=== PATIENT | female | born 1960 | race Caucasian/White ===

== ENCOUNTER 2019-03-24 10:29 | Outpatient (RCR) | payer OTHER, SELFPAY | END 2019-03-31 00:01 | LOC: SPT 10:29 | PROVIDERS: Family Provider Physician Assistant; Visit Provider Physician Assistant | DX: M54.5 Low back pain (principal); M25.562 Pain in left knee | CPT/HCPCS: 97161 ==

== ENCOUNTER 2019-07-31 10:48 | Outpatient (CLI) | payer OTHER, SELFPAY ==
--- NOTE | 2019-07-31 11:36 | MR_ITS ---
WS: [id number] MRI RIGHT KNEE NONCONTRAST TECHNIQUE: Axial PD, coronal PD fat sat, coronal PD, sagittal PD, and sagittal PD fat-sat images obta ined. CLINICAL INFORMATION: RT KNEE INTERNAL DERRANGEMENT COMPARISON: None. FINDINGS: Distal quadriceps and patella tendons are intact. Hypertrophic patella. Small suprapatellar effusion. Lobulated popliteal cyst measuring 2.0 x 1.2 x 4.5 cm. Diffuse laxity involving the ACL with edema i nvolving the proximal femoral origin suspicious for partial tear. Mild edema along the ACL tunnel. Po sterior cruciate ligament is intact. Normal lateral meniscus. Marked irregularity and blunting of the posterior horn medial meniscus with acute appearing tear extending to the articular surface. Suspicion for bucket-handle tear with menisc al fragment displaced into the intercondylar notch. Moderate to advanced chondromalacia patella. No significant subchondral edema. Normal medial and late ral patellar retinaculum. Medial and lateral collateral ligaments appear intact. Moderate chondromala johnnie involving the medial lateral joint compartments. Small osteochondral cystic change along the tibi al eminence and anterior medial femoral condyle. MR/MR knee RT wo con* [id number] IMPRESSION: 1. Diffuse laxity involving the ACL with partial tear involving the femoral AC L origin. Associated edema. 2. PCL appears intact. 3. Acute appearing suspected bucket-handle tear involving the posterior horn m edial meniscus extending to the articular surface. Suspected meniscal fragment extending into the intercondylar notch. 4. Small suprapatellar effusion. 5. Lobulated popliteal cyst as described above.
== END 2019-07-31 10:49 | disposition home or self-care (01) ==
PROVIDERS: Family Provider Physician Assistant; PCP Physician Assistant; Visit Provider Physician Assistant
DX: M23.8X1 Other internal derangements of right knee (principal); R60.9 Edema, unspecified; M25.461 Effusion, right knee; M71.21 Synovial cyst of popliteal space [Baker], right knee
CPT/HCPCS: 73721

== ENCOUNTER 2019-10-09 10:03 | Outpatient (CLI) | payer OTHER, SELFPAY ==
--- NOTE | 2019-10-09 10:09 | MM_ITS ---
WS: [id number] BILATERAL DIGITAL SCREENING MAMMOGRAPHY WITH CAD CLINICAL INFORMATION: SCREENING HISTORY: Screening mammogram. No current complaints. COMPARISON: TECHNIQUE: Bilateral CC and MLO views. FINDINGS: The breasts are composed of heterogeneous fibroglandular density tissue, which can limit the detectio n of small underlying mass lesions. No suspicious mass, asymmetry, calcifications, or architectural d istortion. No evidence of malignancy. Punctate calcification right breast. MM/[id number] IMPRESSION: BI-RADS: 2-Benign FOLLOW UP: 1 Year Follow-up Recommend return to annual screening mammography.
== END 2019-10-09 10:04 | disposition home or self-care (01) ==
LOC: RADSHAW 10:08
PROVIDERS: PCP Physician Assistant; Visit Provider Physician Assistant
DX: Z12.31 Encounter for screening mammogram for malignant neoplasm of breast (principal)
CPT/HCPCS: 77067

== ENCOUNTER → 2021-01-04 09:38 | Outpatient (BNVA) | payer OTHER, SELFPAY | PROVIDERS: PCP Physician Assistant; Visit Provider Specialist | DX: G40.309 Generalized idiopathic epilepsy and epileptic syndromes, not intractable, without status epilepticus (principal); G25.81 Restless legs syndrome; F17.200 Nicotine dependence, unspecified, uncomplicated | CPT/HCPCS: 99213; 99214 ==

== ENCOUNTER 2022-08-14 15:35 | Outpatient (CLI) | payer OTHER, SELFPAY ==
--- NOTE | 2022-08-14 15:45 | MM_ITS ---
WS: [id number] BILATERAL 3D TOMOSYNTHESIS DIGITAL SCREENING MAMMOGRAPHY WITH CAD CLINICAL INFORMATION: SCREENING HISTORY: Screening mammogram. No current complaints. COMPARISON: 2020 TECHNIQUE: Bilateral CC and MLO views. FINDINGS: The breasts are composed of heterogeneous fibroglandular density tissue, which can limit the detectio n of small underlying mass lesions. No suspicious mass, asymmetry, calcifications, or architectural d istortion. No evidence of malignancy. Incidental punctate and lucent centered calcifications. MM/[place] [id number] IMPRESSION: BI-RADS: 2-Benign FOLLOW UP: 1 Year Follow-up Recommend return to annual screening mammography.
== END 2022-08-14 15:36 | disposition home or self-care (01) ==
PROVIDERS: PCP Physician Assistant; Visit Provider Physician Assistant
DX: Z12.31 Encounter for screening mammogram for malignant neoplasm of breast (principal)
CPT/HCPCS: 77063; 77067

== ENCOUNTER → 2023-03-11 15:27 | Outpatient (BNVA) | payer OTHER, SELFPAY | PROVIDERS: PCP Physician Assistant; Visit Provider Specialist | DX: G40.309 Generalized idiopathic epilepsy and epileptic syndromes, not intractable, without status epilepticus (principal); R26.9 Unspecified abnormalities of gait and mobility | CPT/HCPCS: 36415; 80053; 80177; 84443; 85025 ==

== ENCOUNTER 2023-03-22 08:38 | Outpatient (CLI) | payer OTHER, SELFPAY ==
--- NOTE | 2023-03-22 08:45 | MR_ITS ---
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 COMPARISON: 06/02/2008 TECHNIQUE: Diffusion imaging, multiplanar T1, T2 and FLAIR imaging obtained. Diffusion imaging is normal. Bifrontal lobe atrophy and gliosis with hemosiderin is reidentified. Mil d increase in the amount of adjacent subdural fluid. These changes are stable since 2008 and may be r elated to prior trauma or surgery. Mild atrophy of the hippocampal formations. There is additional extensive, confluent increased T2 and FLAIR signal surrounding the ventricles and kirit. Linear tract through the RIGHT frontal lobe is probably from a CONTROL TECHNICIAN shunt that has been removed. Ventricles and extra-axial spaces are prominent on the basis of atrophy. Mild ventriculomegaly is sta ble. No inferior displacement of cerebellar tonsils. The sella turcica and pituitary gland are unremarkabl e. Dural venous sinuses and [place] of [place] demonstrate no abnormality on this unenhanced studies. Paranasal sinuses: Small air-fluid levels in the maxillary sinuses, LEFT greater than RIGHT. Mastoid air cells: Normal. Calvarium and scalp: Intact. IMPRESSION: 1. Normal diffusion imaging. No acute hemorrhage or infarct. 2. Stable bifrontal gliosis and encephalomalacia with hemosiderin. May be from prior trauma or surge ry. Similar to the study from 2008. 3. Ventriculomegaly is stable. 4. Advanced T2 and FLAIR signal hyperintensity surrounding the ventricles has progressed significant ly since 06/02/2008. Additional ischemic changes in the kirit. 5. Bilateral hippocampal lobe atrophy.
--- NOTE | 2023-03-22 09:30 | MR_ITS ---
WS: [id number] MRI CERVICAL SPINE NONCONTRAST HISTORY: R26.9 - Unspecified abnormalities of gait and mobility COMPARISON: None available. Technique: Multiplanar, multisequence noncontrast imaging of the cervical spine. Straightening and reversal of the normal cervical lordosis centered at C5-6. Disc spaces are all narr owed and desiccated. No fractures. Signal within the cervical cord is normal. Visualized posterior fossa is unremarkable. Craniocervical junction, C1 and C2 relationship, odontoid process and soft tissues are normal. C2-C3: Mild RIGHT foramen stenosis due to osteophyte. C3-C4: Mild annular disc bulging and RIGHT foraminal osteophyte. Very mild RIGHT foraminal stenosis. C4-C5: Mild annular disc bulging and osteophytic ridging. Mild facet arthritis. Mild bilateral forami nal stenosis. C5-C6: Diffuse annular disc bulging and osteophytic ridging. Disc osteophyte complexes in the foramin a. Mild central and moderate bilateral foraminal stenosis. There is a very small central disc protrus ion also. C6-C7: Diffuse annular disc bulging with osteophytic ridging and facet arthritis. Moderate central wi th moderate to severe bilateral foraminal stenosis due to disc osteophyte complexes. C7-T1: Normal. Air-fluid level LEFT maxillary sinus. IMPRESSION: 1. Advanced degenerative disc disease throughout the cervical spine. 2. C5-6: Mild central and moderate bilateral foraminal stenosis with a tiny central disc protrusion. Stenosis due to disc osteophyte disease. 3. C6-7: Moderate central with moderate to severe bilateral foraminal stenosis due to disc osteophyte disease. 4. C2-3 mild RIGHT foramen stenosis, C3-4 and C4-5 mild bilateral foraminal stenosis.
== END 2023-03-22 08:39 | disposition home or self-care (01) ==
LOC: RAD 08:38
PROVIDERS: PCP Physician Assistant; Visit Provider Specialist
DX: G40.309 Generalized idiopathic epilepsy and epileptic syndromes, not intractable, without status epilepticus (principal); R26.9 Unspecified abnormalities of gait and mobility; G31.89 Other specified degenerative diseases of nervous system; M25.78 Osteophyte, vertebrae; M48.02 Spinal stenosis, cervical region; M50.33 Other cervical disc degeneration, cervicothoracic region
CPT/HCPCS: 70551; 72141

== ENCOUNTER 2023-05-15 11:36 | Outpatient (CLI) | payer OTHER, SELFPAY ==
--- NOTE | 2023-05-15 11:41 | MR_ITS ---
WS: [id number] MRI LUMBAR SPINE NONCONTRAST TECHNIQUE: Sagittal T1, T2 and STIR imaging. Axial T1 and T2 imaging. CLINICAL INFORMATION: Hyperreflexia COMPARISON: None. FINDINGS: Mild lumbar curve. No acute compression. Multilevel degenerative disc disease throughout the lumbar s pine with disc space narrowing worse at L2-L5. Degenerative endplate type changes worse at L2-3. Dege nerative disc disease has progressed compared to 2016. L1-L2: Mild annular bulging. Moderate facet arthropathy. Narrowing of the LEFT subarticular recess. F oramen are patent. L2-L3: Mild disc bulge with osteophytic ridging. Impingement LEFT subarticular recess and traversing LEFT L3 nerve root. Moderate facet arthropathy. Mild to moderate LEFT and no significant RIGHT forami nal narrowing. L3-L4: Disc osteophyte complex with endplate ridging. Impingement RIGHT subarticular recess and trave rsing RIGHT L4 nerve root. Moderate facet arthropathy. Mild LEFT greater than RIGHT foraminal narrowi ng. L4-L5: Mild disc bulge with impingement RIGHT subarticular recess and traversing RIGHT L5 nerve root. Moderate facet arthropathy. Mild to moderate RIGHT and no significant LEFT foraminal narrowing. L5-S1: Mild annular bulging. Slight effacement of the ventral thecal sac. Slight contact of the trave rsing S1 nerve roots. Mild facet arthropathy. Moderate RIGHT foraminal narrowing. Visualized pelvic bony structures: Normal. Paravertebral soft tissues: Normal. Cholelithiasis. Partially visualized simple LEFT renal cyst. IMPRESSION: 1. Mild lumbar curve. No acute compression. Multilevel degenerative disc disease is progressed lubna red to 2016. 2. Cholelithiasis. This can be further evaluated with ultrasound gallbladder. 3. Disc bulging L3-4 slightly impinges the traversing L4 nerve roots bilaterally. 4. Disc bulging L4-5 impinges the traversing RIGHT L5 nerve root in the RIGHT subarticular recess wi th mild to moderate RIGHT L4-5 foraminal narrowing. 5. Moderate RIGHT L5-S1 bony foraminal narrowing. 6. Disc bulging L2-3 impinges the LEFT subarticular recess and traversing LEFT L3 nerve root. Mild t o moderate LEFT L2-3 foraminal narrowing. 7. Mild LEFT greater than RIGHT L3-4 foraminal narrowing. 8. Moderate facet arthropathy L3-L4 and L4-L5.
== END 2023-05-15 11:37 | disposition home or self-care (01) ==
LOC: RAD 11:36
PROVIDERS: PCP Physician Assistant; Visit Provider Physician Assistant
DX: R29.2 Abnormal reflex (principal); M51.36 Other intervertebral disc degeneration, lumbar region; M48.07 Spinal stenosis, lumbosacral region; M47.816 Spondylosis without myelopathy or radiculopathy, lumbar region; K80.20 Calculus of gallbladder without cholecystitis without obstruction
CPT/HCPCS: 72148

== ENCOUNTER 2023-07-15 17:56 | Emergency (ER) | payer SELFPAY ==
--- NOTE | 2023-07-15 17:58 | ECG_ITS ---
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 Measurements Intervals [place] Rate: 71 P: 83 [place]: 157 QRS: 19 QRSD: 80 T: 66 QT: 399 QTc: 434 Interpretive Statements SINUS RHYTHM WITH OCCASIONAL VENTRICULAR PREMATURE COMPLEXES POSSIBLE INFERIOR MYOCARDIAL INFARCTION , OF INDETERMINATE AGE [30 ms Q WAVE IN II/aVF] No previous ECG available for comparison Electronically Signed On 07-15-2023 19:50:27 CDT by Konstantin Moulton M.D. [id number]
--- NOTE | 2023-07-15 17:58 | XRR_ITS ---
PROCEDURE INFORMATION: Exam: XR Chest Exam date and time: 07/15/2023 6:02 PM Age: 62 years old Clinical indication: Other: Weakness TECHNIQUE: Imaging protocol: Radiologic exam of the chest. Views: 1 view. COMPARISON: MR cervical spin wo con* [id number] 03/22/2023 9:32 AM FINDINGS: Lungs: No focal consolidation. Pleural spaces: No evidence of pneumothorax. No evidence of pleural effusion. Heart/Mediastinum: Cardiomediastinal silhouette is within normal limits. Bones/joints: No evidence of acute osseous abnormality. XR/XR chest 1V portable [id number] IMPRESSION: 1. No acute cardiopulmonary abnormality.
[2023-07-15 18:07] VITALS: BP 144/78; PULSE 78; RESP 16; TEMP 36.6; O2SAT 94
[2023-07-15 20:46] LABS: Basophils # 0.1 10^3/uL (0.0-0.1); Basophils % 0.7 %; Eosinophils # 0.2 10^3/uL (0.0-0.8); Eosinophils % 1.6 %; Hematocrit 47.8 % (36-47); Lymphocytes # 3.5 10^3/uL (0.8-4.8); Lymphocytes % 33.8 %; Mean Corpuscular HGB Conc 34.7 g/dL (30-55); Mean Corpuscular Hemoglobin 33.7 pg (27-33); Mean Corpuscular Volume 97.2 fl (85-98); Mean Platelet Volume 10.2 fL (7.4-10.4); Neutrophils # 5.54 10^3/uL (1.8-7.7); Neutrophils % 53.6 %; Nucleated Red Blood Cells % 0 %; Platelet Count 218 10^3/cmm (157-399); Red Blood Count 4.92 10^6/uL (3.85-5.65); Red Cell Distribution Width 13.6 % (12.1-15.1); White Blood Count 10.32 10^3/uL (3.29-11.43)
[2023-07-15 20:59] LABS: INR 0.93 (0.8-1.2)
[2023-07-15] MEDS: dexamethasone 10 mg/mL INJ 8 MG IM (21:03)
[2023-07-15] MEDS: orphenadrine 30 mg/mL Inj 2 mL 60 MG IM (21:03)
[2023-07-15] MEDS: HYDROcodone-acetaminophen 7.5-325 mg Tablet 1 TAB PO (21:03)
[2023-07-15 21:08] LABS: Alanine Aminotransferase 11 U/L (0-33); Albumin Level 4.5 g/dL (3.5-5.2); Alkaline Phosphatase 70 U/L (35-105); Anion Gap 12.5 (5-19); Aspartate Amino Transferase 22 U/L (0-32); Blood Urea Nitrogen 17 mg/dL (8-23); Calcium 10.4 mg/dL (8.5-10.5); Carbon Dioxide 32 mmol/L (22-29); Chloride 97 mmol/L (98-107); Creatinine Clr Calc Pharmacy 65.2418; Globulin 3.3 g/dL (1.3-4.6); Glomerular Filtration Rate 100.6 mL/min (90-130); Glucose 88 mg/dL (65-115); Osmolality Calculated 287 mOsm/kg (285-295); Potassium 3.5 mmol/L (3.5-5.1); Sodium 138 mmol/L (136-145); Total Bilirubin 0.2 mg/dL (0.15-1.2); Total Protein 7.8 g/dL (6.6-8.7)
[2023-07-15 21:11] VITALS: BP 173/98; PULSE 61; RESP 16; O2SAT 95
--- NOTE | 2023-07-15 21:55 | W.ED.BACK ---
Documented by User: AMY Moore 07/16/23 00:19 HPI - Back Pain/Injury General: Chief Complaint: Back Pain/Injury Stated Complaint: weakness Time Seen by Provider: 07/15/23 20:32 Source: patient Mode of arrival: ambulatory Limitations: no limitations History of Present Illness: Patient is a 62-year-old female with history of multiple bulging disks in the lumbar back who presents to the emergency department complaining of worsening back pain. She notes that she is followed by pain clinic, however she is unable to wait to her next appointment due to the pain. She states that she was denied pain medication last time. Her last imaging of her back came in May where she had an MRI showing progressive worsening of bulging disks. She notes she has not had an appointment with spine surgeon recently, however. She denies any bowel or bladder incontinence, saddle anesthesia, or any other concerning symptoms. However she does note some radiation of the pain down the right leg. She does note that it is much harder to do her activities of daily living, as her son has been bathing her. She notes that all of this is due to the pain, and she denies any other symptoms. MD elicited complaint: back pain Pertinent past history: prior back pain Timing: constant Similar Symptoms Previously: Yes Location: lumbar spine Radiation: right upper leg Exacerbating factors: movement Associated symptoms: Deny abdominal pain, chills, dysuria, fatigue, fever(s), nausea or vomiting Review of Systems General: Reports: 10 or more systems reviewed and unremarkable except in HPI and below Const: Denies: fever(s), chills or fatigue Eyes: Denies: change in vision ENMT: Denies: throat pain, ear or mastoid pain or nasal discharge Card: Denies: chest pain, palpitations, swelling of feet/ankles or lightheadedness Resp: Denies: dyspnea, productive cough or wheezing GI: Denies: abdominal pain, nausea, vomiting, diarrhea or constipation : Denies: flank pain, difficulty voiding, dysuria or urinary frequency Musc: Reports: back pain; Denies: neck pain or joint pain Skin/Breast: Denies: rash Neuro: Denies: headache(s), numbness in extremities or weakness in extremities PFS ED PFSH: Medical History Dystonia Depression Arthritis Surgical History History of knee surgery Family History Other Arthritis Social History Smoking and tobacco/nicotine status: former use of tobacco/nicotine Physical Exam Const: COMMON NORMALS: no acute distress, patient oriented x3 and no limitations GENERAL APPEARANCE: cooperative, comfortable and well developed ORIENTATION/CONSCIOUSNESS: Yes awake, Yes oriented to person, Yes oriented to place and Yes oriented to time HENMT: COMMON NORMALS: normocephalic, atraumatic and hearing grossly normal bilaterally HEAD & SCALP: normocephalic and atraumatic Eye: COMMON NORMALS: Equal, round and reactive pupils present, EOMs intact bilaterally and conjunctivae normal CONJUNCTIVA: Yes conjunctivae normal PUPIL: Yes Equal, round and reactive pupils present Neck/C-Spine: COMMON NORMALS: full ROM, supple and no JVD Resp: COMMON NORMALS: normal respiratory effort, No retractions, No use of accessory muscles and clear to auscultation bilaterally AUSCULTATION: clear to auscultation bilaterally Cardio: COMMON NORMALS: no JVD, regular rate, regular rhythm, No clicks present (Cardio), No murmurs present (Cardio) and No rub (Cardio) RATE: regular rate RHYTHM: regular rhythm Back/Pelvis: THORACIC SPINE/UPPER BACK: Yes normal to inspection LUMBAR SPINE/LOWER BACK: Yes normal to inspection, Yes ROM limited, Yes pain with ROM, Yes lumbar spinal tenderness and Yes straight leg raise positive right Straight leg raise positive details right: at 30 degrees Extremity: COMMON NORMALS: normal to inspection, full ROM and capillary refill normal Neuro: COMMON NORMALS: patient oriented x3, moves all extremities, no focal motor deficits, no sensory deficits noted and deep tendon reflexes 2+ bilaterally SENSORIUM/ORIENTATION: Yes oriented to person, Yes oriented to place and Yes oriented to time Psych: COMMON NORMALS: mental status grossly normal and Normal thought process present THOUGHT PROCESS: Normal thought process present Skin: COMMON NORMALS: no rashes or lesions noted GENERAL SKIN EXAM: no rashes or lesions noted Course Vital Signs: Vital signs: Vital Signs Temperature 97.8 F 07/15/23 18:07 Pulse Rate 63 04/15/24 23:30 Respiratory Rate 16 07/15/23 23:30 Blood Pressure 181/101 07/15/23 23:30 Pulse Oximetry 95 07/15/23 23:30 MDM - Back Pain/Injury Medical Decision Making This patient was seen and evaluated due to acute on chronic low back pain. She has noted that her activities of daily living have been severely decreased due to her worsening back pain. She last had an MRI in May that showed multi lumbar disc degeneration with severe impingement. She follows up with Dr. Lai for pain management, and is due to see him next week. She has not seen a Ortho spine physician recently, stating that the last one she saw was in [place]. She did denied to me all red flag back symptoms such as bowel or bladder incontinence or saddle anesthesia. However, I did do a lumbar CT to assess the integrity of her low back in the emergency department setting. It still showed consistent findings of severe multilevel degeneration of the disc space in the lumbar region. I informed her that she needs to follow-up with Ortho, in which I made a referral. She did report improvement of her symptoms after I gave her a shot of Norflex, Decadron, and pain medication. Return precautions were given such as the red flag back symptoms, and patient agrees with discharge home. Labs 07/15/23 20:37 07/15/23 20:37 Radiology Impressions Chest X-Ray 07/15/23 17:58 IMPRESSION: 1. No acute cardiopulmonary abnormality. Lumbar Spine CT 07/15/23 21:56 IMPRESSION: 1. Severe multilevel spondylosis without evidence of acute fracture or subluxation of the lumbar spine. 2. Contacting/impingement of the exiting right L4 and L5 nerve roots. Laboratory Results WBC 10.32 10^3/uL (3.29-11.43) 07/15/23 20:37 RBC 4.92 10^6/uL (3.85-5.65) 07/15/23 20:37 Hgb 16.60 g/dL (11.27-16.99) 07/15/23 20:37 Hct 47.8 % (36-47) H 07/15/23 20:37 MCV 97.2 fl (85-98) 07/15/23 20:37 MCH 33.7 pg (27-33) H 07/15/23 20:37 MCHC 34.7 g/dL (30-55) 07/15/23 20:37 RDW 13.6 % (12.1-15.1) 07/15/23 20:37 Plt Count 218 10^3/cmm (157-399) 07/15/23 20:37 MPV 10.2 fL (7.4-10.4) 07/15/23 20:37 Neut % (Auto) 53.6 % 07/15/23 20:37 Lymph % (Auto) 33.8 % 07/15/23 20:37 Johnston % (Auto) 10.0 % 07/15/23 20:37 Eos % (Auto) 1.6 % 07/15/23 20:37 Baso % (Auto) 0.7 % 07/15/23 20:37 Neut # (Auto) 5.54 10^3/uL (1.8-7.7) 07/15/23 20:37 Lymph # (Auto) 3.5 10^3/uL (0.8-4.8) 07/15/23 20:37 Johnston # (Auto) 1.0 10^3/uL (0.2-0.9) H 07/15/23 20:37 Eos # (Auto) 0.2 10^3/uL (0.0-0.8) 07/15/23 20:37 Baso # (Auto) 0.1 10^3/uL (0.0-0.1) 07/15/23 20:37 Nucleated RBC % (auto) 0 % 07/15/23 20: Nucleated RBCs # 0.0 /100WBC 07/15/23 20:37 PT 12.80 SECONDS (12.1-14.9) 07/15/23 20:37 INR 0.93 (0.8-1.2) 07/15/23 20:37 Sodium 138 mmol/L (136-145) 07/15/23 20:37 Potassium 3.5 mmol/L (3.5-5.1) 07/15/23 20:37 Chloride 97 mmol/L (98-107) L 07/15/23 20:37 Carbon Dioxide 32 mmol/L (22-29) H 07/15/23 20:37 Anion Gap 12.5 (5-19) 07/15/23 20:37 BUN 17 mg/dL (8-23) 07/15/23 20:37 Creatinine 0.6 mg/dL (0.5-0.9) 07/15/23 20: GFR Calculation 100.6 mL/min (90-130) 07/15/23 20: Glucose 88 mg/dL (65-115) 07/15/23 20:37 Calculated Osmolality 287 mOsm/kg (285-295) 07/15/23 20: Calcium 10.4 mg/dL (8.5-10.5) 07/15/23 20: Total Bilirubin 0.2 mg/dL (0.15-1.2) 07/15/23 20: AST 22 U/L (0-32) 07/15/23: ALT 11 U/L (0-33) 07/15/23 20: Alkaline Phosphatase 70 U/L (35-105) 07/15/23 20: Total Protein 7.8 g/dL (6.6-8.7) 07/15/23 20: Albumin 4.5 g/dL (3.5-5.2) 07/15/23 20: Globulin 3.3 g/dL (1.3-4.6) 07/15/23 20:37 Urine Color Yellow (Yellow) 07/15/23 22:00 Urine Appearance Sl hazy (CLEAR) A 07/15/23 22:00 Urine pH 6 (5-7) 07/15/23 22:00 Ur Specific [place] 1.015 (1.005-1.030) 07/15/23 22:00 Urine Protein Neg (Negative) 07/15/23 22:00 Urine Glucose (UA) Norm (Normal) 07/15/23 22:00 Urine Ketones Negative (Negative) 07/15/23 22:00 Urine Blood Neg (Negative) 07/15/23 22:00 Urine Nitrate Negative (Negative) 07/15/23 22:00 Urine Bilirubin Neg (Negative) 07/15/23 22:00 Urine Urobilinogen Neg mg/dL (Negative) 07/15/23 22:00 Ur Leukocyte Esterase 2+ (Negative) H 07/15/23 22:00 Urine RBC 0-4 /hpf (0-2) H 07/15/23 22:00 Urine WBC 5-10 /hpf (0-5) H 07/15/23 22:00 Ur Squamous Epith Cells 10-15 /hpf (0-5) H 07/15/23 22:00 Amorphous Sediment Not Reportable 07/15/23 22:00 Urine Bacteria Trace /hpf (NONE) 07/15/23 22:00 Urine Mucus 3+ /hpf 07/15/23 22:00 All radiology interpretation(s) finalized by discharge Discharge Plan Discharge Patient Disposition: Home Clinical Impression: Degenerative lumbar spinal stenosis Condition: Stable Prescriptions: No Action ketoconazole 2 % cream 1 applic topical BID Qty: 60 1RF Rx Instructions: To feet x 4 weeks then prn [id number] 333-133-8.3 mg tablet PO celecoxib [Celebrex] 200 mg capsule 200 mg PO BID acyclovir 400 mg tablet 400 mg PO BID PRN penicillin V potassium 250 mg tablet 250 mg PO QID 10 Days Qty: 40 0RF levetiracetam 500 mg tablet extended release 24 hr 1,000 mg .ROUTE .COMPLEX Qty: 180 3RF Rx Instructions: take 2 tabs daily citalopram 40 mg tablet 40 mg PO DAILY Qty: 90 3RF pregabalin [Lyrica] 100 mg capsule 100 mg PO TID Qty: 300 3RF Discharge Orders: Discharge ED (Routine); Ordered 07/15/23 Ordered By: Jay Toussaint Referrals: Rosy Javier PA [Primary Care Provider] - Discharge Diet: Usual diet Discharge Activity: Increase activity as tolerated Patient Instructions: Lumbar Spinal Stenosis (ED) Activity Restrictions/Additional Instructions: Follow-up with orthopedic/spine surgery as discussed. Continue follow-up with pain management. Return with any new or concerning symptoms you may have. Coding Level of Care Code ED [employer] for [employer] Documented by User: Gautam Marie DO 07/17/23 05:56 HPI - Back Pain/Injury General: Chief Complaint: Back Pain/Injury Stated Complaint: weakness Time Seen by Provider: 07/15/23 20:32 [facility] ED PFS: Medical History Dystonia Depression Arthritis Surgical History History of knee surgery Family History Other Arthritis Social History Smoking and tobacco/nicotine status: former use of tobacco/nicotine Course Vital Signs: Vital signs: Vital Signs Temperature 97.8 F 07/15/23 18:07 Pulse Rate 63 07/15/23 23:30 Respiratory Rate 16 07/15/23 23:30 Blood Pressure 181/101 07/15/23 23:30 Pulse Oximetry 95 07/15/23 23:30 MDM - Back Pain/Injury Medical Decision Making This patient was seen and evaluated due to acute on chronic low back pain. She has noted that her activities of daily living have been severely decreased due to her worsening back pain. She last had an MRI in May that showed multi lumbar disc degeneration with severe impingement. She follows up with Dr. Lai for pain management, and is due to see him next week. She has not seen a Ortho spine physician recently, stating that the last one she saw was in [place]. She did denied to me all red flag back symptoms such as bowel or bladder incontinence or saddle anesthesia. However, I did do a lumbar CT to assess the integrity of her low back in the emergency department setting. It still showed consistent findings of severe multilevel degeneration of the disc space in the lumbar region. I informed her that she needs to follow-up with Ortho, in which I made a referral. She did report improvement of her symptoms after I gave her a shot of Norflex, Decadron, and pain medication. Return precautions were given such as the red flag back symptoms, and patient agrees with discharge home. Chart reviewed Labs 07/15/23 20:37 07/15/23 20:37 Radiology Impressions Chest X-Ray 07/15/23 17:58 IMPRESSION: 1. No acute cardiopulmonary abnormality. Lumbar Spine CT 07/15/23 21:56 IMPRESSION: 1. Severe multilevel spondylosis without evidence of acute fracture or subluxation of the lumbar spine. 2. Contacting/impingement of the exiting right L4 and L5 nerve roots. Laboratory Results WBC 10.32 10^3/uL (3.29-11.43) 07/15/23 20: RBC 4.92 10^6/uL (3.85-5.65) 07/15/23 20:37 Hgb 16.60 g/dL (11.27-16.99) 07/15/23 20: Hct 47.8 % (36-47) H 07/15/23 20:37 MCV 97.2 fl (85-98) 07/15/23 20:37 MCH 33.7 pg (27-33) H 07/15/23 20: MCHC 34.7 g/dL (30-55) 07/15/23 20: RDW 13.6 % (12.1-15.1) 07/15/23 20: Plt Count 218 10^3/cmm (157-399) 07/15/23 20: MPV 10.2 fL (7.4-10.4) 07/15/23 20:37 Neut % (Auto) 53.6 % 07/15/23 20:37 Lymph % (Auto) 33.8 % 07/15/23 20:37 Johnston % (Auto) 10.0 % 07/15/23 20: Eos % (Auto) 1.6 % 07/15/23 20: Baso % (Auto) 0.7 % 07/15/23: Neut # (Auto) 5.54 10^3/uL (1.8-7.7) 07/15/23: Lymph # (Auto) 3.5 10^3/uL (0.8-4.8) 07/15/23 20:37 Johnston # (Auto) 1.0 10^3/uL (0.2-0.9) H 07/15/23 20:37 Eos # (Auto) 0.2 10^3/uL (0.0-0.8) 07/15/23 20: Baso # (Auto) 0.1 10^3/uL (0.0-0.1) 07/15/23 20: Nucleated RBC % (auto) 0 % 04/15/24 20:37 Nucleated RBCs # 0.0 /100WBC 07/15/23 20:37 PT 12.80 SECONDS (12.1-14.9) 07/15/23 20:37 INR 0.93 (0.8-1.2) 07/15/23 20:37 Sodium 138 mmol/L (136-145) 07/15/23 20:37 Potassium 3.5 mmol/L (3.5-5.1) 07/15/23 20:37 Chloride 97 mmol/L (98-107) L 07/15/23 20:37 Carbon Dioxide 32 mmol/L (22-29) H 07/15/23 20:37 Anion Gap 12.5 (5-19) 07/15/23 20:37 BUN 17 mg/dL (8-23) 07/15/23 20:37 Creatinine 0.6 mg/dL (0.5-0.9) 07/15/23 20:37 GFR Calculation 100.6 mL/min (90-130) 07/15/23 20:37 Glucose 88 mg/dL (65-115) 07/15/23 20:37 Calculated Osmolality 287 mOsm/kg (285-295) 07/15/23 20:37 Calcium 10.4 mg/dL (8.5-10.5) 07/15/23 20:37 Total Bilirubin 0.2 mg/dL (0.15-1.2) 07/15/23 20:37 AST 22 U/L (0-32) 07/15/23 20:37 ALT 11 U/L (0-33) 07/15/23 20:37 Alkaline Phosphatase 70 U/L (35-105) 07/15/23 20:37 Total Protein 7.8 g/dL (6.6-8.7) 07/15/23 20:37 Albumin 4.5 g/dL (3.5-5.2) 07/15/23 20:37 Globulin 3.3 g/dL (1.3-4.6) 07/15/23 20:37 Urine Color Yellow (Yellow) 07/15/23 22:00 Urine Appearance Sl hazy (CLEAR) A 07/15/23 22:00 Urine pH 6 (5-7) 07/15/23 22:00 Ur Specific [place] 1.015 (1.005-1.030) 07/15/23 22:00 Urine Protein Neg (Negative) 07/15/23 22:00 Urine Glucose (UA) Norm (Normal) 07/15/23 22:00 Urine Ketones Negative (Negative) 07/15/23 22:00 Urine Blood Neg (Negative) 07/15/23 22:00 Urine Nitrate Negative (Negative) 07/15/23 22:00 Urine Bilirubin Neg (Negative) 07/15/23 22:00 Urine Urobilinogen Neg mg/dL (Negative) 07/15/23 22:00 Ur Leukocyte Esterase 2+ (Negative) H 07/15/23 22:00 Urine RBC 0-4 /hpf (0-2) H 07/15/23 22:00 Urine WBC 5-10 /hpf (0-5) H 07/15/23 22:00 Ur Squamous Epith Cells 10-15 /hpf (0-5) H 07/15/23 22:00 Amorphous Sediment Not Reportable 07/15/23 22:00 Urine Bacteria Trace /hpf (NONE) 07/15/23 22:00 Urine Mucus 3+ /hpf 07/15/23 22:00 Discharge Plan Discharge Patient Disposition: Home Clinical Impression: Degenerative lumbar spinal stenosis Condition: Stable Prescriptions: No Action ketoconazole 2 % cream 1 applic topical BID Qty: 60 1RF Rx Instructions: To feet x 4 weeks then prn [id number]-[id number] 333-133-8.3 mg tablet PO celecoxib [Celebrex] 200 mg capsule 200 mg PO BID acyclovir 400 mg tablet 400 mg PO BID PRN penicillin V potassium 250 mg tablet 250 mg PO QID 10 Days Qty: 40 0RF levetiracetam 500 mg tablet extended release 24 hr 1,000 mg .ROUTE .COMPLEX Qty: 180 3RF Rx Instructions: take 2 tabs daily citalopram 40 mg tablet 40 mg PO DAILY Qty: 90 3RF pregabalin [Lyrica] 100 mg capsule 100 mg PO TID Qty: 300 3RF Discharge Orders: Discharge ED (Routine); Ordered 07/15/23 Ordered By: Jay Toussaint Referrals: Rosy Javier PA [Primary Care Provider] - Discharge Diet: Usual diet Discharge Activity: Increase activity as tolerated Patient Instructions: Lumbar Spinal Stenosis (ED) Activity Restrictions/Additional Instructions: Follow-up with orthopedic/spine surgery as discussed. Continue follow-up with pain management. Return with any new or concerning symptoms you may have. Coding Level of Care Code ED [employer] for Юлия Staley
--- NOTE | 2023-07-15 21:56 | CTR_ITS ---
PROCEDURE INFORMATION: Exam: CT Lumbar Spine Without Contrast Exam date and time: 07/15/2023 10:06 PM Age: 62 years old Clinical indication: Low back pain; Additional info: Low back pain worsening TECHNIQUE: Imaging protocol: Computed tomography of the lumbar spine without contrast. Radiation optimization: All CT scans at this facility use at least one of these dose optimization techniques: automated exposure control; mA and/or kV adjustment per patient size (includes targeted exams where dose is matched to clinical indication); or iterative reconstruction. COMPARISON: MR lumbar spine wo con* [id number] 05/15/2023 12:08 PM RADIATION DOSE METRICS: Total DLP (mGy-cm): 261.8 FINDINGS: Bones/joints: No evidence of acute fracture or subluxation. Severe multilevel spondylosis of the lumbar spine with facet arthrosis, osteophytosis and endplate degeneration. There is 7 mm lateral translation of L3 on L4 and 3 mm lateral translation of L4 on L5. L1-L2: No central or foraminal stenosis. L2-L3: Circumferential disc bulge with severe disc height loss and severe endplate degeneration along with moderate facet arthrosis resulting in moderate left-sided foraminal stenosis. Borderline narrowing of the thecal sac to 9 mm in AP diameter. L3-L4: Circumferential disc osteophyte complex with severe disc height loss and severe endplate degeneration along with moderate facet arthrosis resulting in moderate left-sided foraminal stenosis with contacting of the exiting left L3 nerve root.rrrrr Borderline narrowing of the thecal sac to 9 mm in AP diameter. L4-L5: Circumferential disc osteophyte complex with severe disc height loss and severe endplate degeneration along with moderate-severe facet arthrosis resulting in moderate-severe right-sided foraminal stenosis with contacting/impingement of the exiting right L4 nerve root. Mild-moderate left-sided foraminal stenosis with contacting of the undersurface of the exiting left L4 nerve root. No central stenosis. L5-S1: Circumferential disc osteophyte complex with severe disc height loss and severe endplate degeneration along with severe facet arthrosis. There is severe right-sided foraminal stenosis with contacting/impingement of the exiting right L5 nerve root. Moderate-severe left-sided foraminal stenosis with contacting of the exiting left L5 nerve root. No central stenosis. Soft tissues: The paraspinal soft tissues are grossly unremarkable. No evidence of acute abnormality in the visualized retroperitoneal soft tissues. No evidence of fluid collection hematoma. CT/CT lumbar spine wo con* [id number] IMPRESSION: 1. Severe multilevel spondylosis without evidence of acute fracture or subluxation of the lumbar spine. 2. Contacting/impingement of the exiting right L4 and L5 nerve roots.
[2023-07-15 22:00] VITALS: BP 173/93; PULSE 65; RESP 18; O2SAT 91
[2023-07-15 22:24] LABS: Add Urine Culture? No; Add Urine Microscopic? YES; Bacteria Urine TRACE /hpf; Bilirubin Urine Neg (Negative); Blood Urine Neg (Negative); Glucose Urine UA Norm (Normal); Ketones Urine Negative (Negative); Leukocyte Esterase Urine 2+ (Negative); Mucus Urine 3+ /hpf; Nitrate Urine Negative (Negative); Protein Urine Neg (Negative); RBC Urine 0-4 /hpf (0-2); Specific Gravity, Urine 1.015 (1.005-1.030); Urine Appearance SL Hazy (CLEAR); Urine Color Yellow (Yellow); Urobilinogen Urine Neg (Negative); pH Urine 6 (5-7)
[2023-07-15 22:30] VITALS: BP 159/92; PULSE 61; RESP 16; O2SAT 92
[2023-07-15 23:30] VITALS: BP 181/101; PULSE 63; RESP 16; O2SAT 95
--- NOTE | 2023-07-16 07:56 | DCPLANNER ---
Message sent to Ortho for follow up
== END 2023-07-15 23:31 | disposition home or self-care (01) ==
PROVIDERS: Emergency Medicine; Emergency Provider Physician Assistant; PCP Physician Assistant
DX: M48.061 Spinal stenosis, lumbar region without neurogenic claudication (principal); Z87.891 Personal history of nicotine dependence
CPT/HCPCS: 36415; 71045; 72131; 80053; 81001; 85025; 85610; 93005; 96372; 99285; J1100; J2360

== ENCOUNTER → 2023-08-01 14:48 | Outpatient (BNVA) | payer OTHER, SELFPAY | PROVIDERS: PCP Physician Assistant; Visit Provider Orthopaedic Surgery | DX: M51.16 Intervertebral disc disorders with radiculopathy, lumbar region (principal) | CPT/HCPCS: 36415; 72110; 80053; 81001; 85025 ==

== ENCOUNTER → 2023-08-06 10:00 | Outpatient (BNVA) | payer OTHER, SELFPAY | PROVIDERS: PCP Physician Assistant; Visit Provider Family Medicine | DX: Z01.818 Encounter for other preprocedural examination (principal) | CPT/HCPCS: 80048 ==

== ENCOUNTER → 2023-08-07 14:29 | Outpatient (BNVA) | payer OTHER, SELFPAY | PROVIDERS: PCP Physician Assistant; Visit Provider Family Medicine | DX: Z01.818 Encounter for other preprocedural examination (principal) | CPT/HCPCS: 81003 ==

== ENCOUNTER 2023-08-09 09:25 | Day surgery (SDC) | payer OTHER, SELFPAY ==
[2023-08-09] VITALS (11 sets, daily range): BP systolic 112–175; BP diastolic 59–100; PULSE 71–95; RESP 14–18; TEMP 36.2–36.6; O2SAT 90–100; BMI 17.7
[2023-08-09] MEDS: sodium chloride 0.9% 1,000 ML 30 ML IV (09:56)
--- NOTE | 2023-08-09 10:38 | P.ANESASSM_ITS ---
Pre-Anesthetic Assessment Height/Weight: Height 1.52 m Weight 41.277 kg Temp Pulse Resp BP Pulse Ox O2 Del Method 97.1 F L 71 18 175/100 92 Room Air 08/09/23 09:49 08/09/23 09:49 08/09/23 09:49 08/09/23 09:49 08/09/23 09:49 08/09/23 09:49 Preop Diagnosis: Lumbar stenosis with neurogenic claudication Operation Date: 08/09/23 11:05 Proposed Procedures p Lumbar Spine Decompression Lumbar Decompression(Not Applicable) - Brooks Grant, DO Familial anesthetic complications: None Was Beta Angy taken within 24 hours: N/A Was Clonidine taken within 24 hours: N/A Last intake: Intake Last Liquid Date 08/08/23 Last Liquid Time 11:45 Last Solid Date 08/08/23 Last Solid Time 22:30 Social Tobacco and No alcohol Exam alert, oriented x 3, clear to auscultation bilaterally and regular rate & rhythm 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, 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 Anesthetic Plan ASA status: 3 Anesthesia: General Risk of > 500 ml blood loss (7ml/kg in children): No Medications/Allergies Home Medications Medication Instructions Recorded Confirmed Last Taken Type celecoxib 200 mg capsule (Celebrex) 200 mg PO BID 05/28/19 08/09/23 08/05/23 History acyclovir 400 mg tablet 400 mg PO BID PRN Outbreak 12/26/21 08/09/23 Unknown History citalopram 40 mg tablet 40 mg PO DAILY #90 tabs 01/08/23 08/09/23 08/08/23 Rx levetiracetam 500 mg 1,000 mg (2 x 500 mg) .Route 01/08/23 08/09/23 08/08/23 Rx tablet,extended release 24 hr .COMPLEX #180 tabs pregabalin 100 mg capsule (Lyrica) 100 mg PO TID #300 caps 04/23/23 08/09/23 08/09/23 Rx Allergies Allergy/AdvReac Type Severity Reaction Status Date / Time amoxicillin [From Augmentin] Allergy ADR-Nausea Verified 08/09/23 10:33 clavulanic acid Allergy ADR-Nausea Verified 08/09/23 10:33 [From Augmentin] Current Medications Generic Name Dose Route Start Last Admin Trade Name Freq PRN Reason Stop Dose Admin Sodium Chloride 1,000 mls @ 30 mls/hr 08/09/23 09:30 08/09/23 09:56 Sodium Chloride 0.9% IV 08/10/23 09:29 30 mls/hr .Q24H KILO Administration PFSH Anesthesia Medical History Dystonia Depression Arthritis Surgical History History of knee surgery Family History Other Arthritis Social History Smoking and tobacco/nicotine status: former use of tobacco/nicotine Data Anesthesia Cardiac Studies: No Data to Display
--- NOTE | 2023-08-09 11:45 | W.PM.OPSUD ---
Surgery/Procedure H&P Update DATE OF PROCEDURE: August 09, 2023 DATE H&P PERFORMED: 08/06/23 H&P UPDATE INFORMATION: I have reviewed H&P completed within last 30 days, I have examined patient prior to procedure and No changes to prior documentation PREOP DIAGNOSIS: Lumbar stenosis with neurogenic claudication PLANNED PROCEDURE: Operation Date: 08/09/23 11:05 Proposed Procedures p Lumbar Spine Decompression Lumbar Decompression(Not Applicable) - Brooks Grant DO
[2023-08-09] MEDS: ceFAZolin 2,000 MG in sodium chloride 0.9% (plus) 50 ML 100 MG IV (11:52)
[2023-08-09] MEDS: lidocaine-epi 1% 20 mL INJ INJECTION (12:29)
--- NOTE | 2023-08-09 13:37 | PM.OP ---
Operative Report Date of procedure: August 09, 2023 Pre-op diagnosis: Lumbar stenosis neurogenic claudication Post-op diagnosis: same Procedure done: 1. L4-5 laminectomy with partial facetectomy 2. L5-S1 laminectomy with partial facetectomy Surgeon: Brooks Grant DO Estimated blood loss (mL): 10 Procedure: 1. L4-5 laminectomy with partial facetectomy 2. L5-S1 laminectomy with partial facetectomy Patient is brought to the operative suite. After undergoing anesthesia they are placed in the prone position. All areas of impingement are well padded. Patient is then prepped and draped in the normal sterile fashion. A skin incision is made over the L4-5 level. This is confirmed under c-arm guidance. A series of dilators are passed and the tubular retractor is docked on the L4 lamina. A bovie is used to clear the soft tissue off the lamina and the L 4/5 facet joint. A high speed osiel is then used to perform the laminectomy and take down the medial aspect of the L 4/5 facet joint. A kerrison rongeure was then used to take down the remaining lamina and smooth the edged of the laminectomy up to the point where the ligamentum flavum attaches. Attention was then brought to the medial aspect of the facet joint. The remaining medial aspect of the superior and inferior aspect of the facet joint were taken down with the kerrison from the pedicle of L4 to L 5. The facet joint had significant hypertrophy. Attention was then brought to the Ligamentum Flavum. The ligament was taken down from the lamina of L4 to L5 and out medially to the remaining facet joint. The ligament was thick. The dura was then exposed. The dura was in good repair. The L4 nerve was then traced with a curette out the L4 6/5 foramen and found to be adequately decompressed. The L5 nerve was traced with a curette around the L5 pedicle. The lateral recess was opened with a kerrison helping to further decompress the L5 nerve. The tubular retractor was then tilted to the contralateral side. The bovie was used to take down the soft tissue on the spinous process. The high speed osiel was used to take down the spinous process and then the contralateral lamina of L4. The kerrison rongeur was used to take down the remaining lamina to the point where the ligamentum flavum attached and the ligamentum flavum was taken down from L4 to L5. The kerrison rongeur was then used to reach across and take down the medial aspect of the contralateral L4/5 facet joint.The currete was used to trace the contralateral L4 nerve out the L4/5 foramen to make sure it was decompressed adequatesly and the L5 was traced around the L5 pedicle. The lateral recess was opened further with the kerrison to ensure the L5 is adequately decompressed. Wound is then irrigated copiously with saline and surgiflo is used to stop any bleeding. The tubular retractor is removed and the A skin incision is made over the L5-S1 level. This is confirmed under c-arm guidance. A series of dilators are passed and the tubular retractor is docked on the L5 lamina. A bovie is used to clear the soft tissue off the lamina and the L 5/S1 facet joint. A high speed osiel is then used to perform the laminectomy and take down the medial aspect of the L 5/S1 facet joint. A kerrison rongeure was then used to take down the remaining lamina and smooth the edged of the laminectomy up to the point where the ligamentum flavum attaches. Attention was then brought to the medial aspect of the facet joint. The remaining medial aspect of the superior and inferior aspect of the facet joint were taken down with the kerrison from the pedicle of L5 to S1. The facet joint had significant hypertrophy. Attention was then brought to the Ligamentum Flavum. The ligament was taken down from the lamina of L5 to S1 and out medially to the remaining facet joint. The ligament was thick. The dura was then exposed. The dura was in good repair. The L5 nerve was then traced with a curette out the L5/S1 foramen and found to be adequately decompressed. The S1 nerve was traced with a curette around the S1 pedicle. The lateral recess was opened with a kerrison helping to further decompress the S1 nerve. The tubular retractor was then tilted to the contralateral side. The bovie was used to take down the soft tissue on the spinous process. The high speed osiel was used to take down the spinous process and then the contralateral lamina of L5. The kerrison rongeur was used to take down the remaining lamina to the point where the ligamentum flavum attached and the ligamentum flavum was taken down from L5 to S1. The kerrison rongeur was then used to reach across and take down the medial aspect of the contralateral L5/S1 facet joint.The currete was used to trace the contralateral L5 nerve out the L5/S1 foramen to make sure it was decompressed adequatesly and the S1 was traced around the S1 pedicle. The lateral recess was opened further with the kerrison to ensure the S1 is adequately decompressed. Wound is then irrigated copiously with saline and surgiflo is used to stop any bleeding. The tubular retractor is removed and the wound is closed with vicryl and monocryl suture. Glue is then used to protect the wound. A sterile dressing is then placed. Patient was then placed in the supine position and transferred to the PACU in stable condition.
--- NOTE | 2023-08-09 13:52 | XR_ITS ---
WS: [id number] Lumbar spine, C-arm fluoroscopy, 08/09/2023 Clinical Data: or pic, decompression Comparison: Lumbar spine, 08/01/2023 Findings: Dr. Grant performed a lumbar decompression. XR/XR lumbar spine 1V 27220 Impression: Lumbar decompression.
--- NOTE | 2023-08-09 15:35 | ANE.PACU2 ---
Inpatient post-anesthesia follow up: Airway intact: Yes Vital signs: Temperature 97.9 F Pulse Rate 94 Respiratory Rate 17 Blood Pressure 112/69 Pulse Oximetry 94 Oxygen Delivery Me thod Room Air Oxygen Flow Rate 1 Fraction of Inspir ed Oxygen Hydration adequate: Yes Nausea and vomiting: No Pain level: 1 Mental status: Baseline
== END 2023-08-09 15:35 | disposition home or self-care (01) ==
PROVIDERS: PCP Physician Assistant; Visit Provider Orthopaedic Surgery
PROC: (CPT 63005; principal; 2023-08-09 10:55)
DX: M48.062 Spinal stenosis, lumbar region with neurogenic claudication (principal)
CPT/HCPCS: 63047; 63048; 72020; 76000; J0330; J0690; J1100; J2250; J2310; J2405; J2704; J2710; J3010; J3490; J7030

== ENCOUNTER 2023-08-17 10:24 | Inpatient (IN) | payer OTHER, SELFPAY ==
[2023-08-17] VITALS (9 sets, daily range): BP systolic 123–173; BP diastolic 64–109; PULSE 89–102; RESP 15–18; TEMP 36.4–36.8; O2SAT 92–99; BMI 17.6
--- NOTE | 2023-08-17 10:32 | XRR_ITS ---
PROCEDURE INFORMATION: Exam: XR Chest Exam date and time: 08/17/2023 11:03 AM Age: 62 years old Clinical indication: Shortness of breath TECHNIQUE: Imaging protocol: Radiologic exam of the chest. Views: 1 view. COMPARISON: CR (CHEST, ) 07/15/2023 6:02 PM FINDINGS: Lungs: There is no consolidation. Pleural spaces: There is no pleural effusion or pneumothorax. Heart/Mediastinum: Cardiomediastinal contours are unremarkable. Bones/joints: Bones are unremarkable. XR/XR chest 1V portable [id number] IMPRESSION: No acute findings.
[2023-08-17 10:48] LABS: ABG PCO2 50.4 mmHg (35-45); ABG PH Result 7.46 (7.35-7.45); Arterial Blood Gas Hematocrit 46.7 % (37-47); Base Excess ABG 10.3 mmol/L (-2.0-2.0); Blood Gas Allen Test Pos; Blood Gas Sample Type Arterial; Carboxyhemoglobin 8.4 %THgb (0.4-20.1); HCO3 ABG 36.1 mmol/L (22-26); HGB O2 Sat 87.8 % (95-100); Ionized Calcium Level - ABG 1.2 mmol/L (1.1-1.4); Methemoglobin 0.1 % (0.4-1.5); PO2 ABG 89.2 mmHg (80.0-100.0); Potassium Level - ABG 3.1 mmol/L (3.5-5.0); Total Hemoglobin 15.2 g/dL (12-16)
--- NOTE | 2023-08-17 10:48 | W.ED.SOB ---
HPI - SOB/Dyspnea General: Chief Complaint: Shortness of Breath/Dyspnea Stated Complaint: SOB Time Seen by Provider: 08/17/23 10:28 History of Present Illness: HPI Narrative: 62-year-old female with a history of tobacco dependence and chronic back issues who had what sounds like aryotto me on her back a few days ago who presents to the emergency room with shortness of breath and weakness. She says her friends called because she cannot take care of herself. She has not had a bath since she got home. She is having trouble getting around. She says family is supposed to come down and take her to [place] for rehab in the next couple of days. She has no focal motor deficits. She says she feels short of breath. No chest pain. No abdominal pain. No nausea or vomiting. Pain in her back appears to be well-controlled. EMS reports her O2 sats were around 90 when they got there so they put her on oxygen. They say 4 L got her up to 96%. She has no known history of COPD or asthma. Review of Systems Narrative: Constitutional symptoms: Negative except as documented in HPI. Skin symptoms: Negative except as documented in HPI. Eye symptoms: Negative except as documented in HPI. ENMT symptoms: Negative except as documented in HPI. Respiratory symptoms: Negative except as documented in HPI. Cardiovascular symptoms: Negative except as documented in HPI. Gastrointestinal symptoms: Negative except as documented in HPI. Genitourinary symptoms: Negative except as documented in HPI. Musculoskeletal symptoms: Negative except as documented in HPI. Neurologic symptoms: Negative except as documented in HPI. Psychiatric symptoms: Negative except as documented in HPI. Endocrine symptoms: Negative except as documented in HPI. [facility] ED PFSH: Medical History Dystonia Depression Arthritis Surgical History History of knee surgery Family History Other Arthritis Social History Smoking and tobacco/nicotine status: former use of tobacco/nicotine Physical Exam Narrative: EXAM NARRATIVE: General: Alert, no acute distress. Skin: Warm, dry. Head: Normocephalic, atraumatic. Neck: Supple, trachea midline. Eye: Extraocular movements are intact. Ears, nose, mouth and throat: mucosa moist. Cardiovascular: Regular, Normal peripheral perfusion. Respiratory: Lungs are clear to auscultation, respirations are non-labored, breath sounds are equal, Symmetrical chest wall expansion. Gastrointestinal: Soft, Nontender, Non distended, Normal bowel sounds. Musculoskeletal: Normal ROM, no deformity. Neurological: Alert and oriented, No focal neurological deficit observed. Psychiatric: Cooperative, appropriate mood & affect. Course Vital Signs: Vital signs: Vital Signs Temperature 98.0 F 08/17/23 10:28 Pulse Rate 89 08/17/23 10:55 Respiratory Rate 18 08/17/23 10:55 Blood Pressure 155/64 08/17/23 10:28 Pulse Oximetry 93 08/17/23 10:55 Oxygen Delivery Me thod Room Air 08/17/23 10:55 Oxygen Flow Rate 2 08/17/23 10:28 MDM - SOB/Dyspnea Medical Decision Making Medical decision making: Differential diagnosis for patient presenting with generalized weakness including but not limited to and based on the above HPI, review of systems and physical exam: Sepsis. Dehydration. Renal failure. Electrolyte abnormalities. Anemia. Congestive heart failure. Hypotension. Coronary syndrome. Hepatitis. Cirrhosis. Infections such as pneumonia, urinary tract infection, [place]ne illness, Cellulitis, Viral infections including influenza and Covid-19. Workup: labwork and lab/exam driven imaging ordered to evaluate, rule in and rule out above pathologies. AB.4 6/50/90. O2 sat is 96% on 4 L. Chest x-ray: Emphysematous changes, hyperexpansion. No acute process. No infiltrate. No pneumothorax. No cardiomegaly. This was reviewed and interpreted by myself the ER physician. EKG: Time 1104 rate 93. Normal sinus rhythm, diffuse Q waves, no ST elevation or depression, no ectopy, normal DE & QRS intervals, This was reviewed and interpreted by myself the ER physician at 1107 CT of the lumbar spine: Radiology report listed below. 1. New laminotomies at L4 and L5 with small paraspinous fluid collections adjacent to laminotomy sites, likely seromas. There is no definitive evidence of infection although evaluation is limited without IV contrast. There is no hematoma or fracture. 2. Partially imaged gallbladder is distended and contains stones. Consider ultrasound evaluation of the gallbladder Lab Review: Laboratory results were reviewed and interpreted by myself the emergency room physician. Patient has mild leukocytosis with a white count of 13,000. Hemoglobin is 16. Her bicarb is elevated which is likely compensation from her COPD at 32. Her BUN and creatinine are 10 and 0.4. Urinalysis is clear. I reviewed the patient's medical record. Reexamination: Patient still has some mild scattered wheeze. She is still having oxygen requirements. On 2 L she is satting in the low 90s. She seems somewhat somnolent and listless. No focal motor deficits. Mild tachypnea. I discussed the patient with the neighbor who works at the store down the road. She discovered that the patient was not doing well when she had not come to get groceries. She went to her house and she had no food. She cannot get up. She not had a bath yet. Family is planning to come next week for getting her into rehab. Consultation: I spoke with Dr. Robertson about the patient and he agrees with admission. Assessment and plan: Tobacco dependence COPD with acute exacerbation Hypoxemia Debility/weakness -Normal saline bolus in the emergency room -IV Solu-Medrol, multiple updrafts. -Patient is requiring 2 L nasal cannula -I discussed the patient with the hospitalist on-call who is admitting the patient. - Discussed findings and plan with patient. Answered any questions. - All laboratory values were reviewed and interpreted personally by myself, the ER physician - All imaging was reviewed and interpreted personally by myself, the ER physician. - Evaluation and treatment of this problem were appropriate in the emergency setting -I spent a total of >35 minutes of critical care time managing the patient, independent of any other practitioner. -The time involved in the performance of separately reportable procedures was not counted towards critical care time. Lab Data 08/17/23 10:54 08/17/23 10:54 Labs/Radiology: Radiology Impressions Chest X-Ray 08/17/23 10:32 IMPRESSION: No acute findings. Lumbar Spine CT 08/17/23 12:09 IMPRESSION: 1. New laminotomies at L4 and L5 with small paraspinous fluid collections adjacent to laminotomy sites, likely seromas. There is no definitive evidence of infection although evaluation is limited without IV contrast. There is no hematoma or fracture. 2. Partially imaged gallbladder is distended and contains stones. Consider ultrasound evaluation of the gallbladder. Laboratory Results WBC 13.24 10^3/uL (3.29-11.43) H 08/17/23 10:54 RBC 4.75 10^6/uL (3.85-5.65) 08/17/23 10:54 Hgb 16.10 g/dL (11.27-16.99) 08/17/23 10:54 Hct 46.1 % (36-47) 08/17/23 10:54 MCV 97.1 fl (85-98) 08/17/23 10:54 MCH 33.9 pg (27-33) H 08/17/23 10:54 MCHC 34.9 g/dL (30-55) 08/17/23 10:54 RDW 13.2 % (12.1-15.1) 08/17/23 10:54 Plt Count 307 10^3/cmm (157-399) 08/17/23 10:54 MPV 10.8 fL (7.4-10.4) H 08/17/23 10:54 Neut % (Auto) 79.3 % 08/17/23 10:54 Lymph % (Auto) 10.4 % 08/17/23 10:54 [place] % (Auto) 8.9 % 08/17/23 10:54 Eos % (Auto) 0.2 % 08/17/23 10:54 Baso % (Auto) 0.5 % 08/17/23 10:54 Neut # (Auto) 10.51 10^3/uL (1.8-7.7) H 08/17/23 10:54 Lymph # (Auto) 1.4 10^3/uL (0.8-4.8) 08/17/23 10:54 [place] # (Auto) 1.2 10^3/uL (0.2-0.9) H 08/17/23 10:54 Eos # (Auto) 0.0 10^3/uL (0.0-0.8) 08/17/23 10:54 Baso # (Auto) 0.1 10^3/uL (0.0-0.1) 08/17/23 10:54 Nucleated RBC % (auto) 0 % 08/17/23 10:54 Nucleated RBCs # 0.0 /100WBC 08/17/23 10:54 Specimen Type Arterial 08/17/23 10:36 Sample Site Radial, right 08/17/23 10:36 ABG pH 7.46 (7.35-7.45) H 08/17/23 10:36 ABG pCO2 50.4 mmHg (35-45) H 08/17/23 10:36 ABG pO2 89.2 mmHg (80.0-100.0) 08/17/23 10:36 ABG PO2/FiO2 Ratio 0 08/17/23 10:36 ABG HCO3 36.1 mmol/L (22-26) H 08/17/23 10:36 ABG O2 Saturation 96.0 08/17/23 10:36 ABG Base Excess 10.3 mmol/L (-2.0-2.0) H 08/17/23 10:36 Zack Test Pos 08/17/23 10:36 A-a O2 Gradient 6.2 mmHg (5-10) 08/17/23 10:36 Hematocrit 46.7 % (37-47) 08/17/23 10:36 Hgb O2 Saturation 87.8 % (95-100) L 08/17/23 10:36 Carboxyhemoglobin 8.4 %THgb (0.4-20.1) 08/17/23 10:36 Methemoglobin 0.1 % (0.4-1.5) L 08/17/23 10:36 Total Hemoglobin 15.2 g/dL (12-16) 08/17/23 10:36 Sodium 137.0 mmol/L (131-143) 08/17/23 10:36 Potassium 3.1 mmol/L (3.5-5.0) L 08/17/23 10:36 Glucose 102.0 mg/dL (70-115) 08/17/23 10:36 Ionized Calcium 1.2 mmol/L (1.1-1.4) 08/17/23 10:36 O2 Delivery Device Nc 08/17/23 10:36 O2 Liters/Min 2.0 % 08/17/23 10:36 FiO2 28.0 % 08/17/23 10:36 Salon Leader ID [place] 08/17/23 10:36 Sodium 134 mmol/L (136-145) L 08/17/23 10:54 Potassium 4.1 mmol/L (3.5-5.1) 08/17/23 10:54 Chloride 89 mmol/L (98-107) L 08/17/23 10:54 Carbon Dioxide 32 mmol/L (22-29) H 08/17/23 10:54 Anion Gap 17.1 (5-19) 08/17/23 10:54 BUN 10 mg/dL (8-23) 08/17/23 10:54 Creatinine 0.4 mg/dL (0.5-0.9) L 08/17/23 10:54 GFR Calculation 160.7 mL/min (90-130) H 08/17/23 10:54 Glucose 101 mg/dL (65-115) 08/17/23 10:54 Calculated Osmolality 277 mOsm/kg (285-295) L 08/17/23 10:54 Lactic Acid 1.2 mmol/L (0.5-2.2) 08/17/23 10:54 Calcium 9.5 mg/dL (8.5-10.5) 08/17/23 10:54 Total Bilirubin 0.6 mg/dL (0.15-1.2) 08/17/23 10:54 AST 22 U/L (0-32) 08/17/23 10:54 ALT 10 U/L (0-33) 08/17/23 10:54 Alkaline Phosphatase 80 U/L (35-105) 08/17/23 10:54 Troponin T Baseline 29 ng/L (0-10) H 08/17/23 10:54 C-Reactive Protein 195.8 mg/L (0.0-4.9) H 08/17/23 10:54 NT-Pro-B Natriuret Pep 993 pg/mL (0-125) H 08/17/23 10:54 Total Protein 6.9 g/dL (6.6-8.7) 08/17/23 10:54 Albumin 3.8 g/dL (3.5-5.2) 08/17/23 10:54 Globulin 3.1 g/dL (1.3-4.6) 08/17/23 10:54 Urine Color Yellow (Yellow) 08/17/23 12:35 Urine Appearance Clear (CLEAR) 08/17/23 12:35 Urine pH 7 (5-7) 08/17/23 12:35 Ur Specific [place] 1.010 (1.005-1.030) 08/17/23 12:35 Urine Protein Neg (Negative) 08/17/23 12:35 Urine Glucose (UA) Norm (Normal) 08/17/23 12:35 Urine Ketones 1+ (Negative) H 08/17/23 12:35 Urine Blood Neg (Negative) 08/17/23 12:35 Urine Nitrate Negative (Negative) 08/17/23 12:35 Urine Bilirubin Neg (Negative) 08/17/23 12:35 Urine Urobilinogen Norm mg/dL (Negative) 08/17/23 12:35 Ur Leukocyte Esterase Negative (Negative) 08/17/23 12:35 Urine RBC None /hpf (0-2) 08/17/23 12:35 Urine WBC 0-4 /hpf (0-5) H 08/17/23 12:35 Ur Squamous Epith Cells Rare /hpf (0-5) 08/17/23 12:35 Amorphous Sediment Not Reportable 08/17/23 12:35 Urine Bacteria Trace /hpf (NONE) 08/17/23 12:35 All radiology interpretation(s) finalized by discharge Discharge Plan Discharge Patient Disposition: Admitted As Inpatient Clinical Impression: COPD with acute exacerbation, Hypoxemia, Hypercapnia, Tobacco dependence, Dehydration, Weakness Condition: Stable Coding Level of Care Code ED Construction Secretary for Юлия Staley
[2023-08-17 10:49] LABS: Alveolar-Arterial Oxygen Gradi 6.2 mmHg (5-10); Blood Gas Operator Identificat MONRO; Blood Gas Sample Site Radial, right; Oxygen Device NC; PO2 FiO2 Ratio Arterial Blood 0
[2023-08-17] MEDS: methylPREDNISolone sod succ 125 mg/2 mL INJ IVP (10:52)
[2023-08-17] MEDS: albuterol 2.5 mg/3 mL Neb INHALATION (10:52)
[2023-08-17] MEDS: ipratropium-albuterol 3 mL Neb INHALATION ×2 (10:52→20:50)
--- NOTE | 2023-08-17 11:04 | ECG_ITS ---
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 Measurements Intervals [place] Rate: 93 P: 91 MI: 147 QRS: 28 QRSD: 89 T: 69 QT: 362 QTc: 452 Interpretive Statements SINUS RHYTHM PROBABLE INFERIOR MYOCARDIAL INFARCTION , OF INDETERMINATE AGE [35 ms Q WAVE IN II/aVF] Compared to ECG 07/15/2023 19:42:21 Ventricular premature complex(es) no longer present Myocardial infarct finding still present Electronically Signed On 08-17-2023 12:03:58 CDT by Koko Chiu M.D. [id number]
[2023-08-17 11:31] LABS: Basophils # 0.1 10^3/uL (0.0-0.1); Basophils % 0.5 %; Eosinophils % 0.2 %; Hematocrit 46.1 % (36-47); Lymphocytes # 1.4 10^3/uL (0.8-4.8); Lymphocytes % 10.4 %; Mean Corpuscular HGB Conc 34.9 g/dL (30-55); Mean Corpuscular Hemoglobin 33.9 pg (27-33); Mean Corpuscular Volume 97.1 fl (85-98); Mean Platelet Volume 10.8 fL (7.4-10.4); Monocytes # 1.2 10^3/uL (0.2-0.9); Monocytes % 8.9 %; Neutrophils # 10.51 10^3/uL (1.8-7.7); Neutrophils % 79.3 %; Nucleated Red Blood Cells % 0 %; Platelet Count 307 10^3/cmm (157-399); Red Blood Count 4.75 10^6/uL (3.85-5.65); Red Cell Distribution Width 13.2 % (12.1-15.1); White Blood Count 13.24 10^3/uL (3.29-11.43)
[2023-08-17 11:46] LABS: Lactic Sepsis W/Reflex 1.2 mmol/L (0.5-2.2)
[2023-08-17 11:47] LABS: Troponin(5th) Baseline 29 ng/L (0-10)
[2023-08-17 11:58] LABS: Alanine Aminotransferase 10 U/L (0-33); Albumin Level 3.8 g/dL (3.5-5.2); Alkaline Phosphatase 80 U/L (35-105); Blood Urea Nitrogen 10 mg/dL (8-23); C Reactive Protein 195.8 mg/L (0.0-4.9); Calcium 9.5 mg/dL (8.5-10.5); Carbon Dioxide 32 mmol/L (22-29); Chloride 89 mmol/L (98-107); Globulin 3.1 g/dL (1.3-4.6); Glomerular Filtration Rate 160.7 mL/min (90-130); Glucose 101 mg/dL (65-115); NT Pro B Type Natriuretic Pept 993 pg/mL (0-125); Osmolality Calculated 277 mOsm/kg (285-295); Sodium 134 mmol/L (136-145); Total Bilirubin 0.6 mg/dL (0.15-1.2); Total Protein 6.9 g/dL (6.6-8.7)
[2023-08-17 12:01] LABS: Anion Gap 17.1 (5-19); Aspartate Amino Transferase 22 U/L (0-32); Creatinine Clr Calc Pharmacy 97.8627; Potassium 4.1 mmol/L (3.5-5.1)
--- NOTE | 2023-08-17 12:09 | CTR_ITS ---
PROCEDURE INFORMATION: Exam: CT Lumbar Spine Without Contrast Exam date and time: 08/17/2023 12:45 PM Age: 62 years old Clinical indication: Low back pain; Prior surgery; Surgery date: <1 month; Surgery type: Lumbar; Additional info: Post surgical back pain TECHNIQUE: Imaging protocol: Computed tomography of the lumbar spine without contrast. Radiation optimization: All CT scans at this facility use at least one of these dose optimization techniques: automated exposure control; mA and/or kV adjustment per patient size (includes targeted exams where dose is matched to clinical indication); or iterative reconstruction. COMPARISON: CT lumbar spine wo con* [id number] 07/15/2023 10:06 PM RADIATION DOSE METRICS: Total DLP (mGy-cm): 296.28 FINDINGS: Bones/joints: There is a new left laminotomy at L4. There is new bilateral laminotomy L5. No acute fracture. Mild convex right lumbar scoliosis centered at L2-L3 and mild right lateral listhesis of L3 on L4. Alignment is normal in the sagittal plane. Vertebral body height is maintained. No acute fracture. There is severe multilevel lumbar disc degeneration. There is mild multilevel facet spondylosis. The visible portion of the pelvis and sacrum is intact. There is mild multilevel spinal stenosis, greatest at L3-L4, similar to findings on 07/15/2023. Gallbladder and bile ducts: The partially imaged gallbladder is distended and contains stones. Kidneys and ureters: No hydronephrosis or visible stones. Vasculature: There is moderate aortic atherosclerotic disease. Soft tissues: There is a small volume of unencapsulated intermediate to low density fluid in the paraspinous musculature at the laminotomy sites. No definitive sign of infection. Musculature is unremarkable. There is mild subcutaneous edema overlying the lower lumbar spine. CT/CT lumbar spine wo con* [id number] IMPRESSION: 1. New laminotomies at L4 and L5 with small paraspinous fluid collections adjacent to laminotomy sites, likely seromas. There is no definitive evidence of infection although evaluation is limited without IV contrast. There is no hematoma or fracture. 2. Partially imaged gallbladder is distended and contains stones. Consider ultrasound evaluation of the gallbladder.
--- NOTE | 2023-08-17 12:30 | ECG_ITS ---
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 Measurements Intervals [place] Rate: 100 P: 73 [place]: 147 QRS: 49 QRSD: 90 T: 74 QT: 361 QTc: 466 Interpretive Statements SINUS TACHYCARDIA POSSIBLE INFERIOR MYOCARDIAL INFARCTION , OF INDETERMINATE AGE [30 ms Q WAVE IN II/aVF] Compared to ECG 08/17/2023 11:04:09 No significant change Electronically Signed On 08-17-2023 12:43:12 CDT by Koko Chiu M.D. [id number]
[2023-08-17 13:05] LABS: Glucose Urine UA Norm (Normal); Protein Urine Neg (Negative); Urine Appearance Clear (CLEAR); Urine Color Yellow (Yellow); pH Urine 7 (5-7)
[2023-08-17 13:06] LABS: Add Urine Culture? No; Bacteria Urine TRACE /hpf; Bilirubin Urine Neg (Negative); Blood Urine Neg (Negative); Ketones Urine 1+ (Negative); Leukocyte Esterase Urine Negative (Negative); Nitrate Urine Negative (Negative); Squamous Epithelial Cell Urine RARE /hpf (0-5); Urobilinogen Urine Norm (Negative); WBC Urine 0-4 /hpf (0-5)
--- NOTE | 2023-08-17 13:26 | CTR_ITS ---
PROCEDURE INFORMATION: Exam: CTA Chest With Contrast Exam date and time: 08/17/2023 1:52 PM Age: 62 years old Clinical indication: Hyperventilation; Additional info: Hypoxemia, tachycardia TECHNIQUE: Imaging protocol: Computed tomographic angiography of the chest with contrast. Exam focused on the arteries. 3D rendering (Not supervised by radiologist): MIP and/or 3D reconstructed images were created by the technologist. Radiation optimization: All CT scans at this facility use at least one of these dose optimization techniques: automated exposure control; mA and/or kV adjustment per patient size (includes targeted exams where dose is matched to clinical indication); or iterative reconstruction. Contrast material: OMNI 350; Contrast volume: 54 ml; Contrast route: INTRAVENOUS (IV); COMPARISON: CR (CHEST, ) 08/17/2023 11:03 AM RADIATION DOSE METRICS: Total DLP (mGy-cm): 150.21 FINDINGS: Pulmonary arteries: The pulmonary arteries are adequately opacified for evaluation to the subsegmental level. There is no filling defect to suggest embolism. Aorta: There is moderate aortic atherosclerotic disease. Lungs: There is no consolidation. There is subsegmental atelectasis in the lung bases. There is a benign calcified granuloma in the left lower lobe. There is a 10 mm solid nodule in the right upper lobe on axial series 6, image 166 which is confluent with soft tissue density in the upper mediastinum. Pleural spaces: There is no pleural effusion or pneumothorax. Heart: Heart size is normal. There is no pericardial effusion. Coronary arteries: There is moderate coronary artery calcification. Lymph nodes: There is a 29 x 19 mm right hilar lymph node containing few peripheral calcifications. There is a noncalcified 3.0 x 1.5 cm precarinal lymph node. There is asymmetric soft tissue density in the right upper paratracheal region consistent with confluent lymph node enlargement. There is an intrapulmonary lymph node measuring 5 mm in the posterior costal pleura on axial series 4, image 13. Gallbladder and bile ducts: There is sludge in the distended gallbladder lumen. The gallbladder is incompletely visualized. No visible wall thickening or pericholecystic edema. Bones/joints: Bones are unremarkable. Soft tissues: The extrathoracic soft tissues are unremarkable. CT/CT angio chest PE protcl [id number] IMPRESSION: 1. Right hilar and right upper mediastinal lymph node enlargement with adjacent 10 mm suprahilar right lung nodule. Findings are suspicious for malignancy. Consider non-emergent PET/CT or tissue sampling.(Reference: Michael) 2. No pulmonary embolism. 3. Distended gallbladder containing sludge is partially imaged. No definitive sign of cholecystitis. If there is clinical evidence of gallbladder disease, consider follow-up ultrasound. 4. Incidental findings above. REFERENCES: Michael Drake, et al. Guidelines for Management of Incidental Pulmonary Nodules Detected on CT Images: From the Fleischner Society 2017. Radiology. 2017;284(1):228-243.
[2023-08-17] MEDS: sodium chloride 0.9% 1,000 ML 999 ML IV (13:44)
[2023-08-17] MEDS: iohexol 350 mg/mL 500 mL Btl (per mL) IV (13:53)
[2023-08-17 14:17] LABS: Troponin 5 2HR 25.93 ng/L (0-10)
[2023-08-17 14:18] LABS: Troponin 5 2HR Delta -3.07 ABS# (0-10)
--- NOTE | 2023-08-17 14:47 | P.HP_ITS ---
Providers/Chief Complaint 2 Primary Care Provider: Rosy Javier Chief Complaint: SOB History of Present Illness Very pleasant 62-year-old lady with history of progressive difficulty walking, spinal stenosis, underwent laminectomy, facetectomy L4-5, L5-S1 on 08/08, she lives by herself, but her neighbors/friends check up on her, and she was noted not to be going to get her usual groceries, when they checked on her she was on the couch, unable to get up, has not eaten since the day before yesterday. She has been having some dyspnea, keeps trying to have some cough but cannot really bring bring up the phlegm. 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 He is not aware of history of thyroid disease. In ER she is afebrile, although with some leukocytosis 13.2. She denies any urinary symptoms. Has not had any nausea vomiting, does have history of microscopic colitis, and has had long history of diarrhea, although recently it has been getting better with budesonide. Denies any melena or hematochezia. Denies any rash. Has not had any back pain. She states she pretty much has not been able to get up from the couch since surgery. She and her neighbor/friends have tried to arrange for rehabilitation for her with primary care provider, and have called and left a message but have not yet heard back. 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 She does report having urinary incontinence, has had difficulties with ambulation. Family accompanying her confirms that she may have had some memory difficulties. Review of Systems 2 Const: Reports: fatigue (Gen weak); Denies: fever(s), chills, body aches or malaise Eyes: Denies: change in vision, eye discomfort or eye redness Card: Denies: chest pain, edema, pre-syncope or dyspnea on exertion Resp: Denies: dyspnea, productive cough, change in phlegm color or hemoptysis GI: Denies: abdominal pain, nausea, vomiting, diarrhea, constipation, hematochezia or melena : Denies: flank pain, urinary frequency or hematuria Musc: Denies: back pain, joint swelling or joint redness Skin/Breast: Denies: rash Neuro: Denies: headache(s), confusion or seizure-like activity Medications/Allergies Home Medications Medication Instructions Recorded Confirmed Last Taken Type celecoxib 200 mg capsule (Celebrex) 200 mg PO BID 05/28/19 08/17/23 08/17/23 History acyclovir 400 mg tablet 400 mg PO BID PRN Outbreak 12/26/21 08/17/23 Unknown History citalopram 40 mg tablet 40 mg PO DAILY #90 tabs 01/08/23 08/17/23 08/17/23 Rx pregabalin 100 mg capsule (Lyrica) 100 mg PO TID #300 caps 04/23/23 08/17/23 08/17/23 Rx hydrocodone 5 mg-acetaminophen 325 1 - 2 tab PO .Q4-6H #40 tabs 08/09/23 08/17/23 08/17/23 Rx mg tablet allopurinol 100 mg tablet 100 mg PO DAILY 08/17/23 08/17/23 08/17/23 History budesonide 9 mg tablet,delayed and 9 mg PO DAILY 08/17/23 08/17/23 08/17/23 History extended release levetiracetam 500 mg 1,000 mg PO DAILY 08/17/23 08/17/23 08/17/23 History tablet,extended release 24 hr Allergies Allergy/AdvReac Type Severity Reaction Status Date / Time amoxicillin [From Augmentin] Allergy ADR-Nausea Verified 08/17/23 10:39 clavulanic acid Allergy ADR-Nausea Verified 08/17/23 10:39 [From Augmentin] PFSH Acute 2 PFSH: Medical History (Updated 08/17/23 @ 14:55 by Cory Robertson MD) Normal pressure hydrocephalus Tobacco dependence Lumbar disc disease with radiculopathy Dystonia Depression Arthritis Surgical History History of knee surgery Family History Other Arthritis Social History (Updated 08/17/23 @ 14:51 by Cory Robertson MD) Smoking and tobacco/nicotine status: current some day tobacco/nicotine user Alcohol intake: former Year of sobriety/quit date alcohol: 2002 Vitals/I&O/Wt Last Vital Signs Temp 98.0 F 08/17/23 10:28 Pulse 89 08/17/23 10:55 Resp 18 08/17/23 10:55 BP 155/64 08/17/23 10:28 Pulse Ox 93 08/17/23 10:55 O2 Del Method Room Air 08/17/23 10:55 O2 Flow Rate 2 08/17/23 10:28 Weight last 48 hrs Weight 40.823 kg Physical Exam 2 Narrative: Accompanied by family Const: COMMON NORMALS: patient oriented x3 and alert GENERAL APPEARANCE: c ooperative NUTRITIONAL APPEARANCE: thin ORIENTATION/CONSCIOUSNESS: Yes awake OTHER: Generally weak, slowed movements and speech. HENMT: OTHER: Dry mouth Neck/C-Spine: COMMON NORMALS: no JVD Resp: COMMON NORMALS: normal respiratory effort and clear to auscultation bilaterally AUSCULTATION: clear to auscultation bilaterally Cardio: COMMON NORMALS: no JVD, regular rhythm, S1 normal heart sound present, S2 normal heart sound present and No murmurs present (Cardio) RHYTHM: regular rhythm HEART SOUNDS: S1 normal heart sound present and S2 normal heart sound present GI: COMMON NORMALS: Normal to inspection, nondistended, normoactive bowel sounds present, Soft to palpation and non-tender PALPATION: Yes Soft to palpation Extremity: COMMON NORMALS: no joint enlargement and no pedal edema Neuro: COMMON NORMALS: patient oriented x3 and moves all extremities S ENSORIUM/ORIENTATION: Yes alert Skin: COMMON NORMALS: no rashes or lesions noted GENERAL SKIN EXAM: no rashes or lesions noted OTHER: Steri-Strips and dressing over the wound, some dry crusted blood under Steri- Strips, no surrounding erythema or swelling under the dressing. No fresh blood or drainage. Data 08/17/23 10:54 08/17/23 10:54 A&P Assessment and plan (1) Failure to thrive: Starvation, has not eaten since day before yesterday, unable to get up from the couch, with generalized weakness. Dehydration. At risk of refeeding syndrome. Monitor electrolytes, magnesium, phosphorus. Generally weak. She is not certain about history of dystonia, but states that has had difficulties with ambulation for a while. With spinal stenosis, for which he underwent laminectomy, facetectomy, also has history of NPH in the past, previously had [employer]IVERSITY ADMINISTRATOR shunt which got infected after exchange of the valve and had to be explanted due to infection and peritonitis back in 2018. She has been having some urinary incontinence, some memory difficulties verbalized by the family. Will additionally assess with CT head. She also has been feeling cold frequently, with generalized slowed movements, responses, will check TSH for possible hypothyroidism. Reviewed vitals, CBC, ABG, CMP, UA. Reviewed ER note, discussed with ER provider. Respiratory viral panel is pending. Additionally has been having some respiratory complaints, some cough, some dyspnea, newly requiring 2 L of oxygen in ER. CT angiogram chest has been obtained and pending result due to risk of PE. She did have wheezing earlier. He is a current smoker, may have undiagnosed COPD appears to have moderate exacerbation. Starting treatment with breathing treatments, inhaled budesonide. Avoid systemic steroid for now if possible due to recent surgery. Had a recent laminectomy/facetectomy on 08/08. Wound with some dry crusted blood under Steri-Strips, dressing is not come off, although was instructed to take it off 2 days after surgery, but has been too weak. Requesting to remove dressing. Monitor wound. Currently no erythema or swelling around the wound. No drainage. CT of lumbar spine has been obtained in ER, some collections noted considered likely due to postsurgical changes/seroma. Discussed with them CT is noncontrast, does not provide same level of detail as a contra study. With leukocytosis, CRP elevation, monitor for any fever spikes, hypothermia, reassess leukocytosis, consider reassessment with a contrast-enhanced study. She is generally very weak, maintain aspiration precautions. Will start dysphagia diet pur?ed, mildly thick liquids, will request ST evaluation. PT, OT evaluation. Consultation requested with case management for arrangements for rehabilitation. Acetaminophen. Hydrocodone as needed for moderate pain, IV morphine as needed for breakthrough. (2) Dehydration: Continue gentle hydration with low rate D5 LR. Monitor for risk of fluid overload. Reassess volume status. Low threshold to discontinue if tolerating oral intake. (3) COPD exacerbation: Moderate COPD exacerbation with dyspnea, cough productive sputum, has difficulty expectorating. Breathing treatments with scheduled and as needed DuoNebs, inhaled budesonide, avoid systemic steroid for now with recent spine surgery, and guaifenesin, flutter valve, assist in expectoration. Maintain aspiration precautions. ST evaluation as above. Dysphagia diet for now. Check respiratory viral panel. (4) Smoking addiction: Discussed mocha cessation for 4 minutes, she states that she understands she needs to quit, she is agreeable to nicotine replacement, can patches, lozenges discussed and added. (5) Leukocytosis: Does have leukocytosis 13.2, possibly related to COPD exacerbation, with generalized weakness, failure to thrive, check respiratory viral panel. However, recently also after spine laminectomy, facetectomy, wound appears okay without any signs of infection. Does have some collections on noncontrast and CT lumbar spine. Does have CRP elevation. Monitor vitals for any fever, reassess leukocytosis, in case of any worsening or lack of improvement, consider reimaging with contrast-enhanced CT. Holding off for now given lack of back symptoms, wound appears good, and he is just having a contrast load with CT angiogram chest. Reassess kidney function with risk of contrast nephropathy. Plan Cholelithiasis: Incidentally noted on CT lumbar spine, she has no abdominal pain or tenderness, no right quadrant pain. Liver parameters are unremarkable. Will need follow-up. Should maintain low fat/cholesterol diet at discharge. Status post laminectomy/facetectomy lumbosacral spine on 08/08: Wound appears to be healing okay. Noted fluid collections suspected seroma seen on CT. Does have leukocytosis and has had failure to thrive, unable to get up since surgery. CRP is quite elevated. Monitor vitals for any fever, reassess leukocytosis, currently holding off on contrast-enhanced CT as she has also just received contrast load with CT angiogram to assess for any PE. Dr. Grant is not currently on-call, consider updating him on Saturday unless more acute issues end up requiring transfer. Continue hydrocodone as needed for moderate pain, IV morphine as needed for breakthrough pain. Goals of care discussion: She has not considered CODE STATUS previously, however, states that in case of cardiopulmonary arrest decides on discussion that she would not want cardiopulmonary resuscitation, would want to be rather Comfortable, without pain or discomfort. She is okay with medical treatment up until that point. Microscopic colitis, chronically on oral budesonide, she states it has been helping her diarrhea. Continue. Epilepsy: Continue antiepileptics. History of NPH: Reassess CT head with recent difficulties with ambulation, urinary continence, family reports some memory difficulties. Attestations 2 Medical Necessity Statement*: Admission of over 2 midnights anticipated for assessment of management of failure to thrive with generalized weakness, unable to get up from the couch, unable to feed herself, with starvation, last oral intake day before yesterday, dehydration, with COPD exacerbation, leukocytosis, after recent laminectomy, facetectomy. Diagnoses Failure to thrive Dehydration E86.0 COPD exacerbation J44.1 Smoking addiction F17.200 Leukocytosis D72.829
--- NOTE | 2023-08-17 16:30 | ECG_ITS ---
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 Measurements Intervals Luna Rate: 91 P: 81 NM: 138 QRS: 14 QRSD: 90 T: 63 QT: 372 QTc: 458 Interpretive Statements SINUS RHYTHM INFERIOR MYOCARDIAL INFARCTION , OF INDETERMINATE AGE [40+ ms Q WAVE AND/OR ST/T ABNORMALITY IN II/aVF] Compared to ECG 08/17/2023 12:16:33 Sinus tachycardia no longer present Myocardial infarct finding still present Electronically Signed On 08-18-2023 13:49:10 CDT by Koko Chiu M.D. [id number]
--- NOTE | 2023-08-17 16:55 | CTR_ITS ---
PROCEDURE INFORMATION: Exam: CT Head Without Contrast Exam date and time: 08/17/2023 7:41 PM Age: 62 years old Clinical indication: Walking, difficulty and other: Urinary incontinence. Prior surgery; Surgery date: 6+ months; Surgery type: Craniotomy; Patient HX: Urinary incontinence with walking difficulty. History of hydrocephalus. ; Additional info: HX nph, difficulty walking, urine incontinence, assess for recurrence TECHNIQUE: Imaging protocol: Computed tomography of the head without contrast. Radiation optimization: All CT scans at this facility use at least one of these dose optimization techniques: automated exposure control; mA and/or kV adjustment per patient size (includes targeted exams where dose is matched to clinical indication); or iterative reconstruction. COMPARISON: MR head wo con* [id number] 03/22/2023 9:01 AM RADIATION DOSE METRICS: Total DLP (mGy-cm): 1022.14 FINDINGS: Brain: There is diffuse cerebral atrophy and chronic microvascular white matter disease. There is bilateral frontal lobe encephalomalacia. There is no significant mass effect or midline shift. There is no acute intracranial hemorrhage. Cerebral ventricles: There is moderate symmetric dilation of the lateral ventricles. There is an abnormal acute angle between the superior margins of the lateral ventricles on coronal images. Basal cisterns are patent. Pituitary gland and sella: Empty sella. Paranasal sinuses: The paranasal sinuses are clear. Mastoid air cells: The mastoid air cells are clear. Bones: Right frontal calvarial osiel hole. Soft tissues: The visible extracranial soft tissues are unremarkable. CT/CT head wo con* [id number] IMPRESSION: 1. No acute intracranial hemorrhage or mass effect. 2. Moderate dilation of the lateral ventricles bilaterally, not significantly changed since 03/22/2023. Possible normal pressure hydrocephalus. 3. Stable bilateral frontal lobe encephalomalacia.
[2023-08-17 17:50] LABS: Troponin 5 6HR 21.62 ng/L (0-10); Troponin 5 6HR Delta -7.38 ng/L (0-12)
[2023-08-17 18:03] LABS: Thyroid Stimulating Hormone 0.33 uIU/mL (0.27-4.20)
[2023-08-17 18:13] LABS: Adenovirus Not Detected (NOT DETECT); Chlamydia Pneumoniae Not Detected (NOT DETECT); Coronavirus 229E,HKU1,NL63,OC4 Not Detected (NOT DETECT); Human Metapneumovirus Not Detected (NOT DETECT); Human Rhinovirus/Enterovirus Not Detected (NOT DETECT); Influenza A Not Detected (NOT DETECT); Influenza A H1 Not Detected (NOT DETECT); Influenza A H1-2009 Not Detected (NOT DETECT); Influenza A H3 Not Detected (NOT DETECT); Influenza B Not Detected (NOT DETECT); Mycoplasma Pneumoniae Not Detected (NOT DETECT); Parainfluenza Virus Type 1 Not Detected (NOT DETECT); Parainfluenza Virus Type 2 Not Detected (NOT DETECT); Parainfluenza Virus Type 3 Not Detected (NOT DETECT); Parainfluenza Virus Type 4 Not Detected (NOT DETECT); Respiratory Syncytial Virus A Not Detected (NOT DETECT); Respiratory Syncytial Virus B Not Detected (NOT DETECT); SARS-COV-2 Not Detected (NOT DETECT)
[2023-08-17] MEDS: enoxaparin 30 mg/0.3 mL Syringe SUBCUT (18:25)
[2023-08-17] MEDS: pregabalin 100 mg Capsule PO ×2 (18:25→21:52)
[2023-08-17] MEDS: guaiFENesin 600 mg Tablet PO (18:25)
[2023-08-17] MEDS: lactated ringers 1,000 ML 30 ML IV (18:26)
[2023-08-17] MEDS: nicotine 14 mg Patch 1 PATCH TRANSDERMA (18:26)
[2023-08-17] MEDS: budesonide 0.5 mg/2 mL Neb INHALATION (20:50)
[2023-08-17] MEDS: LEVETIRACETAM 500 MG 1000 EACH PO (21:50)
[2023-08-17] MEDS: HYDROcodone-acetaminophen 5-325 mg Tablet 1 TAB PO (21:53)
--- NOTE | 2023-08-17 23:37 | PC.NURSE ---
pt takes Levetriacetam ER 1000mg In the evenings at home for a history of seizures. The hospital pharmacy does not carry the ER form of this medication, so the medication was marked as non formulary. The patient brought the medication from home, but the pharmacy was already closed for the evening, therefor the home medications could not be sent and processed to be scannable on the floor. this nurse called the telecommunications engineer hospitalist, , and got approval to give the patients Levetriacetam ER 1000mg night time dose. the patient took the above stated dose at 2153 along with her other nighttime medications. Pts medications will be sent to pharmacy at 0600 for processing.
[2023-08-18] VITALS (11 sets, daily range): BP systolic 115–122; BP diastolic 61–76; PULSE 86–104; RESP 16–18; TEMP 36.4–36.8; O2SAT 91–98
[2023-08-18] MEDS: ipratropium-albuterol 3 mL Neb INHALATION ×4 (02:10→20:09)
[2023-08-18 06:16] LABS: Basophils % 0.2 %; Hematocrit 36.2 % (36-47); Lymphocytes # 1.3 10^3/uL (0.8-4.8); Lymphocytes % 9.9 %; Mean Corpuscular HGB Conc 34.5 g/dL (30-55); Mean Corpuscular Hemoglobin 33.4 pg (27-33); Mean Corpuscular Volume 96.8 fl (85-98); Mean Platelet Volume 10.3 fL (7.4-10.4); Monocytes % 7.9 %; Neutrophils # 10.44 10^3/uL (1.8-7.7); Neutrophils % 81.1 %; Nucleated Red Blood Cells % 0 %; Platelet Count 290 10^3/cmm (157-399); Red Blood Count 3.74 10^6/uL (3.85-5.65); Red Cell Distribution Width 13.5 % (12.1-15.1); White Blood Count 12.88 10^3/uL (3.29-11.43)
[2023-08-18 06:35] LABS: Alanine Aminotransferase < 5 U/L (0-33); Alkaline Phosphatase 81 U/L (35-105); Anion Gap 12.2 (5-19); Aspartate Amino Transferase 12 U/L (0-32); Blood Urea Nitrogen 11 mg/dL (8-23); Calcium 8.6 mg/dL (8.5-10.5); Carbon Dioxide 32 mmol/L (22-29); Chloride 98 mmol/L (98-107); Creatinine Clr Calc Pharmacy 134.6085; Glucose 120 mg/dL (65-115); Magnesium 1.9 mg/dL (1.7-2.3); Osmolality Calculated 289 mOsm/kg (285-295); Phosphorus 3.2 mg/dL (2.5-4.5); Potassium 3.2 mmol/L (3.5-5.1); Sodium 139 mmol/L (136-145); Total Bilirubin 0.3 mg/dL (0.15-1.2)
[2023-08-18] MEDS: budesonide 0.5 mg/2 mL Neb INHALATION ×2 (07:55→20:09)
[2023-08-18] MEDS: pregabalin 100 mg Capsule PO ×3 (08:48→20:30)
[2023-08-18] MEDS: guaiFENesin 600 mg Tablet PO ×2 (08:48→17:24)
[2023-08-18] MEDS: allopurinol 100 mg Tablet PO (08:48)
[2023-08-18] MEDS: citalopram 20 mg Tablet 40 MG PO (08:48)
[2023-08-18] MEDS: nicotine 14 mg Patch 1 PATCH TRANSDERMA (15:51)
[2023-08-18] MEDS: enoxaparin 30 mg/0.3 mL Syringe SUBCUT (15:52)
--- NOTE | 2023-08-18 16:00 | PM.PN ---
Subjective Subjective: Reports feeling okay Vitals/I&O/Wt Last Vital Signs Temp 98.3 F 08/18/23 15:43 Pulse 99 08/18/23 15:43 Resp 16 08/18/23 15:43 BP 115/66 08/18/23 15:43 Pulse Ox 91 08/18/23 15:43 O2 Del Method Nasal Cannula 08/18/23 15:43 O2 Flow Rate 2 08/18/23 02:00 08/18/23 08/18/23 08/18/23 06:59 14:59 22:59 Intake Total 240 / 1240 240 / 240 Balance 240 / 1240 240 / 240 Weight last 48 hrs Weight 97 lb 9.6 oz Weight 90 lb Physical Exam Narrative: Accompanied by family Const: COMMON NORMALS: patient oriented x3 and alert GENERAL APPEARANCE: cooperative NUTRITIONAL APPEARANCE: thin ORIENTATION/CONSCIOUSNESS: Yes awake OTHER: Generally weak, slowed movements and speech. HENMT: OTHER: Dry mouth Neck/C-Spine: COMMON NORMALS: no JVD Resp: COMMON NORMALS: normal respiratory effort and clear to auscultation bilaterally AUSCULTATION: clear to auscultation bilaterally Cardio: COMMON NORMALS: no JVD, regular rhythm, S1 normal heart sound present, S2 normal heart sound present and No murmurs present (Cardio) RHYTHM: regular rhythm HEART SOUNDS: S1 normal heart sound present and S2 normal heart sound present GI: COMMON NORMALS: Normal to inspection, nondistended, normoactive bowel sounds present, Soft to palpation and non-tender PALPATION: Yes Soft to palpation Extremity: COMMON NORMALS: no joint enlargement and no pedal edema Neuro: COMMON NORMALS: patient oriented x3 and moves all extremities SENSORIUM/ORIENTATION: Yes alert Skin: COMMON NORMALS: no rashes or lesions noted GENERAL SKIN EXAM: no rashes or lesions noted OTHER: Steri-Strips and dressing over the wound, some dry crusted blood under Steri-Strips, no surrounding erythema or swelling under the dressing. No fresh blood or drainage. Data 08/18/23 05:54 08/18/23 05:54 A&P Assessment and plan (1) Failure to thrive: Starvation, has not eaten since day before yesterday, unable to get up from the couch, with generalized weakness. Dehydration. At risk of refeeding syndrome. Monitor electrolytes, magnesium, phosphorus. Generally weak. She is not certain about history of dystonia, but states that has had difficulties with ambulation for a while. 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 She has been having some urinary incontinence, some memory difficulties verbalized by the family. Will additionally assess with CT head. She also has been feeling cold frequently, with generalized slowed movements, responses, will check TSH for possible hypothyroidism. Reviewed vitals, CBC, ABG, CMP, UA. Reviewed ER note, discussed with ER provider. Respiratory viral panel is pending. Additionally has been having some respiratory complaints, some cough, some dyspnea, newly requiring 2 L of oxygen in ER. CT angiogram chest has been obtained and pending result due to risk of PE. She did have wheezing earlier. He is a current smoker, may have undiagnosed COPD appears to have moderate exacerbation. Starting treatment with breathing treatments, inhaled budesonide. Avoid systemic steroid for now if possible due to recent surgery. Had a recent laminectomy/facetectomy on 08/08. Wound with some dry crusted blood under Steri-Strips, dressing is not come off, although was instructed to take it off 2 days after surgery, but has been too weak. Requesting to remove dressing. Monitor wound. Currently no erythema or swelling around the wound. No drainage. CT of lumbar spine has been obtained in ER, some collections noted considered likely due to postsurgical changes/seroma. Discussed with them CT is noncontrast, does not provide same level of detail as a contra study. With leukocytosis, CRP elevation, monitor for any fever spikes, hypothermia, reassess leukocytosis, consider reassessment with a contrast-enhanced study. PT, OT evaluation. Consultation requested with case management for arrangements for rehabilitation. Acetaminophen. Hydrocodone as needed for moderate pain, IV morphine as needed for breakthrough. Anticipate nutrition consult on Saturday Mild leukocytosis. UA trace bacteria. Chest imaging suspicious for lesion will need reimaging. At this time not on antibiotics Will replace potassium (2) Dehydration: Continue gentle hydration with low rate D5 LR. Monitor for risk of fluid overload. Reassess volume status. Low threshold to discontinue if tolerating oral intake. (3) COPD exacerbation: Moderate COPD exacerbation with dyspnea, cough productive sputum, has difficulty expectorating. Breathing treatments with scheduled and as needed DuoNebs, inhaled budesonide, avoid systemic steroid for now with recent spine surgery, and guaifenesin, flutter valve, assist in expectoration. Maintain aspiration precautions. ST evaluation as above. Dysphagia diet for now. Check respiratory viral panel and was negative (4) Leukocytosis: Does have leukocytosis 13.2, possibly related to COPD exacerbation, with generalized weakness, failure to thrive, check respiratory viral panel. However, recently also after spine laminectomy, facetectomy, wound appears okay without any signs of infection. Does have some collections on noncontrast and CT lumbar spine. Does have CRP elevation. Monitor vitals for any fever, reassess leukocytosis, in case of any worsening or lack of improvement, consider reimaging with contrast-enhanced CT. Holding off for now given lack of back symptoms, wound appears good, and he is just having a contrast load with CT angiogram chest. Reassess kidney function with risk of contrast nephropathy. Plan Cholelithiasis: Incidentally noted on CT lumbar spine, she has no abdominal pain or tenderness, no right quadrant pain. Liver parameters are unremarkable. Will need follow-up. Should maintain low fat/cholesterol diet at discharge. Status post laminectomy/facetectomy lumbosacral spine on 08/08: Wound appears to be healing okay. Noted fluid collections suspected seroma seen on CT. Does have leukocytosis and has had failure to thrive, unable to get up since surgery. CRP is quite elevated. Monitor vitals for any fever, reassess leukocytosis, currently holding off on contrast-enhanced CT as she has also just received contrast load with CT angiogram to assess for any PE. Dr. Grant is not currently on-call, consider updating him on Saturday unless more acute issues end up requiring transfer. Continue hydrocodone as needed for moderate pain, IV morphine as needed for breakthrough pain. Goals of care discussion: She has not considered CODE STATUS previously, however, states that in case of cardiopulmonary arrest decides on discussion that she would not want cardiopulmonary resuscitation, would want to be rather Comfortable, without pain or discomfort. She is okay with medical treatment up until that point. Microscopic colitis, chronically on oral budesonide, she states it has been helping her diarrhea. Continue. Epilepsy: Continue antiepileptics. History of NPH: Reassess CT head with recent difficulties with ambulation, urinary continence, family reports some memory difficulties. Attestations Medical Necessity Statement*: Nicolasa Courtney Kothari requires ongoing inpatient care for nutrition support Coding Level of Care Code Acute Code for Chg Fwd Diagnoses Failure to thrive Dehydration E86.0 COPD exacerbation J44.1 Leukocytosis D72.829
[2023-08-18] MEDS: potassium chloride ER 20 mEq Tablet 40 MEQ PO (17:24)
[2023-08-18] MEDS: lactated ringers 1,000 ML 75 ML IV (17:26)
[2023-08-18] MEDS: cefTRIAXone 1,000 MG in sodium chloride 0.9% (plus) 50 ML 100 MG IV (17:27)
[2023-08-18] MEDS: LEVETIRACETAM 500 MG 1000 EACH PO (20:30)
[2023-08-18] MEDS: HYDROcodone-acetaminophen 5-325 mg Tablet 1 TAB PO (20:56)
[2023-08-19] VITALS (13 sets, daily range): BP systolic 127–154; BP diastolic 61–89; PULSE 74–91; RESP 16–18; TEMP 36.6–37.1; O2SAT 91–96
[2023-08-19] MEDS: ipratropium-albuterol 3 mL Neb INHALATION ×4 (02:56→20:32)
[2023-08-19 06:08] LABS: Basophils % 0.3 %; Eosinophils # 0.1 10^3/uL (0.0-0.8); Eosinophils % 0.7 %; Hematocrit 36.7 % (36-47); Lymphocytes # 2.9 10^3/uL (0.8-4.8); Lymphocytes % 26.3 %; Mean Corpuscular HGB Conc 33.2 g/dL (30-55); Mean Corpuscular Hemoglobin 33.2 pg (27-33); Mean Platelet Volume 10.4 fL (7.4-10.4); Monocytes # 0.8 10^3/uL (0.2-0.9); Monocytes % 7.5 %; Neutrophils # 7.14 10^3/uL (1.8-7.7); Neutrophils % 64.7 %; Nucleated Red Blood Cells % 0 %; Platelet Count 323 10^3/cmm (157-399); Red Blood Count 3.67 10^6/uL (3.85-5.65); Red Cell Distribution Width 13.9 % (12.1-15.1); White Blood Count 11.04 10^3/uL (3.29-11.43)
[2023-08-19 06:40] LABS: Alanine Aminotransferase 12 U/L (0-33); Alkaline Phosphatase 70 U/L (35-105); Anion Gap 9.5 (5-19); Aspartate Amino Transferase 17 U/L (0-32); Blood Urea Nitrogen 15 mg/dL (8-23); Calcium 8.4 mg/dL (8.5-10.5); Carbon Dioxide 34 mmol/L (22-29); Chloride 100 mmol/L (98-107); Creatinine Clr Calc Pharmacy 67.9724; Globulin 2.8 g/dL (1.3-4.6); Glomerular Filtration Rate 100.6 mL/min (90-130); Glucose 105 mg/dL (65-115); Magnesium 1.9 mg/dL (1.7-2.3); Osmolality Calculated 291 mOsm/kg (285-295); Phosphorus 2.5 mg/dL (2.5-4.5); Potassium 3.5 mmol/L (3.5-5.1); Sodium 140 mmol/L (136-145); Total Bilirubin 0.2 mg/dL (0.15-1.2); Total Protein 5.8 g/dL (6.6-8.7)
[2023-08-19] MEDS: budesonide 0.5 mg/2 mL Neb INHALATION ×2 (07:39→20:32)
[2023-08-19] MEDS: lactated ringers 1,000 ML 75 ML IV ×2 (08:04→21:30)
[2023-08-19] MEDS: citalopram 20 mg Tablet 40 MG PO (08:06)
[2023-08-19] MEDS: potassium chloride ER 20 mEq Tablet 40 MEQ PO (08:06)
[2023-08-19] MEDS: allopurinol 100 mg Tablet PO (08:06)
[2023-08-19] MEDS: guaiFENesin 600 mg Tablet PO ×2 (08:06→17:04)
[2023-08-19] MEDS: pregabalin 100 mg Capsule PO ×3 (08:06→21:30)
[2023-08-19] MEDS: HYDROcodone-acetaminophen 5-325 mg Tablet 1 TAB PO ×3 (09:54→22:11)
--- NOTE | 2023-08-19 09:55 | PC.CHAP ---
Pastoral Care Encounter/Spiritual Assessment Type of Contact [] Declined rolling machine operator visit [] Patient/Family/Request visit [] Outpatient visit [] Follow-up visit [] Physician referral [] Code/Alert [] Routine visit [] Staff referral [] Actively dying [] Patient sleeping [] Family support [] [] Out of room [] Palliative care [] [] Receiving care in room [] Pre-surgical visit [] Trauma [] Long length of stay [] ICU visit [] Other: Relational/Emotional Strength [] Patient feels connected with others/family/visitors/staff [] Distress [] Loneliness/isolation [] Abandonment Spirituality of Patient [] Person of Osiris [] Attends Roman Catholic of their Osiris [] Believes in Prayer [] Reads Bible or Church materials [] There are Spiritual issues to be addressed Framing Carpenter Interventions [] Prayer [] Active listening [] Non-anxious presence [] Spiritual/emotional support [] Crisis/trauma care [] Spiritual counseling [] Bereavement support [] Provided bereavement packet [] Provided Bible/devotional materials [] Provided toy/stuffed animal, coloring book to patient or family member [] Provided Communion [] Anointing/[place] [] Salvation [] Completed spiritual assessment [] Other: Impact on Illness or Injury [] Angry [] Fearful [] Anxious [] Often cries [] Exhaustion [] Unable to work [] Unable to attend congregational [] Unable to walk/stand [] Unable to read [] Unable to drive [] Unable to eat/drink [] Unable to sleep [] Unable to be with family [] Patient intubated [] Other: Summary no visitors / uncovered? Time spent with patient
--- NOTE | 2023-08-19 13:57 | PM.PN ---
Subjective Subjective: Feels better family at bedside Vitals/I&O/Wt Last Vital Signs Temp 98.2 F 08/19/23 11:46 Pulse 91 08/19/23 11:46 Resp 16 08/19/23 11:46 BP 137/61 08/19/23 11:46 Pulse Ox 92 08/19/23 11:46 O2 Del Method Room Air 08/19/23 11:46 O2 Flow Rate 2 08/18/23 20:10 08/18/23 08/19/23 08/19/23 22:59 06:59 14:59 Intake Total 50 / 290 1000 / 1290 1480 / 1480 Balance 50 / 290 1000 / 1290 1480 / 1480 Weight last 48 hrs Weight 100 lb 1 oz Weight 97 lb 9.6 oz Physical Exam Narrative: Accompanied by family Const: COMMON NORMALS: patient oriented x3 and alert GENERAL APPEARANCE: cooperative NUTRITIONAL APPEARANCE: thin ORIENTATION/CONSCIOUSNESS: Yes awake OTHER: Generally weak, slowed movements and speech. HENMT: OTHER: Dry mouth Neck/C-Spine: COMMON NORMALS: no JVD Resp: COMMON NORMALS: normal respiratory effort and clear to auscultation bilaterally AUSCULTATION: clear to auscultation bilaterally Cardio: COMMON NORMALS: no JVD, regular rhythm, S1 normal heart sound present, S2 normal heart sound present and No murmurs present (Cardio) RHYTHM: regular rhythm HEART SOUNDS: S1 normal heart sound present and S2 normal heart sound present GI: COMMON NORMALS: Normal to inspection, nondistended, normoactive bowel sounds present, Soft to palpation and non-tender PALPATION: Yes Soft to palpation Extremity: COMMON NORMALS: no joint enlargement and no pedal edema Neuro: COMMON NORMALS: patient oriented x3 and moves all extremities SENSORIUM/ORIENTATION: Yes alert Skin: COMMON NORMALS: no rashes or lesions noted GENERAL SKIN EXAM: no rashes or lesions noted Data 08/19/23 05:34 08/19/23 05:34 A&P Assessment and plan (1) Failure to thrive: Poor PO intake Dehydration. At risk of refeeding syndrome. Monitor electrolytes, magnesium, phosphorus. Generally weak. She is not certain about history of dystonia, but states that has had difficulties with ambulation for a while. 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 She has been having some urinary incontinence, some memory difficulties verbalized by the family. Will additionally assess with CT head. She also has been feeling cold frequently, with generalized slowed movements, responses, will check TSH for possible hypothyroidism. Reviewed vitals, CBC, ABG, CMP, UA. Reviewed ER note, discussed with ER provider. Respiratory viral panel is pending. Additionally has been having some respiratory complaints, some cough, some dyspnea, newly requiring 2 L of oxygen in ER. CT angiogram chest has been obtained and pending result due to risk of PE. She did have wheezing earlier. He is a current smoker, may have undiagnosed COPD appears to have moderate exacerbation. Starting treatment with breathing treatments, inhaled budesonide. Avoid systemic steroid for now if possible due to recent surgery. Had a recent laminectomy/facetectomy on 08/08. Wound with some dry crusted blood under Steri-Strips, dressing is not come off, although was instructed to take it off 2 days after surgery, but has been too weak. Requesting to remove dressing. Monitor wound. Currently no erythema or swelling around the wound. No drainage. CT of lumbar spine has been obtained in ER, some collections noted considered likely due to postsurgical changes/seroma. Discussed with them CT is noncontrast, does not provide same level of detail as a contra study. With leukocytosis, CRP elevation, monitor for any fever spikes, hypothermia, reassess leukocytosis, consider reassessment with a contrast-enhanced study. PT, OT evaluation. Consultation requested with case management for arrangements for rehabilitation. Acetaminophen. Hydrocodone as needed for moderate pain, IV morphine as needed for breakthrough. Anticipate nutrition consult on Saturday Mild leukocytosis. UA trace bacteria. Chest imaging suspicious for lesion will need reimaging. At this time not on antibiotics (2) Dehydration: Continue gentle hydration stop IVF (3) COPD exacerbation: Moderate COPD exacerbation with dyspnea, cough productive sputum, has difficulty expectorating. Breathing treatments with scheduled and as needed DuoNebs, inhaled budesonide, avoid systemic steroid for now with recent spine surgery, and guaifenesin, flutter valve, assist in expectoration. Maintain aspiration precautions. ST evaluation as above. Dysphagia diet for now. Check respiratory viral panel and was negative (4) Leukocytosis: Does have leukocytosis 13.2, possibly related to COPD exacerbation, with generalized weakness, failure to thrive, check respiratory viral panel. However, recently also after spine laminectomy, facetectomy, wound appears okay without any signs of infection. Does have some collections on noncontrast and CT lumbar spine. Does have CRP elevation. Monitor vitals for any fever, reassess leukocytosis, in case of any worsening or lack of improvement, consider reimaging with contrast-enhanced CT. Holding off for now given lack of back symptoms, wound appears good, and he is just having a contrast load with CT angiogram chest. Reassess kidney function with risk of contrast nephropathy. Plan Cholelithiasis: Incidentally noted on CT lumbar spine, she has no abdominal pain or tenderness, no right quadrant pain. Liver parameters are unremarkable. Will need follow-up. Should maintain low fat/cholesterol diet at discharge. Status post laminectomy/facetectomy lumbosacral spine on 08/08: Wound appears to be healing okay. Noted fluid collections suspected seroma seen on CT. Does have leukocytosis and has had failure to thrive, unable to get up since surgery. CRP is quite elevated. Monitor vitals for any fever, reassess leukocytosis, currently holding off on contrast-enhanced CT as she has also just received contrast load with CT angiogram to assess for any PE. Dr. Grant is not currently on-call, consider updating him on Saturday unless more acute issues end up requiring transfer. Continue hydrocodone as needed for moderate pain, IV morphine as needed for breakthrough pain. Goals of care discussion: She has not considered CODE STATUS previously, however, states that in case of cardiopulmonary arrest decides on discussion that she would not want cardiopulmonary resuscitation, would want to be rather Comfortable, without pain or discomfort. She is okay with medical treatment up until that point. Microscopic colitis, chronically on oral budesonide, she states it has been helping her diarrhea. Continue. Epilepsy: Continue antiepileptics. History of NPH: Reassess CT head with recent difficulties with ambulation, urinary continence, family reports some memory difficulties. Attestations Medical Necessity Statement*: Nicolasa Valdez Alvarosusanna requires ongoing inpatient care for antibiotics Coding Level of Care Code Acute Code for Chg Fwd Diagnoses Failure to thrive Dehydration E86.0 COPD exacerbation J44.1 Leukocytosis D72.829
[2023-08-19] MEDS: cefTRIAXone 1,000 MG in sodium chloride 0.9% (plus) 50 ML 100 MG IV (15:54)
[2023-08-19] MEDS: nicotine 14 mg Patch 1 PATCH TRANSDERMA (15:55)
[2023-08-19] MEDS: enoxaparin 30 mg/0.3 mL Syringe SUBCUT (15:56)
[2023-08-19] MEDS: LEVETIRACETAM 500 MG 1000 EACH PO (21:30)
[2023-08-20] VITALS (11 sets, daily range): BP systolic 97–182; BP diastolic 73–92; PULSE 76–88; RESP 16–20; TEMP 36.4–36.8; O2SAT 91–94
[2023-08-20] MEDS: ipratropium-albuterol 3 mL Neb INHALATION ×2 (02:25→20:37)
[2023-08-20 06:10] LABS: Basophils # 0.1 10^3/uL (0.0-0.1); Basophils % 0.5 %; Eosinophils # 0.1 10^3/uL (0.0-0.8); Eosinophils % 1.3 %; Hematocrit 36.2 % (36-47); Lymphocytes # 2.8 10^3/uL (0.8-4.8); Lymphocytes % 26.7 %; Mean Corpuscular HGB Conc 32.9 g/dL (30-55); Mean Corpuscular Hemoglobin 33.8 pg (27-33); Mean Corpuscular Volume 102.8 fl (85-98); Mean Platelet Volume 9.8 fL (7.4-10.4); Monocytes # 0.9 10^3/uL (0.2-0.9); Monocytes % 8.2 %; Neutrophils % 62.8 %; Nucleated Red Blood Cells % 0 %; Platelet Count 309 10^3/cmm (157-399); Red Blood Count 3.52 10^6/uL (3.85-5.65); White Blood Count 10.65 10^3/uL (3.29-11.43)
[2023-08-20 06:28] LABS: Alanine Aminotransferase 15 U/L (0-33); Albumin Level 2.7 g/dL (3.5-5.2); Alkaline Phosphatase 58 U/L (35-105); Anion Gap 11.3 (5-19); Aspartate Amino Transferase 20 U/L (0-32); Blood Urea Nitrogen 11 mg/dL (8-23); Calcium 8.7 mg/dL (8.5-10.5); Carbon Dioxide 32 mmol/L (22-29); Chloride 99 mmol/L (98-107); Globulin 2.7 g/dL (1.3-4.6); Glomerular Filtration Rate 124.2 mL/min (90-130); Glucose 89 mg/dL (65-115); Magnesium 1.8 mg/dL (1.7-2.3); Osmolality Calculated 285 mOsm/kg (285-295); Phosphorus 2.8 mg/dL (2.5-4.5); Potassium 4.3 mmol/L (3.5-5.1); Sodium 138 mmol/L (136-145); Total Bilirubin 0.2 mg/dL (0.15-1.2); Total Protein 5.4 g/dL (6.6-8.7)
[2023-08-20] MEDS: citalopram 20 mg Tablet 40 MG PO (08:55)
[2023-08-20] MEDS: guaiFENesin 600 mg Tablet PO ×2 (08:55→18:03)
[2023-08-20] MEDS: BUDESONIDE 9 MG 9 EACH PO (08:56)
[2023-08-20] MEDS: allopurinol 100 mg Tablet PO (08:57)
[2023-08-20] MEDS: potassium chloride ER 20 mEq Tablet 40 MEQ PO (08:58)
[2023-08-20] MEDS: pregabalin 100 mg Capsule PO ×3 (09:02→21:00)
--- NOTE | 2023-08-20 09:28 | PC.CHAP ---
Pastoral Care Encounter/Spiritual Assessment Type of Contact [] Declined mill representative visit [] Patient/Family/Request visit [] Outpatient visit [] Follow-up visit [] Physician referral [] Code/Alert [x] Routine visit [] Staff referral [] Actively dying [] Patient sleeping [] Family support [] [] Out of room [] Palliative care [] [] Receiving care in room [] Pre-surgical visit [] Trauma [] Long length of stay [] ICU visit [] Other: Relational/Emotional Strength [x] Patient feels connected with others/family/visitors/staff [] Distress [] Loneliness/isolation [] Abandonment Spirituality of Patient [x] Person of Osiris [x] Attends Alevism of their Osiris [x] Believes in Prayer [x] Reads Bible or Yarsani materials [] There are Spiritual issues to be addressed Supervisor Wool Shearing Interventions [x] Prayer [x] Active listening [x] Non-anxious presence [x] Spiritual/emotional support [] Crisis/trauma care [] Spiritual counseling [] Bereavement support [] Provided bereavement packet [] Provided Bible/devotional materials [] Provided toy/stuffed animal, coloring book to patient or family member [] Provided Communion [] Anointing/[place] [] Salvation [x] Completed spiritual assessment [] Other: Impact on Illness or Injury [] Angry [] Fearful [] Anxious [] Often cries [] Exhaustion [] Unable to work [] Unable to attend taoist [] Unable to walk/stand [] Unable to read [] Unable to drive [] Unable to eat/drink [] Unable to sleep [] Unable to be with family [] Patient intubated [] Other: Summary Time spent with patient 10 min
[2023-08-20] MEDS: acetaminophen 325 mg Tablet 650 MG PO ×2 (12:27→21:04)
--- NOTE | 2023-08-20 15:11 | P.PN_ITS ---
Subjective 2 Subjective: Feels better, diet better appetite better Vitals/I&O/Wt Last Vital Signs Temp 97.5 F L 08/20/23 12:00 Pulse 86 08/20/23 12:00 Resp 16 08/20/23 12:00 BP 175/73 08/20/23 12:00 Pulse Ox 93 08/20/23 12:00 O2 Del Method Room Air 08/20/23 10:19 O2 Flow Rate 2 08/18/23 20:10 08/20/23 08/20/23 08/20/23 06:59 14:59 22:59 Intake Total 240 / 240 Balance 240 / 240 Weight last 48 hrs Weight 100 lb Weight 100 lb 1 oz Physical Exam 2 Narrative: Accompanied by family Const: COMMON NORMALS: patient oriented x3 and alert GENERAL APPEARANCE: c ooperative NUTRITIONAL APPEARANCE: thin ORIENTATION/CONSCIOUSNESS: Yes awake OTHER: Generally weak, slowed movements and speech. HENMT: OTHER: Dry mouth Neck/C-Spine: COMMON NORMALS: no JVD Resp: COMMON NORMALS: normal respiratory effort and clear to auscultation bilaterally AUSCULTATION: clear to auscultation bilaterally Cardio: COMMON NORMALS: no JVD, regular rhythm, S1 normal heart sound present, S2 normal heart sound present and No murmurs present (Cardio) RHYTHM: regular rhythm HEART SOUNDS: S1 normal heart sound present and S2 normal heart sound present GI: COMMON NORMALS: Normal to inspection, nondistended, normoactive bowel sounds present, Soft to palpation and non-tender PALPATION: Yes Soft to palpation Extremity: COMMON NORMALS: no joint enlargement and no pedal edema Neuro: COMMON NORMALS: patient oriented x3 and moves all extremities S ENSORIUM/ORIENTATION: Yes alert Skin: COMMON NORMALS: no rashes or lesions noted GENERAL SKIN EXAM: no rashes or lesions noted Data 08/20/23 06:00 08/20/23 06:00 A&P Assessment and plan (1) Failure to thrive: Poor PO intake Dehydration. At risk of refeeding syndrome. Monitor electrolytes, magnesium, phosphorus. Generally weak. She is not certain about history of dystonia, but states that has had difficulties with ambulation for a while. 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 She has been having some urinary incontinence, some memory difficulties verbalized by the family. Will additionally assess with CT head. She also has been feeling cold frequently, with generalized slowed movements, responses, will check TSH for possible hypothyroidism. Reviewed vitals, CBC, ABG, CMP, UA. Reviewed ER note, discussed with ER provider. Respiratory viral panel is pending. Additionally has been having some respiratory complaints, some cough, some dyspnea, newly requiring 2 L of oxygen in ER. CT angiogram chest has been obtained and pending result due to risk of PE. She did have wheezing earlier. He is a current smoker, may have undiagnosed COPD appears to have moderate exacerbation. Starting treatment with breathing treatments, inhaled budesonide. Avoid systemic steroid for now if possible due to recent surgery. Had a recent laminectomy/facetectomy on 08/08. Wound with some dry crusted blood under Steri-Strips, dressing is not come off, although was instructed to take it off 2 days after surgery, but has been too weak. Requesting to remove dressing. Monitor wound. Currently no erythema or swelling around the wound. No drainage. CT of lumbar spine has been obtained in ER, some collections noted considered likely due to postsurgical changes/seroma. Discussed with them CT is noncontrast, does not provide same level of detail as a contra study. With leukocytosis, CRP elevation, monitor for any fever spikes, hypothermia, reassess leukocytosis, consider reassessment with a contrast-enhanced study. PT, OT evaluation. Consultation requested with case management for arrangements for rehabilitation. Acetaminophen. Hydrocodone as needed for moderate pain, Anticipate nutrition consult on Saturday Mild leukocytosis. UA trace bacteria. Chest imaging suspicious for lesion will need reimaging. At this time not on antibiotics abnormal chest CT -discussed differential including malignancy and need for reimaging Dispo:DC soon (2) Dehydration: Continue gentle hydration stop IVF (3) COPD exacerbation: Moderate COPD exacerbation with dyspnea, cough productive sputum, has difficulty expectorating. Breathing treatments with scheduled and as needed DuoNebs, inhaled budesonide, avoid systemic steroid for now with recent spine surgery, and guaifenesin, flutter valve, assist in expectoration. Maintain aspiration precautions. ST evaluation as above. Dysphagia diet for now. Check respiratory viral panel and was negative (4) Leukocytosis: Does have leukocytosis 13.2, possibly related to COPD exacerbation, with generalized weakness, failure to thrive, check respiratory viral panel. However, recently also after spine laminectomy, facetectomy, wound appears okay without any signs of infection. Does have some collections on noncontrast and CT lumbar spine. Does have CRP elevation. Monitor vitals for any fever, reassess leukocytosis, in case of any worsening or lack of improvement, consider reimaging with contrast-enhanced CT. Holding off for now given lack of back symptoms, wound appears good, and he is just having a contrast load with CT angiogram chest. Reassess kidney function with risk of contrast nephropathy. Plan Cholelithiasis: Incidentally noted on CT lumbar spine, she has no abdominal pain or tenderness, no right quadrant pain. Liver parameters are unremarkable. Will need follow-up. Should maintain low fat/cholesterol diet at discharge. Status post laminectomy/facetectomy lumbosacral spine on 08/08: Wound appears to be healing okay. Noted fluid collections suspected seroma seen on CT. Does have leukocytosis and has had failure to thrive, unable to get up since surgery. CRP is quite elevated. Monitor vitals for any fever, reassess leukocytosis, currently holding off on contrast-enhanced CT as she has also just received contrast load with CT angiogram to assess for any PE. Dr. Grant is not currently on-call, consider updating him on Saturday unless more acute issues end up requiring transfer. Continue hydrocodone as needed for moderate pain, IV morphine as needed for breakthrough pain. Goals of care discussion: She has not considered CODE STATUS previously, however, states that in case of cardiopulmonary arrest decides on discussion that she would not want cardiopulmonary resuscitation, would want to be rather Comfortable, without pain or discomfort. She is okay with medical treatment up until that point. Microscopic colitis, chronically on oral budesonide, she states it has been helping her diarrhea. Continue. Epilepsy: Continue antiepileptics. History of NPH: Reassess CT head with recent difficulties with ambulation, urinary continence, family reports some memory difficulties. Attestations 2 Medical Necessity Statement*: Nicolasa Kothari requires ongoing inpatient care for abx, therapy Coding Level of Care Code 69867 Diagnoses Failure to thrive Dehydration E86.0 COPD exacerbation J44.1 Leukocytosis D72.829
[2023-08-20] MEDS: enoxaparin 30 mg/0.3 mL Syringe SUBCUT (16:46)
[2023-08-20] MEDS: nicotine 14 mg Patch 1 PATCH TRANSDERMA (16:47)
[2023-08-20] MEDS: cefTRIAXone 1,000 MG in sodium chloride 0.9% (plus) 50 ML 100 MG IV (16:47)
[2023-08-20] MEDS: HYDROcodone-acetaminophen 5-325 mg Tablet 1 TAB PO (16:47)
[2023-08-20] MEDS: budesonide 0.5 mg/2 mL Neb INHALATION (20:37)
[2023-08-20] MEDS: LEVETIRACETAM 500 MG 1000 EACH PO (21:00)
[2023-08-21] VITALS (8 sets, daily range): BP systolic 131–173; BP diastolic 68–96; PULSE 73–92; RESP 16–18; TEMP 36.2–36.8; O2SAT 90–94; BMI 14.5
[2023-08-21] MEDS: HYDROcodone-acetaminophen 5-325 mg Tablet 1 TAB PO ×2 (09:00→14:51)
[2023-08-21] MEDS: allopurinol 100 mg Tablet PO (09:00)
[2023-08-21] MEDS: guaiFENesin 600 mg Tablet PO (09:00)
[2023-08-21] MEDS: citalopram 20 mg Tablet 40 MG PO (09:00)
[2023-08-21] MEDS: pregabalin 100 mg Capsule PO (09:00)
[2023-08-21] MEDS: potassium chloride ER 20 mEq Tablet 40 MEQ PO (09:00)
[2023-08-21] MEDS: ipratropium-albuterol 3 mL Neb INHALATION ×2 (09:12→13:13)
[2023-08-21] MEDS: budesonide 0.5 mg/2 mL Neb INHALATION (09:12)
[2023-08-21] MEDS: multivitamin therapeutic Tablet 1 TAB PO (10:35)
--- NOTE | 2023-08-21 12:30 | PM.DCS ---
Discharge Providers Date of Admission: 08/17/23 16:25 Date of Discharge: August 21, 2023 Attending Provider at Admission: Cory Robertson Attending Provider at Discharge: Lavelle Street MD Primary Care Provider: Rosy Javier Diagnoses at Discharge Discharge Diagnosis (1) Failure to thrive: Status: Acute (2) Dehydration: Status: Acute (3) COPD exacerbation: Status: Acute (4) Leukocytosis: Status: Acute Reason for Visit Reason for Visit: SOB Hospital Course Hospital Course 62-year-old female with history of spinal stenosis underwent laminectomy fasciotomy on August 08 presents with complaints of shortness of breath and weakness. She was admitted with concern for dehydration, failure to thrive, COPD exacerbation. Patient also had abnormal CT chest. Concern for infection versus mass. This was discussed in detail. Patient received gentle hydration. Was evaluated by physical therapy as well as nutrition. Her symptoms had improved during hospitalization her labs are improved. She was discharged for placement. Recommend outpatient follow-up with CT. As well as her primary care. Chronic conditions including microscopic colitis epilepsy also addressed as well as tobacco use Physical Exam Narrative: No acute distress Const: COMMON NORMALS: patient oriented x3 and alert GENERAL APPEARANCE: cooperative NUTRITIONAL APPEARANCE: thin ORIENTATION/CONSCIOUSNESS: Yes awake HENMT: OTHER: Dry mouth Neck/C-Spine: COMMON NORMALS: no JVD Resp: COMMON NORMALS: normal respiratory effort and clear to auscultation bilaterally AUSCULTATION: clear to auscultation bilaterally Cardio: COMMON NORMALS: no JVD, regular rhythm, S1 normal heart sound present, S2 normal heart sound present and No murmurs present (Cardio) RHYTHM: regular rhythm HEART SOUNDS: S1 normal heart sound present and S2 normal heart sound present GI: COMMON NORMALS: Normal to inspection, nondistended, normoactive bowel sounds present, Soft to palpation and non-tender PALPATION: Yes Soft to palpation Extremity: COMMON NORMALS: no joint enlargement and no pedal edema Neuro: COMMON NORMALS: patient oriented x3 and moves all extremities SENSORIUM/ORIENTATION: Yes alert Skin: COMMON NORMALS: no rashes or lesions noted GENERAL SKIN EXAM: no rashes or lesions noted Discharge Data Studies Completed and Pending Completed Studies During Hospitalization Category Date Time Status CT angio chest PE protcl [id number] Stat Cat Scan 08/17/23 13:[address] head wo con* [id number] Routine Cat Scan 08/17/23 16:[address] lumbar spine wo con* [id number] Stat Cat Scan 08/17/23 12:09 Completed XR chest 1V portable [id number] Stat Exams 08/17/23 10:32 Completed Radiology Impressions Chest X-Ray 08/17/23 10:32 IMPRESSION: No acute findings. Lumbar Spine CT 08/17/23 12:09 IMPRESSION: 1. New laminotomies at L4 and L5 with small paraspinous fluid collections adjacent to laminotomy sites, likely seromas. There is no definitive evidence of infection although evaluation is limited without IV contrast. There is no hematoma or fracture. 2. Partially imaged gallbladder is distended and contains stones. Consider ultrasound evaluation of the gallbladder. Chest CTA 08/17/23 13:26 IMPRESSION: 1. Right hilar and right upper mediastinal lymph node enlargement with adjacent 10 mm suprahilar right lung nodule. Findings are suspicious for malignancy. Consider non-emergent PET/CT or tissue sampling.(Reference: Michael) 2. No pulmonary embolism. 3. Distended gallbladder containing sludge is partially imaged. No definitive sign of cholecystitis. If there is clinical evidence of gallbladder disease, consider follow-up ultrasound. 4. Incidental findings above. REFERENCES: Michael H, et al. Guidelines for Management of Incidental Pulmonary Nodules Detected on CT Images: From the Fleischner Society 2017. Radiology. 2017;284(1):228-243. Head CT 08/17/23 16:55 IMPRESSION: 1. No acute intracranial hemorrhage or mass effect. 2. Moderate dilation of the lateral ventricles bilaterally, not significantly changed since 03/22/2023. Possible normal pressure hydrocephalus. 3. Stable bilateral frontal lobe encephalomalacia. Laboratory Results WBC 10.65 10^3/uL (3.29-11.43) 08/20/23 06:00 RBC 3.52 10^6/uL (3.85-5.65) L 08/20/23 06:00 Hgb 11.90 g/dL (11.27-16.99) 08/20/23 06:00 Hct 36.2 % (36-47) 08/20/23 06:00 MCV 102.8 fl (85-98) H 08/20/23 06:00 MCH 33.8 pg (27-33) H 08/20/23 06:00 MCHC 32.9 g/dL (30-55) 08/20/23 06:00 RDW 14.0 % (12.1-15.1) 08/20/23 06:00 Plt Count 309 10^3/cmm (157-399) 08/20/23 06:00 MPV 9.8 fL (7.4-10.4) 08/20/23 06:00 Neut % (Auto) 62.8 % 08/20/23 06:00 Lymph % (Auto) 26.7 % 08/20/23 06:00 [place] % (Auto) 8.2 % 08/20/23 06:00 Eos % (Auto) 1.3 % 08/20/23 06:00 Baso % (Auto) 0.5 % 08/20/23 06:00 Neut # (Auto) 6.70 10^3/uL (1.8-7.7) 08/20/23 06:00 Lymph # (Auto) 2.8 10^3/uL (0.8-4.8) 08/20/23 06:00 [place] # (Auto) 0.9 10^3/uL (0.2-0.9) 08/20/23 06:00 Eos # (Auto) 0.1 10^3/uL (0.0-0.8) 08/20/23 06:00 Baso # (Auto) 0.1 10^3/uL (0.0-0.1) 08/20/23 06:00 Nucleated RBC % (auto) 0 % 08/20/23 06:00 Nucleated RBCs # 0.0 /100WBC 08/20/23 06:00 Specimen Type Arterial 08/17/23 10:36 Sample Site Radial, right 08/17/23 10:36 ABG pH 7.46 (7.35-7.45) H 08/17/23 10:36 ABG pCO2 50.4 mmHg (35-45) H 08/17/23 10:36 ABG pO2 89.2 mmHg (80.0-100.0) 08/17/23 10:36 ABG PO2/FiO2 Ratio 0 08/17/23 10:36 ABG HCO3 36.1 mmol/L (22-26) H 08/17/23 10:36 ABG O2 Saturation 96.0 08/17/23 10:36 ABG Base Excess 10.3 mmol/L (-2.0-2.0) H 08/17/23 10:36 Zack Test Pos 08/17/23 10:36 A-a O2 Gradient 6.2 mmHg (5-10) 08/17/23 10:36 Hematocrit 46.7 % (37-47) 08/17/23 10:36 Hgb O2 Saturation 87.8 % (95-100) L 08/17/23 10:36 Carboxyhemoglobin 8.4 %THgb (0.4-20.1) 08/17/23 10:36 Methemoglobin 0.1 % (0.4-1.5) L 08/17/23 10:36 Total Hemoglobin 15.2 g/dL (12-16) 08/17/23 10:36 Sodium 137.0 mmol/L (131-143) 08/17/23 10:36 Potassium 3.1 mmol/L (3.5-5.0) L 08/17/23 10:36 Glucose 102.0 mg/dL (70-115) 08/17/23 10:36 Ionized Calcium 1.2 mmol/L (1.1-1.4) 08/17/23 10:36 O2 Delivery Device Nc 08/17/23 10:36 O2 Liters/Min 2.0 % 08/17/23 10:36 FiO2 28.0 % 08/17/23 10:36 Licensed Loan Officer ID [place] 08/17/23 10:36 Sodium 138 mmol/L (136-145) 08/20/23 06:00 Potassium 4.3 mmol/L (3.5-5.1) 08/20/23 06:00 Chloride 99 mmol/L (98-107) 08/20/23 06:00 Carbon Dioxide 32 mmol/L (22-29) H 08/20/23 06:00 Anion Gap 11.3 (5-19) 08/20/23 06:00 BUN 11 mg/dL (8-23) 08/20/23 06:00 Creatinine 0.5 mg/dL (0.5-0.9) 08/20/23 06:00 GFR Calculation 124.2 mL/min (90-130) 08/20/23 06:00 Glucose 89 mg/dL (65-115) 08/20/23 06:00 Calculated Osmolality 285 mOsm/kg (285-295) 08/20/23 06:00 Lactic Acid 1.2 mmol/L (0.5-2.2) 08/17/23 10:54 Calcium 8.7 mg/dL (8.5-10.5) 08/20/23 06:00 Phosphorus 2.8 mg/dL (2.5-4.5) 08/20/23 06:00 Magnesium 1.8 mg/dL (1.7-2.3) 08/20/23 06:00 Total Bilirubin 0.2 mg/dL (0.15-1.2) 08/20/23 06:00 AST 20 U/L (0-32) 08/20/23 06:00 ALT 15 U/L (0-33) 08/20/23 06:00 Alkaline Phosphatase 58 U/L (35-105) 08/20/23 06:00 Troponin T Baseline 29 ng/L (0-10) H 08/17/23 10:54 Troponin T 120 Minute 25.93 ng/L (0-10) H 08/17/23 13:38 Delta Troponin T -3.07 ABS# (0-10) L 08/17/23 13:38 Troponin T Hi Sens 6Hr 21.62 ng/L (0-10) H 08/17/23 17:20 Troponin T Hi Sens 6Hr Delta -7.38 ng/L (0-12) L 08/17/23 17:20 C-Reactive Protein 195.8 mg/L (0.0-4.9) H 08/17/23 10:54 NT-Pro-B Natriuret Pep 993 pg/mL (0-125) H 08/17/23 10:54 Total Protein 5.4 g/dL (6.6-8.7) L 08/20/23 06:00 Albumin 2.7 g/dL (3.5-5.2) L 08/20/23 06:00 Globulin 2.7 g/dL (1.3-4.6) 08/20/23 06:00 TSH 0.33 uIU/mL (0.27-4.20) 08/17/23 17:20 Urine Color Yellow (Yellow) 08/17/23 12:35 Urine Appearance Clear (CLEAR) 08/17/23 12:35 Urine pH 7 (5-7) 08/17/23 12:35 Ur Specific [place] 1.010 (1.005-1.030) 08/17/23 12:35 Urine Protein Neg (Negative) 08/17/23 12:35 Urine Glucose (UA) Norm (Normal) 08/17/23 12:35 Urine Ketones 1+ (Negative) H 08/17/23 12:35 Urine Blood Neg (Negative) 08/17/23 12:35 Urine Nitrate Negative (Negative) 08/17/23 12:35 Urine Bilirubin Neg (Negative) 08/17/23 12:35 Urine Urobilinogen Norm mg/dL (Negative) 08/17/23 12:35 Ur Leukocyte Esterase Negative (Negative) 08/17/23 12:35 Urine RBC None /hpf (0-2) 08/17/23 12:35 Urine WBC 0-4 /hpf (0-5) H 08/17/23 12:35 Ur Squamous Epith Cells Rare /hpf (0-5) 08/17/23 12:35 Amorphous Sediment Not Reportable 08/17/23 12:35 Urine Bacteria Trace /hpf (NONE) 08/17/23 12:35 Adenovirus (PCR) Not detected (NOT DETECT) 08/17/23 14:34 C. pneumoniae DNA (PCR) Not detected (NOT DETECT) 08/17/23 14:34 Coronavirus 229E (PCR) Not detected (NOT DETECT) 08/17/23 14:34 Human Metapneumovir PCR Not detected (NOT DETECT) 08/17/23 14:34 Influenza A (H1) PCR Not detected (NOT DETECT) 08/17/23 14:34 Influ A (H1/09) PCR Not detected (NOT DETECT) 08/17/23 14:34 Influenza A (H3) PCR Not detected (NOT DETECT) 08/17/23 14:34 Influenza Type A (PCR) Not detected (NOT DETECT) 08/17/23 14:34 Influenza Type B (PCR) Not detected (NOT DETECT) 08/17/23 14:34 M. pneumoniae (PCR) Not detected (NOT DETECT) 08/17/23 14:34 Parainfluenza 1 (PCR) Not detected (NOT DETECT) 08/17/23 14:34 Parainfluenza 2 (PCR) Not detected (NOT DETECT) 08/17/23 14:34 Parainfluenza 3 (PCR) Not detected (NOT DETECT) 08/17/23 14:34 Parainfluenza 4 (PCR) Not detected (NOT DETECT) 08/17/23 14:34 RSV Type A (PCR) Not detected (NOT DETECT) 08/17/23 14:34 RSV Type B (PCR) Not detected (NOT DETECT) 08/17/23 14:34 Entero/Rhino (PCR) Not detected (NOT DETECT) 08/17/23 14:34 SARS-CoV-2 (PCR) Not detected (NOT DETECT) 08/17/23 14:34 Vitals Last Vital Signs Temp 98.0 F 08/21/23 12:00 Pulse 81 08/21/23 12:00 Resp 16 08/21/23 12:00 BP 142/68 08/21/23 12:00 Pulse Ox 94 08/21/23 12:00 O2 Del Method Room Air 08/21/23 12:00 O2 Flow Rate 2 08/18/23 20:10 Discharge Plan Discharge Patient Disposition: Home Condition: Stable Prescriptions: New celecoxib 100 mg Capsule 100 mg PO BID Qty: 60 0RF cefdinir 300 mg capsule 300 mg PO BID 5 Days Qty: 10 0RF multivitamin with folic acid [Thera] 400 mcg Tablet 1 tab PO DAILY Qty: 30 0RF Continued acyclovir 400 mg tablet 400 mg PO BID PRN (Reason: Outbreak) citalopram 40 mg tablet 40 mg PO DAILY Qty: 90 3RF pregabalin [Lyrica] 100 mg capsule 100 mg PO TID Qty: 300 3RF hydrocodone-acetaminophen 5-325 mg tablet 1 - 2 tab PO .Q4-6H Qty: 40 0RF levetiracetam 500 mg tablet extended release 24 hr 1,000 mg PO DAILY allopurinol 100 mg tablet 100 mg PO DAILY budesonide 9 mg tablet,delayed and ext.release 9 mg PO DAILY Discontinued celecoxib [Celebrex] 200 mg capsule 200 mg PO BID Discharge Orders: Discharge Order (Routine); Ordered 08/21/23 Ordered By: Lavelle Street Referrals: Rosy Javier PA [Primary Care Provider] - Discharge Diet: Usual diet Discharge Activity: Resume usual activity Patient Instructions: Opioid Safety Discharge Attestations Time Spent in Discharge Care*: less than 30 min Quality Metrics Clinical Quality Measures [ No reported AMI, CVA or VTE this stay] Coding Level of Care Code 06543 Diagnoses Failure to thrive Dehydration E86.0 COPD exacerbation J44.1 Leukocytosis D72.829
--- NOTE | 2023-08-21 13:11 | PC.NURSE ---
Report called to Radha hoffman [facility]. Daughters to transport.
--- NOTE | 2023-08-21 13:15 | PC.NURSE ---
Amador Garcia at [facility], leave IV in for them.
--- NOTE | 2023-08-21 14:41 | PC.NURSE ---
Daughters here to transport pt to [facility]. Packet sent with daughters. Leaving IV in per [facility] request. To private vehicle via wheelchair with all belongings.
--- NOTE | 2023-08-21 14:57 | PC.NURSE ---
Home meds sent home with pt.
== END 2023-08-21 14:58 | DRG 191 ==
LOC: ER 13:30 → MEDSURG 08-18 06:49
PROVIDERS: Admitting Provider Internal Medicine; Emergency Provider Emergency Medicine; PCP Physician Assistant; Visit Provider Internal Medicine
DX: J44.1 Chronic obstructive pulmonary disease with (acute) exacerbation (principal); G91.2 (Idiopathic) normal pressure hydrocephalus; Z68.1 Body mass index [BMI] 19.9 or less, adult; F17.200 Nicotine dependence, unspecified, uncomplicated; F32.A Depression, unspecified; R62.7 Adult failure to thrive; E86.0 Dehydration; K80.20 Calculus of gallbladder without cholecystitis without obstruction; Z11.52 Encounter for screening for COVID-19; Z98.1 Arthrodesis status
CPT/HCPCS: 36415; 36600; 70450; 71045; 71275; 72131; 80051; 80053; 81001; 82330; 82805; 83605; 83735; 83880; 84100; 84443; 84484; 85025; 86140; 87486; 87581; 87633; 92610; 93005; 94640; 96372; 96374; 97116; 97161; 97166; 97530; 97535; 99285; J0696; J1650; J2919; J7030; J7120; J7613; J7626; Q9967

== ENCOUNTER 2023-09-01 22:01 | Observation (INO) | payer OTHER, SELFPAY ==
[2023-09-01 22:02] VITALS: BP 221/97; PULSE 86; RESP 18; TEMP 36.7; O2SAT 93; BMI 12.9
--- NOTE | 2023-09-01 22:58 | XRR_ITS ---
PROCEDURE INFORMATION: Exam: XR Chest Exam date and time: 09/01/2023 11:03 PM Age: 62 years old Clinical indication: Patient HX: Weakness; Recent back surg TECHNIQUE: Imaging protocol: Radiologic exam of the chest. Views: 1 view. COMPARISON: CT angio chest PE protcl [id number] 08/17/2023 1:52 PM FINDINGS: Lungs: Emphysematous changes. Pleural spaces: Unremarkable. No pleural effusion. No pneumothorax. Heart/Mediastinum: Unremarkable. No cardiomegaly. Bones/joints: Unremarkable. XR/XR chest 1V portable [id number] IMPRESSION: 1. Negative for infiltrate 2. Emphysematous changes.
[2023-09-01 23:31] LABS: Add Urine Culture? Yes; Add Urine Microscopic? YES; Bacteria Urine 3+ /hpf; Bilirubin Urine Neg (Negative); Blood Urine Trace (Negative); Glucose Urine UA Norm (Normal); Ketones Urine Negative (Negative); Leukocyte Esterase Urine Trace (Negative); Mucus Urine TRACE /hpf; Nitrate Urine Negative (Negative); Protein Urine Neg (Negative); Squamous Epithelial Cell Urine 0-4 /hpf (0-5); Urine Appearance Clear (CLEAR); Urine Color Yellow (Yellow); Urobilinogen Urine Neg (Negative); pH Urine 7 (5-7)
[2023-09-01 23:43] LABS: Basophils # 0.1 10^3/uL (0.0-0.1); Basophils % 0.2 %; Hematocrit 42.5 % (36-47); Lymphocytes # 0.7 10^3/uL (0.8-4.8); Lymphocytes % 2.9 %; Mean Corpuscular HGB Conc 34.4 g/dL (30-55); Mean Corpuscular Hemoglobin 33.9 pg (27-33); Mean Corpuscular Volume 98.6 fl (85-98); Monocytes # 1.6 10^3/uL (0.2-0.9); Monocytes % 6.7 %; Neutrophils # 21.56 10^3/uL (1.8-7.7); Neutrophils % 89.6 %; Nucleated Red Blood Cells % 0 %; Platelet Count 435 10^3/cmm (157-399); Red Blood Count 4.31 10^6/uL (3.85-5.65); Red Cell Distribution Width 13.8 % (12.1-15.1); White Blood Count 24.09 10^3/uL (3.29-11.43)
[2023-09-01 23:57] LABS: Troponin(5th) Baseline 19 ng/L (0-10)
[2023-09-01 23:58] LABS: Lactic Sepsis W/Reflex 1.7 mmol/L (0.5-2.2)
[2023-09-02] VITALS (8 sets, daily range): BP systolic 100–183; BP diastolic 62–84; PULSE 78–98; RESP 16–17; TEMP 36.6–37.1; O2SAT 91–95
[2023-09-02 00:09] LABS: Alanine Aminotransferase 16 U/L (0-33); Alkaline Phosphatase 99 U/L (35-105); Anion Gap 22.1 (5-19); Aspartate Amino Transferase 22 U/L (0-32); Blood Urea Nitrogen 9 mg/dL (8-23); C Reactive Protein 17.9 mg/L (0.0-4.9); Calcium 10.2 mg/dL (8.5-10.5); Carbon Dioxide 22 mmol/L (22-29); Chloride 96 mmol/L (98-107); Creatinine Clr Calc Pharmacy 61.0455; Globulin 3.3 g/dL (1.3-4.6); Glomerular Filtration Rate 100.6 mL/min (90-130); Glucose 115 mg/dL (65-115); Osmolality Calculated 282 mOsm/kg (285-295); Potassium 4.1 mmol/L (3.5-5.1); Sodium 136 mmol/L (136-145); Total Bilirubin 0.4 mg/dL (0.15-1.2); Total Protein 7.3 g/dL (6.6-8.7)
--- NOTE | 2023-09-02 00:54 | CTR_ITS ---
PROCEDURE INFORMATION: Exam: CT Abdomen And Pelvis With Contrast Exam date and time: 09/02/2023 1:08 AM Age: 62 years old Clinical indication: Abnormal findings; Abnormal lab test; Elevated wbc; Prior surgery; Surgery date: <1 month; Patient HX: Diarrhea and general weakness with wbc of 24k. Lumbar laminectomy three weeks ago. ; Additional info: Diarrhea, leukocytosis, weakness, recent lumbar SX TECHNIQUE: Imaging protocol: Computed tomography of the abdomen and pelvis with contrast. Radiation optimization: All CT scans at this facility use at least one of these dose optimization techniques: automated exposure control; mA and/or kV adjustment per patient size (includes targeted exams where dose is matched to clinical indication); or iterative reconstruction. Contrast material: OMNI 350; Contrast volume: 80 ml; Contrast route: INTRAVENOUS (IV); COMPARISON: CR XR hip LT 2-3V wo/w pel* [id number] 10/05/2016 12:22 PM RADIATION DOSE METRICS: Total DLP (mGy-cm): 267.59 FINDINGS: Lungs: Emphysematous changes. Liver: Normal. No mass. Gallbladder and bile ducts: Cholelithiasis. Pancreas: Normal. No ductal dilation. Spleen: Normal. No splenomegaly. Adrenal glands: Normal. No mass. Kidneys and ureters: Left kidney cyst, negative follow-up advised. Stomach and bowel: Prominent fluid in the stomach and small bowel may reflect a gastroenteritis. Diverticulosis without diverticulitis. Appendix: No evidence of appendicitis. Intraperitoneal space: Unremarkable. No free air. No significant fluid collection. Vasculature: Unremarkable. No abdominal aortic aneurysm. Lymph nodes: Unremarkable. No enlarged lymph nodes. Urinary bladder: Unremarkable as visualized. Reproductive: Unremarkable as visualized. Bones/joints: Unremarkable. No acute fracture. Soft tissues: Unremarkable. CT/CT abdomen pelvis w con* [id number] IMPRESSION: 1. Prominent fluid in the stomach and small bowel may reflect a gastroenteritis. 2. Diverticulosis without diverticulitis. 3. Emphysematous changes. 4. Cholelithiasis. 5. Left kidney cyst, negative follow-up advised. COMMENTS: Consistent with the [employer]'s Incidental Findings Committee white paper (J Am Mt Radiol 2018): Any incidental renal lesion less than 1 cm or classified as too small to characterize, or any incidental cystic renal lesion characterized as simple-appearing, is likely benign. No follow-up imaging is recommended for these lesions per consensus recommendations based on imaging criteria.
--- NOTE | 2023-09-02 00:58 | ECG_ITS ---
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 Measurements Intervals [place] Rate: 103 P: 86 [place]: 141 QRS: 70 QRSD: 81 T: 84 QT: 342 QTc: 449 Interpretive Statements SINUS TACHYCARDIA POSSIBLE RIGHT ATRIAL ENLARGEMENT [0.25mV P-WAVE] ABNORMAL RHYTHM ECG Compared to ECG 08/17/2023 16:43:43 Sinus rhythm no longer present Myocardial infarct finding no longer present Electronically Signed On 09-02-2023 14:33:37 CDT by Sean Richardson M.D. [email or web address]
[2023-09-02] MEDS: iohexol 350 mg/mL 500 mL Btl (per mL) IV (01:12)
--- NOTE | 2023-09-02 01:39 | W.ED.WEAKNES ---
HPI - Weakness General: Chief complaint: Weakness Stated complaint: back pain, weakness Time Seen by Provider: 09/01/23 22:04 History of Present Illness: 62-year-old female who had lumbar laminectomy surgery 3 weeks ago at this facility. She was discharged to rehab hospital postoperatively, and went home yesterday. She presents tonight with increased weakness, inability to ambulate, which is new, and some diarrhea. She denies fever. She denies leakage from her incision. She is still having significant pain, but is improved since before surgery. Associated symptoms: Reports chills and headache(s); Denies chest pain, confusion, fever(s), nausea or vomiting Review of Systems Const: Reports: chills; Denies: fever(s) or body aches Eyes: Denies: change in vision Card: Denies: chest pain or palpitations Resp: Denies: dyspnea, productive cough, non-productive cough or wheezing GI: Reports: diarrhea; Denies: abdominal pain, nausea, vomiting or hematochezia : Denies: difficulty voiding Skin/Breast: Denies: rash Neuro: Reports: headache(s); Denies: weakness in extremities, dizziness or confusion PFSH ED PFSH: Medical History Normal pressure hydrocephalus Tobacco dependence Lumbar disc disease with radiculopathy Dystonia Depression Arthritis Surgical History History of knee surgery Family History Other Arthritis Social History Smoking and tobacco/nicotine status: current some day tobacco/nicotine user Alcohol intake: former Year of sobriety/quit date alcohol: 2002 Physical Exam Const: GENERAL APPEARANCE: cooperative, ill appearing and frail appearing HENMT: COMMON NORMALS: normocephalic, atraumatic and Normal external nose present HEAD & SCALP: normocephalic and atraumatic FACE & SINUS: normal facial exam and face symmetric NOSE: Normal external nose present Eye: COMMON NORMALS: Equal, round and reactive pupils present and EOMs intact bilaterally PUPIL: Yes Equal, round and reactive pupils present Neck/C-Spine: GENERAL: Yes trachea midline Chest: CHEST: Yes Symmetrical chest wall rise Resp: COMMON NORMALS: normal respiratory effort, No retractions, No use of accessory muscles and clear to auscultation bilaterally AUSCULTATION: clear to auscultation bilaterally Cardio: COMMON NORMALS: regular rate and regular rhythm RATE: regular rate RHYTHM: regular rhythm GI: COMMON NORMALS: Normal to inspection, nondistended, normoactive bowel sounds present Extremity: COMMON NORMALS: no pedal edema Neuro: ROC COMA SCALE: document GCS findings [place] coma scale eye opening: Spontaneous Roc coma scale verbal response: Orientated [place] coma scale motor response: Obey commands Roc coma scale total score: 15 SENSORY EXAM: Yes extremities (intact) Psych: COMMON NORMALS: speech normal SPEECH: Yes normal speech Skin: NARRATIVE SKIN EXAM: Lumbar incision is clean, no drainage, no cellulitis Course Vital Signs: Vital signs: Vital Signs Temperature 98.1 F 09/01/23 22:02 Pulse Rate 98 09/02/23 02:56 Respiratory Rate 16 09/02/23 02:56 Blood Pressure 105/68 09/02/23 02:56 Pulse Oximetry 92 09/02/23 02:56 Oxygen Delivery Me thod Room Air 09/01/23 22:02 MDM - Weakness Medical Decision Making Patient with significant weakness. She is afebrile here. She is nontachycardic. White blood cell count is 24 however. Platelet count is increased. Her C-reactive protein is only 18 despite this. She does not have a urinary tract infection on urinalysis. Chest x-ray is negative. Abdominal CT reveals prominent fluid in the stomach and small bowel. She is very weak. She is unable to ambulate. Spoke with hospitalist. She will be admitted given leukocytosis, significant gastroenteritis, and generalized weakness. He will see the patient. Lab Data 09/01/23 23:34 09/01/23 23:34 Radiology Impressions Chest X-Ray 09/01/23 22:58 IMPRESSION: 1. Negative for infiltrate 2. Emphysematous changes. Abdomen/Pelvis CT 09/02/23 00:54 IMPRESSION: 1. Prominent fluid in the stomach and small bowel may reflect a gastroenteritis. 2. Diverticulosis without diverticulitis. 3. Emphysematous changes. 4. Cholelithiasis. 5. Left kidney cyst, negative follow-up advised. COMMENTS: Consistent with the [employer]'s Incidental Findings Committee white paper (J Am Mt Radiol 2018): Any incidental renal lesion less than 1 cm or classified as too small to characterize, or any incidental cystic renal lesion characterized as simple-appearing, is likely benign. No follow-up imaging is recommended for these lesions per consensus recommendations based on imaging criteria. Laboratory Results WBC 24.09 10^3/uL (3.29-11.43) H 09/01/23 23:34 RBC 4.31 10^6/uL (3.85-5.65) 09/01/23 23:34 Hgb 14.60 g/dL (11.27-16.99) 09/01/23 23:34 Hct 42.5 % (36-47) 09/01/23 23:34 MCV 98.6 fl (85-98) H 09/01/23 23:34 MCH 33.9 pg (27-33) H 09/01/23 23:34 MCHC 34.4 g/dL (30-55) 09/01/23 23:34 RDW 13.8 % (12.1-15.1) 09/01/23 23:34 Plt Count 435 10^3/cmm (157-399) H 09/01/23 23:34 MPV 10.0 fL (7.4-10.4) 09/01/23 23:34 Neut % (Auto) 89.6 % 09/01/23 23:34 Lymph % (Auto) 2.9 % 09/01/23 23:34 [place] % (Auto) 6.7 % 09/01/23 23:34 Eos % (Auto) 0.0 % 09/01/23 23:34 Baso % (Auto) 0.2 % 09/01/23 23:34 Neut # (Auto) 21.56 10^3/uL (1.8-7.7) H 09/01/23 23:34 Lymph # (Auto) 0.7 10^3/uL (0.8-4.8) L 09/01/23 23:34 [place] # (Auto) 1.6 10^3/uL (0.2-0.9) H 09/01/23 23:34 Eos # (Auto) 0.0 10^3/uL (0.0-0.8) 09/01/23 23:34 Baso # (Auto) 0.1 10^3/uL (0.0-0.1) 09/01/23 23:34 Nucleated RBC % (auto) 0 % 09/01/23 23:34 Nucleated RBCs # 0.0 /100WBC 09/01/23 23:34 Sodium 136 mmol/L (136-145) 09/01/23 23:34 Potassium 4.1 mmol/L (3.5-5.1) 09/01/23 23:34 Chloride 96 mmol/L (98-107) L 09/01/23 23:34 Carbon Dioxide 22 mmol/L (22-29) 09/01/23 23:34 Anion Gap 22.1 (5-19) H 09/01/23 23:34 BUN 9 mg/dL (8-23) 09/01/23 23:34 Creatinine 0.6 mg/dL (0.5-0.9) 09/01/23 23:34 GFR Calculation 100.6 mL/min (90-130) 09/01/23 23:34 Glucose 115 mg/dL (65-115) 09/01/23 23:34 Calculated Osmolality 282 mOsm/kg (285-295) L 09/01/23 23:34 Lactic Acid 1.7 mmol/L (0.5-2.2) 09/01/23 23:34 Calcium 10.2 mg/dL (8.5-10.5) 09/01/23 23:34 Total Bilirubin 0.4 mg/dL (0.15-1.2) 09/01/23 23:34 AST 22 U/L (0-32) 09/01/23 23:34 ALT 16 U/L (0-33) 09/01/23 23:34 Alkaline Phosphatase 99 U/L (35-105) 09/01/23 23:34 Troponin T Baseline 19 ng/L (0-10) H 09/01/23 23:34 Troponin T 120 Minute 19.30 ng/L (0-10) H 09/02/23 01:32 Delta Troponin T 0.30 ABS# (0-10) 09/02/23 01:32 C-Reactive Protein 17.9 mg/L (0.0-4.9) H 09/01/23 23:34 Total Protein 7.3 g/dL (6.6-8.7) 09/01/23 23:34 Albumin 4.0 g/dL (3.5-5.2) 09/01/23 23:34 Globulin 3.3 g/dL (1.3-4.6) 09/01/23 23:34 Urine Color Yellow (Yellow) 09/01/23 22:27 Urine Appearance Clear (CLEAR) 09/01/23 22:27 Urine pH 7 (5-7) 09/01/23 22:27 Ur Specific [place] [employer] 1.010 (1.005-1.030) 09/01/23 22:27 Urine Protein Neg (Negative) 09/01/23 22:27 Urine Glucose (UA) Norm (Normal) 09/01/23 22: Urine Ketones Negative (Negative) 09/01/23 22:27 Urine Blood Trace (Negative) H 09/01/23 22:27 Urine Nitrate Negative (Negative) 09/01/23 22:27 Urine Bilirubin Neg (Negative) 09/01/23 22:27 Urine Urobilinogen Neg mg/dL (Negative) 09/01/23 22:27 Ur Leukocyte Esterase Trace (Negative) H 09/01/23 22:27 Urine RBC 5-10 /hpf (0-2) H 09/01/23 22:27 Urine WBC 5-10 /hpf (0-5) H 09/01/23 22:27 Ur Squamous Epith Cells 0-4 /hpf (0-5) H 09/01/23 22:27 Amorphous Sediment Not Reportable 09/01/23 22:27 Urine Bacteria 3+ /hpf (NONE) H 09/01/23 22:27 Urine Mucus Trace /hpf 09/01/23 22:27 All radiology interpretation(s) finalized by discharge Discharge Plan Discharge Patient Disposition: Admitted As Inpatient Clinical Impression: Gastroenteritis, Generalized weakness, Leukocytosis Condition: Fair Prescriptions: No Action acyclovir 400 mg tablet 400 mg PO BID PRN (Reason: Outbreak) citalopram 40 mg tablet 40 mg PO DAILY Qty: 90 3RF pregabalin [Lyrica] 100 mg capsule 100 mg PO TID Qty: 300 3RF hydrocodone-acetaminophen 5-325 mg tablet 1 - 2 tab PO .Q4-6H Qty: 40 0RF levetiracetam 500 mg tablet extended release 24 hr 1,000 mg PO DAILY allopurinol 100 mg tablet 100 mg PO DAILY budesonide 9 mg tablet,delayed and ext.release 9 mg PO DAILY celecoxib 100 mg Capsule 100 mg PO BID Qty: 60 0RF Thera 400 mcg Tablet 1 tab PO DAILY Qty: 30 0RF Referrals: Rosy Javier PA [Primary Care Provider] - Coding Level of Care Code ED [employer] for Юлия Staley
[2023-09-02] MEDS: oxyCODONE-APAP 5-325 mg Tablet 1 TAB PO (01:47)
--- NOTE | 2023-09-02 03:34 | ECG_ITS ---
[facility] Test Date: 2023-09-02 Pat Name: Nicloasa Kothari Department: Room: 275 Gender: Female [employer]: : 1960 Requested By: Donn Laughlin Order Number: [id number] Sandra MD: Sean Richardson M.D. Measurements Intervals [place] Rate: 92 P: 82 VT: 143 QRS: 70 QRSD: 80 T: 82 QT: 354 QTc: 439 Interpretive Statements SINUS RHYTHM POSSIBLE RIGHT ATRIAL ENLARGEMENT [0.25mV P-WAVE] Compared to ECG 09/02/2023 03:18:42 Sinus tachycardia no longer present Electronically Signed On 09-02-2023 14:33:39 CDT by Sean Richardson M.D. [email or web address]
--- NOTE | 2023-09-02 04:08 | P.HP_ITS ---
Providers/Chief Complaint 2 Admitting Physician: Cory Robertson Primary Care Provider: Rosy Javier Chief Complaint: back pain, weakness History of Present Illness 62-year-old lady with history of spinal stenosis, status post laminectomy 08/08, had been undergoing rehabilitation and was just discharged from rehab, with plan that her son would continue care for her at home, although sounds like with the symptoms being a barrier this could not happen. She presented to the ER due to generalized weakness, being unable to care for self at home, too weak to prepare food for herself and/or even just get around. The wound has been healing well. CT abdomen pelvis with prominent fluid in the stomach and small bowel possibly gastroenteritis. Diverticulosis without diverticulitis. Emphysema. Cholelithiasis. Left kidney cyst, negative for follow-up advised. Review of Systems 2 Const: Reports: fatigue and other (Gen weak); Denies: fever(s), chills, body aches or malaise ENMT: Denies: throat pain Card: Denies: chest pain, edema, pre-syncope or dyspnea on exertion Resp: Denies: dyspnea, productive cough, change in phlegm color or hemoptysis GI: Denies: abdominal pain, nausea, vomiting, diarrhea, constipation, hematochezia or melena : Denies: flank pain, urinary frequency or hematuria Musc: Denies: back pain, joint swelling or joint redness Skin/Breast: Denies: rash or new lesions Neuro: Denies: headache(s) or confusion Medications/Allergies Home Medications Medication Instructions Recorded Confirmed Last Taken Type acyclovir 400 mg tablet 400 mg PO BID PRN Outbreak 12/26/21 08/17/23 Unknown History citalopram 40 mg tablet 40 mg PO DAILY #90 tabs 01/08/23 08/17/23 08/17/23 Rx pregabalin 100 mg capsule (Lyrica) 100 mg PO TID #300 caps 04/23/23 08/17/23 08/17/23 Rx hydrocodone 5 mg-acetaminophen 325 1 - 2 tab PO .Q4-6H #40 tabs 08/09/23 08/17/23 08/17/23 Rx mg tablet allopurinol 100 mg tablet 100 mg PO DAILY 08/17/23 08/17/23 08/17/23 History budesonide 9 mg tablet,delayed and 9 mg PO DAILY 08/17/23 08/17/23 08/17/23 History extended release levetiracetam 500 mg 1,000 mg PO DAILY 08/17/23 08/17/23 08/17/23 History tablet,extended release 24 hr celecoxib 100 mg capsule 100 mg PO BID #60 caps 08/21/23 Unknown Rx multivitamin with folic acid 400 1 tab PO DAILY #30 tabs 08/21/23 Unknown Rx mcg tablet (Thera) Allergies Allergy/AdvReac Type Severity Reaction Status Date / Time amoxicillin [From Augmentin] Allergy ADR-Nausea Verified 08/17/23 10:39 clavulanic acid Allergy ADR-Nausea Verified 08/17/23 10:39 [From Augmentin] PFSH Acute 2 PFSH: Medical History Normal pressure hydrocephalus Tobacco dependence Lumbar disc disease with radiculopathy Dystonia Depression Arthritis Surgical History History of knee surgery Family History Other Arthritis Social History Smoking and tobacco/nicotine status: current some day tobacco/nicotine user Alcohol intake: former Year of sobriety/quit date alcohol: 2002 Vitals/I&O/Wt Last Vital Signs Temp 98.1 F 09/02/23 03:59 Pulse 98 09/02/23 03:59 Resp 16 09/02/23 03:59 BP 105/68 09/02/23 03:59 Pulse Ox 92 09/02/23 03:59 O2 Del Method Room Air 09/01/23 22:02 Weight last 48 hrs Weight 41.475 kg Weight 40.823 kg Physical Exam 2 Const: COMMON NORMALS: patient oriented x3 and alert GENERAL APPEARANCE: c ooperative and frail appearing NUTRITIONAL APPEARANCE: underweight O RIENTATION/CONSCIOUSNESS: Yes awake OTHER: Generally weak, minimally slowed speech. HENMT: COMMON NORMALS: oropharynx normal Neck/C-Spine: COMMON NORMALS: no JVD Resp: COMMON NORMALS: normal respiratory effort and clear to auscultation bilaterally AUSCULTATION: clear to auscultation bilaterally Cardio: COMMON NORMALS: no JVD, regular rhythm, S1 normal heart sound present, S2 normal heart sound present and No murmurs present (Cardio) RHYTHM: regular rhythm HEART SOUNDS: S1 normal heart sound present and S2 normal heart sound present GI: COMMON NORMALS: Normal to inspection, nondistended, normoactive bowel sounds present, Soft to palpation and non-tender PALPATION: Yes Soft to palpation Extremity: COMMON NORMALS: no joint enlargement and no pedal edema Neuro: COMMON NORMALS: patient oriented x3 and moves all extremities S ENSORIUM/ORIENTATION: Yes alert Skin: COMMON NORMALS: no rashes or lesions noted GENERAL SKIN EXAM: no rashes or lesions noted OTHER: Tattoos. Data 09/01/23 23:34 09/01/23 23:34 A&P Assessment and plan (1) Generalized weakness: Generalized weakness, unable to prepare food for herself or ambulate at home. Social situation, without support. Lives alone. Son has been unable to care for her. Reviewed vitals, CBC, CMP, troponin, UA, EKG on my interpretation without signs of acute NM. CT abdomen pelvis, chest x-ray, ER note, discussed with ER provider. Possible gastroenteritis on CT, although does not have any symptoms other than perhaps reduced appetite. Will check respiratory viral panel. She reports has been feeling somewhat cold, will check TSH. With microcytosis check B12, check magnesium. UA with some possibility of UTI although not particularly impressive, discussed with her. She denies any urinary symptoms. For now not starting antibiotic. Urine culture is requested, follow-up. 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 Consider neurology consultation. Consider diagnostic assessment of right lung mass. She additionally has severe malnutrition with sarcopenia, BMI 13.1. Encourage oral intake as tolerating. Add nutritional supplements. RD consultation. Consider appetite stimulant. On presentation also very hypertensive. Blood pressure has improved. Monitor blood pressures. Check orthostatics. Check CK. Gentle IV hydration. Monitor for risk of fluid overload, worsening hypertension. Currently at risk of significant deterioration in health condition, risk of continued functional decline, dehydration, further malnutrition, organ injury. Plan Diarrhea: She denies, but was found soiled w feces and has since had a BM in ER. With leukocytosis, healthcare contact, check C. difficile. Status post laminectomy on August 08. Wound has been healing well. Had just completed rehabilitation however, still not managing things at home by herself. Smoking addiction: Continue to encourage cessation. Nicotine replacement. 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 Diagnoses Generalized weakness R53.1
[2023-09-02] MEDS: lactated ringers 1,000 ML 30 ML IV (04:56)
[2023-09-02] MEDS: enoxaparin 40 mg/0.4 mL Syringe SUBCUT (05:02)
[2023-09-02 05:11] LABS: Magnesium 1.7 mg/dL (1.7-2.3); Thyroid Stimulating Hormone 1.68 uIU/mL (0.27-4.20); Vitamin B12 1089 pg/mL (232-1245)
[2023-09-02 06:36] LABS: Adenovirus Not Detected (NOT DETECT); Chlamydia Pneumoniae Not Detected (NOT DETECT); Coronavirus 229E,HKU1,NL63,OC4 Not Detected (NOT DETECT); Human Metapneumovirus Not Detected (NOT DETECT); Human Rhinovirus/Enterovirus Not Detected (NOT DETECT); Influenza A Not Detected (NOT DETECT); Influenza A H1 Not Detected (NOT DETECT); Influenza A H1-2009 Not Detected (NOT DETECT); Influenza A H3 Not Detected (NOT DETECT); Influenza B Not Detected (NOT DETECT); Mycoplasma Pneumoniae Not Detected (NOT DETECT); Parainfluenza Virus Type 1 Not Detected (NOT DETECT); Parainfluenza Virus Type 2 Not Detected (NOT DETECT); Parainfluenza Virus Type 3 Not Detected (NOT DETECT); Parainfluenza Virus Type 4 Not Detected (NOT DETECT); Respiratory Syncytial Virus A Not Detected (NOT DETECT); Respiratory Syncytial Virus B Not Detected (NOT DETECT); SARS-COV-2 Not Detected (NOT DETECT)
[2023-09-02] MEDS: LEVETIRACETAM 500 MG PO (09:57)
[2023-09-02] MEDS: BUDESONIDE 9 MG PO (09:57)
[2023-09-02] MEDS: acetaminophen 325 mg Tablet 650 MG PO (12:05)
--- NOTE | 2023-09-02 16:16 | P.PN_ITS ---
Subjective 2 Subjective: Patient is a new admission from last night. Was admitted for generalized weakness, unable to take care of herself at home, cook food, and ambulate. Medications: Reviewed: Yes Vitals/I&O/Wt Last Vital Signs Temp 98.4 F 09/02/23 15:54 Pulse 86 09/02/23 15:54 Resp 16 09/02/23 15:54 BP 183/63 09/02/23 15:54 Pulse Ox 94 09/02/23 15:54 O2 Del Method Room Air 09/02/23 15:54 09/02/23 09/02/23 09/02/23 06:59 14:59 22:59 Intake Total 40 / 40 Balance 40 / 40 Weight last 48 hrs Weight 41.929 kg Weight 41.475 kg Weight 40.823 kg Physical Exam 2 Narrative: She is alert awake oriented x 3, weak with slow speech Chest clear to auscultation bilaterally Cardiovascular normal heart sounds no murmur Abdomen soft nondistended nontender normal bowel sounds Extremities no edema noted Data 09/01/23 23:34 09/01/23 23:34 A&P Assessment and plan (1) Generalized weakness: (2) Leukocytosis: Plan (1) Generalized weakness: Generalized weakness, unable to prepare food for herself or ambulate at home. Social situation, without support. Lives alone. Son has been unable to care for her. UA with some possibility of UTI although not particularly impressive She additionally has severe malnutrition with sarcopenia, BMI 13.1. Encourage oral intake as tolerating. Add nutritional supplements. Nutrition consult Will start on Remeron 7.5 mg p.o. at bedtime Cardiac diet DVT prophylaxis with Lovenox She is limited resuscitation for now. Attestations 2 Medical Necessity Statement*: Failure to thrive with generalized weakness and unable to take care of herself at home, anticipatory discharge tomorrow in the morning to subacute nursing care facility. Time Spent in Patient Care: 25 minutes Coding Level of Care Code Acute Code for Chg Fwd Diagnoses Generalized weakness R53.1 Leukocytosis D72.829 Time Spent (min) 25
[2023-09-02] MEDS: HYDROcodone-acetaminophen 5-325 mg Tablet 1 TAB PO (22:21)
[2023-09-02] MEDS: levETIRAcetam 1,000 mg/10 mL UDC 500 MG PO (22:22)
[2023-09-03] VITALS: BP 151/85; PULSE 83; RESP 17; TEMP 37.1; O2SAT 93
[2023-09-03] MEDS: HYDROcodone-acetaminophen 5-325 mg Tablet 1 TAB PO ×3 (02:52→12:11)
[2023-09-03 03:48] LABS: C.Diff PCR (Lab) POSITIVE (Negative)
[2023-09-03 04:00] VITALS: BP 172/88; PULSE 68; RESP 17; TEMP 36.6; O2SAT 93
[2023-09-03 04:25] LABS: Clostridioides Difficile Toxin NEGATIVE (Negative)
[2023-09-03] MEDS: enoxaparin 40 mg/0.4 mL Syringe SUBCUT (04:37)
[2023-09-03] MEDS: lactated ringers 1,000 ML 30 ML IV (04:38)
[2023-09-03 06:03] LABS: Basophils # 0.1 10^3/uL (0.0-0.1); Basophils % 0.3 %; Eosinophils # 0.1 10^3/uL (0.0-0.8); Eosinophils % 0.4 %; Hematocrit 39.7 % (36-47); Lymphocytes % 12.8 %; Mean Corpuscular Hemoglobin 33.5 pg (27-33); Mean Corpuscular Volume 98.5 fl (85-98); Monocytes % 6.2 %; Neutrophils # 12.45 10^3/uL (1.8-7.7); Neutrophils % 79.9 %; Nucleated Red Blood Cells % 0 %; Platelet Count 319 10^3/cmm (157-399); Red Blood Count 4.03 10^6/uL (3.85-5.65); Red Cell Distribution Width 13.5 % (12.1-15.1)
[2023-09-03 06:20] LABS: Alanine Aminotransferase 10 U/L (0-33); Albumin Level 3.5 g/dL (3.5-5.2); Alkaline Phosphatase 89 U/L (35-105); Anion Gap 16.7 (5-19); Aspartate Amino Transferase 18 U/L (0-32); Blood Urea Nitrogen 8 mg/dL (8-23); Calcium 9.3 mg/dL (8.5-10.5); Carbon Dioxide 28 mmol/L (22-29); Chloride 98 mmol/L (98-107); Globulin 3.2 g/dL (1.3-4.6); Glomerular Filtration Rate 160.7 mL/min (90-130); Glucose 94 mg/dL (65-115); Osmolality Calculated 286 mOsm/kg (285-295); Potassium 3.7 mmol/L (3.5-5.1); Sodium 139 mmol/L (136-145); Total Bilirubin 0.3 mg/dL (0.15-1.2); Total Protein 6.7 g/dL (6.6-8.7)
[2023-09-03 06:24] LABS: Creatinine Clr Calc Pharmacy 97.9924
[2023-09-03 07:12] VITALS: BP 173/84; PULSE 71; RESP 16; TEMP 36.8; O2SAT 94
[2023-09-03] MEDS: vancomycin 125 mg Capsule PO ×4 (08:09→20:29)
[2023-09-03] MEDS: pregabalin 100 mg Capsule PO ×2 (14:09→20:29)
[2023-09-03 16:10] VITALS: BP 183/97; PULSE 77; RESP 17; TEMP 36.4; O2SAT 91
--- NOTE | 2023-09-03 16:22 | P.PN_ITS ---
Subjective 2 Subjective: No acute overnight events noted Medications: Reviewed: Yes Vitals/I&O/Wt Last Vital Signs Temp 97.6 F 09/03/23 16:10 Pulse 77 09/03/23 16:10 Resp 17 09/03/23 16:10 BP 183/97 09/03/23 16:10 Pulse Ox 91 09/03/23 16:10 O2 Del Method Room Air 09/03/23 16:10 09/03/23 09/03/23 09/03/23 06:59 14:59 22:59 Intake Total 711 / 951 360 / 360 Output Total 300 / 300 Balance 711 / 951 60 / 60 Weight last 48 hrs Weight 43.687 kg Weight 41.929 kg Weight 41.475 kg Weight 40.823 kg Physical Exam 2 Narrative: She is alert awake oriented x 3 not in acute distress Chest clear to auscultation bilaterally Cardiovascular normal heart sounds no murmurs Abdomen soft nontender nondistended normal bowel sounds Extremities no edema noted bilaterally Data 09/03/23 05:40 09/03/23 05:40 Micro: Microbiology 09/01/23 22:27 Urine Culture - Preliminary Urine,Clean Catch 09/03/23 02:47 Stool Lactoferrin - Final Stool 09/03/23 02:47 Occult Blood (FIT) - Final Stool - Stool Aspirate A&P Assessment and plan (1) Leukocytosis: (2) Generalized weakness: (3) Gastroenteritis: Plan (1) Generalized weakness: Likely secondary to gastroenteritis Generalized weakness, unable to prepare food for herself or ambulate at home. Social situation, without support. Lives alone. Son has been unable to care for her. UA with some possibility of UTI although not particularly impressive Stool positive for C. difficile, she was started on p.o. vancomycin 125 mg every 6 hours. She additionally has severe malnutrition with sarcopenia, BMI 13.1. Encourage oral intake as tolerating. Add nutritional supplements. Nutrition consult Will start on Remeron 7.5 mg p.o. at bedtime Follow-up psychiatric consult for depression. Follow-up case management for discharge planning Cardiac diet DVT prophylaxis with Lovenox She is limited resuscitation for now. Attestations 2 Medical Necessity Statement*: She needs continued hospitalization for management of C. difficile colitis and case management for placement. Time Spent in Patient Care: 15 minutes Coding Level of Care Code Acute Code for Chg Fwd Diagnoses Leukocytosis D72.829 Generalized weakness R53.1 Gastroenteritis K52.9 Time Spent (min) 15
[2023-09-03] MEDS: HYDROcodone-acetaminophen 5-325 mg Tablet PO ×2 (16:39→20:36)
[2023-09-03] MEDS: CELEcoxib 100 mg Capsule PO (17:09)
--- NOTE | 2023-09-03 17:51 | P.NPUCON_ITS ---
Providers/Reason for Consult 2 Consulting Physican/Specialty*: Wagner Valdez MD/Psychiatry Reason for Consult*: depression Attending Physician: Arlin Lane MD Primary Care Provider: Rosy Javier Psych Consult HPI History of Present Illness Nicolasa Kothari is a 62 year old female With a history of spinal stenosis status postlaminectomy in July who had been recently discharged from a rehabilitation facility. Patient had presented back to the emergency department with overall generalized weakness with reports that she was struggling to care for herself at home. Patient had requested evaluation for her medications for depression. Patient reports that she has struggled with depression since the age of 15. She reports that she had been on medications for treating depression for several years. She reports that her depression had been more profound when she was consuming alcohol as she had reported a significant history of alcohol dependence. She reports that she has not used alcohol in greater than 20 years and her depression had been manageable until January 2023. She reports that at that time she had been dealing with her mother who was more medically ill and soon after. She reports that since that time and over the preceding months she has had more problems with anhedonia, fatigue, low energy, and low motivation. She reports no suicidal thoughts. She does report feeling more hopeless. She reports occasional struggles with concentration. She reports having problems with food intake stating that she was having significant abdominal discomfort as well. She had reported no history of maria c or psychosis. She reports that she has had more periods of time of being depressed and reports some increased isolation as well. She denies any current drug use. She reports compliance with her medications for her multiple medical problems. Inpatient psychiatric history: She had reported history of more than 5 inpatient psychiatric hospitalizations but states her last psychiatric hospitalization was more than 25 years ago. she had reported a past history of suicide attempts but none in several years. Outpatient psychiatric history: She had reported having previously seen psychiatrist for management of depression but reports that her primary care has been managing her depression for the last several years. She has not been receiving any psychotherapy but reported a past history of having received outpatient support. she had reported previous medication trials include Abilify, and Wellbutrin for depression. Current psychiatric medications: Celexa 40 mg daily Medical History: history of normal pressure hydrocephalus, lumbar disc disease, depression, arthritis, grand mal seizures Allergies: amoxicillin, clavulinic acid. Pertinent social history: She had reportedly a substantial history of alcohol abuse in the past having been placed in substance abuse rehabilitation facilities several years ago but reports abstinence off of any drugs or alcohol for more than 20 years. She reports that she was born in [place] and has 2 siblings who live across the country. She reports that she currently lives by herself and has 2 children and adult age who live outside of the home. She had not endorsed any prior history of trauma. She reports that she was and once. She reports no legal issues. She had reported she currently does not work. Meds Home Medications and Allergies Home Medications Medication Instructions Recorded Confirmed Last Taken Type citalopram 40 mg tablet 40 mg PO DAILY #90 tabs 01/08/23 09/02/23 08/17/23 Rx pregabalin 100 mg capsule (Lyrica) 100 mg PO TID #300 caps 04/23/23 09/02/23 08/17/23 Rx hydrocodone 5 mg-acetaminophen 325 1 - 2 tab PO .Q4-6H #40 tabs 08/09/23 09/02/23 08/17/23 Rx mg tablet allopurinol 100 mg tablet 100 mg PO DAILY 08/17/23 09/02/23 08/17/23 History budesonide 9 mg tablet,delayed and 9 mg PO DAILY 08/17/23 09/02/23 08/17/23 History extended release levetiracetam 500 mg 1,000 mg PO DAILY 08/17/23 09/02/23 08/17/23 History tablet,extended release 24 hr celecoxib 100 mg capsule 100 mg PO BID #60 caps 08/21/23 09/02/23 Unknown Rx multivitamin with folic acid 400 1 tab PO DAILY #30 tabs 08/21/23 09/02/23 Unknown Rx mcg tablet (Thera) budesonide 9 mg tablet,delayed and 9 mg PO DAILY MICROSCOPIC COLITIS 09/02/23 09/02/23 Unknown History extended release Allergies Allergy/AdvReac Type Severity Reaction Status Date / Time amoxicillin [From Augmentin] Allergy ADR-Nausea Verified 09/02/23 05:21 clavulanic acid Allergy ADR-Nausea Verified 09/02/23 05:21 [From Augmentin] Current Medications Current Medications Generic Name Dose Route Start Last Admin Trade Name Freq PRN Reason Stop Dose Admin Acetaminophen 650 mg 09/02/23 04:44 09/02/23 12:05 Acetaminophen 325 Mg Tablet PO 650 mg Q6H PRN Administration Mild Pain Or Temp >/= 101 Hydrocodone Bitart/Acetaminophen 1 tab 09/02/23 22:03 09/03/23 12:11 Hydrocodone-Acetaminophen 5-325 Mg Tablet PO 1 tab Q4H PRN Administration MODERATE PAIN Hydrocodone Bitart/Acetaminophen 1 - 2 tab 09/03/23 13:23 09/03/23 16:39 Hydrocodone-Acetaminophen 5-325 Mg Tablet PO 2 tab Q4H PRN Administration MILD TO MODERATE PAIN Celecoxib 100 mg 09/03/23 18:00 09/03/23 17:09 Celecoxib 100 Mg Capsule PO 100 mg BID KILO Administration Enoxaparin Sodium 40 mg 09/02/23 05:00 09/03/23 04:37 Enoxaparin 40 Mg/0.4 Ml Syringe SUBCUT 40 mg Q24H KILO Administration Lactated Ringer's 1,000 mls @ 30 mls/hr 09/02/23 04:45 09/03/23 04:38 Lactated Ringers IV 30 mls/hr .Q24H KILO Administration Mirtazapine 7.5 mg 09/02/23 21:00 09/02/23 21:45 Mirtazapine 15 Mg Tablet PO Not Given BEDTIME KILO Pregabalin 100 mg 09/03/23 15:00 09/03/23 14:09 Pregabalin 100 Mg Capsule PO 100 mg TID KILO Administration Vancomycin HCl 125 mg 09/03/23 09:00 09/03/23 17:09 Vancomycin 125 Mg Capsule PO 125 mg QID KILO Administration PFSH NPU 2 PFSH: Medical History Normal pressure hydrocephalus Tobacco dependence Lumbar disc disease with radiculopathy Dystonia Depression Arthritis Surgical History History of knee surgery Family History Other Arthritis Social History Smoking and tobacco/nicotine status: current some day tobacco/nicotine user Alcohol intake: former Year of sobriety/quit date alcohol: 2002 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 She had multiple tattoos throughout her body. She was initially guarded but was open and a good historian. Her gait was not tested. Her speech was normal in regards to rate rhythm and prosody. There was some evidence of mild psychomotor retardation. Her mood was described as depressed. Her affect was restricted in range and mood congruent. Her thought process was linear logical and goal- directed. Her thought content showed no evidence of active homicidal or suicidal ideation. She did not appear to be responding to internal stimuli. There is no clear evidence of delusional thinking. Her recent and remote memory were grossly intact. She was alert and oriented to person place and time. Her attention span appeared fair. Her insight was fair. Her judgment was fair. Her impulse control appeared adequate. Vitals/I&O/Wt Last Vital Signs Temp 97.6 F 09/03/23 16:10 Pulse 77 09/03/23 16:10 Resp 17 09/03/23 16:10 BP 183/97 09/03/23 16:10 Pulse Ox 91 09/03/23 16:10 O2 Del Method Room Air 09/03/23 16:10 09/03/23 09/03/23 09/03/23 06:59 14:59 22:59 Intake Total 711 / 951 360 / 360 Output Total 300 / 300 400 / 700 Balance 711 / 951 60 / 60 -400 / -340 Weight last 48 hrs Weight 43.687 kg Weight 41.929 kg Weight 41.475 kg Weight 40.823 kg Data NPU 09/03/23 05:40 09/03/23 05:40 Micro: Microbiology 09/01/23 22:27 Urine Culture - Preliminary Urine,Clean Catch 09/03/23 02:47 Stool Lactoferrin - Final Stool 09/03/23 02:47 Occult Blood (FIT) - Final Stool - Stool Aspirate Microbiology 09/01/23 22:27 Urine,Clean Catch Urine Culture - Preliminary 09/03/23 02:47 Stool Stool Lactoferrin - Final 09/03/23 02:47 Stool - Stool Aspirate Occult Blood (FIT) - Final A&P Assessment and plan (1) Major depressive disorder, recurrent: Plan Discussed options with patient regarding antidepressant. Patient would likely benefit from a brief trial of Seroquel XR as an adjunctive medication for the treatment of depression while remaining on Celexa. Other alternatives may be to switch her Celexa to another class of medications including Cymbalta. Patient would like to try adjunctive treatment prior to a switch in her medications. Will continue to follow. Start seroquel xr 50mg at 7Pm. Attestations NPU 2 Medical Necessity Statement*: inpatient psychiatric care not necessary. Coding Level of Care Code Acute Code for [facility] Fwd Diagnoses Major depressive disorder, recurrent F33.9
[2023-09-03 20:00] VITALS: BP 171/88; PULSE 74; RESP 18; TEMP 36.8; O2SAT 95
[2023-09-03] MEDS: KEPPRA 500 MG 2 EACH PO (20:27)
[2023-09-03] MEDS: BUDESONIDE 9 MG 1 EACH PO (20:27)
[2023-09-03] MEDS: quetiapine XR (24HR) 50 mg Tablet PO (20:33)
[2023-09-04] VITALS: BP 168/89; PULSE 75; RESP 18; TEMP 37.2; O2SAT 95
[2023-09-04 04:00] VITALS: BP 122/73; PULSE 83; RESP 18; TEMP 36.7; O2SAT 93
[2023-09-04] MEDS: enoxaparin 40 mg/0.4 mL Syringe SUBCUT (04:24)
[2023-09-04] MEDS: lactated ringers 1,000 ML 30 ML IV (04:24)
[2023-09-04 05:12] LABS: Basophils # 0.1 10^3/uL (0.0-0.1); Basophils % 0.5 %; Eosinophils # 0.2 10^3/uL (0.0-0.8); Eosinophils % 1.7 %; Hematocrit 37.7 % (36-47); Lymphocytes # 2.4 10^3/uL (0.8-4.8); Lymphocytes % 25.3 %; Mean Corpuscular Hemoglobin 33.3 pg (27-33); Mean Corpuscular Volume 98.2 fl (85-98); Mean Platelet Volume 9.8 fL (7.4-10.4); Monocytes # 0.8 10^3/uL (0.2-0.9); Monocytes % 8.4 %; Neutrophils # 5.96 10^3/uL (1.8-7.7); Neutrophils % 63.9 %; Nucleated Red Blood Cells % 0 %; Platelet Count 299 10^3/cmm (157-399); Red Blood Count 3.84 10^6/uL (3.85-5.65); Red Cell Distribution Width 13.3 % (12.1-15.1); White Blood Count 9.33 10^3/uL (3.29-11.43)
[2023-09-04 05:36] LABS: Alanine Aminotransferase 12 U/L (0-33); Albumin Level 3.4 g/dL (3.5-5.2); Alkaline Phosphatase 85 U/L (35-105); Anion Gap 16.5 (5-19); Aspartate Amino Transferase 15 U/L (0-32); Blood Urea Nitrogen 8 mg/dL (8-23); Calcium 9.4 mg/dL (8.5-10.5); Carbon Dioxide 29 mmol/L (22-29); Chloride 97 mmol/L (98-107); Creatinine Clr Calc Pharmacy 78.3024; Globulin 3.3 g/dL (1.3-4.6); Glomerular Filtration Rate 124.2 mL/min (90-130); Glucose 98 mg/dL (65-115); Osmolality Calculated 286 mOsm/kg (285-295); Potassium 3.5 mmol/L (3.5-5.1); Sodium 139 mmol/L (136-145); Total Bilirubin 0.3 mg/dL (0.15-1.2); Total Protein 6.7 g/dL (6.6-8.7)
[2023-09-04 07:26] VITALS: BP 175/88; PULSE 83; RESP 15; TEMP 36.7; O2SAT 95
[2023-09-04] MEDS: vancomycin 125 mg Capsule PO ×2 (10:36→12:46)
[2023-09-04] MEDS: pregabalin 100 mg Capsule PO (10:36)
[2023-09-04] MEDS: citalopram 20 mg Tablet 40 MG PO (10:37)
[2023-09-04] MEDS: allopurinol 100 mg Tablet PO (10:37)
[2023-09-04] MEDS: CELEcoxib 100 mg Capsule PO (10:37)
[2023-09-04] MEDS: multivitamin therapeutic Tablet 1 TAB PO (10:37)
[2023-09-04] MEDS: LEVETIRACETAM 500 MG 1000 EACH PO (10:39)
[2023-09-04] MEDS: BUDESONIDE 9 MG 9 EACH PO (10:39)
[2023-09-04 11:37] VITALS: BP 159/85; PULSE 81; RESP 14; TEMP 36.7; O2SAT 93
--- NOTE | 2023-09-04 11:40 | P.DS_ITS ---
Discharge Providers Date of Admission: 09/02/23 03:24 Date of Discharge: September 04, 2023 Attending Provider at Admission: Cory Robertson Attending Provider at Discharge: Arlin Lane MD Primary Care Provider: Rosy Javier Diagnoses at Discharge Discharge Diagnosis (1) Major depressive disorder, recurrent: Status: Acute Reason for Visit Reason for Visit: back pain, weakness Brief History: 62-year-old lady with history of spinal stenosis, status post laminectomy 08/08, had been undergoing rehabilitation and was just discharged from rehab, with plan that her son would continue care for her at home, although sounds like with the symptoms being a barrier this could not happen. She presented to the ER due to generalized weakness, being unable to care for self at home, too weak to prepare food for herself and/or even just get around. The wound has been healing well. CT abdomen pelvis with prominent fluid in the stomach and small bowel possibly gastroenteritis. Diverticulosis without diverticulitis. Emphysema. Cholelithiasis. Left kidney cyst, negative for follow-up advised. Hospital Course Hospital Course Generalized weakness likely secondary to gastroenteritis secondary to C. difficile colitis. She was started on p.o. vancomycin 125 mg every 6 hours. Initially had leukocyte count of 15.6 which normalized to 9.3. She is doing well, was seen by nutrition, started on Remeron 7.5 mg p.o. at bedtime for appetite stimulant. she was also seen by psychiatry for major depressive disorder and was started on p.o. Seroquel XR 50 mg daily at bedtime. She is clinically improving, as per PT able to do her routine activities, hence will discharge home today. Physical Exam Narrative: She is alert awake oriented x 3 Chest clear to auscultation bilaterally Cardiovascular normal heart sounds no murmurs Abdomen soft nontender nondistended normal bowel sounds Extremities no edema noted bilaterally Discharge Data Studies Completed and Pending Completed Studies During Hospitalization Category Date Time Status CT abdomen pelvis w con* [id number] Stat Cat Scan 09/02/23 00:54 Completed XR chest 1V portable [id number] Stat Exams 09/01/23 22:58 Completed Pending at discharge Category Date Time Status Complete Blood Count w/Auto AM LABS Lab 09/05/23 04:00 Ordered Comprehensive Metabolic Panel AM LABS Lab 09/05/23 04:00 Ordered Urine Culture Stat Lab 09/01/23 22:27 Results Radiology Impressions Chest X-Ray 09/01/23 22:58 IMPRESSION: 1. Negative for infiltrate 2. Emphysematous changes. Abdomen/Pelvis CT 09/02/23 00:54 IMPRESSION: 1. Prominent fluid in the stomach and small bowel may reflect a gastroenteritis. 2. Diverticulosis without diverticulitis. 3. Emphysematous changes. 4. Cholelithiasis. 5. Left kidney cyst, negative follow-up advised. COMMENTS: Consistent with the [employer]'s Incidental Findings Committee white paper (J Am Mt Radiol 2018): Any incidental renal lesion less than 1 cm or classified as too small to characterize, or any incidental cystic renal lesion characterized as simple-appearing, is likely benign. No follow-up imaging is recommended for these lesions per consensus recommendations based on imaging criteria. Laboratory Results WBC 9.33 10^3/uL (3.29-11.43) 09/04/23 05:01 RBC 3.84 10^6/uL (3.85-5.65) L 09/04/23 05:01 Hgb 12.80 g/dL (11.27-16.99) 09/04/23 05:01 Hct 37.7 % (36-47) 09/04/23 05:01 MCV 98.2 fl (85-98) H 09/04/23 05:01 MCH 33.3 pg (27-33) H 09/04/23 05:01 MCHC 34.0 g/dL (30-55) 09/04/23 05:01 RDW 13.3 % (12.1-15.1) 09/04/23 05:01 Plt Count 299 10^3/cmm (157-399) 09/04/23 05:01 MPV 9.8 fL (7.4-10.4) 09/04/23 05:01 Neut % (Auto) 63.9 % 09/04/23 05:01 Lymph % (Auto) 25.3 % 09/04/23 05:01 Hutch[place] % (Auto) 8.4 % 09/04/23 05:01 Eos % (Auto) 1.7 % 09/04/23 05:01 Baso % (Auto) 0.5 % 09/04/23 05:01 Neut # (Auto) 5.96 10^3/uL (1.8-7.7) 09/04/23 05:01 Lymph # (Auto) 2.4 10^3/uL (0.8-4.8) 09/04/23 05:01 [place] # (Auto) 0.8 10^3/uL (0.2-0.9) 09/04/23 05:01 Eos # (Auto) 0.2 10^3/uL (0.0-0.8) 09/04/23 05:01 Baso # (Auto) 0.1 10^3/uL (0.0-0.1) 09/04/23 05:01 Nucleated RBC % (auto) 0 % 09/04/23 05:01 Nucleated RBCs # 0.0 /100WBC 09/04/23 05:01 Sodium 139 mmol/L (136-145) 09/04/23 05:01 Potassium 3.5 mmol/L (3.5-5.1) 09/04/23 05:01 Chloride 97 mmol/L (98-107) L 09/04/23 05:01 Carbon Dioxide 29 mmol/L (22-29) 09/04/23 05:01 Anion Gap 16.5 (5-19) 09/04/23 05:01 BUN 8 mg/dL (8-23) 09/04/23 05:01 Creatinine 0.5 mg/dL (0.5-0.9) 09/04/23 05:01 GFR Calculation 124.2 mL/min (90-130) 09/04/23 05:01 Glucose 98 mg/dL (65-115) 09/04/23 05:01 Calculated Osmolality 286 mOsm/kg (285-295) 09/04/23 05:01 Lactic Acid 1.7 mmol/L (0.5-2.2) 09/01/23 23:34 Calcium 9.4 mg/dL (8.5-10.5) 09/04/23 05:01 Magnesium 1.7 mg/dL (1.7-2.3) 09/01/23 23:34 Total Bilirubin 0.3 mg/dL (0.15-1.2) 09/04/23 05:01 AST 15 U/L (0-32) 09/04/23 05:01 ALT 12 U/L (0-33) 09/04/23 05:01 Alkaline Phosphatase 85 U/L (35-105) 09/04/23 05:01 Troponin T Baseline 19 ng/L (0-10) H 09/01/23 23:34 Troponin T 120 Minute 19.30 ng/L (0-10) H 09/02/23 01:32 Delta Troponin T 0.30 ABS# (0-10) 09/02/23 01:32 Troponin T Hi Sens 6Hr 19.90 ng/L (0-10) H 09/02/23 07:04 Troponin T Hi Sens 6Hr Delta 0.90 ng/L (0-12) 09/02/23 07:04 C-Reactive Protein 17.9 mg/L (0.0-4.9) H 09/01/23 23:34 Total Protein 6.7 g/dL (6.6-8.7) 09/04/23 05:01 Albumin 3.4 g/dL (3.5-5.2) L 09/04/23 05:01 Globulin 3.3 g/dL (1.3-4.6) 09/04/23 05:01 Vitamin B12 1089 pg/mL (232-1245) 09/01/23 23:34 TSH 1.68 uIU/mL (0.27-4.20) 09/01/23 23:34 Urine Color Yellow (Yellow) 09/01/23 22:27 Urine Appearance Clear (CLEAR) 09/01/23 22:27 Urine pH 7 (5-7) 09/01/23 22:27 Ur Specific [place] 1.010 (1.005-1.030) 09/01/23 22:27 Urine Protein Neg (Negative) 09/01/23 22:27 Urine Glucose (UA) Norm (Normal) 09/01/23 22:27 Urine Ketones Negative (Negative) 09/01/23 22:27 Urine Blood Trace (Negative) H 09/01/23 22:27 Urine Nitrate Negative (Negative) 09/01/23 22:27 Urine Bilirubin Neg (Negative) 09/01/23 22:27 Urine Urobilinogen Neg mg/dL (Negative) 09/01/23 22:27 Ur Leukocyte Esterase Trace (Negative) H 09/01/23 22:27 Urine RBC 5-10 /hpf (0-2) H 09/01/23 22:27 Urine WBC 5-10 /hpf (0-5) H 09/01/23 22:27 Ur Squamous Epith Cells 0-4 /hpf (0-5) H 09/01/23 22:27 Amorphous Sediment Not Reportable 09/01/23 22:27 Urine Bacteria 3+ /hpf (NONE) H 09/01/23 22:27 Urine Mucus Trace /hpf 09/01/23 22:27 Adenovirus (PCR) Not detected (NOT DETECT) 09/02/23 04:15 C. pneumoniae DNA (PCR) Not detected (NOT DETECT) 09/02/23 04:15 C. difficile (PCR) Positive (Negative) H 09/03/23 02:47 C.difficile Tox Confrm Negative (Negative) 09/03/23 02:47 Coronavirus 229E (PCR) Not detected (NOT DETECT) 09/02/23 04:15 Human Metapneumovir PCR Not detected (NOT DETECT) 09/02/23 04:15 Influenza A (H1) PCR Not detected (NOT DETECT) 09/02/23 04:15 Influ A (H1/09) PCR Not detected (NOT DETECT) 09/02/23 04:15 Influenza A (H3) PCR Not detected (NOT DETECT) 09/02/23 04:15 Influenza Type A (PCR) Not detected (NOT DETECT) 09/02/23 04:15 Influenza Type B (PCR) Not detected (NOT DETECT) 09/02/23 04:15 M. pneumoniae (PCR) Not detected (NOT DETECT) 09/02/23 04:15 Parainfluenza 1 (PCR) Not detected (NOT DETECT) 09/02/23 04:15 Parainfluenza 2 (PCR) Not detected (NOT DETECT) 09/02/23 04:15 Parainfluenza 3 (PCR) Not detected (NOT DETECT) 09/02/23 04:15 Parainfluenza 4 (PCR) Not detected (NOT DETECT) 09/02/23 04:15 RSV Type A (PCR) Not detected (NOT DETECT) 09/02/23 04:15 RSV Type B (PCR) Not detected (NOT DETECT) 09/02/23 04:15 Entero/Rhino (PCR) Not detected (NOT DETECT) 09/02/23 04:15 SARS-CoV-2 (PCR) Not detected (NOT DETECT) 09/02/23 04:15 Vitals Last Vital Signs Temp 98.0 F 09/04/23 11:37 Pulse 81 09/04/23 11:37 Resp 14 09/04/23 11:37 BP 159/85 09/04/23 11:37 Pulse Ox 93 09/04/23 11:37 O2 Del Method Room Air 09/04/23 11:37 Discharge Plan Discharge Patient Disposition: Home Condition: Stable Prescriptions: New vancomycin 125 mg Capsule 125 mg PO QID 14 Days Qty: 56 0RF nicotine (polacrilex) 4 mg Lozenge 4 mg mucous membrane Q4H PRN (Reason: Nicotine Cravings) 30 Days Qty: 60 0RF quetiapine 50 mg Tablet Extended Release 24 Hr 50 mg PO 1900 14 Days Qty: 14 0RF Continued citalopram 40 mg tablet 40 mg PO DAILY Qty: 90 3RF pregabalin [Lyrica] 100 mg capsule 100 mg PO TID Qty: 300 3RF budesonide 9 mg tablet,delayed and ext.release 9 mg PO DAILY hydrocodone-acetaminophen 5-325 mg tablet 1 - 2 tab PO .Q4-6H Qty: 40 0RF levetiracetam 500 mg tablet extended release 24 hr 1,000 mg PO DAILY allopurinol 100 mg tablet 100 mg PO DAILY celecoxib 100 mg Capsule 100 mg PO BID Qty: 60 0RF multivitamin with folic acid [Thera] 400 mcg Tablet 1 tab PO DAILY Qty: 30 0RF Discontinued budesonide 9 mg tablet,delayed and ext.release 9 mg PO DAILY Discharge Orders: Discharge Order (Routine); Ordered 09/04/23 Ordered By: Arlin Lane Referrals: Rosy Javier PA [Primary Care Provider] - Discharge Diet: Advance as tolerated Discharge Activity: Resume usual activity Patient Instructions: Opioid Safety Discharge Attestations Time Spent in Discharge Care*: less than 30 min Quality Metrics Clinical Quality Measures [ No reported AMI, CVA or VTE this stay] Coding Level of Care Code Acute Code for [facility] Fwd Diagnoses Major depressive disorder, recurrent F33.9 Time Spent (min) 20
[2023-09-04 16:16] VITALS: BP 159/85; PULSE 81; RESP 14; TEMP 36.7; O2SAT 93
== END 2023-09-04 16:17 | disposition home health service (06) ==
LOC: ER 09-02 03:14 → MEDSURG 09-02 06:19
PROVIDERS: Admitting Provider Internal Medicine; Emergency Provider Emergency Medicine; PCP Physician Assistant; Visit Provider Internal Medicine
DX: R53.1 Weakness (principal); F33.9 Major depressive disorder, recurrent, unspecified; R91.8 Other nonspecific abnormal finding of lung field; E43 Unspecified severe protein-calorie malnutrition; Z68.1 Body mass index [BMI] 19.9 or less, adult; I10 Essential (primary) hypertension; R19.7 Diarrhea, unspecified; Z98.890 Other specified postprocedural states; F17.200 Nicotine dependence, unspecified, uncomplicated; R62.7 Adult failure to thrive; J43.9 Emphysema, unspecified
CPT/HCPCS: 36415; 71045; 74177; 80053; 81001; 82274; 82607; 83605; 83630; 83735; 84443; 84484; 85025; 86140; 87077; 87086; 87186; 87324; 87486; 87493; 87581; 87633; 93005; 96360; 96361; 96372; 97116; 97162; 97166; 97530; 97535; 99285; A9281; G0378; J1650; J7120; Q9967

== ENCOUNTER 2023-11-30 10:03 | Emergency (ER) | payer OTHER, SELFPAY ==
[2023-11-30] VITALS (7 sets, daily range): BP systolic 148–182; BP diastolic 81–118; PULSE 60–69; RESP 16–18; TEMP 36.3; O2SAT 89–99
--- NOTE | 2023-11-30 10:14 | XRR_ITS ---
PROCEDURE INFORMATION: Exam: XR Chest Exam date and time: 11/30/2023 10:23 AM Age: 62 years old Clinical indication: Other: Possible sepsis TECHNIQUE: Imaging protocol: Radiologic exam of the chest. Views: 1 view. COMPARISON: CT angio chest PE protcl [id number] 08/17/2023 1:52 PM FINDINGS: Lungs: Unremarkable. No consolidation or mass. Pleural spaces: Unremarkable. No pleural effusion. No pneumothorax. Heart/Mediastinum: Unremarkable. No cardiomegaly. Bones/joints: Unremarkable. XR/XR chest 1V portable [id number] IMPRESSION: No acute findings.
--- NOTE | 2023-11-30 10:20 | ED_ITS ---
HPI - Altered Mental Status 2 General: Chief Complaint: Altered Mental Status Stated Complaint: AMS Time Seen by Provider: 11/30/23 10:04 History of Present Illness: 62-year-old female who comes [facility] with altered mental status. Patient has a history of hydrocephalus and COPD. Reportedly she was more confused with slurred speech and generalized weakness this morning. The patient reports she has had decreased appetite and decreased p.o. intake over the past 48 hours. She denies fever. She has had a cough which is nonproductive of primarily white sputum. She denies feeling more short of breath. She denies nausea, vomiting or diarrhea. She denies fevers, chills or sweats. Patient does have a history of hydrocephalus, previously had a shunt placed in 2007. The shunt was removed in 2018. She denies headache. Related Data Home Medications Medication Instructions Recorded Confirmed allopurinol 100 mg tablet 100 mg PO DAILY 08/17/23 09/02/23 levetiracetam 500 mg 1,000 mg PO DAILY 08/17/23 09/02/23 tablet,extended release 24 hr budesonide 9 mg tablet,delayed and 9 mg PO DAILY MICROSCOPIC COLITIS 09/02/23 09/02/23 extended release Previous Rx's Medication Instructions Recorded citalopram 40 mg tablet 40 mg PO DAILY #90 tabs 01/08/23 pregabalin 100 mg capsule (Lyrica) 100 mg PO TID #300 caps 04/23/23 celecoxib 100 mg capsule 100 mg PO BID #60 caps 08/21/23 multivitamin with folic acid 400 1 tab PO DAILY #30 tabs 08/21/23 mcg tablet (Thera) cefuroxime axetil 250 mg tablet 250 mg PO BID 7 days #14 tabs 11/30/23 Allergies Allergy/AdvReac Type Severity Reaction Status Date / Time amoxicillin [From Augmentin] Allergy ADR-Nausea Verified 11/30/23 10:15 clavulanic acid Allergy ADR-Nausea Verified 11/30/23 10:15 [From Augmentin] Review of Systems 2 Const: Reports: change in appetite, fatigue and malaise; Denies: fever(s), chills or body aches ENMT: Reports: post nasal drip Card: Denies: chest pain Resp: Reports: productive cough; Denies: dyspnea GI: Denies: abdominal pain, nausea, vomiting or diarrhea : Denies: difficulty voiding PFSH ED 2 PFSH: Medical History Normal pressure hydrocephalus Tobacco dependence Lumbar disc disease with radiculopathy Dystonia Depression Arthritis Surgical History History of knee surgery Family History Other Arthritis Social History Smoking and tobacco/nicotine status: never used tobacco/nicotine Alcohol intake: former Year of sobriety/quit date alcohol: 2002 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[place] [place] 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 and November Physical Exam 2 Const: COMMON NORMALS: patient oriented x3; negative for healthy appearing GENERAL APPEARANCE: appears older than stated age HENMT: COMMON NORMALS: normocephalic, atraumatic and Normal external nose present HEAD & SCALP: normocephalic and atraumatic NOSE: Normal external nose present MOUTH: moist mucous membranes not abnormal Eye: COMMON NORMALS: Equal, round and reactive pupils present PUPIL: Yes Equal, round and reactive pupils present Neck/C-Spine: COMMON NORMALS: no JVD GENERAL: Yes normal visual inspection, Yes trachea midline and No anterior neck swelling Resp: COMMON NORMALS: normal respiratory effort, No retractions and clear to auscultation bilaterally AUSCULTATION: clear to auscultation bilaterally Cardio: COMMON NORMALS: no JVD, regular rate and regular rhythm RATE: r egular rate RHYTHM: regular rhythm GI: COMMON NORMALS: Normal to inspection, nondistended, normoactive bowel sounds present, Soft to palpation and non-tender INSPECTION: Yes normal to inspection PALPATION: Yes Soft to palpation : BLADDER/KIDNEY EXAM: No CVA tenderness Back/Pelvis: GENERAL BACK: No CVA tenderness Extremity: COMMON NORMALS: normal to inspection, no calf tenderness and no pedal edema Neuro: COMMON NORMALS: patient oriented x3, CN's II-XII intact bilaterally, no focal motor deficits and no sensory deficits noted Skin: COMMON NORMALS: no rashes or lesions noted; negative for turgor normal GENERAL SKIN EXAM: no rashes or lesions noted and decreased turgor Course 2 Vital Signs: Vital signs: Vital Signs Temperature 97.4 F L 11/30/23 10:04 Pulse Rate 65 11/30/23 14:19 Respiratory Rate 17 11/30/23 13:42 Blood Pressure 158/111 11/30/23 14:19 Pulse Oximetry 92 11/30/23 14:19 Oxygen Delivery Me thod Nasal Cannula 11/30/23 13:42 Oxygen Flow Rate 2 11/30/23 13:42 MDM - Altered Mental Status Medical Decision Making 62-year-old female who presents with generalized weakness, increased somnolence. On examination, she has dry mucous membranes. She is oriented x 3 with no focal neurologic deficits. She does appear clinically dehydrated. She has a raspy cough. Will initiate a sepsis workup. Will give her 30 cc/kg IV fluid bolus. Will obtain a chest x-ray and check for COVID. Differential includes pneumonia, COPD exacerbation, viral illness, urinary tract infection, electrolyte abnormality, dehydration Patient has had an IV placed. She has been given a 1800 cc IV fluid bolus. She has had a complete septic workup performed including a chest x-ray which shows no acute infiltrate. She does have a productive cough with purulent sputum so we will treat her for a bronchitis. She has been given a dose of Ceftin 500mg p.o. in the emergency department. She complains of bilateral lower extremity weakness. Her strength is slightly decreased at the hip flexors but other than that, strength is intact, muscle tone is intact. Reflexes are normal. She is not having vomiting or a headache. She has had a head CT did that does not show ventriculomegaly to suggest hydrocephalus at this time. Her laboratory work is unremarkable with a normal white blood cell count, normal hemoglobin. Normal platelet count. Her electrolytes are normal. She is negative for COVID. Urinalysis is negative for UTI. Uncertain etiology for her acute weakness other than the acute bronchitis which I am going to treat with antibiotics. Do not feel that the patient needs further emergent workup or meets criteria for admission. Recommend that if she does not have improvement this week, she should be seen in follow-up by her primary care provider. She possibly may need to be seen in follow-up by her neurosurgeon. At this time, there is no evidence by CT to suggest hydrocephalus. Differential Diagnosis Likely altered mental status, hypoglycemia, hyponatremia and sepsis Medical Records I reviewed the patient's previous ED records and previous laboratory studies for comparison Lab Data Chest x-ray per my interpretation shows no infiltrate or effusion or other acute finding. Patient's white blood cell count is normal. Her hemoglobin is stable at 14.2. UA negative for UTI Patient's chemistry studies are unremarkable. Patient is negative for COVID 11/30/23 10:52 11/30/23 10:52 Radiology Impressions Chest X-Ray 11/30/23 10:14 IMPRESSION: No acute findings. Head CT 11/30/23 12:52 IMPRESSION: 1. No acute findings. 2. Chronic changes as above Laboratory Results WBC 10.58 10^3/uL (3.29-11.43) 11/30/23 10:52 RBC 4.45 10^6/uL (3.85-5.65) 11/30/23 10:52 Hgb 14.20 g/dL (11.27-16.99) 11/30/23 10:52 Hct 43.9 % (36-47) 11/30/23 10:52 MCV 98.7 fl (85-98) H 11/30/23 10:52 MCH 31.9 pg (27-33) 11/30/23 10:52 MCHC 32.3 g/dL (30-55) 11/30/23 10:52 RDW 13.2 % (12.1-15.1) 11/30/23 10:52 Plt Count 221 10^3/cmm (157-399) 11/30/23 10:52 MPV 10.2 fL (7.4-10.4) 11/30/23 10:52 Neut % (Auto) 68.3 % 11/30/23 10:52 Lymph % (Auto) 18.8 % 11/30/23 10:52 [place] % (Auto) 10.4 % 11/30/23 10:52 Eos % (Auto) 1.3 % 11/30/23 10:52 Baso % (Auto) 0.8 % 11/30/23 10:52 Neut # (Auto) 7.23 10^3/uL (1.8-7.7) 11/30/23 10:52 Lymph # (Auto) 2.0 10^3/uL (0.8-4.8) 11/30/23 10:52 [place] # (Auto) 1.1 10^3/uL (0.2-0.9) H 11/30/23 10:52 Eos # (Auto) 0.1 10^3/uL (0.0-0.8) 11/30/23 10:52 Baso # (Auto) 0.1 10^3/uL (0.0-0.1) 11/30/23 10:52 Nucleated RBC % (auto) 0 % 11/30/23 10:52 Nucleated RBCs # 0.0 /100WBC 11/30/23 10:52 PT 12.50 SECONDS (12.1-14.9) 11/30/23 10:52 INR 0.91 (0.8-1.2) 11/30/23 10:52 APTT 32.1 SECONDS (23.9-36.7) 11/30/23 10:52 Sodium 140 mmol/L (136-145) 11/30/23 10:52 Potassium 3.7 mmol/L (3.5-5.1) 11/30/23 10:52 Chloride 101 mmol/L (98-107) 11/30/23 10:52 Carbon Dioxide 30 mmol/L (22-29) H 11/30/23 10:52 Anion Gap 12.7 (5-19) 11/30/23 10:52 BUN 12 mg/dL (8-23) 11/30/23 10:52 Creatinine 0.6 mg/dL (0.5-0.9) 11/30/23 10:52 GFR Calculation 100.6 mL/min (90-130) 11/30/23 10:52 Glucose 91 mg/dL (65-115) 11/30/23 10:52 POC Glucose 118 mg/dL (70-110) H 11/30/23 10:35 Calculated Osmolality 289 mOsm/kg (285-295) 11/30/23 10:52 Lactic Acid 0.9 mmol/L (0.5-2.2) 11/30/23 10:52 Calcium 9.5 mg/dL (8.5-10.5) 11/30/23 10:52 Magnesium 2.0 mg/dL (1.7-2.3) 11/30/23 10:52 Total Bilirubin 0.2 mg/dL (0.15-1.2) 11/30/23 10:52 AST 15 U/L (0-32) 11/30/23 10:52 ALT 8 U/L (0-33) 11/30/23 10:52 Alkaline Phosphatase 94 U/L (35-105) 11/30/23 10:52 Total Protein 6.5 g/dL (6.6-8.7) L 11/30/23 10:52 Albumin 3.7 g/dL (3.5-5.2) 11/30/23 10:52 Globulin 2.8 g/dL (1.3-4.6) 11/30/23 10:52 Urine Color Yellow (Yellow) 11/30/23 10:45 Urine Appearance Clear (CLEAR) 11/30/23 10:45 Urine pH 6.0 (5-7) 11/30/23 10:45 Ur Specific [place] 1.011 (1.005-1.030) 11/30/23 10:45 Urine Protein Negative (Negative) 11/30/23 10:45 Urine Glucose (UA) Negative (Normal) 11/30/23 10:45 Urine Ketones Negative (Negative) 11/30/23 10:45 Urine Blood Negative (Negative) 11/30/23 10:45 Urine Nitrate Negative (Negative) 11/30/23 10:45 Urine Bilirubin Negative (Negative) 11/30/23 10:45 Urine Urobilinogen 0.2 mg/dL (Negative) 11/30/23 10:45 Ur Leukocyte Esterase Negative (Negative) 11/30/23 10:45 Urine RBC 0-2 /hpf (0-2) 11/30/23 10:45 Urine WBC 0-5 /hpf (0-5) 11/30/23 10:45 Ur Squamous Epith Cells 0-5 /hpf (0-5) 11/30/23 10:45 Amorphous Sediment Not Reportable 11/30/23 10:45 Urine Bacteria 1+ /hpf (NONE) H 11/30/23 10:45 Hyaline Casts 0.40 /lpf 11/30/23 10:45 Coronavirus 229E (PCR) Not detected (NOT DETECT) 11/30/23 10:45 SARS-CoV-2 (PCR) Not detected (NOT DETECT) 11/30/23 10:45 All radiology interpretation(s) finalized by discharge ED provider radiology interpretation(s): Chest x-ray per my interpretation shows no infiltrate or effusion or acute finding. EKG Data EKG 1: I personally reviewed and interpreted this EKG as follows: EKG interpretation date: 11/30/23 EKG interpretation time: 11:13 Interpretation: No ST segment elevation or depression, normal T wave morphology, no acute ischemic changes per my interpretation Discharge Plan Discharge Patient Disposition: Home Clinical Impression: Bronchitis, Generalized weakness Condition: Stable Prescriptions: New cefuroxime axetil 250 mg tablet 250 mg PO BID 7 Days Qty: 14 0RF No Action citalopram 40 mg tablet 40 mg PO DAILY Qty: 90 3RF pregabalin [Lyrica] 100 mg capsule 100 mg PO TID Qty: 300 3RF budesonide 9 mg tablet,delayed and ext.release 9 mg PO DAILY levetiracetam 500 mg tablet extended release 24 hr 1,000 mg PO DAILY allopurinol 100 mg tablet 100 mg PO DAILY celecoxib 100 mg Capsule 100 mg PO BID Qty: 60 0RF multivitamin with folic acid [Thera] 400 mcg Tablet 1 tab PO DAILY Qty: 30 0RF Discharge Orders: Discharge ED (Routine); Ordered 11/30/23 Ordered By: Shari Mccormack Referrals: Rosy Javier PA [Primary Care Provider] - (follow up next week if not improved) Discharge Diet: Advance as tolerated Discharge Activity: Increase activity as tolerated Patient Instructions: Acute Bronchitis (ED), Altered Mental Status (ED), Opioid Safety, Pain Management, Weakness (Generalized) Activity Restrictions/Additional Instructions: Give her the antibiotics twice daily until gone. Make sure she is drinking plenty of fluids. Continue her other regular medications. Activity as tolerated. If her symptoms are not improving in this upcoming week, she should follow-up with her primary care provider. The patient may need referral back to her neurosurgeon. Her CT today does not show any evidence of hydrocephalus. Return for symptoms or worsening Coding Level of Care Code ED Medical Imaging Director for Юлия Staley
--- NOTE | 2023-11-30 10:43 | ECG_ITS ---
[facility] Test Date: 2023-11-30 Pat Name: Nicolasa Kothari Department: Room: Gender: Female Tiller Man: : 1960 Requested By: Shari Mccormack Order Number: [id number] Sandra MD: Burak Whalen M.D. Measurements Intervals [place] Rate: 64 P: 69 NC: 147 QRS: 68 QRSD: 77 T: 77 QT: 415 QTc: 429 Interpretive Statements SINUS RHYTHM Compared to ECG 09/02/2023 03:34:59 No significant changes Electronically Signed On 11-30-2023 15:08:26 CDT by Burak Whalen M.D. [id number]
[2023-11-30 10:47] LABS: Glucose Point of Care 118 mg/dL (70-110)
--- NOTE | 2023-11-30 10:48 | PC.NURSE ---
Glucose via fingerstick 118 @1040
[2023-11-30 10:50] LABS: Charge for UA Resulting for Rev
[2023-11-30 10:52] LABS: Bilirubin Urine Negative (Negative); Blood Urine Negative (Negative); Glucose Urine UA Negative (Normal); Ketones Urine Negative (Negative); Leukocyte Esterase Urine Negative (Negative); Nitrate Urine Negative (Negative); Protein Urine Negative (Negative); Specific Gravity, Urine 1.011 (1.005-1.030); Urine Appearance Clear (CLEAR); Urine Color Yellow (Yellow); Urobilinogen Urine 0.2 mg/dL (Negative)
[2023-11-30 10:57] LABS: Bacteria Urine 1+ /hpf; RBC Urine 0-2 /hpf (0-2); Squamous Epithelial Cell Urine 0-5 /hpf (0-5); WBC Urine 0-5 /hpf (0-5)
[2023-11-30 11:02] LABS: Basophils # 0.1 10^3/uL (0.0-0.1); Basophils % 0.8 %; Eosinophils # 0.1 10^3/uL (0.0-0.8); Eosinophils % 1.3 %; Hematocrit 43.9 % (36-47); Lymphocytes % 18.8 %; Mean Corpuscular HGB Conc 32.3 g/dL (30-55); Mean Corpuscular Hemoglobin 31.9 pg (27-33); Mean Corpuscular Volume 98.7 fl (85-98); Mean Platelet Volume 10.2 fL (7.4-10.4); Monocytes # 1.1 10^3/uL (0.2-0.9); Monocytes % 10.4 %; Neutrophils # 7.23 10^3/uL (1.8-7.7); Neutrophils % 68.3 %; Nucleated Red Blood Cells % 0 %; Platelet Count 221 10^3/cmm (157-399); Red Blood Count 4.45 10^6/uL (3.85-5.65); Red Cell Distribution Width 13.2 % (12.1-15.1); White Blood Count 10.58 10^3/uL (3.29-11.43)
[2023-11-30 11:14] LABS: INR 0.91 (0.8-1.2)
[2023-11-30 11:15] LABS: Partial Thromboplastin Time 32.1 SECONDS (23.9-36.7)
[2023-11-30 11:22] LABS: Lactic Sepsis W/Reflex 0.9 mmol/L (0.5-2.2)
[2023-11-30 11:23] LABS: Alanine Aminotransferase 8 U/L (0-33); Albumin Level 3.7 g/dL (3.5-5.2); Alkaline Phosphatase 94 U/L (35-105); Anion Gap 12.7 (5-19); Aspartate Amino Transferase 15 U/L (0-32); Blood Urea Nitrogen 12 mg/dL (8-23); Calcium 9.5 mg/dL (8.5-10.5); Carbon Dioxide 30 mmol/L (22-29); Chloride 101 mmol/L (98-107); Creatinine Clr Calc Pharmacy 70.5426; Globulin 2.8 g/dL (1.3-4.6); Glomerular Filtration Rate 100.6 mL/min (90-130); Glucose 91 mg/dL (65-115); Osmolality Calculated 289 mOsm/kg (285-295); Potassium 3.7 mmol/L (3.5-5.1); Sodium 140 mmol/L (136-145); Total Bilirubin 0.2 mg/dL (0.15-1.2); Total Protein 6.5 g/dL (6.6-8.7)
[2023-11-30 12:40] LABS: Adenovirus Not Detected (NOT DETECT); Chlamydia Pneumoniae Not Detected (NOT DETECT); Coronavirus 229E,HKU1,NL63,OC4 Not Detected (NOT DETECT); Human Metapneumovirus Not Detected (NOT DETECT); Human Rhinovirus/Enterovirus Not Detected (NOT DETECT); Influenza A Not Detected (NOT DETECT); Influenza A H1 Not Detected (NOT DETECT); Influenza A H1-2009 Not Detected (NOT DETECT); Influenza A H3 Not Detected (NOT DETECT); Influenza B Not Detected (NOT DETECT); Mycoplasma Pneumoniae Not Detected (NOT DETECT); Parainfluenza Virus Type 1 Not Detected (NOT DETECT); Parainfluenza Virus Type 2 Not Detected (NOT DETECT); Parainfluenza Virus Type 3 Not Detected (NOT DETECT); Parainfluenza Virus Type 4 Not Detected (NOT DETECT); Respiratory Syncytial Virus A Not Detected (NOT DETECT); Respiratory Syncytial Virus B Not Detected (NOT DETECT); SARS-COV-2 Not Detected (NOT DETECT)
--- NOTE | 2023-11-30 12:52 | CTR_ITS ---
PROCEDURE INFORMATION: Exam: CT Head Without Contrast Exam date and time: 11/30/2023 1:12 PM Age: 62 years old Clinical indication: Altered mental status/memory loss TECHNIQUE: Imaging protocol: Computed tomography of the head without contrast. Radiation optimization: All CT scans at this facility use at least one of these dose optimization techniques: automated exposure control; mA and/or kV adjustment per patient size (includes targeted exams where dose is matched to clinical indication); or iterative reconstruction. COMPARISON: MR head wo con* [id number] 03/22/2023 9:01 AM RADIATION DOSE METRICS: Total DLP (mGy-cm): 1282.93 FINDINGS: Brain: There is prominent encephalomalacia noted throughout both frontal lobes and throughout the periventricular white matter bilaterally. There is secondary enlargement involving both lateral ventricles.I see no evidence of acute hemorrhage, mass effect or infarct on today's study. Cerebral ventricles: No ventriculomegaly. No midline shift. Paranasal sinuses: Visualized sinuses are unremarkable. No fluid levels. Mastoid air cells: Visualized mastoid air cells are well aerated. Bones: Old osiel holes involve both frontal bones. Soft tissues: Unremarkable. CT/CT head wo con* [id number] IMPRESSION: 1. No acute findings. 2. Chronic changes as above
== END 2023-11-30 14:50 | disposition home or self-care (01) ==
PROVIDERS: Emergency Provider Emergency Medicine; PCP Physician Assistant
DX: J44.89 Other specified chronic obstructive pulmonary disease (principal); R53.1 Weakness; Z11.52 Encounter for screening for COVID-19
CPT/HCPCS: 36415; 36416; 70450; 71045; 80053; 81003; 81015; 82962; 83605; 83735; 85025; 85610; 85730; 87040; 87635; 93005; 96360; 96361; 99285; J7030

== ENCOUNTER 2023-12-14 09:32 | Inpatient (IN) | payer MEDICARE, SELFPAY ==
[2023-12-14] VITALS (9 sets, daily range): BP systolic 105–199; BP diastolic 64–128; PULSE 72–124; RESP 16–24; TEMP 36.6–38.2; O2SAT 92–99; BMI 14.8; BMI 19.5
--- NOTE | 2023-12-14 09:36 | ECG_ITS ---
[facility] Test Date: 2023-12-14 Pat Name: Nicolasa Kothari Department: Room: Gender: Female Legal Librarian: : 1960 Requested By: Gautam Dueñas Order Number: [id number] Sandra MD: Burak Whalen M.D. Measurements Intervals [place] Rate: 121 P: 61 AK: 128 QRS: 6 QRSD: 82 T: 68 QT: 300 QTc: 427 Interpretive Statements SINUS TACHYCARDIA WITH OCCASIONAL VENTRICULAR PREMATURE COMPLEXES Compared to ECG 11/30/2023 10:43:58 Ventricular premature complex(es) now present Sinus rhythm no longer present Electronically Signed On 12-15-2023 9:16:13 CDT by Burak Whalen M.D. [id number]
--- NOTE | 2023-12-14 09:37 | XRR_ITS ---
PROCEDURE INFORMATION: Exam: XR Chest Exam date and time: 12/14/2023 10:02 AM Age: 63 years old Clinical indication: Pain; Cough and dyspnea; Chest pressure; Additional info: Dyspnea/cough TECHNIQUE: Imaging protocol: Radiologic exam of the chest. Views: 1 view. COMPARISON: CR (CHEST, ) 11/30/2023 10:23 AM FINDINGS: Lungs: There is right lower lobe airspace disease suspicious for pneumonia. Left lung is well-expanded and clear. Pleural spaces: Unremarkable. No pleural effusion. No pneumothorax. Heart/Mediastinum: Unremarkable. No cardiomegaly. Bones/joints: Unremarkable. XR/XR chest 1V portable [id number] IMPRESSION: 1. Right lower lobe pneumonia. Findings are worse on today's exam when compared to prior exam.
--- NOTE | 2023-12-14 09:40 | ED_ITS ---
HPI - General Adult 2 General: Chief complaint: Shortness of Breath/Dyspnea Stated complaint: AMS; hypoxia Time Seen by Provider: 12/14/23 09:38 History of Present Illness: 63 yo female presents to the ER via EMS from the local long term. Presents emergency room with complaints of shortness of breath wheezing and congestion. She had 88% O2 sat at the long term. One of the nurses note states that she is not on oxygen at baseline however when we check to the long term they said usually she wears 2 to 3 L/min. She has has a slight cough which has been nonproductive she has a history of COPD. Patient's paperwork from the long term includes a Do Not Recussitate copy. On a copy it appears that the physician signature has been anurag out she can be seen on the copy that it was signed at 1 point there is nothing on that paper to indicate that she had revoked it the front page of her facesheet from the long term still says Do Not Recussitate only talk to the patient she confirmed she did not want to be intubated, she expressed understanding that not doing so if she worsens could lead to her passing away and she still expressed the wish not to be intubated. Associated symptoms: Reports dyspnea; Deny chest pain or rash Related Data Home Medications Medication Instructions Recorded Confirmed allopurinol 100 mg tablet 100 mg PO DAILY 08/17/23 09/02/23 levetiracetam 500 mg 1,000 mg PO DAILY 08/17/23 09/02/23 tablet,extended release 24 hr budesonide 9 mg tablet,delayed and 9 mg PO DAILY MICROSCOPIC COLITIS 09/02/23 09/02/23 extended release Previous Rx's Medication Instructions Recorded citalopram 40 mg tablet 40 mg PO DAILY #90 tabs 01/08/23 pregabalin 100 mg capsule (Lyrica) 100 mg PO TID #300 caps 04/23/23 celecoxib 100 mg capsule 100 mg PO BID #60 caps 08/21/23 multivitamin with folic acid 400 1 tab PO DAILY #30 tabs 08/21/23 mcg tablet (Thera) Allergies Allergy/AdvReac Type Severity Reaction Status Date / Time amoxicillin [From Augmentin] Allergy ADR-Nausea Verified 12/14/23 09:38 clavulanic acid Allergy ADR-Nausea Verified 12/14/23 09:38 [From Augmentin] Review of Systems 2 Const: Denies: fever(s) or chills Card: Denies: chest pain Resp: Reports: dyspnea, non-productive cough, wheezing and chest congestion GI: Denies: abdominal pain : Denies: dysuria, urinary frequency or urinary urgency Musc: Denies: neck pain or back pain Skin/Breast: Denies: rash PFSH ED 2 PFSH: Medical History Normal pressure hydrocephalus Tobacco dependence Lumbar disc disease with radiculopathy Dystonia Depression Arthritis Surgical History History of knee surgery Family History Other Arthritis Social History Smoking and tobacco/nicotine status: never used tobacco/nicotine Alcohol intake: former Year of sobriety/quit date alcohol: 2002 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 Physical Exam 2 Const: GENERAL APPEARANCE: cooperative ORIENTATION/CONSCIOUSNESS: Yes awake, Yes oriented to person, Yes oriented to place and Yes oriented to time HENMT: COMMON NORMALS: normocephalic, atraumatic and hearing grossly normal bilaterally HEAD & SCALP: normocephalic and atraumatic Resp: COMMON NORMALS: normal respiratory effort, No retractions, No use of accessory muscles and clear to auscultation bilaterally AUSCULTATION: clear to auscultation bilaterally Cardio: COMMON NORMALS: regular rate, regular rhythm and No murmurs present (Cardio) RATE: regular rate RHYTHM: regular rhythm GI: COMMON NORMALS: Soft to palpation and No hepatosplenomegaly present A USCULTATION: Yes normoactive bowel sounds PALPATION: Yes Soft to palpation, No Tenderness to palpation present (GI), No Guarding due to palpation present (GI) and Yes No hepatosplenomegaly present Extremity: COMMON NORMALS: normal to inspection, capillary refill normal, no clubbing, cyanosis or edema, no calf tenderness and no pedal edema Neuro: SENSORIUM/ORIENTATION: Yes oriented to person, Yes oriented to place and Yes oriented to time Skin: COMMON NORMALS: no rashes or lesions noted GENERAL SKIN EXAM: no rashes or lesions noted Course 2 Vital Signs: Vital signs: Vital Signs Temperature 100.8 F H 12/14/23 09:39 Pulse Rate 109 H 12/14/23 12:40 Respiratory Rate 21 H 12/14/23 10:27 Blood Pressure 142/80 12/14/23 12:40 Pulse Oximetry 97 12/14/23 12:40 Oxygen Delivery Me thod Aerosol Mask 12/14/23 12:40 Oxygen Flow Rate 6 12/14/23 12:40 MDM - General Adult Medical Decision Making Right lower lobe pneumonia patient is a long term was had difficulty with infections in the past. Will start her on vancomycin and meropenem to cover for MRSA. She is tachycardic and febrile lactic acid is not elevated. Will COVID and RSV were negative. Giving 1 L of fluid she already had dexamethasone as well as nebulizers. Discussed Dr. Robertson orders written. Patient is expressing the wish to remain in a Do Not Recussitate. See the notes in the [facility] Medical Records I reviewed the patient's medical records. Lab Data I reviewed the patient's lab results. 12/14/23 09:22 12/14/23 09:22 Radiology Impressions Chest X-Ray 12/14/23 09:37 IMPRESSION: 1. Right lower lobe pneumonia. Findings are worse on today's exam when compared to prior exam. Laboratory Results WBC 15.73 10^3/uL (3.29-11.43) H 12/14/23 09:22 RBC 5.40 10^6/uL (3.85-5.65) 12/14/23 09:22 Hgb 17.00 g/dL (11.27-16.99) H 12/14/23 09:22 Hct 51.3 % (36-47) H 12/14/23 09:22 MCV 95.0 fl (85-98) 12/14/23 09: MCH 31.5 pg (27-33) 12/14/23 09: MCHC 33.1 g/dL (30-55) 12/14/23 09:22 RDW 13.0 % (12.1-15.1) 12/14/23 09:22 Plt Count 300 10^3/cmm (157-399) 12/14/23 09:22 MPV 10.5 fL (7.4-10.4) H 12/14/23 09:22 Neut % (Auto) 87.2 % 12/14/23 09:22 Lymph % (Auto) 5.7 % 12/14/23 09:22 [place] % (Auto) 6.0 % 12/14/23 09:22 Eos % (Auto) 0.1 % 12/14/23 09:22 Baso % (Auto) 0.5 % 12/14/23 09:22 Neut # (Auto) 13.71 10^3/uL (1.8-7.7) H 12/14/23 09:22 Lymph # (Auto) 0.9 10^3/uL (0.8-4.8) 12/14/23 09:22 [place] # (Auto) 1.0 10^3/uL (0.2-0.9) H 12/14/23 09:22 Eos # (Auto) 0.0 10^3/uL (0.0-0.8) 12/14/23 09:22 Baso # (Auto) 0.1 10^3/uL (0.0-0.1) 12/14/23 09:22 Nucleated RBC % (auto) 0 % 12/14/23 09: Nucleated RBCs # 0.0 /100WBC 12/14/23 09:22 Specimen Type Arterial 12/14/23 09:37 Sample Site Radial, right 12/14/23 09:37 ABG pH 7.41 (7.35-7.45) 12/14/23 09:37 ABG pCO2 50.0 mmHg (35-45) H 12/14/23 09:37 ABG pO2 63.0 mmHg (80.0-100.0) L 12/14/23 09:37 ABG HCO3 31.4 mmol/L (22-26) H 12/14/23 09:37 ABG O2 Saturation 93.0 12/14/23 09:37 ABG Base Excess 5.3 mmol/L (-2.0-2.0) H 12/14/23 09:37 Zack Test Pos 12/14/23 09:37 A-a O2 Gradient 3.3 mmHg (5-10) L 12/14/23 09:37 Hematocrit 48.5 % (37-47) H 12/14/23 09:37 Hgb O2 Saturation 89.9 % (95-100) L 12/14/23 09:37 Carboxyhemoglobin 2.3 %THgb (0.4-20.1) 12/14/23 09:37 Methemoglobin 1.0 % (0.4-1.5) 12/14/23 09:37 Total Hemoglobin 15.8 g/dL (12-16) 12/14/23 09:37 Sodium 138.0 mmol/L (131-143) 12/14/23 09:37 Potassium 3.7 mmol/L (3.5-5.0) 12/14/23 09:37 Glucose 107.0 mg/dL (70-115) 12/14/23 09:37 Ionized Calcium 1.2 mmol/L (1.1-1.4) 12/14/23 09:37 O2 Delivery Device Cont neb 12/14/23 09:37 O2 Liters/Min 9.0 % 12/14/23 09:37 Edge Stripper ID [place] 12/14/23 09:37 Sodium 138 mmol/L (136-145) 12/14/23 09:22 Potassium 4.3 mmol/L (3.5-5.1) 12/14/23 09:22 Chloride 94 mmol/L (98-107) L 12/14/23 09:22 Carbon Dioxide 32 mmol/L (22-29) H 12/14/23 09:22 Anion Gap 16.3 (5-19) 12/14/23 09:22 BUN 7 mg/dL (8-23) L 12/14/23 09:22 Creatinine 0.6 mg/dL (0.5-0.9) 12/14/23 09:22 GFR Calculation 100.3 mL/min (90-130) 12/14/23 09:22 Glucose 94 mg/dL (65-115) 12/14/23 09:22 Calculated Osmolality 284 mOsm/kg (285-295) L 12/14/23 09:22 Lactic Acid 1.1 mmol/L (0.5-2.2) 12/14/23 09:22 Calcium 9.7 mg/dL (8.5-10.5) 12/14/23 09:22 Total Bilirubin 0.4 mg/dL (0.15-1.2) 12/14/23 09:22 AST 19 U/L (0-32) 12/14/23 09:22 ALT 14 U/L (0-33) 12/14/23 09:22 Alkaline Phosphatase 125 U/L (35-105) H 12/14/23 09:22 Total Protein 8.4 g/dL (6.6-8.7) 12/14/23 09:22 Albumin 4.4 g/dL (3.5-5.2) 12/14/23 09:22 Globulin 4.0 g/dL (1.3-4.6) 12/14/23 09:22 Coronavirus (PCR) Negative (Negative) 12/14/23 09:55 Influenza A (PCR) Negative (Negative) 12/14/23 09:55 Influenza Type B (PCR) Negative (Negative) 12/14/23 09:55 RSV (PCR) Negative (Negative) 12/14/23 09:55 All radiology interpretation(s) finalized by discharge Discharge Plan Discharge Patient Disposition: Admitted As Inpatient Admit Provider: Cory Robertson Clinical Impression: Pneumonia, Acute exacerbation of chronic obstructive airways disease Condition: Stable Coding Level of Care Code ED Digital Imaging Technician for Юлия Staley
[2023-12-14 09:48] LABS: ABG PH Result 7.41 (7.35-7.45); Alveolar-Arterial Oxygen Gradi 3.3 mmHg (5-10); Arterial Blood Gas Hematocrit 48.5 % (37-47); Base Excess ABG 5.3 mmol/L (-2.0-2.0); Blood Gas Allen Test Pos; Blood Gas Operator Identificat WALCI; Blood Gas Sample Site Radial, right; Blood Gas Sample Type Arterial; Carboxyhemoglobin 2.3 %THgb (0.4-20.1); HCO3 ABG 31.4 mmol/L (22-26); HGB O2 Sat 89.9 % (95-100); Ionized Calcium Level - ABG 1.2 mmol/L (1.1-1.4); Oxygen Device CONT NEB; Potassium Level - ABG 3.7 mmol/L (3.5-5.0); Total Hemoglobin 15.8 g/dL (12-16)
[2023-12-14 10:00] LABS: Basophils # 0.1 10^3/uL (0.0-0.1); Basophils % 0.5 %; Eosinophils % 0.1 %; Hematocrit 51.3 % (36-47); Lymphocytes # 0.9 10^3/uL (0.8-4.8); Lymphocytes % 5.7 %; Mean Corpuscular HGB Conc 33.1 g/dL (30-55); Mean Corpuscular Hemoglobin 31.5 pg (27-33); Mean Platelet Volume 10.5 fL (7.4-10.4); Neutrophils # 13.71 10^3/uL (1.8-7.7); Neutrophils % 87.2 %; Nucleated Red Blood Cells % 0 %; Platelet Count 300 10^3/cmm (157-399); White Blood Count 15.73 10^3/uL (3.29-11.43)
[2023-12-14 10:22] LABS: Alanine Aminotransferase 14 U/L (0-33); Albumin Level 4.4 g/dL (3.5-5.2); Alkaline Phosphatase 125 U/L (35-105); Anion Gap 16.3 (5-19); Aspartate Amino Transferase 19 U/L (0-32); Blood Urea Nitrogen 7 mg/dL (8-23); Calcium 9.7 mg/dL (8.5-10.5); Carbon Dioxide 32 mmol/L (22-29); Chloride 94 mmol/L (98-107); Creatinine Clr Calc Pharmacy 51.7083; Glomerular Filtration Rate 100.3 mL/min (90-130); Glucose 94 mg/dL (65-115); Osmolality Calculated 284 mOsm/kg (285-295); Potassium 4.3 mmol/L (3.5-5.1); Sodium 138 mmol/L (136-145); Total Bilirubin 0.4 mg/dL (0.15-1.2); Total Protein 8.4 g/dL (6.6-8.7)
[2023-12-14 10:23] LABS: Lactic Sepsis W/Reflex 1.1 mmol/L (0.5-2.2)
[2023-12-14] MEDS: meropenem 1,000 mg SDV 1000 MG IVP (10:30)
[2023-12-14] MEDS: vancomycin 1,000 MG in sodium chloride 0.9% 250 ML 250 MG IV (10:34)
[2023-12-14 10:46] LABS: Covid PCR NEGATIVE (Negative); Influenza A NEGATIVE (Negative); Influenza B NEGATIVE (Negative); Respiratory Syncytial Virus Ce NEGATIVE (Negative)
[2023-12-14] MEDS: sodium chloride 0.9% 1,000 ML 999 ML IV (11:40)
[2023-12-14] MEDS: acetaminophen 325 mg Tablet 650 MG PO ×2 (12:41→20:49)
--- NOTE | 2023-12-14 14:26 | PM.HP ---
Providers/Chief Complaint Admitting Physician: Cory Robertson Primary Care Provider: Rosy Javier Chief Complaint: AMS; hypoxia History of Present Illness Pleasant 63-year-old lady with history of smoking, has been undergoing rehabilitation at SNF, was brought in due to shortness of breath, has been coughing, with chest congestion. Found to be hypoxic at halfway, she states not normally on oxygen, saturation 88%. Reported history of COPD. In ER she is not requiring oxygen supplementation 6 L by oxime mask. Chest x-ray reveals right lower lobe pneumonia. Review of Systems Const: Reports: fever(s), body aches and malaise ENMT: Denies: throat pain Card: Denies: chest pain, edema, pre-syncope or dyspnea on exertion Resp: Reports: dyspnea and productive cough; Denies: hemoptysis GI: Denies: abdominal pain, nausea, vomiting, diarrhea, constipation, hematochezia or melena : Denies: flank pain, urinary frequency or hematuria Musc: Denies: back pain, joint swelling or joint redness Skin/Breast: Denies: rash or new lesions Neuro: Denies: headache(s) Medications/Allergies Home Medications Medication Instructions Recorded Confirmed Last Taken Type citalopram 40 mg tablet 40 mg PO DAILY #90 tabs 01/08/23 09/02/23 08/17/23 Rx pregabalin 100 mg capsule (Lyrica) 100 mg PO TID #300 caps 04/23/23 09/02/23 08/17/23 Rx allopurinol 100 mg tablet 100 mg PO DAILY 08/17/23 09/02/23 08/17/23 History levetiracetam 500 mg 1,000 mg PO DAILY 08/17/23 09/02/23 08/17/23 History tablet,extended release 24 hr celecoxib 100 mg capsule 100 mg PO BID #60 caps 08/21/23 09/02/23 Unknown Rx multivitamin with folic acid 400 1 tab PO DAILY #30 tabs 08/21/23 09/02/23 Unknown Rx mcg tablet (Thera) budesonide 9 mg tablet,delayed and 9 mg PO DAILY MICROSCOPIC COLITIS 09/02/23 09/02/23 Unknown History extended release Allergies Allergy/AdvReac Type Severity Reaction Status Date / Time amoxicillin [From Augmentin] Allergy ADR-Nausea Verified 12/14/23 09:38 clavulanic acid Allergy ADR-Nausea Verified 12/14/23 09:38 [From Augmentin] PFSH Acute PFSH: Medical History Normal pressure hydrocephalus Tobacco dependence Lumbar disc disease with radiculopathy Dystonia Depression Arthritis Surgical History History of knee surgery Family History Other Arthritis Social History (Updated 12/14/23 @ 14:34 by Cory Robertson MD) Smoking and tobacco/nicotine status: current every day tobacco/nicotine user cigarettes Number of cigarettes per day: 1-5 Alcohol intake: former Year of sobriety/quit date alcohol: 2002 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 [employer] however and November Vitals/I&O/Wt Last Vital Signs Temp 100.8 F H 12/14/23 09:39 Pulse 109 H 12/14/23 12:40 Resp 21 H 12/14/23 10:27 BP 142/80 12/14/23 12:40 Pulse Ox 97 12/14/23 12:40 O2 Del Method Aerosol Mask 12/14/23 12:40 O2 Flow Rate 6 12/14/23 12:40 12/13/23 12/14/23 12/14/23 22:59 06:59 14:59 Intake Total 250 / 250 Balance 250 / 250 Weight last 48 hrs Weight 46.72 kg Physical Exam Const: COMMON NORMALS: patient oriented x3 and alert GENERAL APPEARANCE: cooperative ORIENTATION/CONSCIOUSNESS: Yes awake HENMT: COMMON NORMALS: oropharynx normal Neck/C-Spine: COMMON NORMALS: no JVD Resp: EFFORT & INSPECTION: Yes tachypneic AUSCULTATION: rhonchi and other (Coarse breath sounds.) Cardio: COMMON NORMALS: no JVD, regular rhythm, S1 normal heart sound present, S2 normal heart sound present and No murmurs present (Cardio) RATE: tachycardic RHYTHM: regular rhythm HEART SOUNDS: S1 normal heart sound present and S2 normal heart sound present GI: COMMON NORMALS: Normal to inspection, nondistended, normoactive bowel sounds present, Soft to palpation and non-tender PALPATION: Yes Soft to palpation Extremity: COMMON NORMALS: no joint enlargement and no pedal edema Neuro: COMMON NORMALS: patient oriented x3 and moves all extremities SENSORIUM/ORIENTATION: Yes alert Skin: COMMON NORMALS: no rashes or lesions noted GENERAL SKIN EXAM: no rashes or lesions noted Sepsis: Is patient septic: Yes Focused sepsis exam performed: Yes Focused sepsis exam: She is awake, generally weak, good capillary refill, no cyanosis, no mottling. Date exam was performed: 12/14/23 Time exam was performed: 12:30 Data 12/14/23 09:22 12/14/23 09:22 Micro: Microbiology 12/14/23 09:53 Blood Culture - Preliminary Blood SPECIMEN COLLECTED 12/14/23 09:50 Blood Culture - Preliminary Blood SPECIMEN COLLECTED A&P Assessment and plan (1) Acute respiratory failure with hypoxia: Reviewed vitals, CBC, ABG, CMP, coronavirus, influenza, RSV PCR, chest x-ray, EKG, on my interpretation sinus tachycardia without sign of acute CA, pending official read. Reviewed ED note, discussed with ED provider. Continue 6 L nasal cannula oxygen supplementation. Treat pneumonia. RT assess and treat. She would not want intubation, would be okay with CPAP or BiPAP if needed. Complicated by underlying COPD. States he is not normally on oxygen. (2) Sepsis: Sepsis without endorgan damage, with fever 100.8, tachycardia 109, leukocytosis 15.73, with hypoxia, tachypnea 24, with pneumonia. Lactic acid reviewed 1.1. Blood culture sent. Received meropenem, vancomycin. Continue antibiotic coverage. Monitor for risk of seizure with meropenem, risk of HERMANN with vancomycin. Monitor vancomycin levels. Follow-up cultures. Additional workup and treatment of pneumonia as below. (3) Pneumonia: Right lower lobe pneumonia. She denies aspiration. Denies aspiration with food or drink. Blood cultures collected, she had been started on meropenem, actomyosin. Continue for now. Reassess condition. Follow-up blood cultures. Obtain sputum cultures, urine bacterial antigens, urine Legionella antigen. Reviewed respiratory viral studies, negative. Plan Smoking addiction: States she smokes 2 cigarettes/day. Encouraged cessation. Nicotine replacement as needed. Arthritis Dystonia Lumbar disc disease with radiculopathy NPH Goals of care discussion: She is answering questions, oriented x 3, making her own decisions. She states in case that changed we could then contact her son to be surrogate decision maker. Attestations Medical Necessity Statement*: Admission of over 2 midnights anticipated for assessment management of acute respiratory failure with hypoxia, sepsis, pneumonia. Diagnoses Acute respiratory failure with hypoxia J96.01 Sepsis A41.9 Pneumonia J18.9
[2023-12-14] MEDS: sodium chloride 0.9% 1,000 ML 100 ML IV (15:32)
[2023-12-14] MEDS: enoxaparin 40 mg/0.4 mL Syringe SUBCUT (15:32)
[2023-12-14] MEDS: pantoprazole 40 mg SDV IVP (15:32)
[2023-12-14 16:13] LABS: Add Urine Culture? Yes; Add Urine Microscopic? YES; Bacteria Urine 1+ /hpf; Bilirubin Urine Neg (Negative); Blood Urine 2+ (Negative); Glucose Urine UA Norm (Normal); Ketones Urine Negative (Negative); Leukocyte Esterase Urine 2+ (Negative); Nitrate Urine Positive (Negative); Protein Urine Neg (Negative); Squamous Epithelial Cell Urine 0-4 /hpf (0-5); Urine Appearance Clear (CLEAR); Urine Color Yellow (Yellow); Urobilinogen Urine Norm (Negative); WBC Urine 40-55 /hpf (0-5); pH Urine 6 (5-7)
--- NOTE | 2023-12-14 17:04 | PHA.VACGOAL ---
Vancomycin Goal - Goal Vancomycin Goal:: 15-20 mg/L Vancomycin Indication:: Pneumonia - Therapy Current therapy:: Meropenem (2 GM IVPB Q8H) Day of therpy:: Day [1]of [] . Actual body weight (kg): 45.359 kg [place] body weight: 45.5 KG Dosing weight (kg): 45.359 KG - Data Labs: WBC 15.73 10^3/uL (3.29-11.43) H 12/14/23 09:22 RBC 5.40 10^6/uL (3.85-5.65) 12/14/23 09:22 Hgb 17.00 g/dL (11.27-16.99) H 12/14/23 09:22 Hct 51.3 % (36-47) H 12/14/23 09:22 MCV 95.0 fl (85-98) 12/14/23 09:22 MCH 31.5 pg (27-33) 12/14/23 09:22 MCHC 33.1 g/dL (30-55) 12/14/23 09:22 RDW 13.0 % (12.1-15.1) 12/14/23 09:22 Sodium 138 mmol/L (136-145) 12/14/23 09:22 Potassium 4.3 mmol/L (3.5-5.1) 12/14/23 09:22 Chloride 94 mmol/L (98-107) L 12/14/23 09:22 Carbon Dioxide 32 mmol/L (22-29) H 12/14/23 09:22 Anion Gap 16.3 (5-19) 12/14/23 09:22 BUN 7 mg/dL (8-23) L 12/14/23 09:22 Creatinine 0.6 mg/dL (0.5-0.9) 12/14/23 09:22 GFR Calculation 100.3 mL/min (90-130) 12/14/23 09:22 Last dialysis session:: N/A Drug administration history:: Medications Meropenem 2,000 mg/ Sodium (Chloride) 50 mls @ 100 mls/hr IV Q8H KILO; Protocol Vancomycin HCl 500 mg/ Sodium (Chloride) 100 mls @ 200 mls/hr IV Q12H KILO Discontinued Medications Vancomycin HCl 1,000 mg/ (Sodium Chloride) 250 mls @ 250 mls/hr IV ONCE ONE; Protocol Stop: 12/14/23 11:13 Last Admin: 12/14/23 11:40 Dose: Infused Meropenem (Meropenem 1,000 Mg Sdv) 1,000 mg IVP ONCE ONE; Protocol Stop: 12/14/23 10:15 Last Admin: 12/14/23 10:30 Dose: 1,000 mg Treatment plan:: new consult Regimen:: Vancomycin 500mg IVPB q12h Follow up:: scr daily with AM labs
[2023-12-14] MEDS: MEROPENEM 2,000 MG in sodium chloride 0.9% (plus) 50 ML 100 MG IV (17:08)
[2023-12-14] MEDS: vancomycin 500 MG in sodium chloride 0.9% (plus) 100 ML 200 MG IV (20:44)
[2023-12-15] VITALS: BP 122/69; PULSE 65; RESP 15; TEMP 36.6; O2SAT 97
[2023-12-15] MEDS: MEROPENEM 2,000 MG in sodium chloride 0.9% (plus) 50 ML 100 MG IV ×3 (02:18→16:44)
[2023-12-15] MEDS: sodium chloride 0.9% 1,000 ML 100 ML IV ×2 (02:18→15:08)
[2023-12-15 04:00] VITALS: BP 152/85; PULSE 68; RESP 16; TEMP 36.8; O2SAT 93
[2023-12-15 04:34] LABS: Basophils # 0.1 10^3/uL (0.0-0.1); Basophils % 0.5 %; Eosinophils % 0.1 %; Lymphocytes # 1.6 10^3/uL (0.8-4.8); Lymphocytes % 11.4 %; Mean Corpuscular HGB Conc 32.6 g/dL (30-55); Mean Corpuscular Volume 97.9 fl (85-98); Mean Platelet Volume 11.1 fL (7.4-10.4); Monocytes % 6.9 %; Neutrophils # 11.49 10^3/uL (1.8-7.7); Neutrophils % 80.7 %; Nucleated Red Blood Cells % 0 %; Platelet Count 218 10^3/cmm (157-399); Red Blood Count 3.88 10^6/uL (3.85-5.65); Red Cell Distribution Width 13.4 % (12.1-15.1); White Blood Count 14.25 10^3/uL (3.29-11.43)
[2023-12-15 04:47] LABS: Alanine Aminotransferase 8 U/L (0-33); Albumin Level 3.2 g/dL (3.5-5.2); Alkaline Phosphatase 81 U/L (35-105); Aspartate Amino Transferase 13 U/L (0-32); Blood Urea Nitrogen 9 mg/dL (8-23); Carbon Dioxide 28 mmol/L (22-29); Chloride 102 mmol/L (98-107); Globulin 2.8 g/dL (1.3-4.6); Glomerular Filtration Rate 160.2 mL/min (90-130); Glucose 77 mg/dL (65-115); Magnesium 1.8 mg/dL (1.7-2.3); Osmolality Calculated 281 mOsm/kg (285-295); Sodium 137 mmol/L (136-145); Total Bilirubin 0.4 mg/dL (0.15-1.2)
[2023-12-15 04:48] LABS: Anion Gap 10.8 (5-19); Creatinine Clr Calc Pharmacy 50.2957; Potassium 3.8 mmol/L (3.5-5.1)
[2023-12-15 05:09] LABS: Slide Review Slide Review Perform
[2023-12-15] MEDS: acetaminophen 325 mg Tablet 650 MG PO ×3 (05:27→17:56)
[2023-12-15 08:00] VITALS: BP 158/78; PULSE 62; RESP 14; TEMP 37.1; O2SAT 93
[2023-12-15] MEDS: vancomycin 500 MG in sodium chloride 0.9% (plus) 100 ML 200 MG IV ×2 (09:15→21:46)
[2023-12-15 11:56] VITALS: BP 170/68; PULSE 58; RESP 14; TEMP 36.6; O2SAT 96
[2023-12-15] MEDS: enoxaparin 40 mg/0.4 mL Syringe SUBCUT (15:08)
[2023-12-15] MEDS: pantoprazole 40 mg SDV IVP (15:08)
[2023-12-15 16:00] VITALS: BP 184/99; PULSE 88; RESP 14; TEMP 37; O2SAT 95
[2023-12-15 20:00] VITALS: BP 175/95; PULSE 70; RESP 18; TEMP 36.8; O2SAT 98
--- NOTE | 2023-12-15 21:03 | P.PN_ITS ---
Subjective 2 Subjective: She is feeling slightly better today. She is still coughing, still dyspneic. Discussed with her regarding pneumonia as well as urinary tract infection. IV infiltrated in the left forearm. Elevated on a pillow. Vitals/I&O/Wt Last Vital Signs Temp 98.6 F 12/15/23 16:00 Pulse 88 12/15/23 16:00 Resp 14 12/15/23 16:00 BP 184/99 12/15/23 16:00 Pulse Ox 95 12/15/23 16:00 O2 Del Method Nasal Cannula 12/15/23 16:00 O2 Flow Rate 3 12/15/23 08:00 12/15/23 12/15/23 12/15/23 06:59 14:59 22:59 Intake Total 1050 / 2690 1150 / 1150 50 / 1200 Output Total 550 / 550 2300 / 2300 Balance 500 / 2140 1150 / 1150 -2250 / -1100 Weight last 48 hrs Weight 46.72 kg Weight 45.359 kg Weight 46.72 kg Physical Exam 2 Const: COMMON NORMALS: patient oriented x3 and alert GENERAL APPEARANCE: c ooperative ORIENTATION/CONSCIOUSNESS: Yes awake HENMT: COMMON NORMALS: oropharynx normal Neck/C-Spine: COMMON NORMALS: no JVD Resp: AUSCULTATION: other (Coarse breath sounds.) Cardio: COMMON NORMALS: no JVD, regular rhythm, S1 normal heart sound present, S2 normal heart sound present and No murmurs present (Cardio) RATE: t achycardic RHYTHM: regular rhythm HEART SOUNDS: S1 normal heart sound present and S2 normal heart sound present GI: COMMON NORMALS: Normal to inspection, nondistended, normoactive bowel sounds present, Soft to palpation and non-tender PALPATION: Yes Soft to palpation Extremity: COMMON NORMALS: no joint enlargement and no pedal edema OTHER: Mild swelling of the mid left forearm. Neuro: COMMON NORMALS: patient oriented x3 and moves all extremities S ENSORIUM/ORIENTATION: Yes alert Skin: COMMON NORMALS: no rashes or lesions noted GENERAL SKIN EXAM: no rashes or lesions noted Urinary Catheter Management: Griffiths: Cath Placed During This Visit: yes Reason for Continuing Indwelling Catheter: Other Urinary Catheter Date of Insertion: 12/14/23 Urinary Catheter Time of Insertion: 15:45 Data 12/15/23 03:33 12/15/23 03:33 Micro: Microbiology 12/14/23 15:55 Urine Culture - Final Urine,Clean Catch 12/14/23 09:53 Blood Culture - Preliminary Blood NEGATIVE TO DATE 12/14/23 09:50 Blood Culture - Preliminary Blood NEGATIVE TO DATE 12/14/23 15:55 Bacterial Antigens - Final Urine,Voided 12/14/23 15:55 Legionella Urinary Antigen - Final Urine Catheterized A&P Assessment and plan (1) Acute respiratory failure with hypoxia: Reviewed vitals, CBC, CMP, magnesium, oxygen requirement is improving, down to 3 L. Tachypnea with improvement. Still dyspnea, cough. Still leukocytosis 14.25. Afebrile. Reviewed urine bacterial antigens, negative. Reviewed blood culture, preliminary negative. Continue nasal cannula oxygen supplementation. Wean down as tolerating. Treat pneumonia. RT assess and treat. She would not want intubation, would be okay with CPAP or BiPAP if needed. Complicated by underlying COPD. States he is not normally on oxygen. (2) Pneumonia: Modified barium swallow. Right lower lobe pneumonia. She denies aspiration. Denies aspiration with food or drink. Blood cultures collected, she had been started on meropenem, Vanco. Continue for now. Obtain MRSA nasal swab. Reassess condition. Follow-up blood cultures. Obtain sputum cultures, urine bacterial antigens, urine Legionella antigen. Reviewed respiratory viral studies, negative. (3) UTI (urinary tract infection): On review of UA suggestive of possible UTI. 40-55 WBC. Continue coverage with meropenem, vancomycin. Add urine culture. (4) Sepsis: Sepsis resolved Sepsis without endorgan damage, with fever 100.8, tachycardia 109, leukocytosis 15.73, with hypoxia, tachypnea 24, with pneumonia. Lactic acid reviewed 1.1. Blood culture sent. Received meropenem, vancomycin. Continue antibiotic coverage. Monitor for risk of seizure with meropenem, risk of HERMANN with vancomycin. Monitor vancomycin levels. Follow-up cultures. Additional workup and treatment of pneumonia as below. Plan Smoking addiction: States she smokes 2 cigarettes/day. Encouraged cessation. Nicotine replacement as needed. Arthritis Dystonia Lumbar disc disease with radiculopathy NPH Goals of care discussion: She is answering questions, oriented x 3, making her own decisions. She states in case that changed we could then contact her son to be surrogate decision maker. Attestations 2 Medical Necessity Statement*: Continue admission for assessment of management of improving respiratory failure, pneumonia, UTI after resolved sepsis. and High MDM includes described risk of complication, morbidity or mortality of management as documented Diagnoses Acute respiratory failure with hypoxia J96.01 Pneumonia J18.9 UTI (urinary tract infection) N39.0 Sepsis A41.9
[2023-12-15] MEDS: lisinopril 5 mg Tablet PO (21:48)
[2023-12-15] MEDS: ketorolac 30 mg/mL INJ 15 MG IVP (23:12)
[2023-12-16] VITALS: BP 188/90; PULSE 74; RESP 16; TEMP 37.1; O2SAT 94
--- NOTE | 2023-12-16 00:53 | PC.NURSE ---
Contacted Dr. Briceño at 215 via [employer] messenger for patient complaint of pain, received order for one time dose of toradal 15mg IVP. At 0045 received verbal order from Dr. Briceño for 25mg hydralazine PO once for blood pressure of 188/90. Gave [facility] update about patient at 0050.
[2023-12-16] MEDS: hyDRALAzine 25 mg Tablet PO (01:56)
[2023-12-16] MEDS: MEROPENEM 2,000 MG in sodium chloride 0.9% (plus) 50 ML 100 MG IV ×3 (01:56→18:21)
--- NOTE | 2023-12-16 02:46 | PC.NURSE ---
Upon assessment at 2154, the patient was only able to tell me her name and that she was in a hospital in [place]. She provided the wrong birthday when asked, and stated she could not remember the date, time, month, or year.
[2023-12-16 04:00] VITALS: BP 163/78; PULSE 83; RESP 16; TEMP 37.1; O2SAT 98
[2023-12-16 05:31] LABS: Basophils # 0.1 10^3/uL (0.0-0.1); Basophils % 0.4 %; Eosinophils # 0.1 10^3/uL (0.0-0.8); Eosinophils % 0.4 %; Hematocrit 41.8 % (36-47); Lymphocytes # 1.5 10^3/uL (0.8-4.8); Lymphocytes % 11.4 %; Mean Corpuscular Hemoglobin 32.4 pg (27-33); Mean Corpuscular Volume 98.1 fl (85-98); Mean Platelet Volume 10.7 fL (7.4-10.4); Monocytes % 7.7 %; Neutrophils # 10.18 10^3/uL (1.8-7.7); Neutrophils % 79.7 %; Nucleated Red Blood Cells % 0 %; Platelet Count 260 10^3/cmm (157-399); Red Blood Count 4.26 10^6/uL (3.85-5.65); White Blood Count 12.78 10^3/uL (3.29-11.43)
[2023-12-16 05:53] LABS: Alanine Aminotransferase 6 U/L (0-33); Albumin Level 3.2 g/dL (3.5-5.2); Alkaline Phosphatase 110 U/L (35-105); Anion Gap 17.5 (5-19); Aspartate Amino Transferase 12 U/L (0-32); Blood Urea Nitrogen 10 mg/dL (8-23); Calcium 9.4 mg/dL (8.5-10.5); Carbon Dioxide 26 mmol/L (22-29); Chloride 97 mmol/L (98-107); Globulin 3.2 g/dL (1.3-4.6); Glomerular Filtration Rate 123.8 mL/min (90-130); Glucose 60 mg/dL (65-115); Osmolality Calculated 281 mOsm/kg (285-295); Potassium 3.5 mmol/L (3.5-5.1); Sodium 137 mmol/L (136-145); Total Bilirubin 0.3 mg/dL (0.15-1.2); Total Protein 6.4 g/dL (6.6-8.7)
[2023-12-16 07:34] VITALS: BP 176/79; PULSE 72; RESP 16; TEMP 36.6; O2SAT 94
[2023-12-16] MEDS: lisinopril 5 mg Tablet PO ×2 (08:25→18:09)
[2023-12-16 09:20] LABS: Vancomycin Trough 9.9 ug/mL (10-15)
--- NOTE | 2023-12-16 09:30 | FL_ITS ---
WS: [id number] MODIFIED BARIUM SWALLOW TECHNIQUE: Modified barium swallow with speech therapy using multiple consistencies. FLUOROSCOPY TIME: 4min [id number] # of spot films: 0 CLINICAL INFORMATION: Oropharyngeal dysphagia COMPARISON: None. FINDINGS: Multiple consistencies utilized. Aspiration with thin liquids. Penetration with nectar consistency. Utilizing chin tuck maneuver aspiration resolved with persistent penetration. No difficulties with th e barium tablet. Delayed oropharyngeal phase. Pooling in the vallecula with residual. FL/FL barium swallow modifd [id number] IMPRESSION: Aspiration with thin liquids which improved with chin tuck maneuver. Persistent penetration with chin tuck maneuver. Please see speech therapy evaluation for further detail.
--- NOTE | 2023-12-16 10:16 | PC.SOCIAL ---
IMM Update Pg. 2 of [facility] updated and reviewed with patient, who verbalized understanding, copy provided.
--- NOTE | 2023-12-16 10:43 | PC.CHAP ---
Pastoral Care Encounter/Spiritual Assessment Type of Contact [] Declined courtroom deputy visit [] Patient/Family/Request visit [] Outpatient visit [] Follow-up visit [] Physician referral [] Code/Alert [x] Routine visit [] Staff referral [] Actively dying [] Patient sleeping [] Family support [] [] Out of room [] Palliative care [] [] Receiving care in room [] Pre-surgical visit [] Trauma [] Long length of stay [] ICU visit [] Other: Relational/Emotional Strength [] Patient feels connected with others/family/visitors/staff [] Distress [] Loneliness/isolation [] Abandonment Spirituality of Patient [x] Person of Osiris [] Attends Lutheran of their Osiris [x] Believes in Prayer [] Reads Bible or Anabaptism materials [] There are Spiritual issues to be addressed Certified Bench Jeweler Technician Interventions [x] Prayer [x] Active listening [] Non-anxious presence [] Spiritual/emotional support [] Crisis/trauma care [] Spiritual counseling [] Bereavement support [] Provided bereavement packet [x] Provided Bible/devotional materials [] Provided toy/stuffed animal, coloring book to patient or family member [] Provided Communion [] Anointing/[place] [] Salvation [x] Completed spiritual assessment [] Other: Impact on Illness or Injury [] Angry [] Fearful [] Anxious [] Often cries [] Exhaustion [] Unable to work [] Unable to attend quaker [] Unable to walk/stand [] Unable to read [] Unable to drive [] Unable to eat/drink [] Unable to sleep [] Unable to be with family [] Patient intubated [] Other: Summary Time spent with patient 5 min
[2023-12-16] MEDS: vancomycin 750 MG in sodium chloride 0.9% 250 ML 250 MG IV ×2 (11:10→22:24)
[2023-12-16 16:00] VITALS: BP 163/93; PULSE 89; RESP 14; TEMP 36.8; O2SAT 92
[2023-12-16] MEDS: enoxaparin 40 mg/0.4 mL Syringe SUBCUT (16:17)
[2023-12-16] MEDS: pantoprazole 40 mg SDV IVP (18:17)
[2023-12-16 20:00] VITALS: BP 176/85; PULSE 97; RESP 16; TEMP 37.1; O2SAT 92
[2023-12-16] MEDS: acetaminophen 325 mg Tablet 650 MG PO (20:40)
--- NOTE | 2023-12-16 21:28 | P.PN_ITS ---
Subjective 2 Subjective: She states she has been feeling miserable. Still coughing. Noted to have some mild intermittent confusion by nursing staff. Vitals/I&O/Wt Last Vital Signs Temp 98.8 F 12/16/23 20:00 Pulse 97 12/16/23 20:00 Resp 16 12/16/23 20:00 BP 176/85 12/16/23 20:00 Pulse Ox 92 12/16/23 20:00 O2 Del Method Room Air 12/16/23 20:00 O2 Flow Rate 2 12/16/23 08:00 12/16/23 12/16/23 12/16/23 06:59 14:59 22:59 Intake Total 50 / 2350 420.000 / 420.000 50 / 470.000 Output Total 250 / 3900 1300 / 1300 Balance -200 / -1550 420.000 / 420.000 -1250 / -830.000 Weight last 48 hrs Weight 45.841 kg Weight 46.72 kg Physical Exam 2 Const: COMMON NORMALS: patient oriented x3 and alert GENERAL APPEARANCE: c ooperative ORIENTATION/CONSCIOUSNESS: Yes awake HENMT: COMMON NORMALS: oropharynx normal Neck/C-Spine: COMMON NORMALS: no JVD Resp: EFFORT & INSPECTION: Yes tachypneic AUSCULTATION: rhonchi and other (Coarse breath sounds.) Cardio: COMMON NORMALS: no JVD, regular rhythm, S1 normal heart sound present, S2 normal heart sound present and No murmurs present (Cardio) RATE: t achycardic RHYTHM: regular rhythm HEART SOUNDS: S1 normal heart sound present and S2 normal heart sound present GI: COMMON NORMALS: Normal to inspection, nondistended, normoactive bowel sounds present, Soft to palpation and non-tender PALPATION: Yes Soft to palpation Extremity: COMMON NORMALS: no joint enlargement and no pedal edema OTHER: Mild swelling of the mid left forearm. Neuro: COMMON NORMALS: patient oriented x3 and moves all extremities S ENSORIUM/ORIENTATION: Yes alert Skin: COMMON NORMALS: no rashes or lesions noted GENERAL SKIN EXAM: no rashes or lesions noted Urinary Catheter Management: Griffiths: Cath Placed During This Visit: yes Reason for Continuing Indwelling Catheter: Acute Urinary Retention or Obstruction Urinary Catheter Date of Insertion: 12/14/23 Urinary Catheter Time of Insertion: 15:45 Data 12/16/23 04:24 12/16/23 04:24 A&P Assessment and plan (1) Acute respiratory failure with hypoxia: Reviewed modified barium swallow study. Discussed with speech therapist. Noted 1 episode of trace aspiration with thin liquids. Performance improved with use of chin tachycardia but penetration was still evident. Patient is not clear penetrated material from laryngeal vestibule. Roby thick liquids were attempted, with penetration to upper laryngeal vestibule only. Very weak swallow. Residue in vallecula and tongue base after swallows completed with food items. Double/multiple swallows necessary to clear. Recommendation to consider level 5 minced and moist diet with nectar thick liquids due to weakness of patient swallow and weak cough. Incidentally also noted esophageal dysmotility. Diet adjusted. Continuous pressure precautions. Reviewed vitals, CBC, noted leukocytosis 12.78. Afebrile. Continue antibiotics for treatment of pneumonia. Suspect aspiration pneumonia. Discussed with nursing, bilingual patient support caseworker. Reviewed blood culture, preliminary negative. Continue nasal cannula oxygen supplementation. Wean down as tolerating. Treat pneumonia. RT assess and treat. She would not want intubation, would be okay with CPAP or BiPAP if needed. Complicated by underlying COPD. States he is not normally on oxygen. (2) Pneumonia: Modified barium swallow as above with noted aspiration. Diet adjusted. Weak swallow and weak cough. Acute encephalopathy with intermittent confusion noted by nursing staff likely acute metabolic encephalopathy with pneumonia, UTI. Right lower lobe pneumonia. She denied aspiration. But aspiration noted on MBS. Denies aspiration with food or drink. Blood cultures collected, Continue meropenem, Vanco. Monitor for risk of seizure with meropenem. Requested MRSA swab. Reassess condition. Follow-up blood cultures. Obtain sputum cultures, urine bacterial antigens, urine Legionella antigen. Reviewed respiratory viral studies, negative. (3) UTI (urinary tract infection): Reviewed urine culture, mixed urogenital nathan. UA was suggestive of possible UTI. 40-55 WBC. (4) Sepsis: Sepsis resolved Sepsis without endorgan damage, with fever 100.8, tachycardia 109, leukocytosis 15.73, with hypoxia, tachypnea 24, with pneumonia. Lactic acid reviewed 1.1. Blood culture sent. Received meropenem, vancomycin. Continue antibiotic coverage. Monitor for risk of seizure with meropenem, risk of HERMANN with vancomycin. Monitor vancomycin levels. Follow-up cultures. Additional workup and treatment of pneumonia as below. Plan Smoking addiction: States she smokes 2 cigarettes/day. Encouraged cessation. Nicotine replacement as needed. Arthritis Dystonia Lumbar disc disease with radiculopathy NPH Goals of care discussion: She is answering questions, oriented x 3, making her own decisions. She states in case that changed we could then contact her son to be surrogate decision maker. Attestations 2 Medical Necessity Statement*: Continue admission for assessment of management of aspiration pneumonia, UTI after resolved sepsis. and High MDM includes amount and/or complexity of data reviewed/ordered [ resulted lab(s)/test(s), ordered lab(s)/test(s), independent historian and other healthcare professional discussion] and described risk of complication, morbidity or mortality of management as documented Diagnoses Acute respiratory failure with hypoxia J96.01 Pneumonia J18.9 UTI (urinary tract infection) N39.0 Sepsis A41.9
[2023-12-17] VITALS: BP 161/91; PULSE 82; RESP 17; TEMP 36.8; O2SAT 94
[2023-12-17] MEDS: MEROPENEM 2,000 MG in sodium chloride 0.9% (plus) 50 ML 100 MG IV ×2 (01:30→13:54)
[2023-12-17 04:00] VITALS: BP 165/81; PULSE 73; RESP 16; TEMP 36.9; O2SAT 93
[2023-12-17] MEDS: acetaminophen 325 mg Tablet 650 MG PO ×2 (04:50→12:25)
[2023-12-17 05:43] LABS: Basophils # 0.1 10^3/uL (0.0-0.1); Basophils % 0.5 %; Eosinophils % 0.4 %; Lymphocytes # 1.3 10^3/uL (0.8-4.8); Lymphocytes % 12.5 %; Mean Corpuscular HGB Conc 34.3 g/dL (30-55); Mean Corpuscular Hemoglobin 31.9 pg (27-33); Mean Corpuscular Volume 92.9 fl (85-98); Mean Platelet Volume 10.3 fL (7.4-10.4); Monocytes # 1.1 10^3/uL (0.2-0.9); Monocytes % 10.7 %; Neutrophils # 7.54 10^3/uL (1.8-7.7); Neutrophils % 75.2 %; Nucleated Red Blood Cells % 0 %; Platelet Count 302 10^3/cmm (157-399); Red Blood Count 4.52 10^6/uL (3.85-5.65); Red Cell Distribution Width 12.7 % (12.1-15.1); White Blood Count 10.02 10^3/uL (3.29-11.43)
[2023-12-17 06:00] LABS: Alanine Aminotransferase < 5 U/L (0-33); Albumin Level 3.3 g/dL (3.5-5.2); Alkaline Phosphatase 104 U/L (35-105); Anion Gap 15.9 (5-19); Aspartate Amino Transferase 13 U/L (0-32); Blood Urea Nitrogen 7 mg/dL (8-23); Calcium 9.1 mg/dL (8.5-10.5); Carbon Dioxide 28 mmol/L (22-29); Chloride 96 mmol/L (98-107); Creatinine Clr Calc Pharmacy 50.5843; Globulin 3.5 g/dL (1.3-4.6); Glomerular Filtration Rate 160.2 mL/min (90-130); Glucose 98 mg/dL (65-115); Osmolality Calculated 282 mOsm/kg (285-295); Sodium 137 mmol/L (136-145); Total Bilirubin 0.3 mg/dL (0.15-1.2); Total Protein 6.8 g/dL (6.6-8.7)
[2023-12-17 06:11] LABS: Potassium 2.9 mmol/L (3.5-5.1)
[2023-12-17 07:42] VITALS: BP 154/92; PULSE 72; RESP 16; TEMP 36.7; O2SAT 93
[2023-12-17] MEDS: lidocaine 1% 5 ML in potassium chloride premix 100 ML 26.25 ML IV (07:48)
[2023-12-17] MEDS: lisinopril 5 mg Tablet 10 MG PO (07:49)
[2023-12-17] MEDS: ondansetron 2 mg/ML SDV 2 mL 4 MG IVP (07:54)
[2023-12-17 11:03] LABS: SARS Covid-2 Antigen negative (Negative)
[2023-12-17 11:05] LABS: MRSA PCR OZH (swab) NOT DETECTED ` (Not Detecte)
[2023-12-17 11:16] VITALS: BP 186/80; PULSE 69; RESP 16; TEMP 37.1; O2SAT 93
--- NOTE | 2023-12-17 11:16 | P.DS_ITS ---
Discharge Providers Date of Admission: 12/14/23 11:00 Date of Discharge: December 17, 2023 Attending Provider at Admission: Cory Robertson Attending Provider at Discharge: Richie Decker MD Primary Care Provider: Rosy Javier Diagnoses at Discharge Discharge Diagnosis (1) Acute respiratory failure with hypoxia: Status: Acute (2) Pneumonia: Status: Acute (3) UTI (urinary tract infection): Status: Acute (4) Sepsis: Status: Acute Reason for Visit Reason for Visit: AMS; hypoxia Hospital Course Hospital Course Nicolasa is a 63-year-old white female who presented on December 13 with acute respiratory failure with hypoxemia. There was concern of sepsis, and a right lower lobe pneumonia. She was placed on IV antibiotics of meropenem and vancomycin. There was concern of UTI as well, which would be covered with meropenem. She had some evidence of acute kidney injury, which improved with treatment. On December 15 she was still feeling poorly. Speech therapy had evaluated and recommended a modified diet. Urine culture did come back mixed nathan. MRSA returned at a later date after discharge and was found to be not detected. Urine cultures pending at discharge. At discharge she was improved. It was thought she could be discharged back to the nursing facility. I am dictating this at a later date than the discharge occurred, and it is apparent from her MRSA that is now back the doxycycline could be discontinued. I will also give her an additional 40 mg once a potassium at the nursing facility. She will need aspiration precautions, minced and moist diet, mildly thick liquids at the nursing facility. I called the senior living and gave these additional orders. Physical Exam Narrative: General Exam no distress, on room air Neck is supple Cardiovascular regular rate and rhythm Extremities no cyanosis clubbing or edema Lungs clear Urinary Catheter Management: Griffiths: Cath Placed During This Visit: yes Reason for Continuing Indwelling Catheter: Other Urinary Catheter Date of Insertion: 12/14/23 Urinary Catheter Time of Insertion: 15:45 Discharge Data Studies Completed and Pending Completed Studies During Hospitalization Category Date Time Status FL barium swallow modifd [id number] Routine Exams 12/16/23 09:30 Completed XR chest 1V portable [id number] Stat Exams 12/14/23 09:37 Completed Pending at discharge Category Date Time Status Blood Culture Stat Lab 12/14/23 09:53 Results Sputum Culture and Gram Stain Routine Lab 12/14/23 15:02 Uncollected Urine Culture Routine Lab 12/15/23 21:13 Received Vancomycin Trough Routine Lab 12/17/23 21:00 Ordered Radiology Impressions Chest X-Ray 12/14/23 09:37 IMPRESSION: 1. Right lower lobe pneumonia. Findings are worse on today's exam when compared to prior exam. Modified Barium Swallow 12/16/23 09:30 IMPRESSION: Aspiration with thin liquids which improved with chin tuck maneuver. Persistent penetration with chin tuck maneuver. Please see speech therapy evaluation for further detail. Laboratory Results WBC 10.02 10^3/uL (3.29-11.43) 12/17/23 05:07 RBC 4.52 10^6/uL (3.85-5.65) 12/17/23 05:07 Hgb 14.40 g/dL (11.27-16.99) 12/17/23 05:07 Hct 42.0 % (36-47) 12/17/23 05:07 MCV 92.9 fl (85-98) 12/17/23 05:07 MCH 31.9 pg (27-33) 12/17/23 05:07 MCHC 34.3 g/dL (30-55) 12/17/23 05:07 RDW 12.7 % (12.1-15.1) 12/17/23 05:07 Plt Count 302 10^3/cmm (157-399) 12/17/23 05:07 MPV 10.3 fL (7.4-10.4) 12/17/23 05:07 Neut % (Auto) 75.2 % 12/17/23 05:07 Lymph % (Auto) 12.5 % 12/17/23 05:07 [place] % (Auto) 10.7 % 12/17/23 05:07 Eos % (Auto) 0.4 % 12/17/23 05:07 Baso % (Auto) 0.5 % 12/17/23 05:07 Neut # (Auto) 7.54 10^3/uL (1.8-7.7) 12/17/23 05:07 Lymph # (Auto) 1.3 10^3/uL (0.8-4.8) 12/17/23 05:07 [place] # (Auto) 1.1 10^3/uL (0.2-0.9) H 12/17/23 05:07 Eos # (Auto) 0.0 10^3/uL (0.0-0.8) 12/17/23 05:07 Baso # (Auto) 0.1 10^3/uL (0.0-0.1) 12/17/23 05:07 Nucleated RBC % (auto) 0 % 12/17/23 05:07 Nucleated RBCs # 0.0 /100WBC 12/17/23 05:07 Specimen Type Arterial 12/14/23 09:37 Sample Site Radial, right 12/14/23 09:37 ABG pH 7.41 (7.35-7.45) 12/14/23 09:37 ABG pCO2 50.0 mmHg (35-45) H 12/14/23 09:37 ABG pO2 63.0 mmHg (80.0-100.0) L 12/14/23 09:37 ABG HCO3 31.4 mmol/L (22-26) H 12/14/23 09:37 ABG O2 Saturation 93.0 12/14/23 09:37 ABG Base Excess 5.3 mmol/L (-2.0-2.0) H 12/14/23 09:37 Zack Test Pos 12/14/23 09:37 A-a O2 Gradient 3.3 mmHg (5-10) L 12/14/23 09:37 Hematocrit 48.5 % (37-47) H 12/14/23 09:37 Hgb O2 Saturation 89.9 % (95-100) L 12/14/23 09:37 Carboxyhemoglobin 2.3 %THgb (0.4-20.1) 12/14/23 09:37 Methemoglobin 1.0 % (0.4-1.5) 12/14/23 09:37 Total Hemoglobin 15.8 g/dL (12-16) 12/14/23 09:37 Sodium 138.0 mmol/L (131-143) 12/14/23 09:37 Potassium 3.7 mmol/L (3.5-5.0) 12/14/23 09:37 Glucose 107.0 mg/dL (70-115) 12/14/23 09:37 Ionized Calcium 1.2 mmol/L (1.1-1.4) 12/14/23 09:37 O2 Delivery Device Cont neb 12/14/23 09:37 O2 Liters/Min 9.0 % 12/14/23 09:37 Computer Recycling Worker ID [place] 12/14/23 09:37 Sodium 137 mmol/L (136-145) 12/17/23 05:07 Potassium 2.9 mmol/L (3.5-5.1) L 12/17/23 05:07 Chloride 96 mmol/L (98-107) L 12/17/23 05:07 Carbon Dioxide 28 mmol/L (22-29) 12/17/23 05:07 Anion Gap 15.9 (5-19) 12/17/23 05:07 BUN 7 mg/dL (8-23) L 12/17/23 05:07 Creatinine 0.4 mg/dL (0.5-0.9) L 12/17/23 05:07 GFR Calculation 160.2 mL/min (90-130) H 12/17/23 05:07 Glucose 98 mg/dL (65-115) 12/17/23 05:07 Calculated Osmolality 282 mOsm/kg (285-295) L 12/17/23 05:07 Lactic Acid 1.1 mmol/L (0.5-2.2) 12/14/23 09:22 Calcium 9.1 mg/dL (8.5-10.5) 12/17/23 05:07 Magnesium 1.8 mg/dL (1.7-2.3) 12/15/23 03:33 Total Bilirubin 0.3 mg/dL (0.15-1.2) 12/17/23 05:07 AST 13 U/L (0-32) 12/17/23 05:07 ALT < 5 U/L (0-33) 12/17/23 05:07 Alkaline Phosphatase 104 U/L (35-105) 12/17/23 05:07 Total Protein 6.8 g/dL (6.6-8.7) 12/17/23 05:07 Albumin 3.3 g/dL (3.5-5.2) L 12/17/23 05:07 Globulin 3.5 g/dL (1.3-4.6) 12/17/23 05:07 Urine Color Yellow (Yellow) 12/14/23 15:55 Urine Appearance Clear (CLEAR) 12/14/23 15:55 Urine pH 6 (5-7) 12/14/23 15:55 Ur Specific [place] 1.010 (1.005-1.030) 12/14/23 15:55 Urine Protein Neg (Negative) 12/14/23 15:55 Urine Glucose (UA) Norm (Normal) 12/14/23 15:55 Urine Ketones Negative (Negative) 12/14/23 15:55 Urine Blood 2+ (Negative) H 12/14/23 15:55 Urine Nitrate Positive (Negative) A 12/14/23 15:55 Urine Bilirubin Neg (Negative) 12/14/23 15:55 Urine Urobilinogen Norm mg/dL (Negative) 12/14/23 15:55 Ur Leukocyte Esterase 2+ (Negative) H 12/14/23 15:55 Urine RBC 5-10 /hpf (0-2) H 12/14/23 15:55 Urine WBC 40-55 /hpf (0-5) H 12/14/23 15:55 Ur Squamous Epith Cells 0-4 /hpf (0-5) H 12/14/23 15:55 Amorphous Sediment Not Reportable 12/14/23 15:55 Urine Bacteria 1+ /hpf (NONE) H 12/14/23 15:55 Vancomycin Trough 9.9 ug/mL (10-15) L 12/16/23 08:43 Coronavirus (PCR) Negative (Negative) 12/14/23 09:55 Influenza A (PCR) Negative (Negative) 12/14/23 09:55 Influenza Type B (PCR) Negative (Negative) 12/14/23 09:55 RSV (PCR) Negative (Negative) 12/14/23 09:55 SARS-CoV-2 Ag (Rapid) negative (Negative) 12/17/23 10:32 MRSA Culture Not detected ` (Not Detecte) 12/16/23 19:46 MRSA (PCR) Cancelled 12/16/23 19:46 Vitals Last Vital Signs Temp 98.1 F 12/17/23 07:42 Pulse 72 12/17/23 07:42 Resp 16 12/17/23 07:42 BP 154/92 12/17/23 07:42 Pulse Ox 93 12/17/23 07:42 O2 Del Method Room Air 12/17/23 07:42 O2 Flow Rate 2 12/16/23 08:00 Discharge Plan Discharge Patient Disposition: Xfer SNF Condition: Stable Prescriptions: New lisinopril 5 mg Tablet 10 mg PO DAILY Qty: 30 0RF doxycycline hyclate 100 mg capsule 100 mg PO BID 5 Days Qty: 10 0RF metronidazole 500 mg tablet 500 mg PO TID Qty: 15 0RF cefdinir 300 mg capsule 300 mg PO BID 5 Days Qty: 10 0RF Continued citalopram 40 mg tablet 40 mg PO DAILY Qty: 90 3RF ipratropium-albuterol 0.5 mg-3 mg(2.5 mg base)/3 mL Solution For Nebulization 3 ml INHALATION BID cetirizine 5 mg Tablet 5 mg PO DAILY Tums E-X 300 mg (750 mg) Tablet,Chewable 300 mg PO Q4H PRN (Reason: Indigestion) Dulcolax (bisacodyl) 10 mg Suppository 10 mg [place] DAILY PRN (Reason: constipatiom) Colace 100 mg Capsule 100 mg PO BID budesonide 3 mg capsule,delayed,extend.release 9 mg PO DAILY Miralax 17 gram/dose Powder 4 g PO DAILY fluticasone propionate 50 mcg/actuation [place],Suspension 1 spray INTRANASAL DAILY Rx Instructions: administer into each nostril Tylenol 325 mg Capsule 325 mg PO QID PRN (Reason: Pain) cholecalciferol (vitamin D3) 25 mcg (1,000 unit) tablet 1,000 unit PO TID levetiracetam 500 mg tablet extended release 24 hr 1,000 mg PO DAILY multivitamin with folic acid [Thera] 400 mcg Tablet 1 tab PO DAILY Qty: 30 0RF Discontinued pregabalin [Lyrica] 100 mg capsule 100 mg PO TID Qty: 300 3RF celecoxib 200 mg capsule 200 mg PO BID hydrocodone-acetaminophen 5-325 mg tablet 1 tab PO QID PRN (Reason: pain) Discharge Orders: Discharge Order (Routine); Ordered 12/17/23 Ordered By: Richie Decker Referrals: Rosy Javier PA [Primary Care Provider] - 4-7 days Discharge Diet: As Directed Discharge Activity: Increase activity as tolerated Patient Instructions: Lisinopril (By mouth), Doxycycline (By mouth), Metronidazole (By mouth), Cefdinir (By mouth), Pain Management Activity Restrictions/Additional Instructions: Dysphagia level 5 diet with mildly thick liquids. Aspiration precautions. Take all medicine as prescribed Follow-up with physician at nursing facility in 3 to 5 days Discharge Attestations Time Spent in Discharge Care*: greater than 30 min Quality Metrics Clinical Quality Measures [ No reported AMI, CVA or VTE this stay] Coding Level of Care Code 07141 Total time (in minutes) for Discharge: 34 Diagnoses Acute respiratory failure with hypoxia J96.01 Pneumonia J18.9 UTI (urinary tract infection) N39.0 Sepsis A41.9 Time Spent (min) 34
[2023-12-17] MEDS: pantoprazole 40 mg SDV IVP (14:44)
[2023-12-17] MEDS: enoxaparin 40 mg/0.4 mL Syringe SUBCUT (14:44)
[2023-12-17 16:36] VITALS: BP 186/80; PULSE 69; RESP 16; TEMP 37.1; O2SAT 93
== END 2023-12-17 16:37 | disposition skilled nursing facility (03) | DRG 871 ==
LOC: ER 11:00 → MEDSURG 14:08
PROVIDERS: Admitting Provider Internal Medicine; Emergency Provider Family Medicine; PCP Physician Assistant; Visit Provider Internal Medicine
DX: A41.9 Sepsis, unspecified organism (principal); G93.41 Metabolic encephalopathy; J18.9 Pneumonia, unspecified organism; J96.01 Acute respiratory failure with hypoxia; J44.0 Chronic obstructive pulmonary disease with (acute) lower respiratory infection; G91.2 (Idiopathic) normal pressure hydrocephalus; N39.0 Urinary tract infection, site not specified; F17.210 Nicotine dependence, cigarettes, uncomplicated; M19.90 Unspecified osteoarthritis, unspecified site; R13.12 Dysphagia, oropharyngeal phase; G24.9 Dystonia, unspecified; M54.16 Radiculopathy, lumbar region; Z79.899 Other long term (current) drug therapy; Z11.52 Encounter for screening for COVID-19; Z88.1 Allergy status to other antibiotic agents; Z88.8 Allergy status to other drugs, medicaments and biological substances
CPT/HCPCS: 0241U; 36415; 36600; 51702; 71045; 74230; 80051; 80053; 80202; 81001; 82330; 82805; 83605; 83735; 85025; 86403; 87040; 87086; 87426; 87449; 87641; 92611; 93005; 96365; 96372; 96375; 99285; J1650; J1885; J2185; J2405; J2470; J3370; J3480; J7030; J7050

== ENCOUNTER 2024-01-08 12:47 | Outpatient (CLI) | payer MEDICARE, SELFPAY ==
--- NOTE | 2024-01-08 12:52 | MR_ITS ---
WS: [id number] MRI LUMBAR SPINE NONCONTRAST HISTORY: R L4/5 RADICULOPATHY W/NEW WORSENING WEAKNESS R LEG COMPARISON: 05/15/2023 TECHNIQUE: Sagittal and axial multisequence imaging is submitted. Mild levoscoliosis of the upper thoracic spine. Straightening of the normal lumbar lordosis. No acute marrow edema. Severe degenerative disc disease with osteophytic ridging and disc base narrowing from L2-3 through L 5-S1. Mild anterior wedging of L4. Conus terminates normally at L1-2 disc level. RIGHT hemilaminectomy defects at L4-5 and L5-S1 are new. Postsurgical changes are noted at the surgic al site. L1-L2: Osteophytic ridging. No significant stenosis. L2-L3: Diffuse asymmetric disc bulging to the LEFT. Osteophytic ridging. Impingement upon the LEFT pinzon barticular recess and traversing LEFT L3 nerve root. Minimal change since the prior study. Mild bilat eral foraminal stenosis, LEFT greater than RIGHT and LEFT subarticular recess encroachment. L3-L4: Diffuse annular disc bulging is asymmetric to the RIGHT. Central disc osteophyte. Disc and ost eophyte encroachment upon the subarticular recesses and foramina. Impingement upon the traversing L4 nerve roots, RIGHT greater than LEFT. Similar to the prior study. Mild bilateral foraminal and subart icular recess stenosis. L4-L5: Diffuse osteophytic ridging and annular disc bulging with facet arthritis. Mild impingement up on the RIGHT subarticular recess and traversing RIGHT L5 nerve root. Moderate RIGHT and mild LEFT for aminal stenosis. Severe RIGHT facet arthritis. L5-S1: Diffuse annular disc bulging with osteophytic ridging. Facet joint arthritis. Mild contact on the traversing S1 nerve roots. Moderate bilateral foraminal stenosis, RIGHT greater than LEFT. Atherosclerotic plaque abdominal aorta. LEFT renal cyst. Marked fecal retention in the distal colon. Inspissated fecal material extends to the rectum. MR/MR lumbar spine wo con* [id number] IMPRESSION: 1. Advanced degenerative changes of the lumbar spine. No significant progressi on is identified since 05/15/2023. 2. RIGHT hemilaminectomy defect at L4-5 and L5-S1 new since the prior study. 3. L4-5: Disc impinging upon the traversing nerve roots, RIGHT greater than LE FT and RIGHT subarticular recess. Moderate RIGHT and mild LEFT foraminal stenos is. Marked facet arthritis on the RIGHT. 4. L5-S1: Moderate bilateral foraminal stenosis, RIGHT greater than LEFT due t o disc and osteophyte disease. Mild disc contact on the traversing S1 nerve luke ts. 5. L3-4: Mild bilateral foraminal and subarticular recess stenosis. 6. L2-3: Impingement upon the LEFT subarticular recess and traversing LEFT L3 nerve root. No obvious progression since the prior study. Mild bilateral and pinzon barticular recess stenosis. 7. Marked inspissated fecal material in the distal colon. Diameter of the colo n is measured up to at least 5.0 cm.
== END 2024-01-08 12:48 | disposition home or self-care (01) ==
LOC: RAD 12:48
PROVIDERS: PCP Physician Assistant; Visit Provider Family Medicine
DX: M54.16 Radiculopathy, lumbar region (principal); M48.061 Spinal stenosis, lumbar region without neurogenic claudication
CPT/HCPCS: 72148

== ENCOUNTER 2024-01-30 12:38 | Outpatient (CLI) | payer MEDICARE, SELFPAY ==
--- NOTE | 2024-01-30 12:44 | MR_ITS ---
WS: [id number] MRI HEAD WITHOUT CONTRAST TECHNIQUE: Sagittal T1, T2 axial, T2 axial FLAIR, axial and coronal T1 images, axial susceptibility w eighted imaging, axial diffusion weighted images, and coronal T2 images were obtained. CLINICAL INFORMATION: HYDROCEPHALUS COMPARISON: MRI [address] 11/30/2023 FINDINGS: No evidence of restricted diffusion to suggest acute ischemia. Ventricular system and basal cisterns are patent. Moderate dilatation of the ventricular system unchanged since the recent CT and prior MRI . No evidence of progression. Stable encephalomalacia and gliosis in the bifrontal lobes likely to pr ior trauma. Stable LEFT frontal osiel holes. Small vessel changes in the kirit. Stable hemosiderin in t he inferior frontal lobes. Mild mucosal thickening RIGHT mastoid air cells. Normal vascular flow voids at the skull base. No ext ra-axial fluid collections. Mild mucosal thickening in the ethmoid air cells. A few chronic lacunar i nfarcts in the moreira radiata. MR/MR head wo con* [id number] IMPRESSION: 1. No evidence of restricted diffusion to suggest acute ischemia. 2. Stable moderate ventriculomegaly unchanged since the recent CT and stable c ompared to the prior MRI March 2023. No evidence of progression. 3. No other significant changes. 4. Stable bifrontal encephalomalacia and gliosis with hemosiderin likely due t o prior trauma. Stable bifrontal osiel holes.
== END 2024-01-30 12:39 | disposition home or self-care (01) ==
LOC: RAD 12:42
PROVIDERS: PCP Physician Assistant; Visit Provider Physician Assistant
DX: G93.89 Other specified disorders of brain (principal); G91.9 Hydrocephalus, unspecified
CPT/HCPCS: 70551

== ENCOUNTER → 2024-03-05 13:15 | Outpatient (BNVA) | payer MEDICARE, SELFPAY | PROVIDERS: PCP Physician Assistant; Visit Provider Orthopaedic Surgery | DX: M54.9 Dorsalgia, unspecified (principal); Z98.890 Other specified postprocedural states | CPT/HCPCS: 99213 ==

== ENCOUNTER 2024-03-05 16:28 | Outpatient (CLI) | payer MEDICARE, SELFPAY ==
[2024-03-05 16:42] LABS: Basophils % 0.4 %; Eosinophils # 0.1 10^3/uL (0.0-0.8); Eosinophils % 1.2 %; Hematocrit 45.8 % (36-47); Lymphocytes # 2.5 10^3/uL (0.8-4.8); Lymphocytes % 26.3 %; Mean Corpuscular HGB Conc 34.3 g/dL (30-55); Mean Corpuscular Hemoglobin 31.7 pg (27-33); Mean Corpuscular Volume 92.3 fl (85-98); Mean Platelet Volume 10.6 fL (7.4-10.4); Monocytes # 0.7 10^3/uL (0.2-0.9); Monocytes % 7.2 %; Neutrophils % 64.6 %; Nucleated Red Blood Cells % 0 %; Platelet Count 314 10^3/cmm (157-399); Red Blood Count 4.96 10^6/uL (3.85-5.65); Red Cell Distribution Width 14.6 % (12.1-15.1)
[2024-03-05 18:00] LABS: 25 Hydroxy Vitamin D 50 ng/mL (30-100); Alanine Aminotransferase 8 U/L (0-33); Albumin Level 4.3 g/dL (3.5-5.2); Alkaline Phosphatase 66 U/L (35-105); Anion Gap 15.6 (5-19); Aspartate Amino Transferase 16 U/L (0-32); Blood Urea Nitrogen 13 mg/dL (8-23); Calcium 10.1 mg/dL (8.5-10.5); Carbon Dioxide 28 mmol/L (22-29); Chloride 95 mmol/L (98-107); Globulin 3.2 g/dL (1.3-4.6); Glomerular Filtration Rate 100.3 mL/min (90-130); Glucose 145 mg/dL (65-115); Osmolality Calculated 285 mOsm/kg (285-295); Sodium 136 mmol/L (136-145); Total Bilirubin 0.3 mg/dL (0.15-1.2); Total Protein 7.5 g/dL (6.6-8.7)
[2024-03-05 18:19] LABS: Potassium 2.6 mmol/L (3.5-5.1)
== END 2024-03-05 16:29 | disposition home or self-care (01) ==
LOC: LAB 16:30
PROVIDERS: PCP Physician Assistant; Visit Provider Physician Assistant
DX: I10 Essential (primary) hypertension (principal); E55.9 Vitamin D deficiency, unspecified; E11.9 Type 2 diabetes mellitus without complications
CPT/HCPCS: 80053; 82306; 84443; 85025

== ENCOUNTER 2024-03-06 09:40 | Inpatient (IN) | payer MEDICARE, SELFPAY ==
[2024-03-06] VITALS (16 sets, daily range): BP systolic 129–172; BP diastolic 78–98; PULSE 69–97; RESP 12–19; TEMP 36.5–36.8; O2SAT 90–97; BMI 19.5
--- NOTE | 2024-03-06 10:08 | ECG_ITS ---
[facility] Test Date: 2024-03-06 Pat Name: Nicolasa Kothari Department: Room: Gender: Female Bladder Cleaner: : 1960 Requested By: Lina Mondragon Order Number: [id number] Sandra MD: Konstantin Moulton M.D. Measurements Intervals [place] Rate: 87 P: 82 TX: 157 QRS: 23 QRSD: 93 T: 194 QT: 384 QTc: 464 Interpretive Statements SINUS RHYTHM ST DEVIATION AND MODERATE T-WAVE ABNORMALITY, CONSIDER LATERAL ISCHEMIA [-0.1+ mV T-WAVE IN I/aVL/V5/V6] ST DEVIATION AND MODERATE T-WAVE ABNORMALITY, CONSIDER INFERIOR ISCHEMIA [-0.1+ mV T-WAVE IN II/aVF] Compared to ECG 12/14/2023 09:37:47 T-wave abnormality now present Possible ischemia now present Sinus tachycardia no longer present Ventricular premature complex(es) no longer present Electronically Signed On 03-06-2024 17:02:12 FINANCIAL COORDINATOR by Konstantin Moulton M.D. [email or web address]
[2024-03-06 10:33] LABS: Basophils # 0.1 10^3/uL (0.0-0.1); Basophils % 0.5 %; Eosinophils # 0.1 10^3/uL (0.0-0.8); Hematocrit 47.8 % (36-47); Lymphocytes # 2.2 10^3/uL (0.8-4.8); Lymphocytes % 23.6 %; Mean Corpuscular HGB Conc 33.7 g/dL (30-55); Mean Corpuscular Hemoglobin 31.7 pg (27-33); Mean Corpuscular Volume 94.1 fl (85-98); Mean Platelet Volume 9.9 fL (7.4-10.4); Monocytes # 0.9 10^3/uL (0.2-0.9); Monocytes % 9.3 %; Neutrophils # 6.18 10^3/uL (1.8-7.7); Neutrophils % 65.4 %; Nucleated Red Blood Cells % 0 %; Platelet Count 304 10^3/cmm (157-399); Red Blood Count 5.08 10^6/uL (3.85-5.65); Red Cell Distribution Width 14.5 % (12.1-15.1); White Blood Count 9.45 10^3/uL (3.29-11.43)
--- NOTE | 2024-03-06 10:36 | XR_ITS ---
WS: [id number] XR chest 1V portable [id number] REASON FOR EXAM: Chest pain FINDINGS: Compared to previous examination of 09/01/2023, the chest is unchanged. Moderate tortuosity of the thoracic aorta. Normal heart size. Calcified granulomas disease bilaterally. No acute pulmonary parenchymal or pleural abnormality. Moderate dextroscoliosis and degenerative spondylosis of the mid and lower thoracic spine. Right shou lder alignment indicating complete rotator cuff tear. XR/XR chest 1V portable [id number] IMPRESSION: Stable chest with no acute abnormality.
--- NOTE | 2024-03-06 10:37 | W.ED.WEAKNES ---
HPI - Weakness General: Chief complaint: Weakness Stated complaint: abn labs, lethargic Time Seen by Provider: 03/06/24 10:28 History of Present Illness: 63-year-old female presents emergency room generalized weakness and discomfort. Some mild chest discomfort. Is complaining of generalized weakness and short of breath today. Initial EKG shows ST wave inversion in 2 3 aVF as well as V4 5 and 6. She denies any fever sweats chills no orthopnea. Associated symptoms: Reports chest pain; Denies chills, dysuria or fever(s) Review of Systems Const: Denies: fever(s) or chills Card: Reports: chest pain Resp: Denies: dyspnea GI: Reports: diarrhea; Denies: abdominal pain : Denies: dysuria, urinary frequency or urinary urgency Musc: Denies: neck pain or back pain Skin/Breast: Denies: rash PFSH ED PFSH: Medical History Normal pressure hydrocephalus Tobacco dependence Lumbar disc disease with radiculopathy Dystonia Depression Arthritis Surgical History History of knee surgery Family History Other Arthritis Social History Smoking and tobacco/nicotine status: unknown if used tobacco/nicotine Alcohol intake: former Year of sobriety/quit date alcohol: 2002 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[employer] [place] however and November Physical Exam Const: GENERAL APPEARANCE: cooperative ORIENTATION/CONSCIOUSNESS: Yes awake HENMT: COMMON NORMALS: normocephalic, atraumatic and hearing grossly normal bilaterally HEAD & SCALP: normocephalic and atraumatic Resp: COMMON NORMALS: normal respiratory effort, No retractions, No use of accessory muscles and clear to auscultation bilaterally AUSCULTATION: clear to auscultation bilaterally Cardio: COMMON NORMALS: regular rate, regular rhythm and No murmurs present (Cardio) RATE: regular rate RHYTHM: regular rhythm GI: COMMON NORMALS: Soft to palpation and No hepatosplenomegaly present AUSCULTATION: Yes normoactive bowel sounds PALPATION: Yes Soft to palpation, No Tenderness to palpation present (GI), No Guarding due to palpation present (GI) and Yes No hepatosplenomegaly present Extremity: COMMON NORMALS: normal to inspection, capillary refill normal, no clubbing, cyanosis or edema, no calf tenderness and no pedal edema Skin: COMMON NORMALS: no rashes or lesions noted GENERAL SKIN EXAM: no rashes or lesions noted Course Vital Signs: Vital signs: Vital Signs Temperature 97.9 F 03/07/24 16:00 Pulse Rate 88 03/07/24 16:16 Respiratory Rate 18 03/07/24 16:16 Blood Pressure 129/70 03/07/24 16:00 Pulse Oximetry 93 03/07/24 16:16 Oxygen Delivery Me thod Room Air 03/07/24 16:16 Oxygen Flow Rate 2 03/07/24 04:35 MDM - Weakness Medical Decision Making Initial EKG shows T wave inversion in 2 3 aVF and V45 and 6. This is new from previous EKGs. It is persistent cardiac enzymes negative so far. Discussed with cardiology they recommend admission. Will admit to hospitalist consult cardiology orders written. EKGs reviewed as found on the chart. Medical Records I reviewed the patient's medical records. Lab Data I reviewed the patient's lab results. 03/07/24 02:08 03/07/24 02:08 Radiology Impressions Chest X-Ray 03/06/24 10:36 IMPRESSION: Stable chest with no acute abnormality. Laboratory Results WBC 9.45 10^3/uL (3.29-11.43) 03/06/24 10:20 RBC 5.08 10^6/uL (3.85-5.65) 03/06/24 10:20 Hgb 16.10 g/dL (11.27-16.99) 03/06/24 10:20 Hct 47.8 % (36-47) H 03/06/24 10:20 MCV 94.1 fl (85-98) 03/06/24 10:20 MCH 31.7 pg (27-33) 03/06/24 10:20 MCHC 33.7 g/dL (30-55) 03/06/24 10:20 RDW 14.5 % (12.1-15.1) 03/06/24 10:20 Plt Count 304 10^3/cmm (157-399) 03/06/24 10:20 MPV 9.9 fL (7.4-10.4) 03/06/24 10:20 Neut % (Auto) 65.4 % 03/06/24 10:20 Lymph % (Auto) 23.6 % 03/06/24 10:20 [place] % (Auto) 9.3 % 03/06/24 10:20 Eos % (Auto) 1.0 % 03/06/24 10:20 Baso % (Auto) 0.5 % 03/06/24 10:20 Neut # (Auto) 6.18 10^3/uL (1.8-7.7) 03/06/24 10:20 Lymph # (Auto) 2.2 10^3/uL (0.8-4.8) 03/06/24 10:20 [place] # (Auto) 0.9 10^3/uL (0.2-0.9) 03/06/24 10:20 Eos # (Auto) 0.1 10^3/uL (0.0-0.8) 03/06/24 10:20 Baso # (Auto) 0.1 10^3/uL (0.0-0.1) 03/06/24 10:20 Nucleated RBC % (auto) 0 % 03/06/24 10:20 Nucleated RBCs # 0.0 /100WBC 03/06/24 10:20 Sodium 137 mmol/L (136-145) 03/06/24 10:20 Potassium 3.3 mmol/L (3.5-5.1) L 03/06/24 10:20 Chloride 95 mmol/L (98-107) L 03/06/24 10:20 Carbon Dioxide 30 mmol/L (22-29) H 03/06/24 10:20 Anion Gap 15.3 (5-19) 03/06/24 10:20 BUN 15 mg/dL (8-23) 03/06/24 10:20 Creatinine 1.0 mg/dL (0.5-0.9) H 03/06/24 10:20 GFR Calculation 55.6 mL/min (90-130) L 03/06/24 10:20 Glucose 100 mg/dL (65-115) 03/06/24 10:20 Calculated Osmolality 285 mOsm/kg (285-295) 03/06/24 10:20 Calcium 10.6 mg/dL (8.5-10.5) H 03/06/24 10:20 Magnesium 2.0 mg/dL (1.7-2.3) 03/06/24 10:20 Total Bilirubin 0.2 mg/dL (0.15-1.2) 03/06/24 10:20 AST 26 U/L (0-32) 03/06/24 10:20 ALT < 5 U/L (0-33) 03/06/24 10:20 Alkaline Phosphatase 76 U/L (35-105) 03/06/24 10:20 Troponin T Baseline 44 ng/L (0-10) H 03/06/24 10:20 Troponin T 120 Minute 40.53 ng/L (0-10) H 03/06/24 12:31 Delta Troponin T -3.47 ABS# (0-10) L 03/06/24 12:31 NT-Pro-B Natriuret Pep 643 pg/mL (0-125) H 03/06/24 11:20 Total Protein 7.8 g/dL (6.6-8.7) 03/06/24 10:20 Albumin 4.6 g/dL (3.5-5.2) 03/06/24 10:20 Globulin 3.2 g/dL (1.3-4.6) 03/06/24 10:20 TSH 0.62 uIU/mL (0.27-4.20) 03/06/24 12:31 Urine Color Yellow (Yellow) 03/06/24 12:03 Urine Appearance Clear (CLEAR) 03/06/24 12:03 Urine pH 6.0 (5-7) 03/06/24 12:03 Ur Specific [place] 1.012 (1.005-1.030) 03/06/24 12:03 Urine Protein Trace (Negative) A 03/06/24 12:03 Urine Glucose (UA) Negative (Normal) 03/06/24 12:03 Urine Ketones Negative (Negative) 03/06/24 12:03 Urine Blood Negative (Negative) 03/06/24 12:03 Urine Nitrate Negative (Negative) 03/06/24 12:03 Urine Bilirubin Negative (Negative) 03/06/24 12:03 Urine Urobilinogen 0.2 mg/dL (Negative) 03/06/24 12:03 Ur Leukocyte Esterase Negative (Negative) 03/06/24 12:03 Urine RBC 0-2 /hpf (0-2) 03/06/24 12:03 Urine WBC 0-5 /hpf (0-5) 03/06/24 12:03 Ur Squamous Epith Cells 0-5 /hpf (0-5) 03/06/24 12:03 Amorphous Sediment Not Reportable 03/06/24 12:03 Urine Bacteria None seen /hpf (NONE) 03/06/24 12:03 Hyaline Casts 6.61 /lpf 03/06/24 12:03 C. difficile (PCR) Negative (Negative) 03/06/24 15:58 Coronavirus (PCR) Negative (Negative) 03/06/24 14:04 Influenza A (PCR) Negative (Negative) 03/06/24 14:04 Influenza Type B (PCR) Negative (Negative) 03/06/24 14:04 RSV (PCR) Negative (Negative) 03/06/24 14:04 All radiology interpretation(s) finalized by discharge Discharge Plan Discharge Patient Disposition: Placed in Observation Admit Provider: Cory Robertson Clinical Impression: Abnormal T wave present on electrocardiography, Generalized weakness Coding Level of Care Code ED Security System Administrator for Chg Fwd Related Data Home Medications Medication Instructions Recorded Confirmed levetiracetam 500 mg 500 mg PO BID 08/17/23 03/06/24 tablet,extended release 24 hr cetirizine 5 mg tablet 5 mg PO DAILY 12/16/23 03/06/24 cholecalciferol (vitamin D3) 25 1,000 unit PO TID 12/16/23 03/06/24 mcg (1,000 unit) tablet docusate sodium 100 mg capsule 100 mg PO BID 12/16/23 03/06/24 (Colace) fluticasone propionate 50 2 spray intranasal DAILY 12/16/23 03/06/24 mcg/actuation nasal spray,suspension ipratropium 0.5 mg-albuterol 3 mg 3 ml inhalation BID 12/16/23 03/06/24 (2.5 mg base)/3 mL nebulization soln polyethylene glycol 3350 17 4 g PO DAILY 12/16/23 03/06/24 gram/dose oral powder (Miralax) acetaminophen 325 mg tablet 325 mg PO QID PRN Pain 03/06/24 03/06/24 (Tylenol) amlodipine 10 mg tablet 10 mg PO DAILY 03/06/24 03/06/24 celecoxib 100 mg capsule 100 mg PO BID 03/06/24 03/06/24 duloxetine 60 mg capsule,delayed 60 mg PO DAILY 03/06/24 03/06/24 release hydrocodone 5 mg-acetaminophen 325 1 tab PO Q6H PRN Pain 03/06/24 03/06/24 mg tablet pregabalin 50 mg capsule 50 mg PO BID 03/06/24 03/06/24 pregabalin 50 mg capsule 50 mg PO DAILY 03/06/24 03/06/24 quetiapine 50 mg tablet,extended 50 mg PO BEDTIME 03/06/24 03/06/24 release 24 hr Previous Rx's Medication Instructions Recorded multivitamin with folic acid 400 1 tab PO DAILY #30 tabs 08/21/23 mcg tablet (Thera) lisinopril 5 mg tablet 10 mg (2 x 5 mg) PO DAILY #30 tabs 12/17/23 Allergies Allergy/AdvReac Type Severity Reaction Status Date / Time amoxicillin [From Augmentin] Allergy ADR-Nausea Verified 12/14/23 09:38 clavulanic acid Allergy ADR-Nausea Verified 12/14/23 09:38 [From Augmentin]
[2024-03-06 10:50] LABS: Alanine Aminotransferase < 5 U/L (0-33); Albumin Level 4.6 g/dL (3.5-5.2); Alkaline Phosphatase 76 U/L (35-105); Anion Gap 15.3 (5-19); Aspartate Amino Transferase 26 U/L (0-32); Blood Urea Nitrogen 15 mg/dL (8-23); Calcium 10.6 mg/dL (8.5-10.5); Carbon Dioxide 30 mmol/L (22-29); Chloride 95 mmol/L (98-107); Creatinine Clr Calc Pharmacy 40.2365; Globulin 3.2 g/dL (1.3-4.6); Glomerular Filtration Rate 55.6 mL/min (90-130); Glucose 100 mg/dL (65-115); Osmolality Calculated 285 mOsm/kg (285-295); Potassium 3.3 mmol/L (3.5-5.1); Sodium 137 mmol/L (136-145); Total Bilirubin 0.2 mg/dL (0.15-1.2); Total Protein 7.8 g/dL (6.6-8.7)
[2024-03-06 11:05] LABS: Troponin(5th) Baseline 44 ng/L (0-10)
[2024-03-06 12:21] LABS: Bacteria Urine None Seen /hpf; Hyaline Casts Urine 6.61 /lpf; RBC Urine 0-2 /hpf (0-2); Squamous Epithelial Cell Urine 0-5 /hpf (0-5); WBC Urine 0-5 /hpf (0-5)
[2024-03-06 12:26] LABS: Add Urine Microscopic? YES; Bilirubin Urine Negative (Negative); Blood Urine Negative (Negative); Glucose Urine UA Negative (Normal); Ketones Urine Negative (Negative); Leukocyte Esterase Urine Negative (Negative); Nitrate Urine Negative (Negative); Protein Urine Trace (Negative); Specific Gravity, Urine 1.012 (1.005-1.030); Urine Color Yellow (Yellow); Urobilinogen Urine 0.2 mg/dL (Negative)
[2024-03-06 12:31] LABS: Urine Appearance Clear (CLEAR)
--- NOTE | 2024-03-06 12:36 | ECG_ITS ---
[facility]: 2024-03[facility]06 Pat Name: Nicolasa Kothari Department: Room: Gender: Female Transitions Rn Care Coordinator: : 1960 Requested By: Gautam Dueñas Order Number: [id number] Sandra MD: Konstantin Moulton M.D. 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 [email or web address]
[2024-03-06 12:52] LABS: Troponin 5 2HR 40.53 ng/L (0-10)
[2024-03-06 12:54] LABS: Troponin 5 2HR Delta -3.47 ABS# (0-10)
[2024-03-06 13:03] LABS: NT Pro B Type Natriuretic Pept 643 pg/mL (0-125)
[2024-03-06] MEDS: sodium chloride 0.9% 1,000 ML 999 ML IV (13:44)
[2024-03-06 14:47] LABS: Covid PCR NEGATIVE (Negative); Influenza A NEGATIVE (Negative); Influenza B NEGATIVE (Negative); Respiratory Syncytial Virus Ce NEGATIVE (Negative)
--- NOTE | 2024-03-06 14:59 | PC.NURSE ---
pt received from ER She still has a 1 L of bag of NS running as a bolus from ER. Dr Robertson in room and received verbal order to decrease rate to 50 mls an hour to continue and dc after the bag runs out. Pt is alert, orientedx4. she looks weak and sleepy, slow to talk. chronic pain on lower back. SR HR-80s room air Spo2-98%, BP ranges from 150s to 180s sytolic. sacral area noted to be blanchable red. call light provided to pt and w/in reach.
--- NOTE | 2024-03-06 15:39 | P.HP_ITS ---
Providers/Chief Complaint 2 Admitting Physician: Cory Robertson Primary Care Provider: Rosy Javier Chief Complaint: abn labs, lethargic History of Present Illness Pleasant 63-year-old lady with recent hospitalization with respiratory failure, pneumonia, UTI, sepsis, was brought into ER for evaluation due to generalized weakness, fatigue, daytime somnolence following up with orthopedic surgery in office yesterday and states was very tired and falling asleep in the chair. She has been generally very weak, moving and speaking very slowly. She reports she has started having diarrhea about 5 days ago. Her symptoms started after the diarrhea and since then have been getting worse. She has been feeling chills. No chest pain or pressure. In the ER he is noted with mild hypoxia, requiring oxygen. EKG with T wave changes which are new. Review of Systems 2 Const: Reports: fatigue and other (Generalized weakness. Feeling cold.); Denies: fever(s), body aches or malaise ENMT: Denies: throat pain Card: Denies: chest pain, edema, pre-syncope or dyspnea on exertion Resp: Denies: dyspnea, productive cough, change in phlegm color or hemoptysis GI: Reports: diarrhea; Denies: abdominal pain, nausea, vomiting, constipation, hematochezia or melena : Denies: flank pain, urinary frequency or hematuria Musc: Denies: back pain, joint swelling or joint redness Skin/Breast: Denies: rash or new lesions Neuro: Denies: headache(s) or confusion Medications/Allergies Home Medications Medication Instructions Recorded Confirmed Last Taken Type levetiracetam 500 mg 500 mg PO BID 08/17/23 03/06/24 03/05/24 19:45 History tablet,extended release 24 hr multivitamin with folic acid 400 1 tab PO DAILY #30 tabs 08/21/23 03/06/24 Unknown Rx mcg tablet (Thera) cetirizine 5 mg tablet 5 mg PO DAILY 12/16/23 03/06/24 03/05/24 08:15 History cholecalciferol (vitamin D3) 25 1,000 unit PO TID 12/16/23 03/06/24 Unknown History mcg (1,000 unit) tablet docusate sodium 100 mg capsule 100 mg PO BID 12/16/23 03/06/24 03/02/24 09:15 History (Colace) fluticasone propionate 50 2 spray intranasal DAILY 12/16/23 03/06/24 03/05/24 08:15 History mcg/actuation nasal spray,suspension ipratropium 0.5 mg-albuterol 3 mg 3 ml inhalation BID 12/16/23 03/06/24 03/05/24 11:45 History (2.5 mg base)/3 mL nebulization soln polyethylene glycol 3350 17 4 g PO DAILY 12/16/23 03/06/24 02/27/24 08:25 History gram/dose oral powder (Miralax) lisinopril 5 mg tablet 10 mg (2 x 5 mg) PO DAILY #30 tabs 12/17/23 03/06/24 03/05/24 08:15 Rx acetaminophen 325 mg tablet 325 mg PO QID PRN Pain 03/06/24 03/06/24 02/28/24 19:55 History (Tylenol) amlodipine 10 mg tablet 10 mg PO DAILY 03/06/24 03/06/24 03/05/24 08:15 History celecoxib 100 mg capsule 100 mg PO BID 03/06/24 03/06/24 03/05/24 07:45 History duloxetine 60 mg capsule,delayed 60 mg PO DAILY 03/06/24 03/06/24 03/05/24 08:15 History release hydrocodone 5 mg-acetaminophen 325 1 tab PO Q6H PRN Pain 03/06/24 03/06/24 03/06/24 04:45 History mg tablet pregabalin 50 mg capsule 50 mg PO BID 03/06/24 03/06/24 02/23/24 08:40 History pregabalin 50 mg capsule 50 mg PO DAILY 03/06/24 03/06/24 03/05/24 11:05 History quetiapine 50 mg tablet,extended 50 mg PO BEDTIME 03/06/24 03/06/24 03/05/24 07:45 History release 24 hr Allergies Allergy/AdvReac Type Severity Reaction Status Date / Time amoxicillin [From Augmentin] Allergy ADR-Nausea Verified 12/14/23 09:38 clavulanic acid Allergy ADR-Nausea Verified 12/14/23 09:38 [From Augmentin] PFSH Acute 2 PFSH: Medical History Normal pressure hydrocephalus Tobacco dependence Lumbar disc disease with radiculopathy Dystonia Depression Arthritis Surgical History History of knee surgery Family History Other Arthritis Social History Smoking and tobacco/nicotine status: unknown if used tobacco/nicotine Alcohol intake: former Year of sobriety/quit date alcohol: 2002 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 HENMT: OTHER: Dry mucous membranes Neck/C-Spine: COMMON NORMALS: no JVD Resp: COMMON NORMALS: normal respiratory effort and clear to auscultation bilaterally AUSCULTATION: clear to auscultation bilaterally Cardio: COMMON NORMALS: no JVD, regular rhythm, S1 normal heart sound present, S2 normal heart sound present and No murmurs present (Cardio) RHYTHM: regular rhythm HEART SOUNDS: S1 normal heart sound present and S2 normal heart sound present GI: COMMON NORMALS: Normal to inspection, nondistended, normoactive bowel sounds present, Soft to palpation and non-tender PALPATION: Yes Soft to palpation Extremity: COMMON NORMALS: no joint enlargement and no pedal edema Neuro: COMMON NORMALS: patient oriented x3 and moves all extremities S ENSORIUM/ORIENTATION: Yes alert Skin: COMMON NORMALS: no rashes or lesions noted GENERAL SKIN EXAM: no rashes or lesions noted Data 03/06/24 10:20 03/06/24 10:20 A&P Assessment and plan (1) Generalized weakness: Generalized weakness following start of diarrhea about 5 days ago. Reports voluminous liquid/explosive diarrhea. Generalized weakness with slowed movements, speech. Dry mucous membranes on exam. Decrease skin turgor. Noted with dehydration. Assess TSH. Reviewed vitals, CBC, CMP, UA, coronavirus, influenza, RSV PCR negative. Reviewed ER provider note, discussed with ER provider. Obtain respiratory viral panel. Obtain C. difficile, stool studies Salmonella, Shigella, Campylobacter. Reviewed EKG, troponin, noted T wave inversions inferolaterally on my interpretation, pending official read. Troponin with mild elevation, without acute rise. NT proBNP 643. Reviewed cardiology note, procedure consultation. Echocardiogram is pending. Will continue with gentle IV hydration for dehydration. Monitor for risk of fluid overload with IV fluids. Monitor for risk of worsening hypertension. Reassess. No witnessed seizure. Maintain seizure precautions. With history of ventriculomegaly, had just had an MRI brain at the end of December with ventriculomegaly unchanged from prior. (2) Abnormal T wave present on electrocardiography: Currently without chest pain or pressure. Inferolateral T wave inversions onEKG. Appreciate cardiology consultation. TTE pending. Monitor on telemetry. Complete troponin EKG series. Will give aspirin. Optimize blood pressure control, resume antihypertensives. Stop NSAID. Consider further risk stratification. (3) Diarrhea: With dehydration. Check C. difficile, check stool Salmonella, Shigella, Campylobacter. Check respiratory viral panel. Monitor intake and output. Plan Hypertension: Blood pressure 172/95. Hold off further fluid bolus, gentle IV hydration for dehydration. Resume antihypertensives. Cardiac diet. Hypercalcemia: Mild hypercalcemia, calcium 10.6. Continue gentle IV hydration for dehydration. Recheck chemistry, calcium. Replace mild hypokalemia. Reviewed magnesium, normal. Recheck chemistry. Epilepsy: Continue [place] Attestations 2 Medical Necessity Statement*: Place in observation for additional assessment and management of generalized weakness, fatigue, dehydration, diarrhea, new T wave inversions on EKG. and High MDM includes amount and/or complexity of data reviewed/ordered [ previous or external records, resulted lab(s)/test(s), ordered lab(s)/test(s) and other healthcare professional discussion] and described risk of complication, morbidity or mortality of management as documented Diagnoses Generalized weakness R53.1 Abnormal T wave present on electrocardiography R94.31 Diarrhea R19.7
--- NOTE | 2024-03-06 15:44 | P.CONIM_ITS ---
<Statement entered by Bobo Kendrick MD - 03/06/24 23:21> Patient was evaluated and cared for in conjunction with an advanced practice practitioner. I personally examined the patient and reviewed the chart and all pertinent data including imaging, telemetry, and laboratory results. I discussed the patient in detail with the advanced practice practitioner. Please see their note for complete H&P testing result and agreed upon plan of care for the patient. 63-year-old female past medical history significant for recent pneumonia/aspiration history of seizure disorder [facility] with generalized weakness noted to have nonspecific anterolateral T wave inversion on the EKG and electrolyte abnormality with hypokalemia. Patient categorically denies any chest pain shortness of breath PND orthopnea. We have been asked to assist in her care due to abnormal EKG. She has been ruled out for acute coronary syndrome. Troponin was mildly elevated possible due to demand ischemia GENERAL: Patient is alert, awake and oriented x3. HEART: Regular S1 and S2. No murmur, rub or gallop. LUNGS: Clear to auscultate bilaterally. CENTRAL NERVOUS SYSTEM: Grossly nonfocal. EXTREMITIES: Lower extremities with out edema bilaterally. Assessment and plan Abnormal EKG Generalized weakness Replenish electrolytes specially potassium Echocardiogram to assess LV function This does not appear to be acute coronary syndrome patient categorically denies any chest pain at this point no need for full anticoagulation Continue to monitor and observe further plan be advised after reviewing echo. Providers/Reason For Consult 2 Consulting Physician/Specialty*: Bobo Kendrick MD Reason for Consult*: Abnormal EKG changes Requesting Physician: Dr. Marie Attending Physician: Cory Robertson Primary Care Provider: Rosy Javier History of Present Illness History of Present Illness Nicolasa Kothari is a 63 year old female is a 63-year-old female who had a hospitalization not too long ago for aspiration pneumonia. She was found to be hypoxic [facility] the [facility]. She was brought into the ER today due to abnormal labs with potassium at 2.6. She had weakness and lethargy with this. Potassium currently 3.3. She is a poor historian. She denies any chest pain at this time. She states for the last 6 months she has had to be placed in a wheelchair. She denies any shortness of breath. She seems pretty lethargic upon assessment. No evidence of stroke on exam but very slow to speak. An EKG was done in the ER that showed T wave inversion inferior lateral leads. Patient denies any chest pain shortness of breath. She has no signs of CHF. History of smoking and hypertension but no significant cardiac history that I am aware of. She has a history of grand mal seizures. Review of Systems 2 Narrative: Consitutional: Reports lethargy Eyes: Denies changes in vision Card: Denies chest pain, palpitations, irregular heart rhythm, edema, syncope, shortness of breath, orthopnea, leg pain with exertion Resp: Denies shortness of breath, denies hemoptysis, denies cough GI: denies abdominal pain, denies nausea or voimting, denies blood in stool : denies blood in urine, denies dysuria Musc: Denies extremity pain, denies limited range of motion or recent injury Skin: Denies rash, lesions, or wounds, denies changes to skin color Neuro: Denies nubmness in extremities, h/a, s/s of stroke Anshu: Denies easy bruiding/bleeding Medications/Allergies Home Medications Medication Instructions Recorded Confirmed Last Taken Type levetiracetam 500 mg 500 mg PO BID 08/17/23 03/06/24 03/05/24 19:45 History tablet,extended release 24 hr multivitamin with folic acid 400 1 tab PO DAILY #30 tabs 08/21/23 03/06/24 Unknown Rx mcg tablet (Thera) cetirizine 5 mg tablet 5 mg PO DAILY 12/16/23 03/06/24 03/05/24 08:15 History cholecalciferol (vitamin D3) 25 1,000 unit PO TID 12/16/23 03/06/24 Unknown History mcg (1,000 unit) tablet docusate sodium 100 mg capsule 100 mg PO BID 12/16/23 03/06/24 03/02/24 09:15 History (Colace) fluticasone propionate 50 2 spray intranasal DAILY 12/16/23 03/06/24 03/05/24 08:15 History mcg/actuation nasal spray,suspension ipratropium 0.5 mg-albuterol 3 mg 3 ml inhalation BID 12/16/23 03/06/24 03/05/24 11:45 History (2.5 mg base)/3 mL nebulization soln polyethylene glycol 3350 17 4 g PO DAILY 12/16/23 03/06/24 02/27/24 08:25 History gram/dose oral powder (Miralax) lisinopril 5 mg tablet 10 mg (2 x 5 mg) PO DAILY #30 tabs 12/17/23 03/06/24 03/05/24 08:15 Rx acetaminophen 325 mg tablet 325 mg PO QID PRN Pain 03/06/24 03/06/24 02/28/24 19:55 History (Tylenol) amlodipine 10 mg tablet 10 mg PO DAILY 03/06/24 03/06/24 03/05/24 08:15 History celecoxib 100 mg capsule 100 mg PO BID 03/06/24 03/06/24 03/05/24 07:45 History duloxetine 60 mg capsule,delayed 60 mg PO DAILY 03/06/24 03/06/24 03/05/24 08:15 History release hydrocodone 5 mg-acetaminophen 325 1 tab PO Q6H PRN Pain 03/06/24 03/06/24 03/06/24 04:45 History mg tablet pregabalin 50 mg capsule 50 mg PO BID 03/06/24 03/06/24 02/23/24 08:40 History pregabalin 50 mg capsule 50 mg PO DAILY 03/06/24 03/06/24 03/05/24 11:05 History quetiapine 50 mg tablet,extended 50 mg PO BEDTIME 03/06/24 03/06/24 03/05/24 07:45 History release 24 hr Allergies Allergy/AdvReac Type Severity Reaction Status Date / Time amoxicillin [From Augmentin] Allergy ADR-Nausea Verified 12/14/23 09:38 clavulanic acid Allergy ADR-Nausea Verified 12/14/23 09:38 [From Augmentin] PFSH Acute 2 PFSH: Medical History Normal pressure hydrocephalus Tobacco dependence Lumbar disc disease with radiculopathy Dystonia Depression Arthritis Surgical History History of knee surgery Family History Other Arthritis Social History Smoking and tobacco/nicotine status: unknown if used tobacco/nicotine Alcohol intake: former Year of sobriety/quit date alcohol: 2002 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 Vitals/I&O/Wt Last Vital Signs Temp 97.8 F 03/06/24 15:07 Pulse 86 03/06/24 15:00 Resp 19 H 03/06/24 15:00 BP 149/98 03/06/24 14:44 Pulse Ox 97 03/06/24 15:00 O2 Del Method Room Air 03/06/24 14:36 O2 Flow Rate 3 03/06/24 13:50 03/06/24 03/06/24 03/06/24 06:59 14:59 22:59 Intake Total 0 / 0 Balance 0 / 0 Weight last 48 hrs Weight 96 lb 2 oz Weight 100 lb Physical Exam 2 Narrative: General: Patient appears lethargic slow to respond and speak HENMT: normoceophalic Eye: PERRL Muskuloskeletal: Full ROM Lymphatic: no lymphedema noted Respiratory: Normal respiratory effort, clear to auscultation bilaterally throughout all lung crawford, no use of accessory muscles Cardio: No JVD, regular rate, regular rhythm, S1 S2 normal, no murmurs, peripheral pulses 2+ radial palpated bilaterally GI: Normal to inspection, nondistended Extremities: Full ROM, normal, normal capillary refill, no cyanosis or edema Neuro: Patient is oriented x 4 but very lethargic Psych: Affect normal, denies suicidal ideation, mental status grossly normal Skin: No rashes or lesions noted, no wounds Data 03/06/24 10:20 03/06/24 10:20 A&P Assessment and plan (1) Abnormal T wave present on electrocardiography: (2) History of seizure: (3) History of aspiration pneumonia: Plan At this time patient is chest pain-free. Vital signs are stable. She is lethargic would could be due to the hypokalemia versus postictal phase of a seizure. Initial troponin was elevated 44?40.53. At this time we recommend replacing potassium. Patient may need IV due to history of aspiration. As long as patient is not having chest pain we will continue to monitor for further EKG changes. Continue to trend troponin with serial EKG. At this time no evidence for need for acute intervention as patient is chest pain free. May obtain echo to ensure for no wall motion abnormalities. Further recommendations after this is performed. Thank you, for allowing us to take care of this patient. Coding Level of Care Code Acute Code for Chg Fwd Diagnoses Abnormal T wave present on electrocardiography R94.31 History of seizure Z87.898 History of aspiration pneumonia Z87.01
[2024-03-06 16:09] LABS: Thyroid Stimulating Hormone 0.62 uIU/mL (0.27-4.20)
--- NOTE | 2024-03-06 16:36 | ECG_ITS ---
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 [email or web address]
[2024-03-06 17:10] LABS: C.Diff PCR (Lab) NEGATIVE (Negative)
[2024-03-06] MEDS: pregabalin 50 mg Capsule PO (17:11)
[2024-03-06] MEDS: aspirin 81 mg EC Tablet PO (17:11)
[2024-03-06] MEDS: levETIRAcetam 500 mg Tablet PO (17:11)
[2024-03-06] MEDS: potassium chloride ER 20 mEq Tablet 40 MEQ PO (17:20)
[2024-03-06] MEDS: enoxaparin 40 mg/0.4 mL Syringe SUBCUT (17:21)
[2024-03-06 17:22] LABS: Troponin 5 6HR 42.04 ng/L (0-10)
[2024-03-06 17:24] LABS: Troponin 5 6HR Delta -1.96 ng/L (0-12)
[2024-03-06] MEDS: carvedilol 3.125 mg Tablet PO (19:02)
[2024-03-06] MEDS: quetiapine XR (24HR) 50 mg Tablet PO (20:12)
[2024-03-06 21:44] LABS: Adenovirus Not Detected (NOT DETECT); Chlamydia Pneumoniae Not Detected (NOT DETECT); Coronavirus 229E,HKU1,NL63,OC4 Not Detected (NOT DETECT); Human Metapneumovirus Not Detected (NOT DETECT); Human Rhinovirus/Enterovirus Not Detected (NOT DETECT); Influenza A Not Detected (NOT DETECT); Influenza A H1 Not Detected (NOT DETECT); Influenza A H1-2009 Not Detected (NOT DETECT); Influenza A H3 Not Detected (NOT DETECT); Influenza B Not Detected (NOT DETECT); Mycoplasma Pneumoniae Not Detected (NOT DETECT); Parainfluenza Virus Type 1 Not Detected (NOT DETECT); Parainfluenza Virus Type 2 Not Detected (NOT DETECT); Parainfluenza Virus Type 3 Not Detected (NOT DETECT); Parainfluenza Virus Type 4 Not Detected (NOT DETECT); Respiratory Syncytial Virus A Not Detected (NOT DETECT); Respiratory Syncytial Virus B Not Detected (NOT DETECT); SARS-COV-2 Not Detected (NOT DETECT)
[2024-03-07] VITALS (11 sets, daily range): BP systolic 116–186; BP diastolic 70–100; PULSE 68–93; RESP 12–21; TEMP 36.6–36.9; O2SAT 89–99
[2024-03-07 02:54] LABS: Basophils # 0.1 10^3/uL (0.0-0.1); Basophils % 0.7 %; Eosinophils # 0.2 10^3/uL (0.0-0.8); Eosinophils % 1.9 %; Hematocrit 43.7 % (36-47); Lymphocytes % 30.5 %; Mean Corpuscular HGB Conc 33.9 g/dL (30-55); Mean Corpuscular Volume 94.4 fl (85-98); Mean Platelet Volume 10.6 fL (7.4-10.4); Neutrophils # 5.48 10^3/uL (1.8-7.7); Neutrophils % 56.6 %; Nucleated Red Blood Cells % 0 %; Platelet Count 256 10^3/cmm (157-399); Red Blood Count 4.63 10^6/uL (3.85-5.65); Red Cell Distribution Width 14.6 % (12.1-15.1); White Blood Count 9.68 10^3/uL (3.29-11.43)
[2024-03-07 03:11] LABS: Alanine Aminotransferase 6 U/L (0-33); Albumin Level 3.9 g/dL (3.5-5.2); Alkaline Phosphatase 63 U/L (35-105); Anion Gap 10.7 (5-19); Aspartate Amino Transferase 14 U/L (0-32); Blood Urea Nitrogen 11 mg/dL (8-23); Carbon Dioxide 29 mmol/L (22-29); Chloride 104 mmol/L (98-107); Creatinine Clr Calc Pharmacy 49.5178; Globulin 2.8 g/dL (1.3-4.6); Glomerular Filtration Rate 100.3 mL/min (90-130); Glucose 114 mg/dL (65-115); Osmolality Calculated 292 mOsm/kg (285-295); Sodium 141 mmol/L (136-145); Total Bilirubin 0.2 mg/dL (0.15-1.2); Total Protein 6.7 g/dL (6.6-8.7)
[2024-03-07 03:14] LABS: Potassium 2.7 mmol/L (3.5-5.1)
[2024-03-07] MEDS: lidocaine 1% 5 ML in potassium chloride premix 100 ML 52.5 ML IV ×2 (04:00→06:46)
[2024-03-07] MEDS: ipratropium-albuterol 3 mL Neb INHALATION ×3 (04:35→16:15)
[2024-03-07] MEDS: acetaminophen 325 mg Tablet 650 MG PO ×2 (05:56→10:15)
[2024-03-07] MEDS: duloxetine 60 mg Capsule PO (10:11)
[2024-03-07] MEDS: lisinopril 5 mg Tablet 10 MG PO (10:12)
[2024-03-07] MEDS: amlodipine 10 mg Tablet PO (10:12)
[2024-03-07] MEDS: carvedilol 3.125 mg Tablet PO (10:12)
[2024-03-07] MEDS: levETIRAcetam 500 mg Tablet PO ×2 (10:12→17:53)
[2024-03-07] MEDS: pregabalin 50 mg Capsule PO ×2 (10:12→17:53)
[2024-03-07] MEDS: aspirin 81 mg EC Tablet PO (10:13)
[2024-03-07] MEDS: loperamide 2 mg Capsule PO ×2 (13:42→20:05)
[2024-03-07] MEDS: citalopram 20 mg Tablet 40 MG PO (13:42)
--- NOTE | 2024-03-07 14:06 | P.PN_ITS ---
Subjective 2 Subjective: She is feeling slightly better today. Still generally weak. Still having diarrhea. Vitals/I&O/Wt Last Vital Signs Temp 98.3 F 03/07/24 11:51 Pulse 75 03/07/24 11:51 Resp 18 03/07/24 11:51 BP 182/100 03/07/24 11:51 Pulse Ox 98 03/07/24 11:51 O2 Del Method Nasal Cannula 03/07/24 11:51 O2 Flow Rate 2 03/07/24 04:35 03/06/24 03/07/24 03/07/24 22:59 06:59 14:59 Intake Total 1100 / 1100 105 / 1205 825 / 825 Balance 1100 / 1100 105 / 1205 825 / 825 Weight last 48 hrs Weight 43.602 kg Weight 43.602 kg Weight 45.359 kg Physical Exam 2 Const: COMMON NORMALS: patient oriented x3 and alert GENERAL APPEARANCE: c ooperative ORIENTATION/CONSCIOUSNESS: Yes awake OTHER: Slow movements and speech. HENMT: OTHER: Improving dry mucous membranes Neck/C-Spine: COMMON NORMALS: no JVD Resp: COMMON NORMALS: normal respiratory effort and clear to auscultation bilaterally AUSCULTATION: clear to auscultation bilaterally Cardio: COMMON NORMALS: no JVD, regular rhythm, S1 normal heart sound present, S2 normal heart sound present and No murmurs present (Cardio) RHYTHM: regular rhythm HEART SOUNDS: S1 normal heart sound present and S2 normal heart sound present GI: COMMON NORMALS: Normal to inspection, nondistended, normoactive bowel sounds present, Soft to palpation and non-tender PALPATION: Yes Soft to palpation Extremity: COMMON NORMALS: no joint enlargement and no pedal edema Neuro: COMMON NORMALS: patient oriented x3 and moves all extremities S ENSORIUM/ORIENTATION: Yes alert Skin: COMMON NORMALS: no rashes or lesions noted GENERAL SKIN EXAM: no rashes or lesions noted Data 03/07/24 02:08 03/07/24 02:08 A&P Assessment and plan (1) Generalized weakness: Slightly better with rehydration, although still having diarrhea. Reviewed C. difficile, negative. Pending other stool studies. Continue gentle IV hydration, monitor for risk of fluid overload. Reviewed echocardiogram. Discussed with workday senior associate. Generalized weakness following start of diarrhea about 5 days ago. Reports voluminous liquid/explosive diarrhea. Reviewed TSH. Troponin with mild elevation, without acute rise. NT proBNP 643. Will continue with gentle IV hydration for dehydration. Monitor for risk of fluid overload with IV fluids. Noted she weighs only 43 kg. Monitor for risk of worsening hypertension. Reassess. No witnessed seizure. Maintain seizure precautions. With history of ventriculomegaly, had just had an MRI brain at the end of December with ventriculomegaly unchanged from prior. (2) Abnormal T wave present on electrocardiography: Without chest pain. Reviewed cardiogram. Inferolateral T wave inversions onEKG. Appreciate cardiology consultation. TTE pending. Monitor on telemetry. Complete troponin EKG series. Will give aspirin. Optimize blood pressure control, resume antihypertensives. Stop NSAID. Consider further risk stratification. (3) Diarrhea: With dehydration. Reviewed C. difficile, check stool Salmonella, Shigella, Campylobacter. Reviewed respiratory viral panel. Monitor intake and output. Continue gentle IV hydration. Monitor for risk of fluid overload. Plan Hypertension: Noted again elevated blood pressure. Increased carvedilol to 6.25 mg twice daily. Hypercalcemia: Reviewed calcium, hypercalcemia resolved. Follow-up chemistry. Hypokalemia: Received additional replacement. Recheck level. Reviewed magnesium, normal. Epilepsy: Continue Kenadegera Marestsara 2 Medical Necessity Statement*: Admission of over 2 midnights as needed for assessment and management of generalized weakness, cardiac assessment with EKG changes, electrolyte replacement and persistent deficiency with hypokalemia and further assessment of persistent diarrhea. and High MDM includes amount and/or complexity of data reviewed/ordered [ resulted lab(s)/test(s), ordered lab(s)/test(s) and other healthcare professional discussion] and described risk of complication, morbidity or mortality of management as documented Diagnoses Generalized weakness R53.1 Abnormal T wave present on electrocardiography R94.31 Diarrhea R19.7
--- NOTE | 2024-03-07 16:02 | USCV_ITS ---
Nicolasa Kothari Age: 63 Gender: F : 1960 Exam Date: 03/07/2024 07:21 Ordering Phys: Lina Ferguson NP Technologist: Braulio Lai [place]am Location[place] [facility] [place] Indication: possible nstemi BP: 165 / 91 HR: 85 Rhythm: Sinus Technical Quality: Adequate MEASUREMENTS (Male / Female) Normal Values 2D ECHO LV Diastolic Diameter PLAX 4.1 cm 4.2 - 5.9 / 3.9 - 5.3 cm IVS Diastolic Thickness 0.9 cm 0.6 - 1.0 / 0.6 - 0.9 cm IVS Systolic Thickness 1.5 cm LVPW Diastolic Thickness 1.9 cm 0.6 - 1.0 / 0.6 - 0.9 cm LVPW Systolic Thickness 1.7 cm LVOT Diameter 2.0 cm LV Ejection Fraction 2D Teich 81.6 % LV Ejection Fraction MOD 4C 75.4 % LV Ejection Fraction MOD 2C 72.4 % LV Ejection Fraction 2C AL 71.4 % LA Diameter 3.1 cm RA Systolic Volume 4C AL 28.4 ml RA Systolic Volume 4C MOD 28.4 ml LA Sys Volume AL 25.2 cm cubed LA Sys Volume Index AL 18.6 cm cubed/m squared Aorta at Sinotubular Diameter 2.2 cm IVC Diameter 1.2 cm M-MODE LA Ao Ratio MM 1.1 AV Cusp Separation MM 1.2 cm DOPPLER AV Peak Velocity 122.3 cm/s LVOT Peak Velocity 118.0 cm/s AV Area Cont Eq vti 2.9 cm squared AV Area Cont Eq pk 3.2 cm squared MV Peak Velocity 100.0 cm/s MV Area PHT 3.1 cm squared Mitral E to A Ratio 0.6 TV Peak Velocity 197.0 cm/s TR Peak Velocity 317.0 cm/s TR Peak Gradient 40.2 mmHg TR Mean Velocity 248.0 cm/s TR Mean Gradient 26.9 mmHg TR Velocity Time Integral 92.6 cm PV Peak Velocity 98.0 cm/s RV Ejection Time 0.2 s FINDINGS Left Ventricle Normal left ventricular size, systolic function and wall thickness, with no regional wall motion abnormalities. Left ventricular ejection fraction is estimated at 60 %. Grade I/IV diastolic dysfunction (abnormal relaxation filling pattern), normal to mildly elevated filling pressures. Right Ventricle The right ventricle is normal in size and function. RVSP could not be calculated due to incomplete tricuspid regurgitation velocity profile. Right Atrium The right atrium is normal in size. Left Atrium The left atrium is normal in size. Mitral Valve Structurally normal mitral valve without significant stenosis or prolapse. There is no mitral regurgitation. Aortic Valve Mild aortic valve calcification. No aortic valve stenosis. Trace aortic valve regurgitation. Tricuspid Valve Structurally normal tricuspid valve without significant stenosis or regurgitation. Pulmonic Valve Structurally normal pulmonic valve without significant stenosis. There is no pulmonic regurgitation. Pericardium Normal pericardium without effusion. Aorta Normal ascending aorta dimension. IVC The inferior vena cava appears normal. CONCLUSIONS Normal left ventricular size, systolic function and wall thickness, with no regional wall motion abnormalities. Left ventricular ejection fraction is estimated at 60 %. Grade I/IV diastolic dysfunction (abnormal relaxation filling pattern), normal to mildly elevated filling pressures. There is no pericardial effusion. No significant valve abnormalities. The right ventricle is normal in size and function. RVSP could not be calculated due to incomplete tricuspid regurgitation velocity profile. Right atrial pressure is around 5 mm of mercury. Bobo Kendrick MD (Electronically Signed) Final Date: 07 March 2024 17:35 S
[2024-03-07] MEDS: enoxaparin 40 mg/0.4 mL Syringe SUBCUT (17:53)
[2024-03-07] MEDS: carvedilol 6.25 mg Tablet PO (17:54)
[2024-03-07] MEDS: quetiapine XR (24HR) 50 mg Tablet PO (20:05)
[2024-03-07] MEDS: lactated ringers 500 ML 30 ML IV (21:57)
[2024-03-08] VITALS (13 sets, daily range): BP systolic 76–146; BP diastolic 40–91; PULSE 65–91; RESP 13–18; TEMP 36.6–36.8; O2SAT 91–100
[2024-03-08] MEDS: ipratropium-albuterol 3 mL Neb INHALATION ×4 (00:05→20:08)
[2024-03-08 05:28] LABS: Basophils # 0.1 10^3/uL (0.0-0.1); Basophils % 0.5 %; Eosinophils # 0.1 10^3/uL (0.0-0.8); Eosinophils % 0.8 %; Hematocrit 42.7 % (36-47); Lymphocytes # 1.7 10^3/uL (0.8-4.8); Lymphocytes % 15.1 %; Mean Corpuscular HGB Conc 33.7 g/dL (30-55); Mean Corpuscular Hemoglobin 32.1 pg (27-33); Mean Corpuscular Volume 95.1 fl (85-98); Mean Platelet Volume 10.5 fL (7.4-10.4); Monocytes # 1.1 10^3/uL (0.2-0.9); Neutrophils # 8.25 10^3/uL (1.8-7.7); Neutrophils % 73.3 %; Nucleated Red Blood Cells % 0 %; Platelet Count 198 10^3/cmm (157-399); Red Blood Count 4.49 10^6/uL (3.85-5.65); Red Cell Distribution Width 14.6 % (12.1-15.1); White Blood Count 11.26 10^3/uL (3.29-11.43)
[2024-03-08] MEDS: acetaminophen 325 mg Tablet 650 MG PO (05:34)
[2024-03-08 05:51] LABS: Alanine Aminotransferase 8 U/L (0-33); Albumin Level 3.9 g/dL (3.5-5.2); Alkaline Phosphatase 73 U/L (35-105); Aspartate Amino Transferase 17 U/L (0-32); Blood Urea Nitrogen 7 mg/dL (8-23); Calcium 9.9 mg/dL (8.5-10.5); Carbon Dioxide 30 mmol/L (22-29); Chloride 103 mmol/L (98-107); Creatinine Clr Calc Pharmacy 49.5178; Globulin 3.2 g/dL (1.3-4.6); Glomerular Filtration Rate 160.2 mL/min (90-130); Glucose 104 mg/dL (65-115); Osmolality Calculated 290 mOsm/kg (285-295); Sodium 141 mmol/L (136-145); Total Bilirubin 0.4 mg/dL (0.15-1.2); Total Protein 7.1 g/dL (6.6-8.7)
[2024-03-08] MEDS: HYDROcodone-acetaminophen 5-325 mg Tablet 1 TAB PO ×2 (09:34→17:06)
[2024-03-08] MEDS: levETIRAcetam 500 mg Tablet PO ×2 (09:35→17:06)
[2024-03-08] MEDS: amlodipine 10 mg Tablet PO (09:35)
[2024-03-08] MEDS: pregabalin 50 mg Capsule PO ×3 (09:35→17:06)
[2024-03-08] MEDS: carvedilol 6.25 mg Tablet PO (09:35)
[2024-03-08] MEDS: citalopram 20 mg Tablet 40 MG PO (09:36)
[2024-03-08] MEDS: lisinopril 5 mg Tablet 10 MG PO (09:36)
[2024-03-08] MEDS: aspirin 81 mg EC Tablet PO (09:36)
[2024-03-08] MEDS: potassium chloride ER 20 mEq Tablet 40 MEQ PO (09:36)
[2024-03-08] MEDS: duloxetine 60 mg Capsule PO (09:38)
--- NOTE | 2024-03-08 10:55 | PC.NURSE ---
lactated ringers stopped by Dr. Robertson because patient was geting sob.
--- NOTE | 2024-03-08 11:56 | PM.PN ---
Subjective Subjective: She was feeling overall slightly better this morning, but with some shortness of breath. Diarrhea now showing improvement. Vitals/I&O/Wt Last Vital Signs Temp 97.9 F 03/08/24 11:31 Pulse 65 03/08/24 11:31 Resp 13 03/08/24 11:31 BP 76/40 03/08/24 11:31 Pulse Ox 91 03/08/24 11:31 O2 Del Method Nasal Cannula 03/08/24 11:31 O2 Flow Rate 5 03/08/24 08:00 03/07/24 03/08/24 03/08/24 22:59 06:59 14:59 Intake Total 200 / 1025 100 / 1125 389 / 389 Output Total 0 / 0 Balance 200 / 1025 100 / 1125 389 / 389 Weight last 48 hrs Weight 43.602 kg Weight 43.602 kg Weight 43.602 kg Physical Exam Const: COMMON NORMALS: patient oriented x3 and alert GENERAL APPEARANCE: cooperative ORIENTATION/CONSCIOUSNESS: Yes awake OTHER: Slow movements and speech. HENMT: OTHER: Improving dry mucous membranes Neck/C-Spine: COMMON NORMALS: no JVD Resp: COMMON NORMALS: normal respiratory effort and clear to auscultation bilaterally AUSCULTATION: clear to auscultation bilaterally Cardio: COMMON NORMALS: no JVD, regular rhythm, S1 normal heart sound present, S2 normal heart sound present and No murmurs present (Cardio) RHYTHM: regular rhythm HEART SOUNDS: S1 normal heart sound present and S2 normal heart sound present GI: COMMON NORMALS: Normal to inspection, nondistended, normoactive bowel sounds present, Soft to palpation and non-tender PALPATION: Yes Soft to palpation Extremity: COMMON NORMALS: no joint enlargement and no pedal edema Neuro: COMMON NORMALS: patient oriented x3 and moves all extremities SENSORIUM/ORIENTATION: Yes alert Skin: COMMON NORMALS: no rashes or lesions noted GENERAL SKIN EXAM: no rashes or lesions noted Data 03/08/24 05:20 03/08/24 05:20 A&P Assessment and plan (1) Generalized weakness: Still generally weak. Will check Keppra level. Diarrhea now is improving. Was mildly short of breath this morning, stopped further IV fluid infusion. Hypertensive, but subsequently hypotensive after receiving her blood pressure medications. Blood pressure medicines held. Received 250 mL bolus with improvement. Caution with resuming antihypertensives due to labile blood pressures. C. difficile has been negative. Follow-up Salmonella, Shigella, Campylobacter studies. Reviewed, so far pending. Discussed with senior information systems architect. No sign of acute PA/active ischemia. Reviewed TTE. Will reduce pregabalin dose, looks like this was discontinued back in November, but she appears to be back on it although on the lower dose. Will cut down to 50 mg twice daily. Continue Lyrica for now, monitor for risk of toxicity. Wean off slowly due to risk of withdrawal. Repeat blood count, chemistry. Generalized weakness following start of diarrhea about 5 days ago. Reports voluminous liquid/explosive diarrhea. Reviewed TSH. Troponin with mild elevation, without acute rise. NT proBNP 643. Will continue with gentle IV hydration for dehydration. Monitor for risk of fluid overload with IV fluids. Noted she weighs only 43 kg. Monitor for risk of worsening hypertension. Reassess. No witnessed seizure. Maintain seizure precautions. With history of ventriculomegaly, had just had an MRI brain at the end of December with ventriculomegaly unchanged from prior. (2) Abnormal T wave present on electrocardiography: Discussed with cardiology, reviewed TTE. Appreciate consultation. Continue aspirin, resume beta-lorena once blood pressure stabilized. Consider adding statin once no longer at risk of dehydration/rhabdo. Without chest pain. Reviewed cardiogram. Inferolateral T wave inversions onEKG. Appreciate cardiology consultation. Monitor on telemetry. Complete troponin EKG series. Will give aspirin. Optimize blood pressure control, resume antihypertensives. Stop NSAID. Consider further risk stratification. (3) Diarrhea: Diarrhea today is forming up. Some shortness of breath reported in the morning, stopped IV fluid infusion. C. difficile reviewed and negative. Salmonella, Shigella, Campylobacter still pending. Monitor intake and output. Imodium as needed. Plan Hypertension: Labile blood pressure, became hypotensive today. Improved with small bolus 250 mL fluids. Repeat chemistry. Reassess renal function. Holding antihypertensives for now. Caution with resuming due to labile blood pressures. Hypercalcemia: Reviewed calcium, hypercalcemia resolved. Repeat chemistry. Hypokalemia: Requested additional replacement. Recheck level. magnesium normal. Epilepsy: Continue Keppra. Check level. Attestations Medical Necessity Statement*: Continue admission for assessment and management of generalized weakness/slowness, further assessment of possible toxic effect on medication, optimization of control of labile blood pressure, further assessment of diarrhea which led to dehydration. and High MDM includes amount and/or complexity of data reviewed/ordered [ resulted lab(s)/test(s), ordered lab(s)/test(s) and other healthcare professional discussion] and described risk of complication, morbidity or mortality of management as documented Diagnoses Generalized weakness R53.1 Abnormal T wave present on electrocardiography R94.31 Diarrhea R19.7
--- NOTE | 2024-03-08 11:59 | PC.NURSE ---
patient blood pressure is 76/47. Dr Robertson notified and 250ml bolus ordered
--- NOTE | 2024-03-08 16:12 | PC.NURSE ---
Patient was not given NS 0.9% 250ml bolus because patient already had LR ordered. 250ml bolus of LR given. Patient blood pressure is now 117/62
[2024-03-08] MEDS: enoxaparin 40 mg/0.4 mL Syringe SUBCUT (17:06)
[2024-03-08 17:33] LABS: Glucose Point of Care 103 mg/dL (70-110)
--- NOTE | 2024-03-08 19:52 | P.PN_ITS ---
Subjective 2 Subjective: Continue to feel better denies any chest pain Vitals/I&O/Wt Last Vital Signs Temp 98.3 F 03/08/24 16:00 Pulse 74 03/08/24 16:00 Resp 17 03/08/24 16:00 BP 117/67 03/08/24 16:00 Pulse Ox 95 03/08/24 16:00 O2 Del Method Nasal Cannula 03/08/24 16:00 O2 Flow Rate 5 03/08/24 08:00 03/08/24 03/08/24 03/08/24 06:59 14:59 22:59 Intake Total 100 / 1125 389 / 389 Balance 100 / 1125 389 / 389 Weight last 48 hrs Weight 96 lb 2 oz Weight 96 lb 2 oz Physical Exam 2 Const: OTHER: GENERAL: Patient is awake and oriented appeared to be sleepy HEART: Regular S1 and S2. No murmur, rub or gallop. LUNGS: Clear to auscultate bilaterally. CENTRAL NERVOUS SYSTEM: Grossly nonfocal. EXTREMITIES: Lower extremities with out edema bilaterally. Data 03/08/24 05:20 03/08/24 05:20 A&P Assessment and plan (1) Abnormal T wave present on electrocardiography: Most likely type II nonspecific denies any chest pain continue planus electrolytes (2) History of seizure: As per my (3) History of aspiration pneumonia: As per medicine Plan At this time patient is chest pain-free. Vital signs are stable. She is lethargic would could be due to the hypokalemia versus postictal phase of a seizure. Initial troponin was elevated 44?40.53. At this time we recommend replacing potassium. Patient may need IV due to history of aspiration. As long as patient is not having chest pain we will continue to monitor for further EKG changes. Continue to trend troponin with serial EKG. At this time no evidence for need for acute intervention as patient is chest pain free. May obtain echo to ensure for no wall motion abnormalities. Further recommendations after this is performed. On today's visit dated 03/08/2024 patient continues to do fine from a cardiovascular perspective. Echocardiogram showed normal ejection fraction no wall motion abnormality. No further testing needed Attestations 2 Medical Necessity Statement*: As per medicine Coding Level of Care Code Acute Code for Chg Fwd Diagnoses Abnormal T wave present on electrocardiography R94.31 History of seizure Z87.898 History of aspiration pneumonia Z87.01
[2024-03-08] MEDS: quetiapine XR (24HR) 50 mg Tablet PO (22:03)
[2024-03-09] VITALS (17 sets, daily range): BP systolic 103–163; BP diastolic 56–86; PULSE 85–110; RESP 16–25; TEMP 36.6–37.2; O2SAT 79–93
[2024-03-09] MEDS: HYDROcodone-acetaminophen 5-325 mg Tablet 1 TAB PO ×3 (00:27→23:19)
[2024-03-09 06:16] LABS: Basophils # 0.1 10^3/uL (0.0-0.1); Basophils % 0.4 %; Eosinophils # 0.1 10^3/uL (0.0-0.8); Eosinophils % 0.4 %; Lymphocytes # 1.8 10^3/uL (0.8-4.8); Lymphocytes % 13.6 %; Mean Corpuscular HGB Conc 32.7 g/dL (30-55); Mean Corpuscular Hemoglobin 31.7 pg (27-33); Mean Corpuscular Volume 96.9 fl (85-98); Mean Platelet Volume 10.8 fL (7.4-10.4); Monocytes % 7.6 %; Neutrophils # 10.12 10^3/uL (1.8-7.7); Neutrophils % 77.7 %; Nucleated Red Blood Cells % 0 %; Platelet Count 228 10^3/cmm (157-399); Red Blood Count 4.23 10^6/uL (3.85-5.65); Red Cell Distribution Width 14.7 % (12.1-15.1); White Blood Count 13.02 10^3/uL (3.29-11.43)
[2024-03-09 06:38] LABS: Alanine Aminotransferase < 5 U/L (0-33); Albumin Level 3.6 g/dL (3.5-5.2); Alkaline Phosphatase 67 U/L (35-105); Aspartate Amino Transferase 10 U/L (0-32); Blood Urea Nitrogen 7 mg/dL (8-23); Calcium 9.6 mg/dL (8.5-10.5); Carbon Dioxide 30 mmol/L (22-29); Chloride 98 mmol/L (98-107); Creatinine Clr Calc Pharmacy 49.7334; Globulin 2.8 g/dL (1.3-4.6); Glomerular Filtration Rate 160.2 mL/min (90-130); Glucose 107 mg/dL (65-115); Osmolality Calculated 284 mOsm/kg (285-295); Sodium 138 mmol/L (136-145); Total Bilirubin 0.3 mg/dL (0.15-1.2); Total Protein 6.4 g/dL (6.6-8.7)
[2024-03-09] MEDS: ipratropium-albuterol 3 mL Neb INHALATION ×3 (08:18→20:53)
[2024-03-09] MEDS: aspirin 81 mg EC Tablet PO (09:27)
[2024-03-09] MEDS: levETIRAcetam 500 mg Tablet PO ×2 (09:27→17:55)
[2024-03-09] MEDS: potassium chloride ER 20 mEq Tablet 40 MEQ PO (09:27)
[2024-03-09] MEDS: citalopram 20 mg Tablet 40 MG PO (09:27)
[2024-03-09] MEDS: amlodipine 10 mg Tablet PO (09:27)
[2024-03-09] MEDS: pregabalin 50 mg Capsule PO ×2 (09:27→17:55)
[2024-03-09] MEDS: duloxetine 60 mg Capsule PO (09:27)
--- NOTE | 2024-03-09 09:39 | PC.CHAP ---
Pastoral Care Encounter/Spiritual Assessment Type of Contact [] Declined chip loft worker visit [] Patient/Family/Request visit [] Outpatient visit [] Follow-up visit [] Physician referral [] Code/Alert [x] Routine visit [] Staff referral [] Actively dying [] Patient sleeping [] Family support [] [] Out of room [] Palliative care [] [x [] Long length of stay [] ICU visit [] Other: Relational/Emotional Strength [] Patient feels connected with others/family/visitors/staff [] Distress [] Loneliness/isolation [] Abandonment Spirituality of Patient [] Person of Osiris [] Attends Faith of their Osiris [] Believes in Prayer [] Reads Bible or Mormonism materials [] There are Spiritual issues to be addressed Public Health Sanitarian Interventions [] Prayer [] Active listening [] Non-anxious presence [] Spiritual/emotional support [] Crisis/trauma care [] Spiritual counseling [] Bereavement support [] Provided bereavement packet [] Provided Bible/devotional materials [] Provided toy/stuffed animal, coloring book to patient or family member [] Provided Communion [] Anointing/[place] [] Salvation [] Completed spiritual assessment [] Other: Impact on Illness or Injury [] Angry [] Fearful [] Anxious [] Often cries [] Exhaustion [] Unable to work [] Unable to attend religious [] Unable to walk/stand [] Unable to read [] Unable to drive [] Unable to eat/drink [] Unable to sleep [] Unable to be with family [] Patient intubated [] Other: Summary Time spent with patient
[2024-03-09 09:53] LABS: Estmated Average Glucose 94; Hemoglobin A1C 4.9 % (4.0-6.0)
[2024-03-09 09:58] LABS: Iron 19 ug/dL (37-145); Percent Saturation 10.6 % (20-50); Total Iron Binding Capacity 179 mcg/dl; Unsaturated Iron Binding 160 ug/dL (112-347)
--- NOTE | 2024-03-09 10:11 | CT_ITS ---
WS: [id number] CT CHEST, ABDOMEN AND PELVIS WITH CONTRAST HISTORY: Hypoxia, diarrhea TECHNIQUE: Contiguous 5 mm axial imaging performed through the chest, abdomen and pelvis with IV cont rast, oral contrast has Been provided. Coronal and sagittal reformats chest. Coronal and sagittal reformats through the abdom en and pelvis. All CT scans at [facility] use at least one of these dose optimization techniq ues: automated exposure control; mA and/or kV adjustment per patient size (includes targeted exams wh ere dose is matched to clinical indication); or iterative reconstruction. CONTRAST: Omnipaque 350; 100 mL IV. DLP: 433.18 mGy.cm COMPARISON: 09/02/2023, 08/17/[address]: Chronic emphysematous changes. New scattered subsolid consolidations are now present. Great er distribution throughout the RIGHT lung. Largest subsolid opacification is along the inferior RIGHT upper lobe. Segmental areas of atelectasis involving a large portion of the RIGHT middle lobe and al so of the medial inferior RIGHT lower lobe. Additional smaller component of atelectasis at the LEFT l marjorie base. RIGHT bronchovascular wall thickening. There is fluid and heterogeneity in the RIGHT endobr onchial tree which is resulting in atelectasis of the RIGHT middle and RIGHT lower lobes. There is ar ea of increasing consolidation from fill in the bronchial tree. This may all be secretions. Enlarged RIGHT hilar lymph node 2.3 x 1.7 cm. There are a few additional smaller lymph nodes. Moderat e atherosclerosis aorta. Pulmonary artery is slightly dilated. No central pulmonary embolism. Mild ca rdiomegaly. Abdomen CT: Normal size liver. Scattered areas of focal fatty sparing. No splenomegaly. Gallbladder i s normally distended with stones. Several stones are noted in the gallbladder neck. There is a calcif ication just anterior to the IVC which was present on prior studies. There is no bile duct dilatation . This is not within the common bile duct. Pancreas is atrophic. No adrenal mass. No renal obstructio n. LEFT renal cyst. Advanced atherosclerosis abdominal aorta. Mesenteric arteries are well opacified. Increased fluid in the colon. Liquid feces is evident. No GI tract obstruction. No adenopathy or asci raysa. Pelvic CT: No free fluid. Advanced atherosclerosis in the iliac arteries. Griffiths catheter present in t he bladder. Rotary scoliosis thoracolumbar spine with advanced degenerative changes in the lumbar disc spaces. CT/CT chest abdpel w/*[id number] IMPRESSION: 1. New areas of atelectasis in the RIGHT middle, RIGHT lower and LEFT lower lo bes. 2. Scattered new scattered areas of subsolid consolidations greatest within th e RIGHT lung. Probably representing pneumonia. 3. Enlarged RIGHT hilar lymph node, 2.3 x 1.7 cm. This lymph node was also sli ghtly enlarged on the prior study of 08/17/2023. Reactive versus neoplastic. 4. Liquid feces throughout the entire colon. No obstructive pattern. 5. No free air or free fluid. 6. Atherosclerosis aorta and iliac arteries. 7. Cholelithiasis. No intrahepatic duct dilatation. Normal common bile duct. 8. Complex material distending the RIGHT middle and RIGHT lower lobe bronchi i s probably mucus secretions and fluid resulting in obstruction with atelectasis . If atelectasis does not resolve bronchoscopy may be necessary.
--- NOTE | 2024-03-09 10:24 | P.PN_ITS ---
<Statement entered by Bobo Kendrick MD - 03/09/24 22:24> Patient was evaluated and cared for in conjunction with an advanced practice practitioner. I personally examined the patient and reviewed the chart and all pertinent data including imaging, telemetry, and laboratory results. I discussed the patient in detail with the advanced practice practitioner. Please see their note for complete H&P testing result and agreed upon plan of care for the patient. Subjective 2 Subjective: Patient seen this morning without any chest pain. She had some soft blood pressures overnight and her blood pressure medications all the amlodipine were held. Blood pressure has slowly started to increase into the 160s. Medications: Reviewed: Yes Vitals/I&O/Wt Last Vital Signs Temp 98.6 F 03/09/24 07:45 Pulse 100 03/09/24 08:29 Resp 20 H 03/09/24 08:18 BP 153/83 03/09/24 07:45 Pulse Ox 93 03/09/24 08:18 O2 Del Method Nasal Cannula 03/09/24 08:18 O2 Flow Rate 3 03/09/24 08:18 03/08/24 03/09/24 03/09/24 22:59 06:59 14:59 Intake Total 60 / 60 Output Total 350 / 350 200 / 550 Balance -350 / 39 -200 / -161 60 / 60 Weight last 48 hrs Weight 97 lb 3.2 oz Weight 96 lb 2 oz Physical Exam 2 Narrative: General: No apparent distress Muskuloskeletal: Full ROM Lymphatic: no lymphedema noted Respiratory: Normal respiratory effort, clear to auscultation bilaterally throughout all lung craw[place], no use of accessory muscles Cardio: No JVD, regular rate, regular rhythm, S1 S2 normal, no murmurs GI: Normal to inspection, nondistended Extremities: Full ROM, normal, normal capillary refill, no cyanosis or edema Neuro: Alert and oriented x4, no focal motor deficits Psych: Affect normal, denies suicidal ideation, mental status grossly normal Skin: No rashes or lesions noted, no wounds Data 03/09/24 05:10 03/09/24 05:10 A&P Assessment and plan (1) Abnormal T wave present on electrocardiography: Most likely type II nonspecific denies any chest pain continue planus electrolytes (2) History of seizure: As per my (3) History of aspiration pneumonia: As per medicine Plan At this time patient is chest pain-free. Vital signs are stable. She is still lethargic would could be due to the hypokalemia versus postictal phase of a seizure. Initial troponin was elevated 44?40.53. At this time we recommend replacing potassium. Check mag. May be due to diarrhea. Patient may need IV replacement due to history of aspiration. As long as patient is not having chest pain we will continue to monitor for further EKG changes. At this time no evidence for need for acute intervention as patient is chest pain free. Echo was obtained that showed normal EF with no wall motion abnormalities. No further investigation or test for coronary ischemia are needed. As far as her hypertension recommend considering adding back carvedilol for heart rate control at half of the current dose and monitor for blood pressure changes. Blood pressure currently 163/86 with heart rate of 110. Attestations 2 Medical Necessity Statement*: As per medicine Coding Level of Care Code Acute Code for Chg Fwd Diagnoses Abnormal T wave present on electrocardiography R94.31 History of seizure Z87.898 History of aspiration pneumonia Z87.01
[2024-03-09] MEDS: iohexol 350 mg/mL 500 mL Btl (per mL) IV (10:48)
--- NOTE | 2024-03-09 10:56 | PC.SOCIAL ---
IMM Update pg 2 of IMM Updated and reviewed w/ patient. Copy provided and copy dated, initialed and placed in chart.
[2024-03-09] MEDS: meropenem 1,000 mg SDV 1000 MG IVP ×2 (13:18→20:14)
[2024-03-09] MEDS: acetylcysteine 200 mg/mL SDV 4 mL 100 MG INHALATION ×2 (13:35→20:53)
--- NOTE | 2024-03-09 14:27 | PC.NURSE ---
Nursing staff has been in patients room multiple times today because patient yells out for help. Patient will not use the call light. Nursing has been putting her oxygen back on her multiple times today, patient keeps taking it out of her nose. Nursing staff has moved her multiple times today to try and keep her comfortable.
--- NOTE | 2024-03-09 14:31 | PC.NURSE ---
Patient is unable to do orthostatic blood pressures. Patient is unable to sit or stand on her own, she is a total assist.
[2024-03-09] MEDS: fluticasone nasal spray 16gm Btl 2 SPRAY INTRANASAL (14:54)
[2024-03-09] MEDS: enoxaparin 40 mg/0.4 mL Syringe SUBCUT (15:24)
--- NOTE | 2024-03-09 16:46 | PC.SLP ---
MBS was attempted to be scheduled at approximately 1430, however, the pt's respiratory status was not stable enough per report to Radiology.
[2024-03-09 17:22] LABS: Magnesium 1.6 mg/dL (1.7-2.3); Potassium 3.9 mmol/L (3.5-5.1)
--- NOTE | 2024-03-09 18:28 | P.PN_ITS ---
Subjective 2 Subjective: Hospital course, labs appreciated. Today morning examination patient states she is feeling extremely weak. Unable to swallow her pills earlier today morning. Having poor cough and not able to clear her throat. Requiring higher oxygen requirements going up to 3 L. Later in the day patient went into respiratory failure and had to be transition over to heated high flow. Patient is complaining of back pain. Blood pressures and hemodynamics have remained stable. Medications: Reviewed: Yes Vitals/I&O/Wt Last Vital Signs Temp 98.9 F 03/09/24 16:00 Pulse 104 H 03/09/24 16:25 Resp 20 H 03/09/24 16:25 BP 128/72 03/09/24 16:00 Pulse Ox 91 03/09/24 16:25 O2 Del Method High Flow Nasal Cannula 03/09/24 16:00 O2 Flow Rate 55 03/09/24 16:25 FiO2 85 03/09/24 16:25 03/09/24 03/09/24 03/09/24 06:59 14:59 22:59 Intake Total 60 / 60 Output Total 200 / 550 Balance -200 / -161 60 / 60 Weight last 48 hrs Weight 44.089 kg Weight 43.602 kg Physical Exam 2 Const: COMMON NORMALS: patient oriented x3 and alert GENERAL APPEARANCE: c ooperative and lethargic NUTRITIONAL APPEARANCE: cachectic O RIENTATION/CONSCIOUSNESS: Yes awake, Yes oriented to person, Yes oriented to place, Yes oriented to time and Yes lethargic OTHER: Slow movements and speech. HENMT: OTHER: Improving dry mucous membranes Neck/C-Spine: COMMON NORMALS: no JVD Resp: COMMON NORMALS: normal respiratory effort and clear to auscultation bilaterally AUSCULTATION: clear to auscultation bilaterally Cardio: COMMON NORMALS: no JVD, regular rhythm, S1 normal heart sound present, S2 normal heart sound present and No murmurs present (Cardio) RHYTHM: regular rhythm HEART SOUNDS: S1 normal heart sound present and S2 normal heart sound present GI: COMMON NORMALS: Normal to inspection, nondistended, normoactive bowel sounds present, Soft to palpation and non-tender PALPATION: Yes Soft to palpation Extremity: COMMON NORMALS: no joint enlargement and no pedal edema Neuro: COMMON NORMALS: patient oriented x3 and moves all extremities S ENSORIUM/ORIENTATION: Yes alert, Yes oriented to person, Yes oriented to place, Yes oriented to time and Yes lethargic Skin: COMMON NORMALS: no rashes or lesions noted GENERAL SKIN EXAM: no rashes or lesions noted Data 03/09/24 05:10 03/09/24 16:35 A&P Assessment and plan (1) Respiratory failure with hypoxia: In setting of aspiration pneumonitis along with mucous plug leading to COPD exacerbation due to severe generalized weakness, inability to clear her airways. Aggressive pulmonary toilet with I-S, Acapella and chest vest. Mucomyst every 6 hours, Pulmicort twice daily, DuoNeb every 6 hour. Oxygen supplementation keeping saturation over 88%. Check CT chest with chronic. Respiratory viral panel recently on admission negative. Check sputum culture, ABG. MRSA recently negative. Switch to IV Keppra 1 g every 8 hourly. Out of bed to chair. (2) Pneumonia: (3) Aspiration into lower respiratory tract: (4) Generalized weakness: Admitted with worsening weakness and deconditioning. Admitted with diarrhea on admission. Appreciate TSH. Check vitamin B12 level. Does have history of seizures without any witnessed seizure recently. CT head on admission showed ventriculomegaly without any acute stroke. Could be in setting of polypharmacy. Still awaiting medication list from assisted living. Wean pregabalin down to 50 mg daily. Continue with Seroquel at 50 mg nightly. Continue with home pain medication [place] every 6 hourly as needed. Patient does have a history of chronic lumbar radiculopathy. Physical therapy. Speech therapy. Modified barium swallow when able. Out of bed to chair. (5) Abnormal T wave present on electrocardiography: Discussed with cardiology, reviewed TTE. Appreciate consultation. Continue aspirin. Start on metoprolol 12.5 mg twice daily. No active chest pain. Check A1c, lipid panel. (6) Diarrhea: Diarrhea today is forming up. Some shortness of breath reported in the morning, stopped IV fluid infusion. C. difficile reviewed and negative. Salmonella, Shigella, Campylobacter still pending. Monitor intake and output. Imodium as needed. (7) History of seizure: Continue with home dose of Keppra. Follow-up level. (8) Hypertension: Goal blood pressure less than 140/90 mmHg with mean over 65. Blood pressures have been labile during hospitalization. Hold off on home antihypertensive. Metoprolol as above. Restart home dose of amlodipine 10 mg oral daily. (9) Physical deconditioning: As above. Will discuss in detail with assisted living and patient's son regarding baseline. (10) Major depressive disorder, recurrent: Continue with home dose of Cymbalta, Celexa, Seroquel. (11) Lumbar disc disease with radiculopathy: Plan Hypokalemia: Requested additional replacement. Recheck level. magnesium normal. CODE STATUS: Again discussed in detail with patient. Son Yobany will be the DPOA. Patient does not want any resuscitation. Is okay with ICU admission for vasopressors. Not okay with pacemaker. DNR/DNI Protonix for PUD prophylaxis Lovenox for DVT prophylaxis N.p.o. Speech therapy, physical therapy. Advance diet as per speech evaluation. Tried calling patient's son Mr. Haywood over the phone. Not able to get in touch with. Left voicemail. Attestations 2 Medical Necessity Statement*: Requires further hospitalization from management of respiratory failure in setting of aspiration, mucous plugging in a patient with severe physical deconditioning Diagnoses Respiratory failure with hypoxia J96.91 Pneumonia J18.9 Aspiration into lower respiratory tract T17.800A Generalized weakness R53.1 Abnormal T wave present on electrocardiography R94.31 Diarrhea R19.7 History of seizure Z87.898 Hypertension I10 Physical deconditioning R53.81 Major depressive disorder, recurrent F33.9 Lumbar disc disease with radiculopathy M51.16
--- NOTE | 2024-03-09 19:10 | PC.NURSE ---
Provider did ask nursing staff to give her pain medication as scheduled Q6hr, it helps to relax patient and helps her to breath easier.
[2024-03-09 19:19] LABS: ABG PCO2 57.3 mmHg (35-45); ABG PH Result 7.37 (7.35-7.45); Alveolar-Arterial Oxygen Gradi 61.9 mmHg (5-10); Arterial Blood Gas Hematocrit 43.4 % (37-47); Base Excess ABG 6.2 mmol/L (-2.0-2.0); Blood Gas Allen Test Pos; Blood Gas Sample Site Radial, right; Blood Gas Sample Type Arterial; Carboxyhemoglobin 0.8 %THgb (0.4-20.1); HCO3 ABG 33.3 mmol/L (22-26); HGB O2 Sat 89.3 % (95-100); Ionized Calcium Level - ABG 1.3 mmol/L (1.1-1.4); Oxygen Device NC; PO2 ABG 58.2 mmHg (80.0-100.0); PO2 FiO2 Ratio Arterial Blood 68; Potassium Level - ABG 3.4 mmol/L (3.5-5.0); Total Hemoglobin 14.2 g/dL (12-16)
[2024-03-09] MEDS: sodium chloride 0.9% 1,000 ML 50 ML IV (20:14)
[2024-03-09] MEDS: budesonide 0.5 mg/2 mL Neb INHALATION (20:53)
[2024-03-09] MEDS: metoprolol tartrate 25 mg Tablet PO (23:19)
[2024-03-09] MEDS: quetiapine XR (24HR) 50 mg Tablet PO (23:19)
[2024-03-10] VITALS (19 sets, daily range): BP systolic 90–137; BP diastolic 51–73; PULSE 66–102; RESP 8–21; TEMP 36.8–38.1; O2SAT 89–100
[2024-03-10 00:26] LABS: Glucose Point of Care 129 mg/dL (70-110)
[2024-03-10] MEDS: acetylcysteine 200 mg/mL SDV 4 mL 100 MG INHALATION ×4 (02:00→20:17)
[2024-03-10] MEDS: ipratropium-albuterol 3 mL Neb INHALATION ×4 (02:00→20:17)
[2024-03-10 04:01] LABS: Basophils # 0.1 10^3/uL (0.0-0.1); Basophils % 0.6 %; Eosinophils % 0.2 %; Hematocrit 37.8 % (36-47); Lymphocytes # 1.6 10^3/uL (0.8-4.8); Lymphocytes % 12.8 %; Mean Corpuscular HGB Conc 33.1 g/dL (30-55); Mean Corpuscular Hemoglobin 32.5 pg (27-33); Mean Corpuscular Volume 98.2 fl (85-98); Mean Platelet Volume 10.9 fL (7.4-10.4); Monocytes % 8.2 %; Neutrophils % 77.7 %; Nucleated Red Blood Cells % 0 %; Platelet Count 208 10^3/cmm (157-399); Red Blood Count 3.85 10^6/uL (3.85-5.65); Red Cell Distribution Width 14.6 % (12.1-15.1); White Blood Count 12.34 10^3/uL (3.29-11.43)
[2024-03-10 04:25] LABS: Alanine Aminotransferase 9 U/L (0-33); Albumin Level 3.2 g/dL (3.5-5.2); Alkaline Phosphatase 68 U/L (35-105); Anion Gap 11.3 (5-19); Aspartate Amino Transferase 14 U/L (0-32); Blood Urea Nitrogen 9 mg/dL (8-23); Calcium 9.5 mg/dL (8.5-10.5); Carbon Dioxide 31 mmol/L (22-29); Chloride 98 mmol/L (98-107); Creatinine Clr Calc Pharmacy 49.7334; Globulin 2.8 g/dL (1.3-4.6); Glomerular Filtration Rate 123.8 mL/min (90-130); Glucose 113 mg/dL (65-115); Magnesium 1.6 mg/dL (1.7-2.3); Osmolality Calculated 283 mOsm/kg (285-295); Potassium 3.3 mmol/L (3.5-5.1); Sodium 137 mmol/L (136-145); Total Bilirubin 0.5 mg/dL (0.15-1.2)
[2024-03-10 04:27] LABS: Chol HDL Ratio 2.72 mg/dL (0.0-4.40); Cholesterol 125 mg/dL (0-200); HDL Cholesterol 46 mg/dL (60-100); LDL Cholesterol Calculated 63 mg/dL (50-129); Triglycerides 81 mg/dL (0-150); VLDL Cholestrol Calculation 16 mg/dL (0-30)
[2024-03-10 04:37] LABS: Slide Review Slide Review Perform
--- NOTE | 2024-03-10 04:44 | PC.NURSE ---
pt bp low for over an hr with close monitoring. notified physcian, order for 250 bolus given and administered
[2024-03-10 04:45] LABS: Folate Level 12.2 ng/mL (4.8-37.3)
[2024-03-10] MEDS: meropenem 1,000 mg SDV 1000 MG IVP ×3 (04:47→19:51)
[2024-03-10] MEDS: HYDROcodone-acetaminophen 5-325 mg Tablet 1 TAB PO ×3 (05:09→19:51)
--- NOTE | 2024-03-10 07:34 | PC.NURSE ---
pt was crying out help me help me please multiple times throughout the night. when asked what she needed help with she would state she was hurting alot. nurse was aware and addressing pt when complained. nurse also treated pain when acceptable.
[2024-03-10] MEDS: budesonide 0.5 mg/2 mL Neb INHALATION ×2 (08:06→20:18)
[2024-03-10 09:06] LABS: Levetiracetam Immunoassy 24.4 mcg/mL (6.0-46.0)
--- NOTE | 2024-03-10 09:17 | PC.NURSE ---
Provider okay'd hold amlodipine this morning due to her low blood pressures.
[2024-03-10] MEDS: citalopram 20 mg Tablet 40 MG PO (09:23)
[2024-03-10] MEDS: metoprolol tartrate 25 mg Tablet PO ×2 (09:23→19:51)
[2024-03-10] MEDS: pantoprazole 40 mg SDV IVP (09:23)
[2024-03-10] MEDS: duloxetine 60 mg Capsule PO (09:23)
[2024-03-10] MEDS: aspirin 81 mg EC Tablet PO (09:24)
[2024-03-10] MEDS: potassium chloride ER 20 mEq Tablet 40 MEQ PO (09:24)
[2024-03-10] MEDS: magnesium sulfate premix 2 GM/50 ML PIGGYBACK IV (09:24)
[2024-03-10] MEDS: levETIRAcetam 500 mg Tablet PO ×2 (09:24→18:16)
[2024-03-10] MEDS: pregabalin 50 mg Capsule PO (09:24)
--- NOTE | 2024-03-10 10:29 | PC.CHAP ---
Pastoral Care Encounter/Spiritual Assessment Type of Contact [] Declined teaching fellow visit [] Patient/Family/Request visit [] Outpatient visit [] Follow-up visit [] Physician referral [] Code/Alert [] Routine visit [] Staff referral [] Actively dying [x] Patient sleeping [] Family support [] [] Out of room [] Palliative care [] [] Receiving care in room [] Pre-surgical visit [] Trauma [] Long length of stay [] ICU visit [] Other: Relational/Emotional Strength [] Patient feels connected with others/family/visitors/staff [] Distress [] Loneliness/isolation [] Abandonment Spirituality of Patient [] Person of Osiris [] Attends Mu-Ism of their Osiris [] Believes in Prayer [] Reads Bible or Nondenominational materials [] There are Spiritual issues to be addressed Contracting Engineer Interventions [] Prayer [] Active listening [] Non-anxious presence [] Spiritual/emotional support [] Crisis/trauma care [] Spiritual counseling [] Bereavement support [] Provided bereavement packet [] Provided Bible/devotional materials [] Provided toy/stuffed animal, coloring book to patient or family member [] Provided Communion [] Anointing/[place] [] Salvation [] Completed spiritual assessment [] Other: Impact on Illness or Injury [] Angry [] Fearful [] Anxious [] Often cries [] Exhaustion [] Unable to work [] Unable to attend gnosticism [] Unable to walk/stand [] Unable to read [] Unable to drive [] Unable to eat/drink [] Unable to sleep [] Unable to be with family [] Patient intubated [] Other: Summary Time spent with patient
[2024-03-10] MEDS: sodium chloride 0.9% 1,000 ML 50 ML IV (11:35)
--- NOTE | 2024-03-10 14:30 | P.PN_ITS ---
Subjective 2 Subjective: No acute events overnight. Today morning examination patient seems more comfortable laying comfortably in bed. Patient's oxygen requirement has come down to 50 L 50% earlier today morning and later transitioned to 40 L 40% with saturation maintained over 90%. Otherwise patient has remained stable and afebrile. Seems more awake today than yesterday. Medications: Reviewed: Yes Vitals/I&O/Wt Last Vital Signs Temp 98.7 F 03/10/24 11:27 Pulse 77 03/10/24 13:33 Resp 16 03/10/24 13:22 BP 104/56 03/10/24 11:27 Pulse Ox 95 03/10/24 13:22 O2 Del Method Heated High Flow 03/10/24 13:22 O2 Flow Rate 40 03/10/24 13:22 FiO2 40 03/10/24 13:22 03/09/24 03/10/24 03/10/24 22:59 06:59 14:59 Intake Total 200 / 260 817.5 / 817.5 Output Total 300 / 300 100 / 400 Balance -100 / -40 -100 / -140 817.5 / 817.5 Weight last 48 hrs Weight 41.64 kg Weight 44.089 kg Physical Exam 2 Const: COMMON NORMALS: patient oriented x3 and alert GENERAL APPEARANCE: c ooperative NUTRITIONAL APPEARANCE: cachectic ORIENTATION/CONSCIOUSNESS: Y es awake, Yes oriented to person, Yes oriented to place and Yes oriented to time OTHER: Slow movements and speech. HENMT: OTHER: Improving dry mucous membranes Neck/C-Spine: COMMON NORMALS: no JVD Resp: COMMON NORMALS: normal respiratory effort and clear to auscultation bilaterally AUSCULTATION: clear to auscultation bilaterally Cardio: COMMON NORMALS: no JVD, regular rhythm, S1 normal heart sound present, S2 normal heart sound present and No murmurs present (Cardio) RHYTHM: regular rhythm HEART SOUNDS: S1 normal heart sound present and S2 normal heart sound present GI: COMMON NORMALS: Normal to inspection, nondistended, normoactive bowel sounds present, Soft to palpation and non-tender PALPATION: Yes Soft to palpation Extremity: COMMON NORMALS: no joint enlargement and no pedal edema Neuro: COMMON NORMALS: patient oriented x3 and moves all extremities S ENSORIUM/ORIENTATION: Yes alert, Yes oriented to person, Yes oriented to place and Yes oriented to time Skin: COMMON NORMALS: no rashes or lesions noted GENERAL SKIN EXAM: no rashes or lesions noted Urinary Catheter Management: Griffiths: Cath Placed During This Visit: no Reason for Continuing Indwelling Catheter: Accurate Measurement of Urinary Output in Critically Ill Patients Data 03/10/24 03:23 03/10/24 03:23 A&P Assessment and plan (1) Respiratory failure with hypoxia: In setting of aspiration pneumonitis along with mucous plug leading to COPD exacerbation due to severe generalized weakness, inability to clear her airways. Aggressive pulmonary toilet with I-S, Acapella and chest vest. Mucomyst every 6 hours, Pulmicort twice daily, DuoNeb every 6 hour. Oxygen supplementation keeping saturation over 88%. Wean heated high flow accordingly. Keep n.p.o. for now. Advance diet as per speech evaluation. Till patient is n.p.o. continue with NS at 50 cc/h. Appreciate CT chest with concerns for multifocal pneumonia with concerns for mucous plug and aspiration. Respiratory viral panel recently on admission negative. Sputum culture sample collected. Appreciate ABG. MRSA recently negative. Continue with physical therapy. Awaiting speech therapy and modified barium swallow. Out of bed to chair. (2) Pneumonia: (3) Aspiration into lower respiratory tract: (4) Generalized weakness: Admitted with worsening weakness and deconditioning. Admitted with diarrhea on admission. Appreciate TSH. Check vitamin B12 level. Does have history of seizures without any witnessed seizure recently. CT head on admission showed ventriculomegaly without any acute stroke. Could be in setting of polypharmacy. Appreciated medical reconciliation from [place]. It seems patient is not on pregabalin 3 times a day rather on 50 mg twice daily. Continues to be on duloxetine but no Seroquel. Discontinue Seroquel. Continue with pregabalin 50 mg daily. Continue with duloxetine 60 mg oral daily. Continue with home pain medication [place] every 6 hourly as needed. Patient does have a history of chronic lumbar radiculopathy. Physical therapy. Speech therapy. Modified barium swallow when able. Out of bed to chair. (5) Abnormal T wave present on electrocardiography: Discussed with cardiology, reviewed TTE. Appreciate consultation. Continue aspirin. Increase metoprolol to 25 mg twice daily. No active chest pain. Check A1c, lipid panel. (6) Diarrhea: Diarrhea today is forming up. Some shortness of breath reported in the morning, stopped IV fluid infusion. C. difficile reviewed and negative. Salmonella, Shigella, Campylobacter still pending. Monitor intake and output. Imodium as needed. (7) History of seizure: Continue with home dose of Keppra. Follow-up level. (8) Hypertension: Goal blood pressure less than 140/90 mmHg with mean over 65. Blood pressures have been labile during hospitalization. Hold off on home antihypertensive. Metoprolol as above. Restart home dose of amlodipine 10 mg oral daily. (9) Physical deconditioning: As above. Will discuss in detail with assisted living and patient's son regarding baseline. (10) Major depressive disorder, recurrent: Continue with home dose of Cymbalta, Celexa, Seroquel. (11) Lumbar disc disease with radiculopathy: Plan Hypokalemia: Replace with 40 mg oral potassium. Hypomagnesemia: Replace with 2 g IV magnesium as per cardiology recommendations CODE STATUS: Again discussed in detail with patient. Son Yobany will be the DPOA. Patient does not want any resuscitation. Is okay with ICU admission for vasopressors. Not okay with pacemaker. DNR/DNI Protonix for PUD prophylaxis Lovenox for DVT prophylaxis N.p.o. Speech therapy, physical therapy. Advance diet as per speech evaluation. Care discussed in detail with patient's son Mr. Haywood over the phone. All the questions were answered. Attestations 2 Medical Necessity Statement*: Requires further hospitalization for management of respiratory failure in setting of aspiration pneumonia, mucous plugging, severe generalized weakness in setting of polypharmacy Diagnoses Respiratory failure with hypoxia J96.91 Pneumonia J18.9 Aspiration into lower respiratory tract T17.800A Generalized weakness R53.1 Abnormal T wave present on electrocardiography R94.31 Diarrhea R19.7 History of seizure Z87.898 Hypertension I10 Physical deconditioning R53.81 Major depressive disorder, recurrent F33.9 Lumbar disc disease with radiculopathy M51.16
--- NOTE | 2024-03-10 16:04 | P.PN_ITS ---
<Statement entered by Bobo Kendrick MD - 03/11/24 08:37> Patient was evaluated and cared for in conjunction with an advanced practice practitioner. I personally examined the patient and reviewed the chart and all pertinent data including imaging, telemetry, and laboratory results. I discussed the patient in detail with the advanced practice practitioner. Please see their note for complete H&P testing result and agreed upon plan of care for the patient. Subjective 2 Subjective: Patient still lethargic today. Vital signs are stable. Magnesium low. Will replace. Denies chest pain or shortness of breath. Currently on high flow nasal cannula Medications: Reviewed: Yes Vitals/I&O/Wt Last Vital Signs Temp 98.7 F 03/10/24 11:27 Pulse 67 03/10/24 15:17 Resp 12 03/10/24 15:17 BP 104/56 03/10/24 11:27 Pulse Ox 89 L 03/10/24 15:17 O2 Del Method Heated High Flow 03/10/24 13:22 O2 Flow Rate 40 03/10/24 15:17 FiO2 45 03/10/24 15:17 03/10/24 03/10/24 03/10/24 06:59 14:59 22:59 Intake Total 817.5 / 817.5 Output Total 100 / 400 Balance -100 / -140 817.5 / 817.5 Weight last 48 hrs Weight 91 lb 12.8 oz Weight 97 lb 3.2 oz Physical Exam 2 Narrative: General: No apparent distress Muskuloskeletal: Full ROM Lymphatic: no lymphedema noted Respiratory: Normal respiratory effort, clear to auscultation bilaterally throughout all lung [place], no use of accessory muscles Cardio: No JVD, regular rate, regular rhythm, S1 S2 normal, no murmurs GI: Normal to inspection, nondistended Extremities: Full ROM, normal, normal capillary refill, no cyanosis or edema Neuro: Alert and oriented x4, no focal motor deficits Psych: Affect normal, denies suicidal ideation, mental status grossly normal Skin: No rashes or lesions noted, no wounds Urinary Catheter Management: Griffiths: Cath Placed During This Visit: no Reason for Continuing Indwelling Catheter: Accurate Measurement of Urinary Output in Critically Ill Patients Data 03/10/24 03:23 03/10/24 03:23 A&P Assessment and plan (1) Abnormal T wave present on electrocardiography: Most likely type II nonspecific denies any chest pain continue planus electrolytes (2) History of seizure: As per medicine (3) History of aspiration pneumonia: As per medicine Plan At this time patient is chest pain-free. Vital signs are stable. She is still lethargic would could be due to the hypokalemia versus postictal phase of a seizure. Initial troponin was elevated 44?40.53. At this time we recommend replacing potassium. Check mag. May be due to diarrhea. Patient may need IV replacement due to history of aspiration. As long as patient is not having chest pain we will continue to monitor for further EKG changes. At this time no evidence for need for acute intervention as patient is chest pain free. Echo was obtained that showed normal EF with no wall motion abnormalities. No further investigation or test for coronary ischemia are needed. As far as her hypertension recommend considering adding back carvedilol for heart rate control at half of the current dose and monitor for blood pressure changes. Blood pressure currently 163/86 with heart rate of 110. 03/10/2024 blood pressure better controlled today. Patient denies chest pain. Still lethargic. Mag was low at 1.6 replaced with 2 g will check in the a.m. labs. At this time recommendation is to continue medical management and correct electrolytes. Patient does have hypokalemia. This has been replaced with 40 mill equivalents today Attestations 2 Medical Necessity Statement*: As per medicine Coding Level of Care Code Acute Code for Chg Fwd Diagnoses Abnormal T wave present on electrocardiography R94.31 History of seizure Z87.898 History of aspiration pneumonia Z87.01
--- NOTE | 2024-03-10 16:22 | PC.NURSE ---
Patient sat in a chair in her room for about 4 hours this afternoon.
[2024-03-10 16:45] LABS: Magnesium 1.6 mg/dL (1.7-2.3)
[2024-03-10] MEDS: enoxaparin 40 mg/0.4 mL Syringe SUBCUT (18:16)
--- NOTE | 2024-03-10 18:34 | PC.NURSE ---
Patient was turned every 90 minutes, per patient request, throughout today.
[2024-03-10] MEDS: HYDROmorphone 1 mg/mL INJ 1 mL 0.4 MG IVP (22:46)
[2024-03-11] VITALS (17 sets, daily range): BP systolic 98–140; BP diastolic 59–77; PULSE 58–102; RESP 12–22; TEMP 36.8–37.1; O2SAT 91–98
[2024-03-11] MEDS: ipratropium-albuterol 3 mL Neb INHALATION ×4 (03:20→22:13)
[2024-03-11 03:56] LABS: Basophils # 0.1 10^3/uL (0.0-0.1); Basophils % 0.6 %; Eosinophils # 0.2 10^3/uL (0.0-0.8); Eosinophils % 1.7 %; Hematocrit 37.6 % (36-47); Lymphocytes # 1.4 10^3/uL (0.8-4.8); Lymphocytes % 14.2 %; Mean Corpuscular HGB Conc 32.2 g/dL (30-55); Mean Corpuscular Hemoglobin 31.9 pg (27-33); Mean Corpuscular Volume 99.2 fl (85-98); Mean Platelet Volume 10.6 fL (7.4-10.4); Monocytes # 0.8 10^3/uL (0.2-0.9); Monocytes % 7.8 %; Neutrophils # 7.66 10^3/uL (1.8-7.7); Neutrophils % 75.2 %; Nucleated Red Blood Cells % 0 %; Platelet Count 232 10^3/cmm (157-399); Red Blood Count 3.79 10^6/uL (3.85-5.65); Red Cell Distribution Width 14.6 % (12.1-15.1); White Blood Count 10.17 10^3/uL (3.29-11.43)
[2024-03-11] MEDS: meropenem 1,000 mg SDV 1000 MG IVP ×3 (04:09→21:46)
[2024-03-11 04:10] LABS: Alanine Aminotransferase 9 U/L (0-33); Albumin Level 3.1 g/dL (3.5-5.2); Alkaline Phosphatase 97 U/L (35-105); Anion Gap 11.5 (5-19); Aspartate Amino Transferase 17 U/L (0-32); Blood Urea Nitrogen 8 mg/dL (8-23); Calcium 9.4 mg/dL (8.5-10.5); Carbon Dioxide 32 mmol/L (22-29); Chloride 100 mmol/L (98-107); Creatinine Clr Calc Pharmacy 48.6492; Globulin 2.8 g/dL (1.3-4.6); Glomerular Filtration Rate 160.2 mL/min (90-130); Glucose 84 mg/dL (65-115); Osmolality Calculated 288 mOsm/kg (285-295); Potassium 3.5 mmol/L (3.5-5.1); Sodium 140 mmol/L (136-145); Total Bilirubin 0.3 mg/dL (0.15-1.2); Total Protein 5.9 g/dL (6.6-8.7)
[2024-03-11] MEDS: HYDROcodone-acetaminophen 5-325 mg Tablet 1 TAB PO ×3 (04:10→16:27)
[2024-03-11 04:20] LABS: Magnesium 1.8 mg/dL (1.7-2.3)
[2024-03-11] MEDS: budesonide 0.5 mg/2 mL Neb INHALATION ×2 (07:34→22:13)
[2024-03-11] MEDS: acetylcysteine 200 mg/mL SDV 4 mL 100 MG INHALATION ×3 (07:34→22:13)
[2024-03-11] MEDS: aspirin 81 mg EC Tablet PO (08:02)
[2024-03-11] MEDS: citalopram 20 mg Tablet 40 MG PO (08:02)
[2024-03-11] MEDS: pregabalin 50 mg Capsule PO (08:02)
[2024-03-11] MEDS: pantoprazole 40 mg SDV IVP (08:02)
[2024-03-11] MEDS: levETIRAcetam 500 mg Tablet PO ×2 (08:02→16:27)
[2024-03-11] MEDS: fluticasone nasal spray 16gm Btl 2 SPRAY INTRANASAL (08:03)
[2024-03-11] MEDS: metoprolol tartrate 25 mg Tablet PO ×2 (08:04→21:46)
[2024-03-11] MEDS: sodium chloride 0.9% 1,000 ML 50 ML IV (08:05)
--- NOTE | 2024-03-11 09:19 | PC.CHAP ---
Pastoral Care Encounter/Spiritual Assessment Type of Contact [] Declined radiator specialist visit [] Patient/Family/Request visit [] Outpatient visit [] Follow-up visit [] Physician referral [] Code/Alert [] Routine visit [] Staff referral [] Actively dying [] Patient sleeping [] Family support [] [] Out of room [] Palliative care [] [x] Receiving care in room [] Pre-surgical visit [] Trauma [] Long length of stay [] ICU visit [] Other: Relational/Emotional Strength [] Patient feels connected with others/family/visitors/staff [] Distress [] Loneliness/isolation [] Abandonment Spirituality of Patient [] Person of Osiris [] Attends Jainism of their Osiris [] Believes in Prayer [] Reads Bible or Pentecostal materials [] There are Spiritual issues to be addressed Research Program Manager Interventions [] Prayer [] Active listening [] Non-anxious presence [] Spiritual/emotional support [] Crisis/trauma care [] Spiritual counseling [] Bereavement support [] Provided bereavement packet [] Provided Bible/devotional materials [] Provided toy/stuffed animal, coloring book to patient or family member [] Provided Communion [] Anointing/[place] [] Salvation [] Completed spiritual assessment [] Other: Impact on Illness or Injury [] Angry [] Fearful [] Anxious [] Often cries [] Exhaustion [] Unable to work [] Unable to attend taoist [] Unable to walk/stand [] Unable to read [] Unable to drive [] Unable to eat/drink [] Unable to sleep [] Unable to be with family [] Patient intubated [] Other: Summary Time spent with patient
--- NOTE | 2024-03-11 09:32 | PC.NURSE ---
this patient is in a lot of pain and is very anxious yelling out for help every 5 min. I gave her the hydrocodone as ordered and does not seem to be helping. Informed Dr Stover. Received telephone orders for new c-diff and Morphine 2mg IVP once.
[2024-03-11] MEDS: morphine 4 mg/mL SDV 1 mL 2 MG IVP (09:53)
[2024-03-11 10:53] LABS: C.Diff PCR (Lab) NEGATIVE (Negative)
--- NOTE | 2024-03-11 11:55 | PC.SOCIAL ---
IMM Update Pg. 2 of IMM updated. Initialed, dated, and timed, copy provided at bedside.
--- NOTE | 2024-03-11 14:41 | P.PN_ITS ---
<Statement entered by Bobo Kendrick MD - 03/12/24 08:05> I personally have not examined this patient. Treatment was discussed with me as below Subjective 2 Subjective: Patient's electrolytes have been properly replaced. Vitals/I&O/Wt Last Vital Signs Temp 98.5 F 03/11/24 11:10 Pulse 66 03/11/24 13:29 Resp 14 03/11/24 13:29 BP 107/67 03/11/24 11:10 Pulse Ox 95 03/11/24 13:29 O2 Del Method Heated High Flow 03/11/24 13:29 O2 Flow Rate 30 03/11/24 13:29 FiO2 30 03/11/24 13:29 03/10/24 03/11/24 03/11/24 22:59 06:59 14:59 Intake Total 40 / 857.5 40 / 897.5 1040 / 1040 Output Total 1020 / 1020 400 / 1420 Balance -980 / -162.5 -360 / -522.5 1040 / 1040 Weight last 48 hrs Weight 100 lb 8 oz Weight 91 lb 12.8 oz Physical Exam 2 Urinary Catheter Management: Griffiths: Cath Placed During This Visit: no Reason for Continuing Indwelling Catheter: Accurate Measurement of Urinary Output in Critically Ill Patients Data 03/11/24 03:22 03/11/24 03:22 Micro: Microbiology 03/11/24 09:45 Bacterial Antigens - Final Urine Kidney A&P Assessment and plan (1) Abnormal T wave present on electrocardiography: Most likely type II nonspecific denies any chest pain continue watching electrolytes (2) History of seizure: As per medicine (3) History of aspiration pneumonia: As per medicine Plan At this time patient is chest pain-free. Vital signs are stable. She is still lethargic would could be due to the hypokalemia versus postictal phase of a seizure. Initial troponin was elevated 44?40.53. At this time we recommend replacing potassium. Check mag. May be due to diarrhea. Patient may need IV replacement due to history of aspiration. As long as patient is not having chest pain we will continue to monitor for further EKG changes. At this time no evidence for need for acute intervention as patient is chest pain free. Echo was obtained that showed normal EF with no wall motion abnormalities. No further investigation or test for coronary ischemia are needed. As far as her hypertension recommend considering adding back carvedilol for heart rate control at half of the current dose and monitor for blood pressure changes. Blood pressure currently 163/86 with heart rate of 110. 03/10/2024 blood pressure better controlled today. Patient denies chest pain. Still lethargic. Mag was low at 1.6 replaced with 2 g will check in the a.m. labs. At this time recommendation is to continue medical management and correct electrolytes. Patient does have hypokalemia. This has been replaced with 40 mill equivalents today 03/11/2024 Patient has had maximized therapy from a cardiology standpoint. In the absence of chest pain with normal EF, no further investigation for coronary ischemia is needed. At this time, cardiology will sign off of this patient. As always, if our assistance is needed in the future, please consult us. Thank you for allowing us to take care of this very pleasant patient. She can see us in the clinic 1 to 2 weeks after discharge. Attestations 2 Medical Necessity Statement*: Defer to primary. Coding Level of Care Code Acute Code for Chg Fwd Diagnoses Abnormal T wave present on electrocardiography R94.31 History of seizure Z87.898 History of aspiration pneumonia Z87.01
--- NOTE | 2024-03-11 15:38 | P.PN_ITS ---
Subjective 2 Subjective: No acute events overnight. The morning on examination patient is awake and alert lying comfortably in bed. Seems to be more active today. Able to have complete conversation. Less short of breath. During examination oxygen was noted on nose and she was saturating 99%. Otherwise she has been as low as 30 L 30% on oxygen supplementation. Did set for quite a long time in recliner yesterday. Medications: Reviewed: Yes Vitals/I&O/Wt Last Vital Signs Temp 98.5 F 03/11/24 11:10 Pulse 66 03/11/24 13:29 Resp 14 03/11/24 13:29 BP 107/67 03/11/24 11:10 Pulse Ox 95 03/11/24 13:29 O2 Del Method Heated High Flow 03/11/24 13:29 O2 Flow Rate 30 03/11/24 13:29 FiO2 30 03/11/24 13:29 03/11/24 03/11/24 03/11/24 06:59 14:59 22:59 Intake Total 40 / 897.5 1040 / 1040 Output Total 400 / 1420 Balance -360 / -522.5 1040 / 1040 Weight last 48 hrs Weight 45.586 kg Weight 41.64 kg Physical Exam 2 Const: COMMON NORMALS: patient oriented x3 and alert GENERAL APPEARANCE: c ooperative and lethargic NUTRITIONAL APPEARANCE: cachectic O RIENTATION/CONSCIOUSNESS: Yes awake, Yes oriented to person, Yes oriented to place, Yes oriented to time and Yes lethargic OTHER: Slow movements and speech. HENMT: OTHER: Improving dry mucous membranes Neck/C-Spine: COMMON NORMALS: no JVD Resp: COMMON NORMALS: normal respiratory effort and clear to auscultation bilaterally AUSCULTATION: clear to auscultation bilaterally Cardio: COMMON NORMALS: no JVD, regular rhythm, S1 normal heart sound present, S2 normal heart sound present and No murmurs present (Cardio) RHYTHM: regular rhythm HEART SOUNDS: S1 normal heart sound present and S2 normal heart sound present GI: COMMON NORMALS: Normal to inspection, nondistended, normoactive bowel sounds present, Soft to palpation and non-tender PALPATION: Yes Soft to palpation Extremity: COMMON NORMALS: no joint enlargement and no pedal edema Neuro: COMMON NORMALS: patient oriented x3 and moves all extremities S ENSORIUM/ORIENTATION: Yes alert, Yes oriented to person, Yes oriented to place, Yes oriented to time and Yes lethargic Skin: COMMON NORMALS: no rashes or lesions noted GENERAL SKIN EXAM: no rashes or lesions noted Urinary Catheter Management: Griffiths: Cath Placed During This Visit: no Reason for Continuing Indwelling Catheter: Accurate Measurement of Urinary Output in Critically Ill Patients Data 03/11/24 03:22 03/11/24 03:22 Micro: Microbiology 03/11/24 09:45 Bacterial Antigens - Final Urine Kidney A&P Assessment and plan (1) Respiratory failure with hypoxia: In setting of aspiration pneumonitis along with mucous plug leading to COPD exacerbation due to severe generalized weakness, inability to clear her airways. Aggressive pulmonary toilet with I-S, Acapella and chest vest. Mucomyst every 6 hours, Pulmicort twice daily, DuoNeb every 6 hour. Oxygen supplementation keeping saturation over 88%. Wean heated high flow accordingly. Keep n.p.o. for now. Advance diet as per speech evaluation. Till patient is n.p.o. continue with NS at 50 cc/h. Appreciate CT chest with concerns for multifocal pneumonia with concerns for mucous plug and aspiration. Respiratory viral panel recently on admission negative. Sputum culture sample collected. Appreciate ABG. MRSA recently negative. Continue with physical therapy. Awaiting speech therapy and modified barium swallow. Out of bed to chair. (2) Pneumonia: (3) Aspiration into lower respiratory tract: (4) Generalized weakness: Admitted with worsening weakness and deconditioning. Admitted with diarrhea on admission. Appreciate TSH. Check vitamin B12 level. Does have history of seizures without any witnessed seizure recently. CT head on admission showed ventriculomegaly without any acute stroke. Could be in setting of polypharmacy. Appreciated medical reconciliation from [place]. It seems patient is not on pregabalin 3 times a day rather on 50 mg twice daily. Continues to be on duloxetine but no Seroquel. Discontinue Seroquel. Continue with pregabalin 50 mg daily. Continue with duloxetine 60 mg oral daily. Continue with home pain medication [place] every 6 hourly as needed. Patient does have a history of chronic lumbar radiculopathy. Physical therapy. Speech therapy. Modified barium swallow when able. Out of bed to chair. (5) Abnormal T wave present on electrocardiography: Discussed with cardiology, reviewed TTE. Appreciate consultation. Continue aspirin. Increase metoprolol to 25 mg twice daily. No active chest pain. Check A1c, lipid panel. (6) Diarrhea: Diarrhea today is forming up. Some shortness of breath reported in the morning, stopped IV fluid infusion. C. difficile reviewed and negative. Salmonella, Shigella, Campylobacter still pending. Monitor intake and output. Imodium as needed. (7) History of seizure: Continue with home dose of Keppra. Follow-up level. (8) Hypertension: Goal blood pressure less than 140/90 mmHg with mean over 65. Blood pressures have been labile during hospitalization. Hold off on home antihypertensive. Metoprolol as above. Restart home dose of amlodipine 10 mg oral daily. (9) Physical deconditioning: As above. Will discuss in detail with assisted living and patient's son regarding baseline. (10) Major depressive disorder, recurrent: Continue with home dose of Cymbalta, Celexa, Seroquel. (11) Lumbar disc disease with radiculopathy: Plan Hypokalemia: Replace with 40 mg oral potassium. Hypomagnesemia: Replace with 2 g IV magnesium as per cardiology recommendations CODE STATUS: Again discussed in detail with patient. Son Yobany will be the DPOA. Patient does not want any resuscitation. Is okay with ICU admission for vasopressors. Not okay with pacemaker. DNR/DNI Protonix for PUD prophylaxis Lovenox for DVT prophylaxis N.p.o. Speech therapy, physical therapy. Advance diet as per speech evaluation. Plan for the day: Continue with aggressive pulmonary toilet with chest vest and inhalation treatment with Mucomyst and DuoNeb. Oxygen supplementation keeping saturation over 88%. Will try to transition her to high flow nasal cannula today. Advance diet as per speech evaluation Tell patient is n.p.o. continue with NS at 50 cc/h to maintain hydration. Strict input charting. Patient seems to be euvolemic for now. Continue with physical therapy. Sputum culture not available. Follow-up blood cultures. Continue with IV meropenem. Will plan to finish a 5-day course. Continue other chronic home pain medications, Keppra, duloxetine. Continue at a lower dose of pregabalin. If patient continues to require high pain medication can add a low-dose pregabalin to every morning. Continues to have diarrhea. Add Lomotil. Again discussed CODE STATUS in detail with the patient. She does not want any resuscitation.Would want to remain DNR/DNI. Discharge plan: Plan to discharge back to assisted living as patient is at her baseline mentation, physical activities once oxygen supplementation is improving. Care discussed in detail with patient's son Mr. Haywood over the phone. All the questions were answered. Attestations 2 Medical Necessity Statement*: Requires further hospitalization for management of acute hypoxic respiratory failure in setting of aspiration pneumonitis, generalized weakness in setting of polypharmacy Diagnoses Respiratory failure with hypoxia J96.91 Pneumonia J18.9 Aspiration into lower respiratory tract T17.800A Generalized weakness R53.1 Abnormal T wave present on electrocardiography R94.31 Diarrhea R19.7 History of seizure Z87.898 Hypertension I10 Physical deconditioning R53.81 Major depressive disorder, recurrent F33.9 Lumbar disc disease with radiculopathy M51.16
[2024-03-11] MEDS: diphenoxylate/atropine Tablet 1 TAB PO (16:27)
[2024-03-11] MEDS: enoxaparin 40 mg/0.4 mL Syringe SUBCUT (16:28)
[2024-03-12] VITALS (12 sets, daily range): BP systolic 124–161; BP diastolic 64–85; PULSE 60–78; RESP 14–21; TEMP 36.6–37.2; O2SAT 90–99
[2024-03-12] MEDS: HYDROcodone-acetaminophen 5-325 mg Tablet 1 TAB PO ×2 (00:49→10:22)
[2024-03-12] MEDS: ipratropium-albuterol 3 mL Neb INHALATION ×4 (03:53→20:42)
--- NOTE | 2024-03-12 03:58 | PC.NURSE ---
pt on o2 at shift change. throughout the night the pt would remove her nasal cannula. when this nurse asked if she wanted it back on she stated she didnt want it on. when vitals checked pt stating above 95%. left o2 off and continued to monitor o2.
[2024-03-12] MEDS: meropenem 1,000 mg SDV 1000 MG IVP ×3 (04:53→20:01)
[2024-03-12] MEDS: acetaminophen 325 mg Tablet 650 MG PO ×2 (06:15→13:12)
[2024-03-12 07:45] LABS: Basophils % 0.3 %; Eosinophils # 0.2 10^3/uL (0.0-0.8); Eosinophils % 1.7 %; Hematocrit 33.6 % (36-47); Lymphocytes # 0.9 10^3/uL (0.8-4.8); Lymphocytes % 9.9 %; Mean Corpuscular HGB Conc 33.3 g/dL (30-55); Mean Corpuscular Hemoglobin 32.1 pg (27-33); Mean Corpuscular Volume 96.3 fl (85-98); Mean Platelet Volume 10.5 fL (7.4-10.4); Monocytes # 0.8 10^3/uL (0.2-0.9); Monocytes % 8.6 %; Neutrophils # 7.16 10^3/uL (1.8-7.7); Neutrophils % 79.1 %; Nucleated Red Blood Cells % 0 %; Platelet Count 244 10^3/cmm (157-399); Red Blood Count 3.49 10^6/uL (3.85-5.65); Red Cell Distribution Width 14.1 % (12.1-15.1); White Blood Count 9.06 10^3/uL (3.29-11.43)
[2024-03-12 07:55] LABS: Alanine Aminotransferase < 5 U/L (0-33); Alkaline Phosphatase 65 U/L (35-105); Anion Gap 15.4 (5-19); Aspartate Amino Transferase 10 U/L (0-32); Blood Urea Nitrogen 6 mg/dL (8-23); Calcium 9.1 mg/dL (8.5-10.5); Carbon Dioxide 28 mmol/L (22-29); Chloride 97 mmol/L (98-107); Creatinine Clr Calc Pharmacy 50.3961; Globulin 2.8 g/dL (1.3-4.6); Glomerular Filtration Rate 223.3 mL/min (90-130); Glucose 72 mg/dL (65-115); Osmolality Calculated 280 mOsm/kg (285-295); Potassium 3.4 mmol/L (3.5-5.1); Sodium 137 mmol/L (136-145); Total Bilirubin 0.2 mg/dL (0.15-1.2); Total Protein 5.8 g/dL (6.6-8.7)
[2024-03-12 08:03] LABS: Magnesium 1.7 mg/dL (1.7-2.3)
[2024-03-12] MEDS: budesonide 0.5 mg/2 mL Neb INHALATION ×2 (08:16→20:42)
[2024-03-12] MEDS: acetylcysteine 200 mg/mL SDV 4 mL 100 MG INHALATION ×3 (08:17→20:42)
[2024-03-12] MEDS: citalopram 20 mg Tablet 40 MG PO (10:22)
[2024-03-12] MEDS: docusate sodium 100 mg Capsule PO ×2 (10:22→17:29)
[2024-03-12] MEDS: duloxetine 60 mg Capsule PO (10:22)
[2024-03-12] MEDS: metoprolol tartrate 25 mg Tablet PO ×2 (10:22→19:56)
[2024-03-12] MEDS: pantoprazole 40 mg SDV IVP (10:23)
[2024-03-12] MEDS: aspirin 81 mg EC Tablet PO (10:23)
[2024-03-12] MEDS: pregabalin 50 mg Capsule PO ×2 (10:23→19:56)
[2024-03-12] MEDS: levETIRAcetam 500 mg Tablet PO ×2 (10:23→17:29)
[2024-03-12] MEDS: potassium chloride oral liq 20 mEq/15 mL UDC 40 MEQ PO (10:29)
--- NOTE | 2024-03-12 12:15 | P.PN_ITS ---
Subjective 2 Subjective: No acute events overnight. Today morning patient seen laying comfortably in bed. Did sit up in chair yesterday. Down to 2 L of oxygen supplementation. More alert. Denies any nausea or vomiting. Medications: Reviewed: Yes Vitals/I&O/Wt Last Vital Signs Temp 97.9 F 03/12/24 11:57 Pulse 71 03/12/24 11:57 Resp 15 03/12/24 11:57 BP 126/64 03/12/24 11:57 Pulse Ox 94 03/12/24 11:57 O2 Del Method Room Air 03/12/24 11:57 O2 Flow Rate 3 03/12/24 08:00 FiO2 30 03/11/24 13:29 03/11/24 03/12/24 03/12/24 22:59 06:59 14:59 Intake Total 100 / 1140 1000 / 1000 Output Total 650 / 650 600 / 1250 Balance -550 / 490 -600 / -110 1000 / 1000 Weight last 48 hrs Weight 45.586 kg Weight 45.586 kg Physical Exam 2 Const: COMMON NORMALS: patient oriented x3 and alert GENERAL APPEARANCE: c ooperative and lethargic NUTRITIONAL APPEARANCE: cachectic O RIENTATION/CONSCIOUSNESS: Yes awake, Yes oriented to person, Yes oriented to place, Yes oriented to time and Yes lethargic OTHER: Slow movements and speech. HENMT: OTHER: Improving dry mucous membranes Neck/C-Spine: COMMON NORMALS: no JVD Resp: COMMON NORMALS: normal respiratory effort and clear to auscultation bilaterally AUSCULTATION: clear to auscultation bilaterally Cardio: COMMON NORMALS: no JVD, regular rhythm, S1 normal heart sound present, S2 normal heart sound present and No murmurs present (Cardio) RHYTHM: regular rhythm HEART SOUNDS: S1 normal heart sound present and S2 normal heart sound present GI: COMMON NORMALS: Normal to inspection, nondistended, normoactive bowel sounds present, Soft to palpation and non-tender PALPATION: Yes Soft to palpation Extremity: COMMON NORMALS: no joint enlargement and no pedal edema Neuro: COMMON NORMALS: patient oriented x3 and moves all extremities S ENSORIUM/ORIENTATION: Yes alert, Yes oriented to person, Yes oriented to place, Yes oriented to time and Yes lethargic Skin: COMMON NORMALS: no rashes or lesions noted GENERAL SKIN EXAM: no rashes or lesions noted Urinary Catheter Management: Griffiths: Cath Placed During This Visit: no Reason for Continuing Indwelling Catheter: Accurate Measurement of Urinary Output in Critically Ill Patients Data 03/12/24 07:27 03/12/24 07:27 Micro: Microbiology 03/11/24 09:45 Bacterial Antigens - Final Urine Kidney A&P Assessment and plan (1) Respiratory failure with hypoxia: In setting of aspiration pneumonitis along with mucous plug leading to COPD exacerbation due to severe generalized weakness, inability to clear her airways. Aggressive pulmonary toilet with I-S, Acapella and chest vest. Mucomyst every 6 hours, Pulmicort twice daily, DuoNeb every 6 hour. Oxygen supplementation keeping saturation over 88%. Wean heated high flow accordingly. Keep n.p.o. for now. Advance diet as per speech evaluation. Till patient is n.p.o. continue with NS at 50 cc/h. Appreciate CT chest with concerns for multifocal pneumonia with concerns for mucous plug and aspiration. Respiratory viral panel recently on admission negative. Sputum culture sample collected. Appreciate ABG. MRSA recently negative. Continue with physical therapy. Awaiting speech therapy and modified barium swallow. Out of bed to chair. (2) Pneumonia: (3) Aspiration into lower respiratory tract: (4) Generalized weakness: Admitted with worsening weakness and deconditioning. Admitted with diarrhea on admission. Appreciate TSH. Check vitamin B12 level. Does have history of seizures without any witnessed seizure recently. CT head on admission showed ventriculomegaly without any acute stroke. Could be in setting of polypharmacy. Appreciated medical reconciliation from [place]. It seems patient is not on pregabalin 3 times a day rather on 50 mg twice daily. Continues to be on duloxetine but no Seroquel. Discontinue Seroquel. Continue with pregabalin 50 mg daily. Continue with duloxetine 60 mg oral daily. Continue with home pain medication [place] every 6 hourly as needed. Patient does have a history of chronic lumbar radiculopathy. Physical therapy. Speech therapy. Modified barium swallow when able. Out of bed to chair. (5) Abnormal T wave present on electrocardiography: Discussed with cardiology, reviewed TTE. Appreciate consultation. Continue aspirin. Increase metoprolol to 25 mg twice daily. No active chest pain. Appreciate A1c, lipid panel. (6) Diarrhea: Diarrhea today is forming up. Some shortness of breath reported in the morning, stopped IV fluid infusion. C. difficile reviewed and negative. Salmonella, Shigella, Campylobacter still pending. Monitor intake and output. Imodium as needed. (7) History of seizure: Continue with home dose of Keppra. Follow-up level. (8) Hypertension: Goal blood pressure less than 140/90 mmHg with mean over 65. Blood pressures have been labile during hospitalization. Hold off on home antihypertensive. Metoprolol as above. Restart home dose of amlodipine 10 mg oral daily. (9) Physical deconditioning: As above. Will discuss in detail with assisted living and patient's son regarding baseline. (10) Major depressive disorder, recurrent: Continue with home dose of Cymbalta, Celexa, Seroquel. (11) Lumbar disc disease with radiculopathy: Plan Hypokalemia: Replace with 40 mg oral potassium. Hypomagnesemia: Replace with 2 g IV magnesium as per cardiology recommendations CODE STATUS: Again discussed in detail with patient. Son Yobany will be the DPOA. Patient does not want any resuscitation. Is okay with ICU admission for vasopressors. Not okay with pacemaker. DNR/DNI Protonix for PUD prophylaxis Lovenox for DVT prophylaxis N.p.o. Speech therapy, physical therapy. Advance diet as per speech evaluation. Plan for the day: Continues to improve on oxygen supplementation. Down to 3 L today. Start diet as per speech evaluation. Keep n.p.o. till then. Continue aggressive pulmonary toilet with I-S and Acapella. Patient not tolerating chest vest today so we will discontinue. Continue with normal saline at 50 cc/h while patient remains NPO. Continue with nebulization treatment and Mucomyst. Continue with IV meropenem to finish a 5-day course. Last dose on 03/14. Physical therapy. Electrolytes stable today. Continue to monitor Transfer to [facility] floor. Discharge plan: Plan to discharge back to assisted living as patient is at her baseline mentation, physical activities once oxygen supplementation is improving. Care discussed in detail with patient's son Mr. Haywood over the phone. All the questions were answered. Attestations 2 Medical Necessity Statement*: Requires further hospitalization for management of acute hypoxic respiratory failure in setting of aspiration pneumonia while diet is advanced as per speech evaluation Diagnoses Respiratory failure with hypoxia J96.91 Pneumonia J18.9 Aspiration into lower respiratory tract T17.800A Generalized weakness R53.1 Abnormal T wave present on electrocardiography R94.31 Diarrhea R19.7 History of seizure Z87.898 Hypertension I10 Physical deconditioning R53.81 Major depressive disorder, recurrent F33.9 Lumbar disc disease with radiculopathy M51.16
--- NOTE | 2024-03-12 13:13 | PC.NURSE ---
patient given PRN Tylenol per request at this time for headache of 11/08
[2024-03-12] MEDS: enoxaparin 40 mg/0.4 mL Syringe SUBCUT (16:32)
[2024-03-12 20:13] LABS: Glucose Point of Care 250 mg/dL (70-110)
[2024-03-13] VITALS (14 sets, daily range): BP systolic 132–177; BP diastolic 77–92; PULSE 64–103; RESP 14–22; TEMP 36.3–37.2; O2SAT 89–99
[2024-03-13] MEDS: sodium chloride 0.9% 1,000 ML 50 ML IV (00:56)
[2024-03-13] MEDS: HYDROcodone-acetaminophen 5-325 mg Tablet 1 TAB PO (00:59)
[2024-03-13] MEDS: ipratropium-albuterol 3 mL Neb INHALATION ×5 (01:15→20:27)
[2024-03-13] MEDS: acetylcysteine 200 mg/mL SDV 4 mL 100 MG INHALATION ×4 (01:16→20:26)
[2024-03-13] MEDS: meropenem 1,000 mg SDV 1000 MG IVP ×3 (03:33→20:14)
[2024-03-13 05:48] LABS: Basophils % 0.4 %; Eosinophils % 0.5 %; Hematocrit 42.2 % (36-47); Lymphocytes # 0.6 10^3/uL (0.8-4.8); Lymphocytes % 7.7 %; Mean Corpuscular HGB Conc 33.6 g/dL (30-55); Mean Corpuscular Hemoglobin 31.7 pg (27-33); Mean Corpuscular Volume 94.2 fl (85-98); Monocytes # 0.7 10^3/uL (0.2-0.9); Neutrophils # 6.15 10^3/uL (1.8-7.7); Neutrophils % 81.6 %; Nucleated Red Blood Cells % 0 %; Platelet Count 307 10^3/cmm (157-399); Red Blood Count 4.48 10^6/uL (3.85-5.65); Red Cell Distribution Width 13.7 % (12.1-15.1); White Blood Count 7.54 10^3/uL (3.29-11.43)
[2024-03-13 06:17] LABS: Alanine Aminotransferase 7 U/L (0-33); Albumin Level 3.7 g/dL (3.5-5.2); Alkaline Phosphatase 84 U/L (35-105); Aspartate Amino Transferase 15 U/L (0-32); Blood Urea Nitrogen 3 mg/dL (8-23); Calcium 9.1 mg/dL (8.5-10.5); Carbon Dioxide 35 mmol/L (22-29); Chloride 95 mmol/L (98-107); Creatinine Clr Calc Pharmacy 49.9543; Globulin 3.3 g/dL (1.3-4.6); Glomerular Filtration Rate 223.3 mL/min (90-130); Glucose 109 mg/dL (65-115); Osmolality Calculated 289 mOsm/kg (285-295); Sodium 141 mmol/L (136-145); Total Bilirubin 0.2 mg/dL (0.15-1.2)
[2024-03-13 06:22] LABS: Anion Gap 14.3 (5-19); Potassium 3.3 mmol/L (3.5-5.1)
[2024-03-13 06:26] LABS: Glucose Point of Care 105 mg/dL (70-110)
--- NOTE | 2024-03-13 06:38 | PC.NURSE ---
Spoke with Dr. Anand about patients o2 stats. patient was stating at 82% on a nasal canula at 6L. Patient was assisted into a sitting position and came up 86%. A simple mask was applied and patient 02 stat came up to 94% and maintaining. Course crackles was heard in the lower lobes. RT was called and notified to come up and see patient. Dr. Anand was called and new orders to stop fluids and receive a chest x-ray.
--- NOTE | 2024-03-13 06:41 | XRR_ITS ---
PROCEDURE INFORMATION: Exam: XR Chest Exam date and time: 03/13/2024 7:13 AM Age: 63 years old Clinical indication: Shortness of breath; Additional info: Course crackles in the lower lobes bilaterally. TECHNIQUE: Imaging protocol: Radiologic exam of the chest. Views: 1 view. COMPARISON: CT chest abdpel w/*[id number] 03/09/2024 10:47 AM FINDINGS: Lungs: Similar-appearing right middle lobe, right lower lobe and left lower lobe infiltrative process upon comparison with the cross-sectional imaging performed on 03/09/2024. Pleural spaces: Unremarkable. No pleural effusion. No pneumothorax. Heart/Mediastinum: Unremarkable. No cardiomegaly. Bones/joints: Diffuse degenerative change of the visualized osseous structures. XR/XR chest 1V portable [id number] IMPRESSION: Similar-appearing basilar infiltrates from prior cross-sectional evaluation. Correlate clinically.
[2024-03-13] MEDS: budesonide 0.5 mg/2 mL Neb INHALATION ×2 (07:45→20:26)
[2024-03-13] MEDS: docusate sodium 100 mg Capsule PO ×2 (08:55→17:02)
[2024-03-13] MEDS: citalopram 20 mg Tablet 40 MG PO (08:55)
[2024-03-13] MEDS: levETIRAcetam 500 mg Tablet PO ×2 (08:55→17:02)
[2024-03-13] MEDS: metoprolol tartrate 25 mg Tablet PO ×2 (08:55→20:14)
[2024-03-13] MEDS: pregabalin 50 mg Capsule PO (08:55)
[2024-03-13] MEDS: pantoprazole 40 mg SDV IVP (08:55)
[2024-03-13] MEDS: duloxetine 60 mg Capsule PO (08:55)
[2024-03-13] MEDS: aspirin 81 mg EC Tablet PO (08:55)
[2024-03-13 10:30] LABS: Glucose Point of Care 136 mg/dL (70-110)
[2024-03-13] MEDS: lidocaine 1% 5 ML in potassium chloride premix 100 ML 26.25 ML IV ×2 (13:43→18:03)
[2024-03-13] MEDS: amlodipine 5 mg Tablet PO (13:49)
[2024-03-13 15:05] LABS: Anion Gap 12.8 (5-19); Blood Urea Nitrogen 2 mg/dL (8-23); Calcium 8.8 mg/dL (8.5-10.5); Carbon Dioxide 38 mmol/L (22-29); Chloride 90 mmol/L (98-107); Creatinine Clr Calc Pharmacy 49.9543; Glomerular Filtration Rate 223.3 mL/min (90-130); Glucose 114 mg/dL (65-115); Magnesium 1.7 mg/dL (1.7-2.3); Osmolality Calculated 283 mOsm/kg (285-295); Sodium 138 mmol/L (136-145)
[2024-03-13 15:09] LABS: Potassium 2.8 mmol/L (3.5-5.1)
--- NOTE | 2024-03-13 15:43 | P.PN_ITS ---
Subjective 2 Subjective: Overnight patient had development of respiratory failure again going up to 8 L of high flow nasal cannula on oxymask. As per nursing staff she had to be suction food particles from her airway during the event of respiratory distress. It seems patient was given an extra dose of pregabalin overnight. Today morning examination seen with son at bedside. Patient continues to remain weak. On 8 L saturating more than 95%. The patient appears weaker today. Able to communicate, awake and alert but weak appearing. Medications: Reviewed: Yes Vitals/I&O/Wt Last Vital Signs Temp 98.4 F 03/13/24 15:29 Pulse 78 03/13/24 15:29 Resp 14 03/13/24 15:29 BP 132/77 03/13/24 15:29 Pulse Ox 97 03/13/24 15:29 O2 Del Method Nasal Cannula 03/13/24 15:29 O2 Flow Rate 8 03/13/24 14:35 FiO2 30 03/11/24 13:29 03/13/24 03/13/24 03/13/24 06:59 14:59 22:59 Intake Total 1050 / 1050 Output Total 1550 / 1550 950 / 2500 Balance -500 / -500 -950 / -1450 Weight last 48 hrs Weight 44.588 kg Weight 45.586 kg Physical Exam 2 Const: COMMON NORMALS: patient oriented x3 and alert GENERAL APPEARANCE: c ooperative and lethargic NUTRITIONAL APPEARANCE: cachectic O RIENTATION/CONSCIOUSNESS: Yes awake, Yes oriented to person, Yes oriented to place, Yes oriented to time and Yes lethargic OTHER: Slow movements and speech. HENMT: OTHER: Improving dry mucous membranes Neck/C-Spine: COMMON NORMALS: no JVD Resp: COMMON NORMALS: normal respiratory effort and clear to auscultation bilaterally AUSCULTATION: clear to auscultation bilaterally Cardio: COMMON NORMALS: no JVD, regular rhythm, S1 normal heart sound present, S2 normal heart sound present and No murmurs present (Cardio) RHYTHM: regular rhythm HEART SOUNDS: S1 normal heart sound present and S2 normal heart sound present GI: COMMON NORMALS: Normal to inspection, nondistended, normoactive bowel sounds present, Soft to palpation and non-tender PALPATION: Yes Soft to palpation Extremity: COMMON NORMALS: no joint enlargement and no pedal edema Neuro: COMMON NORMALS: patient oriented x3 and moves all extremities S ENSORIUM/ORIENTATION: Yes alert, Yes oriented to person, Yes oriented to place, Yes oriented to time and Yes lethargic Skin: COMMON NORMALS: no rashes or lesions noted GENERAL SKIN EXAM: no rashes or lesions noted Urinary Catheter Management: Griffiths: Cath Placed During This Visit: no Reason for Continuing Indwelling Catheter: Acute Urinary Retention or Obstruction Data 03/13/24 05:29 03/13/24 14:37 A&P Assessment and plan (1) Respiratory failure with hypoxia: In setting of aspiration pneumonitis along with mucous plug leading to COPD exacerbation due to severe generalized weakness, inability to clear her airways. Aggressive pulmonary toilet with I-S, Acapella and chest vest. Mucomyst every 6 hours, Pulmicort twice daily, DuoNeb every 6 hour. Oxygen supplementation keeping saturation over 88%. Wean heated high flow accordingly. Keep n.p.o. for now. Advance diet as per speech evaluation. Till patient is n.p.o. continue with NS at 50 cc/h. Appreciate CT chest with concerns for multifocal pneumonia with concerns for mucous plug and aspiration. Respiratory viral panel recently on admission negative. Sputum culture sample collected. Appreciate ABG. MRSA recently negative. Continue with physical therapy. Awaiting speech therapy and modified barium swallow. Out of bed to chair. (2) Pneumonia: (3) Aspiration into lower respiratory tract: (4) Generalized weakness: Admitted with worsening weakness and deconditioning. Admitted with diarrhea on admission. Appreciate TSH. Check vitamin B12 level. Does have history of seizures without any witnessed seizure recently. CT head on admission showed ventriculomegaly without any acute stroke. Could be in setting of polypharmacy. Appreciated medical reconciliation from [place]. It seems patient is not on pregabalin 3 times a day rather on 50 mg twice daily. Continues to be on duloxetine but no Seroquel. Discontinue Seroquel. Continue with pregabalin 50 mg daily. Continue with duloxetine 60 mg oral daily. Most likely will discharge with pregabalin and duloxetine. Continue with home pain medication [place] every 6 hourly as needed. Patient does have a history of chronic lumbar radiculopathy. Physical therapy. Speech therapy. Modified barium swallow when able. Out of bed to chair. (5) Abnormal T wave present on electrocardiography: Discussed with cardiology, reviewed TTE. Appreciate consultation. Continue aspirin. Increase metoprolol to 25 mg twice daily. No active chest pain. Appreciate A1c, lipid panel. (6) Diarrhea: Diarrhea today is forming up. Some shortness of breath reported in the morning, stopped IV fluid infusion. C. difficile reviewed and negative. Salmonella, Shigella, Campylobacter still pending. Monitor intake and output. Imodium as needed. (7) History of seizure: Continue with home dose of Keppra. Follow-up level. (8) Hypertension: Goal blood pressure less than 140/90 mmHg with mean over 65. Blood pressures have been labile during hospitalization. Hold off on home antihypertensive. Metoprolol as above. Restart home dose of amlodipine 10 mg oral daily. (9) Physical deconditioning: As above. Will discuss in detail with assisted living and patient's son regarding baseline. (10) Major depressive disorder, recurrent: Continue with home dose of Cymbalta, Celexa, Seroquel. (11) Lumbar disc disease with radiculopathy: (12) Goals of care, counseling/discussion: (13) At risk for polypharmacy: Plan Hypokalemia: Replace with 40 mg oral potassium. Hypomagnesemia: Replace with 2 g IV magnesium as per cardiology recommendations CODE STATUS: Again discussed in detail with patient. Son Yobany will be the DPOA. Patient does not want any resuscitation. Is okay with ICU admission for vasopressors. Not okay with pacemaker. DNR/DNI Protonix for PUD prophylaxis Lovenox for DVT prophylaxis N.p.o. Speech therapy, physical therapy. Advance diet as per speech evaluation. Plan for the day: Again admitted to respiratory failure last night. High likelihood of aspiration. Appreciate chest x-ray done today a.m. Continue with aggressive pulmonary toilet. Restart chest vest. Wean oxygen supplementation keeping saturation over 88%. Keep NPO. Will discontinue dysphagia level 6 diet. Await further speech evaluation. Continue physical therapy. Out of bed to chair. Continue nebulization treatment and Mucomyst. Continue with IV meropenem to finish a 5-day course. Last dose on 03/14. White count has remained stable. Again found to have severe hypokalemia today. 80 mg of IV replacement. Repeat in evening. Will change pregabalin back to 50 mg daily. Will advise no further addition to pain medications or sedating medications in next 24 hours. DC Celexa. Continue with Cymbalta. Appreciated on med rec from home. Goal pressure less than 140/90 mmHg. Blood pressure is elevated today. Restart amlodipine 5 mg daily. Discussed in detail with patient and patient's son at bedside. Patient remains a DNR/DNI. We discussed that patient again had an event of aspiration overnight when food particles were aspirated and suctioned from her airway. We discussed plan will be to further keep her n.p.o. for now and advance diet once patient is more awake and alert. Discussed possibility of need for feeding tube for nutrition. Patient would like to think further before making any decision. Son would like to remain DPOA but would also want to add Leann to make medical decisions. Patient is agreeable. Son is going to provide number to the nursing in charge to be added to the chart. Discharge plan: Plan to discharge back to assisted living as patient is at her baseline mentation, physical activities once oxygen supplementation is improving. Care discussed in detail with patient's son Mr. Haywood over the phone. All the questions were answered. Attestations 2 Medical Necessity Statement*: Requires further hospitalization for management of hypoxic respiratory failure as patient is back on high flow nasal cannula in setting of aspiration pneumonia, polypharmacy Diagnoses Respiratory failure with hypoxia J96.91 Pneumonia J18.9 Aspiration into lower respiratory tract T17.800A Generalized weakness R53.1 Abnormal T wave present on electrocardiography R94.31 Diarrhea R19.7 History of seizure Z87.898 Hypertension I10 Physical deconditioning R53.81 Major depressive disorder, recurrent F33.9 Lumbar disc disease with radiculopathy M51.16 Goals of care, counseling/discussion Z71.89 At risk for polypharmacy Z91.89
[2024-03-13 16:48] LABS: Glucose Point of Care 112 mg/dL (70-110)
[2024-03-13] MEDS: enoxaparin 40 mg/0.4 mL Syringe SUBCUT (17:32)
[2024-03-13] MEDS: acetaminophen 325 mg Tablet 650 MG PO (23:37)
[2024-03-14] VITALS (13 sets, daily range): BP systolic 111–146; BP diastolic 63–87; PULSE 61–86; RESP 16–19; TEMP 36.4–36.9; O2SAT 89–100
[2024-03-14] MEDS: ipratropium-albuterol 3 mL Neb INHALATION ×5 (00:36→20:15)
[2024-03-14] MEDS: meropenem 1,000 mg SDV 1000 MG IVP (03:28)
[2024-03-14] MEDS: acetylcysteine 200 mg/mL SDV 4 mL 100 MG INHALATION ×4 (03:34→20:15)
[2024-03-14 04:02] LABS: Basophils % 0.5 %; Eosinophils % 0.3 %; Hematocrit 40.6 % (36-47); Lymphocytes # 0.7 10^3/uL (0.8-4.8); Lymphocytes % 9.1 %; Mean Corpuscular HGB Conc 33.5 g/dL (30-55); Mean Corpuscular Hemoglobin 32.2 pg (27-33); Mean Platelet Volume 10.5 fL (7.4-10.4); Monocytes # 0.8 10^3/uL (0.2-0.9); Monocytes % 11.3 %; Neutrophils # 5.81 10^3/uL (1.8-7.7); Nucleated Red Blood Cells % 0 %; Platelet Count 260 10^3/cmm (157-399); Red Blood Count 4.23 10^6/uL (3.85-5.65); Red Cell Distribution Width 13.9 % (12.1-15.1); White Blood Count 7.45 10^3/uL (3.29-11.43)
[2024-03-14 04:27] LABS: Magnesium 1.9 mg/dL (1.7-2.3)
[2024-03-14 04:33] LABS: Alanine Aminotransferase 7 U/L (0-33); Albumin Level 3.5 g/dL (3.5-5.2); Alkaline Phosphatase 72 U/L (35-105); Anion Gap 11.7 (5-19); Aspartate Amino Transferase 15 U/L (0-32); Blood Urea Nitrogen 4 mg/dL (8-23); Calcium 9.5 mg/dL (8.5-10.5); Carbon Dioxide 39 mmol/L (22-29); Chloride 92 mmol/L (98-107); Creatinine Clr Calc Pharmacy 49.9543; Globulin 2.8 g/dL (1.3-4.6); Glomerular Filtration Rate 223.3 mL/min (90-130); Glucose 102 mg/dL (65-115); Osmolality Calculated 285 mOsm/kg (285-295); Potassium 3.7 mmol/L (3.5-5.1); Sodium 139 mmol/L (136-145); Total Bilirubin 0.2 mg/dL (0.15-1.2); Total Protein 6.3 g/dL (6.6-8.7)
[2024-03-14] MEDS: acetaminophen 325 mg Tablet 650 MG PO ×2 (06:31→12:38)
[2024-03-14] MEDS: budesonide 0.5 mg/2 mL Neb INHALATION ×2 (07:46→20:15)
[2024-03-14] MEDS: HYDROcodone-acetaminophen 5-325 mg Tablet 1 TAB PO ×2 (09:00→17:23)
[2024-03-14] MEDS: pregabalin 50 mg Capsule PO (09:00)
[2024-03-14] MEDS: metoprolol tartrate 25 mg Tablet PO ×2 (09:00→21:01)
[2024-03-14] MEDS: aspirin 81 mg EC Tablet PO (09:01)
[2024-03-14] MEDS: docusate sodium 100 mg Capsule PO ×2 (09:01→17:23)
[2024-03-14] MEDS: amlodipine 5 mg Tablet PO (09:01)
[2024-03-14] MEDS: levETIRAcetam 500 mg Tablet PO ×2 (09:01→17:23)
[2024-03-14] MEDS: duloxetine 60 mg Capsule PO (09:01)
[2024-03-14] MEDS: pantoprazole 40 mg SDV IVP (09:17)
--- NOTE | 2024-03-14 14:17 | P.PN_ITS ---
Subjective 2 Subjective: No acute events overnight. Today morning patient feels no more awake and alert. Sitting up in chair. Down to 5 L on supplementation. Able to have complete conversation. Seems to have more energy today. Medications: Reviewed: Yes Vitals/I&O/Wt Last Vital Signs Temp 97.9 F 03/14/24 11:05 Pulse 61 03/14/24 11:05 Resp 18 03/14/24 11:50 BP 130/75 03/14/24 11:05 Pulse Ox 97 03/14/24 11:50 O2 Del Method High Flow Nasal Cannula 03/14/24 11:50 O2 Flow Rate 6 03/14/24 11:50 FiO2 8 03/14/24 03:35 03/13/24 03/14/24 03/14/24 22:59 06:59 14:59 Intake Total 210 / 1260 Output Total 950 / 2500 300 / 2800 Balance -740 / -1240 -300 / -1540 Weight last 48 hrs Weight 45.087 kg Weight 44.588 kg Physical Exam 2 Const: COMMON NORMALS: patient oriented x3 and alert GENERAL APPEARANCE: c ooperative and lethargic NUTRITIONAL APPEARANCE: cachectic O RIENTATION/CONSCIOUSNESS: Yes awake, Yes oriented to person, Yes oriented to place, Yes oriented to time and Yes lethargic OTHER: Slow movements and speech. HENMT: OTHER: Improving dry mucous membranes Neck/C-Spine: COMMON NORMALS: no JVD Resp: COMMON NORMALS: normal respiratory effort and clear to auscultation bilaterally AUSCULTATION: clear to auscultation bilaterally Cardio: COMMON NORMALS: no JVD, regular rhythm, S1 normal heart sound present, S2 normal heart sound present and No murmurs present (Cardio) RHYTHM: regular rhythm HEART SOUNDS: S1 normal heart sound present and S2 normal heart sound present GI: COMMON NORMALS: Normal to inspection, nondistended, normoactive bowel sounds present, Soft to palpation and non-tender PALPATION: Yes Soft to palpation Extremity: COMMON NORMALS: no joint enlargement and no pedal edema Neuro: COMMON NORMALS: patient oriented x3 and moves all extremities S ENSORIUM/ORIENTATION: Yes alert, Yes oriented to person, Yes oriented to place, Yes oriented to time and Yes lethargic Skin: COMMON NORMALS: no rashes or lesions noted GENERAL SKIN EXAM: no rashes or lesions noted Urinary Catheter Management: Griffiths: Cath Placed During This Visit: no Reason for Continuing Indwelling Catheter: Accurate Measurement of Urinary Output in Critically Ill Patients Data 03/14/24 03:09 03/14/24 03:09 A&P Assessment and plan (1) Respiratory failure with hypoxia: In setting of aspiration pneumonitis along with mucous plug leading to COPD exacerbation due to severe generalized weakness, inability to clear her airways. Aggressive pulmonary toilet with I-S, Acapella and chest vest. Mucomyst every 6 hours, Pulmicort twice daily, DuoNeb every 6 hour. Oxygen supplementation keeping saturation over 88%. Wean heated high flow accordingly. Keep n.p.o. for now. Advance diet as per speech evaluation. Till patient is n.p.o. continue with NS at 50 cc/h. Appreciate CT chest with concerns for multifocal pneumonia with concerns for mucous plug and aspiration. Respiratory viral panel recently on admission negative. Sputum culture sample collected. Appreciate ABG. MRSA recently negative. Continue with physical therapy. Awaiting speech therapy and modified barium swallow. Out of bed to chair. (2) Pneumonia: (3) Aspiration into lower respiratory tract: (4) Generalized weakness: Admitted with worsening weakness and deconditioning. Admitted with diarrhea on admission. Appreciate TSH. Check vitamin B12 level. Does have history of seizures without any witnessed seizure recently. CT head on admission showed ventriculomegaly without any acute stroke. Could be in setting of polypharmacy. Appreciated medical reconciliation from [place]. It seems patient is not on pregabalin 3 times a day rather on 50 mg twice daily. Continues to be on duloxetine but no Seroquel. Discontinue Seroquel. Continue with pregabalin 50 mg daily. Continue with duloxetine 60 mg oral daily. Most likely will discharge with pregabalin and duloxetine. Continue with home pain medication [place] every 6 hourly as needed. Patient does have a history of chronic lumbar radiculopathy. Physical therapy. Speech therapy. Modified barium swallow when able. Out of bed to chair. (5) Abnormal T wave present on electrocardiography: Discussed with cardiology, reviewed TTE. Appreciate consultation. Continue aspirin. Increase metoprolol to 25 mg twice daily. No active chest pain. Appreciate A1c, lipid panel. (6) Diarrhea: Diarrhea today is forming up. Some shortness of breath reported in the morning, stopped IV fluid infusion. C. difficile reviewed and negative. Salmonella, Shigella, Campylobacter still pending. Monitor intake and output. Imodium as needed. (7) History of seizure: Continue with home dose of Keppra. Follow-up level. (8) Hypertension: Goal blood pressure less than 140/90 mmHg with mean over 65. Blood pressures have been labile during hospitalization. Hold off on home antihypertensive. Metoprolol as above. Restart home dose of amlodipine 10 mg oral daily. (9) Physical deconditioning: As above. Will discuss in detail with assisted living and patient's son regarding baseline. (10) Major depressive disorder, recurrent: Continue with home dose of Cymbalta, Celexa, Seroquel. (11) Lumbar disc disease with radiculopathy: (12) Goals of care, counseling/discussion: (13) At risk for polypharmacy: Plan Hypokalemia: Replace with 40 mg oral potassium. Hypomagnesemia: Replace with 2 g IV magnesium as per cardiology recommendations CODE STATUS: Again discussed in detail with patient. Son Yobany will be the DPOA. Patient does not want any resuscitation. Is okay with ICU admission for vasopressors. Not okay with pacemaker. DNR/DNI Protonix for PUD prophylaxis Lovenox for DVT prophylaxis Dysphagia level 4 diet, mildly thickened liquids Speech therapy, physical therapy. Advance diet as per speech evaluation. Plan for the day: More active and energetic today. Sitting up in chair. Continue aggressive pulm toilet with I-S, Acapella and chest vest. Oxygen supplementation keeping saturation over 88%. Wean accordingly. Continue nebulization treatment. Finished course of IV antibiotics with meropenem. Physical therapy. No leukocytosis. Follow-up sputum culture. Continue with pregabalin 50 mg oral daily, Cymbalta 60 mg oral daily. Goal blood pressure less than 140/90 mmHg. Continue with amlodipine 5 mg oral daily. Start back on dysphagia level 4 diet with mildly thickened liquids. Continue to watch for aspiration. Discussed in detail with patient and patient's son at bedside. Patient remains a DNR/DNI. We discussed that patient again had an event of aspiration overnight when food particles were aspirated and suctioned from her airway. We discussed plan will be to further keep her n.p.o. for now and advance diet once patient is more awake and alert. Discussed possibility of need for feeding tube for nutrition. Patient would like to think further before making any decision. Son would like to remain DPOA but would also want to add Leann to make medical decisions. Patient is agreeable. Son is going to provide number to the nursing in charge to be added to the chart. Discharge plan: Plan to discharge back to assisted living as patient is at her baseline mentation, physical activities once oxygen supplementation is improving. Care discussed in detail with patient's son Mr. Haywood over the phone. All the questions were answered. Attestations 2 Medical Necessity Statement*: Requires further hospitalization for management of acute on chronic hypoxic respiratory failure in setting of aspiration pneumonitis in a patient with severe physical deconditioning, generalized weakness in setting of polypharmacy Diagnoses Respiratory failure with hypoxia J96.91 Pneumonia J18.9 Aspiration into lower respiratory tract T17.800A Generalized weakness R53.1 Abnormal T wave present on electrocardiography R94.31 Diarrhea R19.7 History of seizure Z87.898 Hypertension I10 Physical deconditioning R53.81 Major depressive disorder, recurrent F33.9 Lumbar disc disease with radiculopathy M51.16 Goals of care, counseling/discussion Z71.89 At risk for polypharmacy Z91.89
[2024-03-14] MEDS: enoxaparin 40 mg/0.4 mL Syringe SUBCUT (17:23)
[2024-03-15] VITALS (11 sets, daily range): BP systolic 110–168; BP diastolic 67–85; PULSE 56–86; RESP 8–18; TEMP 36.4–37.1; O2SAT 90–97
[2024-03-15] MEDS: HYDROcodone-acetaminophen 5-325 mg Tablet 1 TAB PO ×2 (01:01→14:09)
--- NOTE | 2024-03-15 01:17 | PC.NURSE ---
Patient refused heel protectors. Patient educated that they are to help prevent pressure injuries to her heels. Patient states my feet are very sensitive and requested that I take them off. Patient repositioned multiple times consecutively due to stating she is uncomfortable. Attempted right side laying, supine, laying flat, left side laying, pillow between legs, pillow under legs, and boosted patient in bed x2. Patient stated I'm still very uncomfortable. PRN pain medication administered.
[2024-03-15] MEDS: acetylcysteine 200 mg/mL SDV 4 mL 100 MG INHALATION ×4 (02:14→22:21)
[2024-03-15] MEDS: ipratropium-albuterol 3 mL Neb INHALATION ×4 (02:14→22:20)
[2024-03-15] MEDS: acetaminophen 325 mg Tablet 650 MG PO ×3 (06:17→18:13)
--- NOTE | 2024-03-15 06:37 | PC.NURSE ---
Patient repositioned several times throughout shift d/t patient stating that her legs hurt and/or that she was uncomfortable multiple times. PRN pain medications given as well.
[2024-03-15] MEDS: budesonide 0.5 mg/2 mL Neb INHALATION ×2 (08:43→22:21)
[2024-03-15 08:49] LABS: Basophils % 0.5 %; Eosinophils % 0.5 %; Hematocrit 41.2 % (36-47); Lymphocytes # 0.9 10^3/uL (0.8-4.8); Lymphocytes % 14.3 %; Mean Corpuscular HGB Conc 32.8 g/dL (30-55); Mean Corpuscular Hemoglobin 31.5 pg (27-33); Mean Platelet Volume 9.7 fL (7.4-10.4); Monocytes # 0.5 10^3/uL (0.2-0.9); Monocytes % 6.8 %; Neutrophils # 5.07 10^3/uL (1.8-7.7); Neutrophils % 76.8 %; Nucleated Red Blood Cells % 0 %; Platelet Count 272 10^3/cmm (157-399); Red Blood Count 4.29 10^6/uL (3.85-5.65); Red Cell Distribution Width 13.9 % (12.1-15.1); White Blood Count 6.59 10^3/uL (3.29-11.43)
[2024-03-15] MEDS: aspirin 81 mg EC Tablet PO (08:53)
[2024-03-15] MEDS: amlodipine 5 mg Tablet PO (08:53)
[2024-03-15] MEDS: duloxetine 60 mg Capsule PO (08:53)
[2024-03-15] MEDS: loperamide 2 mg Capsule PO ×2 (08:53→19:45)
[2024-03-15] MEDS: pantoprazole 40 mg SDV IVP (08:53)
[2024-03-15] MEDS: metoprolol tartrate 25 mg Tablet PO ×2 (08:53→19:27)
[2024-03-15] MEDS: pregabalin 50 mg Capsule PO (08:53)
[2024-03-15] MEDS: levETIRAcetam 500 mg Tablet PO ×2 (08:53→18:12)
[2024-03-15] MEDS: fluticasone nasal spray 16gm Btl 2 SPRAY INTRANASAL (08:59)
[2024-03-15 09:13] LABS: Alanine Aminotransferase 7 U/L (0-33); Albumin Level 3.2 g/dL (3.5-5.2); Alkaline Phosphatase 68 U/L (35-105); Anion Gap 12.3 (5-19); Aspartate Amino Transferase 19 U/L (0-32); Blood Urea Nitrogen 10 mg/dL (8-23); Calcium 9.3 mg/dL (8.5-10.5); Carbon Dioxide 36 mmol/L (22-29); Chloride 93 mmol/L (98-107); Creatinine Clr Calc Pharmacy 49.2517; Globulin 3.2 g/dL (1.3-4.6); Glomerular Filtration Rate 160.2 mL/min (90-130); Glucose 160 mg/dL (65-115); Magnesium 1.9 mg/dL (1.7-2.3); Osmolality Calculated 288 mOsm/kg (285-295); Potassium 3.3 mmol/L (3.5-5.1); Sodium 138 mmol/L (136-145); Total Bilirubin 0.2 mg/dL (0.15-1.2); Total Protein 6.4 g/dL (6.6-8.7)
[2024-03-15] MEDS: potassium chloride oral liq 20 mEq/15 mL UDC 40 MEQ PO ×3 (11:53→14:09)
--- NOTE | 2024-03-15 14:59 | P.PN_ITS ---
Subjective 2 Subjective: No acute events overnight. Today morning patient seen laying in bed. States she is feeling weaker than yesterday. Sat in the chair for most part of the day yesterday. Down to 3 L of oxygen supplementation. Saturating well. Medications: Reviewed: Yes Vitals/I&O/Wt Last Vital Signs Temp 98.7 F 03/15/24 11:37 Pulse 78 03/15/24 14:00 Resp 16 03/15/24 14:00 BP 130/77 03/15/24 11:37 Pulse Ox 96 03/15/24 14:00 O2 Del Method High Flow Nasal Cannula 03/15/24 14:00 O2 Flow Rate 3 03/15/24 14:00 FiO2 8 03/14/24 03:35 03/14/24 03/15/24 03/15/24 22:59 06:59 14:59 Intake Total 240 / 240 240 / 240 Output Total 300 / 300 250 / 550 Balance -60 / -60 -250 / -310 240 / 240 Weight last 48 hrs Weight 43.001 kg Weight 45.087 kg Physical Exam 2 Const: COMMON NORMALS: patient oriented x3 and alert GENERAL APPEARANCE: c ooperative and lethargic NUTRITIONAL APPEARANCE: cachectic O RIENTATION/CONSCIOUSNESS: Yes awake, Yes oriented to person, Yes oriented to place, Yes oriented to time and Yes lethargic OTHER: Slow movements and speech. HENMT: OTHER: Improving dry mucous membranes Neck/C-Spine: COMMON NORMALS: no JVD Resp: COMMON NORMALS: normal respiratory effort and clear to auscultation bilaterally AUSCULTATION: clear to auscultation bilaterally Cardio: COMMON NORMALS: no JVD, regular rhythm, S1 normal heart sound present, S2 normal heart sound present and No murmurs present (Cardio) RHYTHM: regular rhythm HEART SOUNDS: S1 normal heart sound present and S2 normal heart sound present GI: COMMON NORMALS: Normal to inspection, nondistended, normoactive bowel sounds present, Soft to palpation and non-tender PALPATION: Yes Soft to palpation Extremity: COMMON NORMALS: no joint enlargement and no pedal edema Neuro: COMMON NORMALS: patient oriented x3 and moves all extremities S ENSORIUM/ORIENTATION: Yes alert, Yes oriented to person, Yes oriented to place, Yes oriented to time and Yes lethargic Skin: COMMON NORMALS: no rashes or lesions noted GENERAL SKIN EXAM: no rashes or lesions noted Urinary Catheter Management: Griffiths: Cath Placed During This Visit: no Reason for Continuing Indwelling Catheter: Other Data 03/15/24 08:40 03/15/24 08:40 Micro: Microbiology 03/08/24 22:42 E. coli Shiga-like Toxin (PCR) - Final Stool Salmonella/Shigella Culture - Final Campylobacter (PCR) - Final A&P Assessment and plan (1) Respiratory failure with hypoxia: In setting of aspiration pneumonitis along with mucous plug leading to COPD exacerbation due to severe generalized weakness, inability to clear her airways. Aggressive pulmonary toilet with I-S, Acapella and chest vest. Mucomyst every 6 hours, Pulmicort twice daily, DuoNeb every 6 hour. Oxygen supplementation keeping saturation over 88%. Wean heated high flow accordingly. Keep n.p.o. for now. Advance diet as per speech evaluation. Till patient is n.p.o. continue with NS at 50 cc/h. Appreciate CT chest with concerns for multifocal pneumonia with concerns for mucous plug and aspiration. Respiratory viral panel recently on admission negative. Sputum culture sample collected. Appreciate ABG. MRSA recently negative. Continue with physical therapy. Awaiting speech therapy and modified barium swallow. Out of bed to chair. (2) Pneumonia: (3) Aspiration into lower respiratory tract: (4) Generalized weakness: Admitted with worsening weakness and deconditioning. Admitted with diarrhea on admission. Appreciate TSH. Check vitamin B12 level. Does have history of seizures without any witnessed seizure recently. CT head on admission showed ventriculomegaly without any acute stroke. Could be in setting of polypharmacy. Appreciated medical reconciliation from [place]. It seems patient is not on pregabalin 3 times a day rather on 50 mg twice daily. Continues to be on duloxetine but no Seroquel. Discontinue Seroquel. Continue with pregabalin 50 mg daily. Continue with duloxetine 60 mg oral daily. Most likely will discharge with pregabalin and duloxetine. Continue with home pain medication [place] every 6 hourly as needed. Patient does have a history of chronic lumbar radiculopathy. Physical therapy. Speech therapy. Modified barium swallow when able. Out of bed to chair. (5) Abnormal T wave present on electrocardiography: Discussed with cardiology, reviewed TTE. Appreciate consultation. Continue aspirin. Increase metoprolol to 25 mg twice daily. No active chest pain. Appreciate A1c, lipid panel. (6) Diarrhea: Diarrhea today is forming up. Some shortness of breath reported in the morning, stopped IV fluid infusion. C. difficile reviewed and negative. Salmonella, Shigella, Campylobacter still pending. Monitor intake and output. Imodium as needed. (7) History of seizure: Continue with home dose of Keppra. Follow-up level. (8) Hypertension: Goal blood pressure less than 140/90 mmHg with mean over 65. Blood pressures have been labile during hospitalization. Hold off on home antihypertensive. Metoprolol as above. Restart home dose of amlodipine 10 mg oral daily. (9) Physical deconditioning: As above. Will discuss in detail with assisted living and patient's son regarding baseline. (10) Major depressive disorder, recurrent: Continue with home dose of Cymbalta, Celexa, Seroquel. (11) Lumbar disc disease with radiculopathy: (12) Goals of care, counseling/discussion: (13) At risk for polypharmacy: Plan Hypokalemia: Replace with 40 mg oral potassium. Hypomagnesemia: Replace with 2 g IV magnesium as per cardiology recommendations CODE STATUS: Again discussed in detail with patient. Son Yobany will be the DPOA. Patient does not want any resuscitation. Is okay with ICU admission for vasopressors. Not okay with pacemaker. DNR/DNI Protonix for PUD prophylaxis Lovenox for DVT prophylaxis Dysphagia level 4 diet, mildly thickened liquids Speech therapy, physical therapy. Advance diet as per speech evaluation. Plan for the day: Continue to wean oxygen supplementation keeping saturation over 88%. Continue aggressive pulmonary toilet. Inhalation treatment with DuoNeb and Pulmicort twice daily. Out of bed to chair. Finish course of IV antibiotics. Goal blood pressure less than 140/90 mmHg with mean over 65. Physical therapy. Replace potassium with 40 mill colons for 3 doses every hour. Repeat BMP in afternoon. Continue with current consistency of diet of dysphagia level 4 diet Discussed in detail with patient and patient's son at bedside. Patient remains a DNR/DNI. We discussed that patient again had an event of aspiration overnight when food particles were aspirated and suctioned from her airway. We discussed plan will be to further keep her n.p.o. for now and advance diet once patient is more awake and alert. Discussed possibility of need for feeding tube for nutrition. Patient would like to think further before making any decision. Son would like to remain DPOA but would also want to add Leann to make medical decisions. Patient is agreeable. Son is going to provide number to the nursing in charge to be added to the chart. Discharge plan: Plan to discharge back to assisted living as patient is at her baseline mentation, physical activities once oxygen supplementation is improving. Care discussed in detail with patient's son Mr. Haywood over the phone. All the questions were answered. Attestations 2 Medical Necessity Statement*: Requires further hospitalization for management of acute on hypoxic respiratory failure in setting of aspiration pneumonia patient with severe physical deconditioning, weakness in setting of polypharmacy Diagnoses Respiratory failure with hypoxia J96.91 Pneumonia J18.9 Aspiration into lower respiratory tract T17.800A Generalized weakness R53.1 Abnormal T wave present on electrocardiography R94.31 Diarrhea R19.7 History of seizure Z87.898 Hypertension I10 Physical deconditioning R53.81 Major depressive disorder, recurrent F33.9 Lumbar disc disease with radiculopathy M51.16 Goals of care, counseling/discussion Z71.89 At risk for polypharmacy Z91.89
[2024-03-15] MEDS: enoxaparin 40 mg/0.4 mL Syringe SUBCUT (18:12)
[2024-03-16] VITALS (7 sets, daily range): BP systolic 122–148; BP diastolic 78–82; PULSE 54–80; RESP 14–18; TEMP 36.3–36.5; O2SAT 90–98
[2024-03-16] MEDS: HYDROcodone-acetaminophen 5-325 mg Tablet 1 TAB PO ×2 (02:22→08:45)
[2024-03-16] MEDS: acetylcysteine 200 mg/mL SDV 4 mL 100 MG INHALATION (03:18)
[2024-03-16] MEDS: ipratropium-albuterol 3 mL Neb INHALATION (03:18)
--- NOTE | 2024-03-16 05:17 | PC.NURSE ---
Patient repositioned numerous times throughout shift per her request.
[2024-03-16 06:24] LABS: Basophils % 0.3 %; Eosinophils # 0.1 10^3/uL (0.0-0.8); Eosinophils % 0.8 %; Hematocrit 40.2 % (36-47); Lymphocytes # 1.4 10^3/uL (0.8-4.8); Lymphocytes % 22.3 %; Mean Corpuscular HGB Conc 32.8 g/dL (30-55); Mean Corpuscular Hemoglobin 31.3 pg (27-33); Mean Corpuscular Volume 95.3 fl (85-98); Mean Platelet Volume 9.7 fL (7.4-10.4); Monocytes # 0.5 10^3/uL (0.2-0.9); Monocytes % 7.7 %; Neutrophils # 4.23 10^3/uL (1.8-7.7); Neutrophils % 67.8 %; Nucleated Red Blood Cells % 0 %; Platelet Count 268 10^3/cmm (157-399); Red Blood Count 4.22 10^6/uL (3.85-5.65); Red Cell Distribution Width 13.9 % (12.1-15.1); White Blood Count 6.24 10^3/uL (3.29-11.43)
[2024-03-16] MEDS: acetaminophen 325 mg Tablet 650 MG PO (06:31)
[2024-03-16 06:38] LABS: Alanine Aminotransferase 10 U/L (0-33); Albumin Level 3.2 g/dL (3.5-5.2); Alkaline Phosphatase 61 U/L (35-105); Anion Gap 14.1 (5-19); Aspartate Amino Transferase 23 U/L (0-32); Blood Urea Nitrogen 8 mg/dL (8-23); Calcium 9.5 mg/dL (8.5-10.5); Carbon Dioxide 35 mmol/L (22-29); Chloride 91 mmol/L (98-107); Creatinine Clr Calc Pharmacy 49.4523; Globulin 3.3 g/dL (1.3-4.6); Glomerular Filtration Rate 223.3 mL/min (90-130); Glucose 94 mg/dL (65-115); Osmolality Calculated 282 mOsm/kg (285-295); Potassium 3.1 mmol/L (3.5-5.1); Sodium 137 mmol/L (136-145); Total Bilirubin 0.2 mg/dL (0.15-1.2); Total Protein 6.5 g/dL (6.6-8.7)
[2024-03-16] MEDS: duloxetine 60 mg Capsule PO (08:45)
[2024-03-16] MEDS: aspirin 81 mg EC Tablet PO (08:45)
[2024-03-16] MEDS: metoprolol tartrate 25 mg Tablet PO (08:46)
[2024-03-16] MEDS: amlodipine 5 mg Tablet PO (08:46)
[2024-03-16] MEDS: pantoprazole 40 mg SDV IVP (08:46)
[2024-03-16] MEDS: levETIRAcetam 500 mg Tablet PO (08:46)
[2024-03-16] MEDS: pregabalin 50 mg Capsule PO (08:48)
--- NOTE | 2024-03-16 11:00 | P.DS_ITS ---
Discharge Providers Date of Admission: 03/07/24 14:05 Date of Discharge: March 16, 2024 Attending Provider at Admission: Cory Robertson Attending Provider at Discharge: Taurus Stover MD Primary Care Provider: Rosy Javier Diagnoses at Discharge Discharge Diagnosis (1) Respiratory failure with hypoxia: Status: Acute (2) Pneumonia: Status: Acute (3) Aspiration into lower respiratory tract: Status: Acute (4) Generalized weakness: Status: Acute (5) Abnormal T wave present on electrocardiography: Status: Acute (6) Diarrhea: Status: Acute (7) History of seizure: Status: Acute (8) Hypertension: Status: Acute (9) Physical deconditioning: Status: Acute (10) Major depressive disorder, recurrent: Status: Acute (11) Lumbar disc disease with radiculopathy: Status: Acute (12) Goals of care, counseling/discussion: Status: Acute (13) At risk for polypharmacy: Status: Acute Reason for Visit Reason for Visit: abn labs, lethargic Brief History: History as per HPI: Pleasant 63-year-old lady with recent hospitalization with respiratory failure, pneumonia, UTI, sepsis, was brought into ER for evaluation due to generalized weakness, fatigue, daytime somnolence following up with orthopedic surgery in office yesterday and states was very tired and falling asleep in the chair. She has been generally very weak, moving and speaking very slowly. She reports she has started having diarrhea about 5 days ago. Her symptoms started after the diarrhea and since then have been getting worse. She has been feeling chills. No chest pain or pressure. In the ER he is noted with mild hypoxia, requiring oxygen. EKG with T wave changes which are new. Hospital Course Hospital Course Patient was admitted to the hospital further evaluation and management of generalized weakness in setting of dehydration secondary to diarrhea. On admission there were concerns for mild ST-T changes for which cardiology was consulted. Is believed to changes were in setting of electrolyte abnormalities especially hyperkalemia and hypokalemia in setting of dehydration. Ec hocardiogram was done which showed a normal EF with grade 1 diastolic dysfunction without regional wall motion abnormality. On admission there was concern for worsening weakness and lethargy due to po lypharmacy because of high doses of pain medication and multiple antipsychotic medications. Her medications were adjusted after which her mentation has improved. After detailed discussion and further history taking from patient's assisted living facility it seems patient at baseline is mostly bedbound but gets up with physical therapy, is usually dependent on for ADLs. She continued to work well with physical therapy. Her hospitalization was complicated by her developing aspiration pneumonia and requiring high oxygen supplementation which was managed by antibiotics, aggressive pulmonary toilet and ambulation treatment. Her blood culture remain negative. Patient has been at her baseline mentation, physical strength and able to do her ADLs back to baseline for last 2 to 3 days. She has been discharged back to his assisted living in hemodynamically stable condition on adjusted medications. Going forward she is not to take pregabalin twice daily but to only once daily. She is to only take duloxetine once daily, Keppra twice daily along with pregabalin once daily. Diet has been changed as per speech evaluation to dysphagia level 4 pur?ed diet. Physical Exam Const: COMMON NORMALS: patient oriented x3 and alert GENERAL APPEARANCE: cooperative and lethargic NUTRITIONAL APPEARANCE: cachectic ORIENTATION/CONSCIOUSNESS: Yes awake, Yes oriented to person, Yes oriented to place, Yes oriented to time and Yes lethargic OTHER: Slow movements and speech. HENMT: OTHER: Improving dry mucous membranes Neck/C-Spine: COMMON NORMALS: no JVD Resp: COMMON NORMALS: normal respiratory effort and clear to auscultation bilaterally AUSCULTATION: clear to auscultation bilaterally Cardio: COMMON NORMALS: no JVD, regular rhythm, S1 normal heart sound present, S2 normal heart sound present and No murmurs present (Cardio) RHYTHM: regular rhythm HEART SOUNDS: S1 normal heart sound present and S2 normal heart sound present GI: COMMON NORMALS: Normal to inspection, nondistended, normoactive bowel sounds present, Soft to palpation and non-tender PALPATION: Yes Soft to palpation Extremity: COMMON NORMALS: no joint enlargement and no pedal edema Neuro: COMMON NORMALS: patient oriented x3 and moves all extremities SENSORIUM/ORIENTATION: Yes alert, Yes oriented to person, Yes oriented to place, Yes oriented to time and Yes lethargic Skin: COMMON NORMALS: no rashes or lesions noted GENERAL SKIN EXAM: no rashes or lesions noted Urinary Catheter Management: Griffiths: Cath Placed During This Visit: yes, but has since been removed by the nurse Reason for Continuing Indwelling Catheter: Decision to DC Catheter Date Urinary Catheter Removed: 03/16/24 Time Urinary Catheter Discontinued: 10:30 Discharge Data Studies Completed and Pending Completed Studies During Hospitalization Category Date Time Status CT chest abdomen pelvis [CT chest abdpel w/*[id number] Cat Scan 03/09/24 10:11 Completed ] Routine XR chest 1V portable [id number] Stat Exams 03/06/24 10:36 Completed XR chest 1V portable [id number] Stat Exams 03/13/24 06:41 Completed Stool Culture - Enteric [Salmonella / Shigella / Campy] Lab 03/06/24 16:18 Completed Routine CV. echo complete* [id number] Routine Ultrasound 03/07/24 16:02 Completed Pending at discharge Category Date Time Status Basic Metabolic Panel Routine Lab 03/15/24 16:01 Ordered Sputum Culture and Gram Stain Stat Lab 03/09/24 18:31 Ordered Radiology Impressions Chest/Abdomen/Pelvis CT 03/09/24 10:11 IMPRESSION: 1. New areas of atelectasis in the RIGHT middle, RIGHT lower and LEFT lower lobes. 2. Scattered new scattered areas of subsolid consolidations greatest within the RIGHT lung. Probably representing pneumonia. 3. Enlarged RIGHT hilar lymph node, 2.3 x 1.7 cm. This lymph node was also slightly enlarged on the prior study of 08/17/2023. Reactive versus neoplastic. 4. Liquid feces throughout the entire colon. No obstructive pattern. 5. No free air or free fluid. 6. Atherosclerosis aorta and iliac arteries. 7. Cholelithiasis. No intrahepatic duct dilatation. Normal common bile duct. 8. Complex material distending the RIGHT middle and RIGHT lower lobe bronchi is probably mucus secretions and fluid resulting in obstruction with atelectasis. If atelectasis does not resolve bronchoscopy may be necessary. Chest X-Ray 03/13/24 06:41 IMPRESSION: Similar-appearing basilar infiltrates from prior cross-sectional evaluation. Correlate clinically. Microbiology 03/08/24 22:42 Stool E. coli Shiga-like Toxin (PCR) - Final 03/08/24 22:42 Stool Salmonella/Shigella Culture - Final 03/08/24 22:42 Stool Campylobacter (PCR) - Final 03/11/24 09:45 Urine Kidney Bacterial Antigens - Final Laboratory Results WBC 6.24 10^3/uL (3.29-11.43) 03/16/24 06:15 RBC 4.22 10^6/uL (3.85-5.65) 03/16/24 06:15 Hgb 13.20 g/dL (11.27-16.99) 03/16/24 06:15 Hct 40.2 % (36-47) 03/16/24 06:15 MCV 95.3 fl (85-98) 03/16/24 06:15 MCH 31.3 pg (27-33) 03/16/24 06:15 MCHC 32.8 g/dL (30-55) 03/16/24 06:15 RDW 13.9 % (12.1-15.1) 03/16/24 06:15 Plt Count 268 10^3/cmm (157-399) 03/16/24 06:15 MPV 9.7 fL (7.4-10.4) 03/16/24 06:15 Neut % (Auto) 67.8 % 03/16/24 06:15 Lymph % (Auto) 22.3 % 03/16/24 06:15 [place] % (Auto) 7.7 % 03/16/24 06:15 Eos % (Auto) 0.8 % 03/16/24 06:15 Baso % (Auto) 0.3 % 03/16/24 06:15 Neut # (Auto) 4.23 10^3/uL (1.8-7.7) 03/16/24 06:15 Lymph # (Auto) 1.4 10^3/uL (0.8-4.8) 03/16/24 06:15 [place] # (Auto) 0.5 10^3/uL (0.2-0.9) 03/16/24 06:15 Eos # (Auto) 0.1 10^3/uL (0.0-0.8) 03/16/24 06:15 Baso # (Auto) 0.0 10^3/uL (0.0-0.1) 03/16/24 06:15 Nucleated RBC % (auto) 0 % 03/16/24 06:15 Nucleated RBCs # 0.0 /100WBC 03/16/24 06:15 Specimen Type Arterial 03/09/24 19:09 Sample Site Radial, right 03/09/24 19:09 ABG pH 7.37 (7.35-7.45) 03/09/24 19:09 ABG pCO2 57.3 mmHg (35-45) H 03/09/24 19:09 ABG pO2 58.2 mmHg (80.0-100.0) L 03/09/24 19:09 ABG PO2/FiO2 Ratio 68 03/09/24 19:09 ABG HCO3 33.3 mmol/L (22-26) H 03/09/24 19:09 ABG O2 Saturation 91.0 03/09/24 19:09 ABG Base Excess 6.2 mmol/L (-2.0-2.0) H 03/09/24 19:09 Zack Test Pos 03/09/24 19:09 A-a O2 Gradient 61.9 mmHg (5-10) H 03/09/24 19:09 Hematocrit 43.4 % (37-47) 03/09/24 19:09 Hgb O2 Saturation 89.3 % (95-100) L 03/09/24 19:09 Carboxyhemoglobin 0.8 %THgb (0.4-20.1) 03/09/24 19:09 Methemoglobin 1.0 % (0.4-1.5) 03/09/24 19:09 Total Hemoglobin 14.2 g/dL (12-16) 03/09/24 19:09 Sodium 139.0 mmol/L (131-143) 03/09/24 19:09 Potassium 3.4 mmol/L (3.5-5.0) L 03/09/24 19:09 Glucose 155.0 mg/dL (70-115) H 03/09/24 19:09 Ionized Calcium 1.3 mmol/L (1.1-1.4) 03/09/24 19:09 O2 Delivery Device Nc 03/09/24 19:09 O2 Liters/Min 55.0 % 03/09/24 19:09 FiO2 85.0 % 03/09/24 19:09 Assembler Wire Mesh Gate ID [email or web address] 03/09/24 19:09 Sodium 137 mmol/L (136-145) 03/16/24 06:15 Potassium 3.1 mmol/L (3.5-5.1) L 03/16/24 06:15 Chloride 91 mmol/L (98-107) L 03/16/24 06:15 Carbon Dioxide 35 mmol/L (22-29) H 03/16/24 06:15 Anion Gap 14.1 (5-19) 03/16/24 06:15 BUN 8 mg/dL (8-23) 03/16/24 06:15 Creatinine 0.3 mg/dL (0.5-0.9) L 03/16/24 06:15 GFR Calculation 223.3 mL/min (90-130) H 03/16/24 06:15 Glucose 94 mg/dL (65-115) 03/16/24 06:15 POC Glucose 112 mg/dL (70-110) H 03/13/24 16:34 Estimat Average Glucose 94 03/09/24 05:10 Hemoglobin A1c 4.9 % (4.0-6.0) 03/09/24 05:10 Calculated Osmolality 282 mOsm/kg (285-295) L 03/16/24 06:15 Calcium 9.5 mg/dL (8.5-10.5) 03/16/24 06:15 Magnesium 2.0 mg/dL (1.7-2.3) 03/16/24 06:15 Iron 19 ug/dL (37-145) L 03/09/24 05:10 TIBC 179 mcg/dl 03/09/24 05:10 % Saturation 10.6 % (20-50) L 03/09/24 05:10 Unsat Iron Binding 160 ug/dL (112-347) 03/09/24 05:10 Total Bilirubin 0.2 mg/dL (0.15-1.2) 03/16/24 06:15 AST 23 U/L (0-32) 03/16/24 06:15 ALT 10 U/L (0-33) 03/16/24 06:15 Alkaline Phosphatase 61 U/L (35-105) 03/16/24 06:15 Troponin T Baseline 44 ng/L (0-10) H 03/06/24 10:20 Troponin T 120 Minute 40.53 ng/L (0-10) H 03/06/24 12:31 Delta Troponin T -3.47 ABS# (0-10) L 03/06/24 12:31 Troponin T Hi Sens 6Hr 42.04 ng/L (0-10) H 03/06/24 16:40 Troponin T Hi Sens 6Hr Delta -1.96 ng/L (0-12) L 03/06/24 16:40 NT-Pro-B Natriuret Pep 643 pg/mL (0-125) H 03/06/24 11:20 Total Protein 6.5 g/dL (6.6-8.7) L 03/16/24 06:15 Albumin 3.2 g/dL (3.5-5.2) L 03/16/24 06:15 Globulin 3.3 g/dL (1.3-4.6) 03/16/24 06:15 Triglycerides 81 mg/dL (0-150) 03/10/24 03:23 Cholesterol 125 mg/dL (0-200) 03/10/24 03:23 LDL Cholesterol, Calc 63 mg/dL (50-129) 03/10/24 03:23 Total VLDL Cholesterol 16 mg/dL (0-30) 03/10/24 03:23 HDL Cholesterol 46 mg/dL (60-100) L 03/10/24 03:23 Cholesterol/HDL Ratio 2.72 mg/dL (0.0-4.40) 03/10/24 03:23 Folate 12.2 ng/mL (4.8-37.3) 03/10/24 03:23 TSH 0.62 uIU/mL (0.27-4.20) 03/06/24 12:31 Urine Color Yellow (Yellow) 03/06/24 12:03 Urine Appearance Clear (CLEAR) 03/06/24 12:03 Urine pH 6.0 (5-7) 03/06/24 12:03 Ur Specific [place] 1.012 (1.005-1.030) 03/06/24 12:03 Urine Protein Trace (Negative) A 03/06/24 12:03 Urine Glucose (UA) Negative (Normal) 03/06/24 12:03 Urine Ketones Negative (Negative) 03/06/24 12:03 Urine Blood Negative (Negative) 03/06/24 12:03 Urine Nitrate Negative (Negative) 03/06/24 12:03 Urine Bilirubin Negative (Negative) 03/06/24 12:03 Urine Urobilinogen 0.2 mg/dL (Negative) 03/06/24 12:03 Ur Leukocyte Esterase Negative (Negative) 03/06/24 12:03 Urine RBC 0-2 /hpf (0-2) 03/06/24 12:03 Urine WBC 0-5 /hpf (0-5) 03/06/24 12:03 Ur Squamous Epith Cells 0-5 /hpf (0-5) 03/06/24 12:03 Amorphous Sediment Not Reportable 03/06/24 12:03 Urine Bacteria None seen /hpf (NONE) 03/06/24 12:03 Hyaline Casts 6.61 /lpf 03/06/24 12:03 Levetiracetam 24.4 mcg/mL (6.0-46.0) 03/08/24 02:08 Adenovirus (PCR) Not detected (NOT DETECT) 03/06/24 18:38 C. pneumoniae DNA (PCR) Not detected (NOT DETECT) 03/06/24 18:38 C. difficile (PCR) Negative (Negative) 03/11/24 09:20 Coronavirus (PCR) Negative (Negative) 03/06/24 14:04 Coronavirus 229E (PCR) Not detected (NOT DETECT) 03/06/24 18:38 Human Metapneumovir PCR Not detected (NOT DETECT) 03/06/24 18:38 Influenza A (H1) PCR Not detected (NOT DETECT) 03/06/24 18:38 Influenza A (PCR) Negative (Negative) 03/06/24 14:04 Influ A (H1/09) PCR Not detected (NOT DETECT) 03/06/24 18:38 Influenza A (H3) PCR Not detected (NOT DETECT) 03/06/24 18:38 Influenza Type A (PCR) Not detected (NOT DETECT) 03/06/24 18:38 Influenza Type B (PCR) Not detected (NOT DETECT) 03/06/24 18:38 M. pneumoniae (PCR) Not detected (NOT DETECT) 03/06/24 18:38 Parainfluenza 1 (PCR) Not detected (NOT DETECT) 03/06/24 18:38 Parainfluenza 2 (PCR) Not detected (NOT DETECT) 03/06/24 18:38 Parainfluenza 3 (PCR) Not detected (NOT DETECT) 03/06/24 18:38 Parainfluenza 4 (PCR) Not detected (NOT DETECT) 03/06/24 18:38 RSV (PCR) Negative (Negative) 03/06/24 14:04 RSV Type A (PCR) Not detected (NOT DETECT) 03/06/24 18:38 RSV Type B (PCR) Not detected (NOT DETECT) 03/06/24 18:38 Entero/Rhino (PCR) Not detected (NOT DETECT) 03/06/24 18:38 SARS-CoV-2 (PCR) Not detected (NOT DETECT) 03/06/24 18:38 Vitals Last Vital Signs Temp 97.7 F 03/16/24 04:00 Pulse 72 03/16/24 06:00 Resp 16 03/16/24 04:00 BP 140/82 03/16/24 04:00 Pulse Ox 90 03/16/24 04:00 O2 Del Method Nasal Cannula 03/16/24 04:00 O2 Flow Rate 3 03/16/24 03:20 FiO2 8 03/14/24 03:35 Discharge Plan Discharge Patient Disposition: Home Condition: Stable Prescriptions: New amlodipine 5 mg Tablet 5 mg PO DAILY 30 Days Qty: 30 0RF metoprolol tartrate 25 mg Tablet 25 mg PO BID@0900,2100 30 Days Qty: 60 0RF potassium chloride 20 mEq packet 20 meq PO BID Qty: 50 0RF Continued ipratropium-albuterol 0.5 mg-3 mg(2.5 mg base)/3 mL Solution For Nebulization 3 ml INHALATION BID cetirizine 5 mg Tablet 5 mg PO DAILY docusate sodium [Colace] 100 mg Capsule 100 mg PO BID polyethylene glycol 3350 [Miralax] 17 gram/dose Powder 4 g PO DAILY fluticasone propionate 50 mcg/actuation [place],Suspension 2 spray INTRANASAL DAILY Rx Instructions: administer into each nostril cholecalciferol (vitamin D3) 25 mcg (1,000 unit) tablet 1,000 unit PO TID acetaminophen [Tylenol] 325 mg Tablet 325 mg PO QID PRN (Reason: Pain) hydrocodone-acetaminophen 5-325 mg Tablet 1 tab PO Q6H PRN (Reason: Pain) duloxetine 60 mg Capsule,Delayed Release(Dr/Ec) 60 mg PO DAILY levetiracetam 500 mg tablet extended release 24 hr 500 mg PO BID Changed pregabalin 50 mg Capsule 50 mg PO DAILY Qty: 30 0RF Discontinued lisinopril 5 mg Tablet 10 mg PO DAILY Qty: 30 0RF amlodipine 10 mg tablet 10 mg PO DAILY celecoxib 100 mg capsule 100 mg PO BID Discharge Orders: Discharge Order (Routine); Ordered 12/16/24 Ordered By: Taurus Stover Referrals: [facility] [Outside] Ilene Horan FNP [Nurse Practitioner] - 2 weeks (We have notified your physician's clinic of the need for a follow-up appointment to be scheduled. If you have not heard from them within the next 2 business days, please call them directly. ) Rosy Javier PA [Primary Care Provider] - 1 week (We have notified your physician's clinic of the need for a follow-up appointment to be scheduled. If you have not heard from them within the next 2 business days, please call them directly. ) Discharge Diet: Usual diet Discharge Activity: Resume usual activity and Increase activity as tolerated Patient Instructions: Metoprolol (By mouth), Potassium Chloride (By mouth), Amlodipine (By mouth), Opioid Safety Activity Restrictions/Additional Instructions: Dysphagia level 4 diet, thickened pur?e Try not to increase pain medications any further. Try not to change any of the antipsych medications any further. Continue with nebulization treatment for next 2 weeks at the least. Follow-up with a primary care provider within next 1 week. Recheck bmp in 1 week to monitor potassium levels Discharge Attestations Time Spent in Discharge Care*: greater than 30 min Specific Discharge Activities: educating patient, discussing with pcp/other providers, discussing with machine adjuster leader case trim/social workers/dc planners, documenting/other paperwork and evaluating patient/reviewing data Status at Discharge: Cognitive status at discharge: cognitively intact , Behavioral status at discharge: cooperative , Functional status at discharge: other assisted ambulation , Overall status at discharge: patient is back to baseline Quality Metrics Clinical Quality Measures [ No reported AMI, CVA or VTE this stay] Coding Level of Care Code 89970 Total time (in minutes) for Discharge: 60 Diagnoses Respiratory failure with hypoxia J96.91 Pneumonia J18.9 Aspiration into lower respiratory tract T17.800A Generalized weakness R53.1 Abnormal T wave present on electrocardiography R94.31 Diarrhea R19.7 History of seizure Z87.898 Hypertension I10 Physical deconditioning R53.81 Major depressive disorder, recurrent F33.9 Lumbar disc disease with radiculopathy M51.16 Goals of care, counseling/discussion Z71.89 At risk for polypharmacy Z91.89
[2024-03-16] MEDS: potassium chloride ER 20 mEq Tablet 40 MEQ PO (11:52)
--- NOTE | 2024-03-16 13:15 | PC.SOCIAL ---
IMM Updated Updated pt on IMM. No questions voiced. Provided pt a copy. Initialed, dated, & timed copy in chart.
== END 2024-03-16 15:44 | disposition intermediate care facility (04) | DRG 640 ==
LOC: ER 10:40 → CSU 14:38 → MEDSURG 03-12 17:26
PROVIDERS: Nurse Practitioner Family; Physician Assistant; Admitting Provider Internal Medicine; Emergency Provider Family Medicine; PCP Physician Assistant; Visit Provider Student in an Organized Health Care Education/Training Program
DX: E87.6 Hypokalemia (principal); J69.0 Pneumonitis due to inhalation of food and vomit; J96.21 Acute and chronic respiratory failure with hypoxia; F33.9 Major depressive disorder, recurrent, unspecified; I24.89 Other forms of acute ischemic heart disease; J44.1 Chronic obstructive pulmonary disease with (acute) exacerbation; R64 Cachexia; Z68.1 Body mass index [BMI] 19.9 or less, adult; E83.52 Hypercalcemia; T17.990A Other foreign object in respiratory tract, part unspecified in causing asphyxiation, initial encounter; F17.200 Nicotine dependence, unspecified, uncomplicated; M19.90 Unspecified osteoarthritis, unspecified site; Z87.01 Personal history of pneumonia (recurrent); Z87.440 Personal history of urinary (tract) infections; R19.7 Diarrhea, unspecified; E86.0 Dehydration; I10 Essential (primary) hypertension; G40.909 Epilepsy, unspecified, not intractable, without status epilepticus; R94.31 Abnormal electrocardiogram [ECG] [EKG]; Z66 Do not resuscitate; E83.42 Hypomagnesemia; M54.16 Radiculopathy, lumbar region
CPT/HCPCS: 0241U; 36415; 36416; 36600; 71045; 71260; 74177; 80048; 80051; 80053; 80061; 80177; 81001; 82306; 82330; 82746; 82805; 82962; 83036; 83540; 83550; 83735; 83880; 84132; 84443; 84484; 85025; 86403; 87045; 87427; 87449; 87486; 87493; 87581; 87633; 92507; 92523; 92526; 92610; 93005; 93306; 94640; 94669; 94760; 96360; 96372; 96376; 97110; 97161; 97167; 97530; 99213; 99285; A9270; G0378; J1171; J1650; J2185; J2270; J2470; J3475; J3480; J7030; J7120; J7608; J7626

== ENCOUNTER 2024-03-19 08:08 | Emergency (ER) | payer MEDICARE, SELFPAY ==
[2024-03-19 08:13] VITALS: BP 120/62; PULSE 71; RESP 18; TEMP 36.6; O2SAT 96; BMI 18.5
[2024-03-19 08:18] VITALS: BP 120/62; PULSE 71; RESP 18; TEMP 36.6; O2SAT 96
--- NOTE | 2024-03-19 08:21 | XR_ITS ---
WS: [id number] Portable AP upright chest, 03/19/2024 Clinical Data: dyspnea Comparison: Portable chest, 03/13/2024 Findings: No nodules, masses or effusions are seen. The heart is normal. The pulmonary vascularity is not increased. No pneumonia or pneumothorax is seen. The aortic arch and descending thoracic aorta s howed minimal calcification and tortuosity. XR/XR chest 1V portable [id number] Impression: 1. Clearing of right lower lobe opacity. 2. Atherosclerosis.
--- NOTE | 2024-03-19 08:21 | ED_ITS ---
HPI - General Adult 2 General: Chief complaint: General Medical Stated complaint: low o2 stats Time Seen by Provider: 03/19/24 08:13 History of Present Illness: 63-year-old female with a history of pro tein calorie malnutrition, deconditioning, stage II sacral ulcer, generalized weakness, hypoxic respiratory failure, polypharmacy with toxic encephalopathy, mild diastolic heart failure, among other comorbidities who presents emergency department for hypoxia. Patient was also on the ground when staff at the [facility] checked on her this morning. Patient states that she was already up for the day and was sitting in a chair in her room. She intentionally lowered herself out of the chair because her sacral ulcer was hurting. She says she preferred to be on the ground where she could stretch out and rotate pressure. She reports she did not get injured sliding down because she did it on purpose in a controlled fashion. She was reportedly hypoxic and round and was placed on 1.5 L of oxygen by nasal cannula. Patient does have a history of aspiration pneumonia and is on a specific dysphagia diet. Patient reports no increased cough or any change in sputum. No fever or chills. Associated symptoms: Deny chest pain, rash or syncope Related Data Home Medications Medication Instructions Recorded Confirmed levetiracetam 500 mg 500 mg PO BID 08/17/23 03/19/24 tablet,extended release 24 hr cetirizine 5 mg tablet 5 mg PO DAILY 12/16/23 03/19/24 cholecalciferol (vitamin D3) 25 1,000 unit PO TID 12/16/23 03/19/24 mcg (1,000 unit) tablet fluticasone propionate 50 2 spray intranasal DAILY 12/16/23 03/19/24 mcg/actuation nasal spray,suspension ipratropium 0.5 mg-albuterol 3 mg 3 ml inhalation QID 12/16/23 03/19/24 (2.5 mg base)/3 mL nebulization soln acetaminophen 325 mg tablet 325 mg PO QID PRN Pain 03/06/24 03/19/24 (Tylenol) duloxetine 60 mg capsule,delayed 60 mg PO DAILY 03/06/24 03/19/24 release hydrocodone 5 mg-acetaminophen 325 1 tab PO Q6H PRN Pain 03/06/24 03/19/24 mg tablet potassium chloride 40 mEq/15 mL See Rx Instructions .Route .COMPLEX 03/19/24 03/19/24 oral liquid Previous Rx's Medication Instructions Recorded amlodipine 5 mg tablet 5 mg PO DAILY 30 days #30 tabs 03/16/24 metoprolol tartrate 25 mg tablet 25 mg PO BID@0900,2100 30 days #60 03/16/24 tabs pregabalin 50 mg capsule 50 mg PO DAILY #30 caps 03/16/24 Allergies Allergy/AdvReac Type Severity Reaction Status Date / Time amoxicillin [From Augmentin] Allergy ADR-Nausea Verified 12/14/23 09:38 clavulanic acid Allergy ADR-Nausea Verified 12/14/23 09:38 [From Augmentin] Review of Systems 2 General: Reports: 10 or more systems reviewed and unremarkable except in HPI and below Const: Denies: fever(s) or chills Eyes: Denies: change in vision ENMT: Denies: throat pain Card: Denies: chest pain, edema or syncope : Denies: flank pain, dysuria or urinary frequency Skin/Breast: Denies: rash or erythema PFSH ED 2 PFSH: Medical History (Updated 03/19/24 @ 10:33 by Daniel Horn MD) Hypertension Normal pressure hydrocephalus Tobacco dependence Lumbar disc disease with radiculopathy Dystonia Depression Arthritis Surgical History (Updated 03/17/24 @ 00:00 by NICK Méndez) History of knee surgery Family History Other Arthritis Social History Smoking and tobacco/nicotine status: unknown if used tobacco/nicotine Alcohol intake: former Year of sobriety/quit date alcohol: 2002 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 Stage II sacral ulcer without any signs of cellulitis or infection. Generalized fine rales in the lungs. Rare cough. No respiratory distress. When I originally took her off of oxygen nasal cannula she was in the low 90s on her SpO2. She did drop down to 86 for a brief period of time. We put her back on oxygen. We did an oxygen qualification and after taking off the oxygen for the second time she did not drop back down into the 80s and did not qualify. Const: COMMON NORMALS: no limitations and alert EXAM LIMITATIONS: no altered mental status HENMT: COMMON NORMALS: normocephalic, atraumatic and external ears normal H EAD & SCALP: normocephalic and atraumatic EXTERNAL EAR: Yes external ears normal MOUTH: no muffled voice Eye: COMMON NORMALS: conjunctivae normal and no scleral icterus C ONJUNCTIVA: Yes conjunctivae normal Neck/C-Spine: GENERAL: Yes normal visual inspection and Yes trachea midline Resp: COMMON NORMALS: normal respiratory effort and No use of accessory muscles Cardio: COMMON NORMALS: regular rate and regular rhythm RATE: regular rate RHYTHM: regular rhythm GI: COMMON NORMALS: Soft to palpation and non-tender PALPATION: Yes Soft to palpation and No Guarding due to palpation present (GI) Neuro: COMMON NORMALS: moves all extremities, no focal motor deficits and no sensory deficits noted SENSORIUM/ORIENTATION: Yes alert SPEECH: speech normal Psych: COMMON NORMALS: mental status grossly normal, Normal thought process present, normal affect and speech normal SPEECH: Yes normal speech THOUGHT PROCESS: Normal thought process present Skin: COMMON NORMALS: no jaundice Course 2 Vital Signs: Vital signs: Vital Signs Temperature 97.9 F 03/19/24 08:18 Pulse Rate 78 03/19/24 09:54 Respiratory Rate 18 03/19/24 09:47 Blood Pressure 120/62 03/19/24 08:18 Pulse Oximetry 93 03/19/24 09:57 Oxygen Delivery Me thod Room Air 03/19/24 09:54 Oxygen Flow Rate 1.5 03/19/24 09:47 MDM - General Adult Medical Decision Making 1. The patient's fall turns out not to be a fall. She says she intentionally lowered herself from her chair in order to relieve pressure on her sacrum. She is mostly bedbound so she could not get up and walk to a different area. Therefore, she justifies her intentional sliding from her chair so that she could reposition and lay down. 2. History of hypoxic respiratory failure and lung disease. Patient does have some crackles on exam however she does not appear to be in respiratory distress. As noted in the history, I took her oxygen off when she arrived and she transiently dropped into the 80s. We put her back on oxygen and when we did a formal oxygen qualification we could not get her oxygen to drop below 91%. Since the patient cannot ambulate, we were not able to do an ambulatory oxygen monitor 3. A chest x-ray was obtained. There is no sign of pulmonary edema, focal infiltrate, pneumothorax or effusions on my review. 4. Labs obtained and compared to previous, no significant change. It is noted that her bicarb is high, suggesting chronic CO2 retention. However, does not appear to be change from previous. At this time, no reason for hospitalization. I am going to write orders for the patient to have her SpO2 checked 3 times a day is and worried she may be intermittently dropping her oxygen saturations. Lab Data 03/19/24 09:55 03/19/24 09:55 Radiology Impressions Chest X-Ray 03/19/24 08:21 Impression: 1. Clearing of right lower lobe opacity. 2. Atherosclerosis. Laboratory Results WBC 5.00 10^3/uL (3.29-11.43) 03/19/24 09:55 RBC 4.73 10^6/uL (3.85-5.65) 03/19/24 09:55 Hgb 15.10 g/dL (11.27-16.99) 03/19/24 09:55 Hct 45.1 % (36-47) 03/19/24 09:55 MCV 95.3 fl (85-98) 03/19/24 09:55 MCH 31.9 pg (27-33) 03/19/24 09:55 MCHC 33.5 g/dL (30-55) 03/19/24 09:55 RDW 13.7 % (12.1-15.1) 03/19/24 09:55 Plt Count 321 10^3/cmm (157-399) 03/19/24 09:55 MPV 9.3 fL (7.4-10.4) 03/19/24 09:55 Neut % (Auto) 68.6 % 03/19/24 09:55 Lymph % (Auto) 24.6 % 03/19/24 09:55 [place] % (Auto) 5.2 % 03/19/24 09:55 Eos % (Auto) 0.2 % 03/19/24 09:55 Baso % (Auto) 0.2 % 03/19/24 09:55 Neut # (Auto) 3.43 10^3/uL (1.8-7.7) 03/19/24 09:55 Lymph # (Auto) 1.2 10^3/uL (0.8-4.8) 03/19/24 09:55 [place] # (Auto) 0.3 10^3/uL (0.2-0.9) 03/19/24 09:55 Eos # (Auto) 0.0 10^3/uL (0.0-0.8) 03/19/24 09:55 Baso # (Auto) 0.0 10^3/uL (0.0-0.1) 03/19/24 09:55 Nucleated RBC % (auto) 0 % 03/19/24 09:55 Nucleated RBCs # 0.0 /100WBC 03/19/24 09:55 Sodium 137 mmol/L (136-145) 03/19/24 09:55 Potassium 3.7 mmol/L (3.5-5.1) 03/19/24 09:55 Chloride 93 mmol/L (98-107) L 03/19/24 09:55 Carbon Dioxide 35 mmol/L (22-29) H 03/19/24 09:55 Anion Gap 12.7 (5-19) 03/19/24 09:55 BUN 9 mg/dL (8-23) 03/19/24 09:55 Creatinine 0.4 mg/dL (0.5-0.9) L 03/19/24 09:55 GFR Calculation 160.2 mL/min (90-130) H 03/19/24 09:55 Glucose 98 mg/dL (65-115) 03/19/24 09:55 Calculated Osmolality 283 mOsm/kg (285-295) L 03/19/24 09:55 Calcium 9.7 mg/dL (8.5-10.5) 03/19/24 09:55 Magnesium 2.1 mg/dL (1.7-2.3) 03/19/24 09:55 Total Bilirubin 0.2 mg/dL (0.15-1.2) 03/19/24 09:55 AST 21 U/L (0-32) 03/19/24 09:55 ALT 8 U/L (0-33) 03/19/24 09:55 Alkaline Phosphatase 69 U/L (35-105) 03/19/24 09:55 Total Protein 7.4 g/dL (6.6-8.7) 03/19/24 09:55 Albumin 3.9 g/dL (3.5-5.2) 03/19/24 09:55 Globulin 3.5 g/dL (1.3-4.6) 03/19/24 09:55 All radiology interpretation(s) finalized by discharge ED provider radiology interpretation(s): Chest x-ray 1 view. EP interpretation. Patient no longer has any infiltrate. No pneumothorax, effusion, or other acute findings noted. Discharge Plan Discharge Patient Disposition: [facility] Clinical Impression: History of aspiration pneumonia, Physical deconditioning, Chronic ulcer of sacral region limited to breakdown of skin, Protein calorie malnutrition Condition: Stable Referrals: Rosy aJvier PA [Primary Care Provider] - 03/23/24 Activity Restrictions/Additional Instructions: 1. Patient's SpO2 reading needs to be checked 3 times per day. If she is less than 88%, please call the medical records technician for oxygen prescription. Unfortunately, the patient did not qualify for oxygen in the emergency department although she was very close. 2. Patient has protein calorie malnutrition. Please consult with dietary/nutrition for treatment plan. If the patient develops a fever, respiratory distress, altered mental status, lethargy, or other urgent or concerning symptoms please return to the emergency department. Otherwise please have her follow-up with her primary care doctor on Saturday. Coding Level of Care Code ED Supervisor Grips for Юлия Staley
--- NOTE | 2024-03-19 08:55 | PC.PHAR ---
patient is from [place]
[2024-03-19] MEDS: ipratropium-albuterol 3 mL Neb INHALATION (09:45)
[2024-03-19 09:47] VITALS: PULSE 75; RESP 18; O2SAT 100
[2024-03-19 09:54] VITALS: PULSE 78; O2SAT 93
[2024-03-19 09:57] VITALS: O2SAT 93
[2024-03-19 10:04] LABS: Basophils % 0.2 %; Eosinophils % 0.2 %; Hematocrit 45.1 % (36-47); Lymphocytes # 1.2 10^3/uL (0.8-4.8); Lymphocytes % 24.6 %; Mean Corpuscular HGB Conc 33.5 g/dL (30-55); Mean Corpuscular Hemoglobin 31.9 pg (27-33); Mean Corpuscular Volume 95.3 fl (85-98); Mean Platelet Volume 9.3 fL (7.4-10.4); Monocytes # 0.3 10^3/uL (0.2-0.9); Monocytes % 5.2 %; Neutrophils # 3.43 10^3/uL (1.8-7.7); Neutrophils % 68.6 %; Nucleated Red Blood Cells % 0 %; Platelet Count 321 10^3/cmm (157-399); Red Blood Count 4.73 10^6/uL (3.85-5.65); Red Cell Distribution Width 13.7 % (12.1-15.1)
[2024-03-19 10:19] LABS: Alanine Aminotransferase 8 U/L (0-33); Albumin Level 3.9 g/dL (3.5-5.2); Alkaline Phosphatase 69 U/L (35-105); Anion Gap 12.7 (5-19); Aspartate Amino Transferase 21 U/L (0-32); Blood Urea Nitrogen 9 mg/dL (8-23); Calcium 9.7 mg/dL (8.5-10.5); Carbon Dioxide 35 mmol/L (22-29); Chloride 93 mmol/L (98-107); Creatinine Clr Calc Pharmacy 49.2916; Globulin 3.5 g/dL (1.3-4.6); Glomerular Filtration Rate 160.2 mL/min (90-130); Glucose 98 mg/dL (65-115); Magnesium 2.1 mg/dL (1.7-2.3); Osmolality Calculated 283 mOsm/kg (285-295); Potassium 3.7 mmol/L (3.5-5.1); Sodium 137 mmol/L (136-145); Total Bilirubin 0.2 mg/dL (0.15-1.2); Total Protein 7.4 g/dL (6.6-8.7)
--- NOTE | 2024-03-19 10:53 | PC.NURSE ---
TAMI AT [facility] TO TRANSPORT PATIENT BACK TO THEM VIA [facility] AND THEY WILL PAY THE EXPENSE. STAFFING REPORT GIVEN, TOLD FACILITY TO CHECK O2 SATS 3 TIMES PER DAY AND SPEAK WITH HER PROVIDER ABOUT O2 PATIENT IS REFUSING TO DO HOME O2 EVALUATION HERE.
[2024-03-19 11:40] VITALS: BP 153/84; PULSE 81; O2SAT 91
== END 2024-03-19 11:43 | disposition home or self-care (01) ==
PROVIDERS: Emergency Provider Emergency Medicine; PCP Physician Assistant
DX: L98.411 Non-pressure chronic ulcer of buttock limited to breakdown of skin (principal); E46 Unspecified protein-calorie malnutrition; I10 Essential (primary) hypertension
CPT/HCPCS: 71045; 80053; 83735; 85025; 94640; 94760; 99284

== ENCOUNTER 2024-03-21 06:03 | Inpatient (IN) | payer MEDICARE, SELFPAY ==
[2024-03-21] VITALS (19 sets, daily range): BP systolic 119–167; BP diastolic 78–101; PULSE 62–112; RESP 17–20; TEMP 36.4–36.6; O2SAT 92–98; BMI 19.5; BMI 16.1
--- NOTE | 2024-03-21 06:13 | ECG_ITS ---
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 Measurements Intervals [place] Rate: 89 P: 72 WI: 137 QRS: 50 QRSD: 86 T: 162 QT: 355 QTc: 434 Interpretive Statements SINUS RHYTHM POSSIBLE RIGHT ATRIAL ENLARGEMENT [0.25mV P-WAVE] LEFT VENTRICULAR HYPERTROPHY AND ST-T CHANGE [VOLTAGE CRITERIA PLUS ST/T ABNORMALITY] Compared to ECG 03/06/2024 16:38:36 Left ventricular hypertrophy now present ST (T wave) deviation now present Myocardial infarct finding no longer present T-wave abnormality no longer present Possible ischemia no longer present Electronically Signed On 03-23-2024 20:35:26 COUNSELING SERVICES MANAGER by Burak Whalen M.D. [email or web address]
--- NOTE | 2024-03-21 06:14 | XRR_ITS ---
PROCEDURE INFORMATION: Exam: XR Chest Exam date and time: 03/21/2024 6:19 AM Age: 63 years old Clinical indication: Cough and shortness of breath; Patient HX: Cough with SOB. Recent pneumonia. ; Additional info: Dyspnea/cough TECHNIQUE: Imaging protocol: Radiologic exam of the chest. Views: 1 view. COMPARISON: CR XR chest 1V portable [id number] 03/19/2024 8:39 AM FINDINGS: Lungs: No consolidation. Pleural spaces: No pleural effusion. No pneumothorax. Heart/Mediastinum: No cardiomegaly. Bones/joints: No acute findings. XR/XR chest 1V portable [id number] IMPRESSION: Stable exam. No new consolidation.
[2024-03-21 06:23] LABS: Basophils % 0.2 %; Eosinophils % 0.3 %; Hematocrit 48.8 % (36-47); Lymphocytes # 1.8 10^3/uL (0.8-4.8); Lymphocytes % 27.7 %; Mean Corpuscular Hemoglobin 31.7 pg (27-33); Mean Corpuscular Volume 93.3 fl (85-98); Monocytes # 0.5 10^3/uL (0.2-0.9); Monocytes % 6.9 %; Neutrophils # 4.17 10^3/uL (1.8-7.7); Neutrophils % 64.3 %; Nucleated Red Blood Cells % 0 %; Platelet Count 402 10^3/cmm (157-399); Red Blood Count 5.23 10^6/uL (3.85-5.65); Red Cell Distribution Width 13.7 % (12.1-15.1); White Blood Count 6.49 10^3/uL (3.29-11.43)
--- NOTE | 2024-03-21 06:25 | ED_ITS ---
HPI - SOB/Dyspnea 2 General: Chief Complaint: Shortness of Breath/Dyspnea Stated Complaint: SOB Time Seen by Provider: 03/21/24 06:10 History of Present Illness: HPI Narrative: 63-year-old female presents to the [facility] ency room with complaints of shortness of breath. Patient was recently hospitalized for pneumonia COPD exacerbation. She tells me she was discharged home on room air. Reviewing the note I do not see where she was discharged home on oxygen or any further antibiotics. She is complaining of shortness of breath generalized weakness she has protein calorie malnutrition end-stage COPD she denies any chest pain no productive cough she feels she is too weak to cough anything up. Associated symptoms: Deny abdominal pain, chest pain or fever(s) Related Data Home Medications Medication Instructions Recorded Confirmed levetiracetam 500 mg 500 mg PO BID 08/17/23 03/21/24 tablet,extended release 24 hr cetirizine 5 mg tablet 5 mg PO DAILY 12/16/23 03/21/24 cholecalciferol (vitamin D3) 25 1,000 unit PO TID 12/16/23 03/21/24 mcg (1,000 unit) tablet fluticasone propionate 50 2 spray intranasal DAILY 12/16/23 03/21/24 mcg/actuation nasal spray,suspension ipratropium 0.5 mg-albuterol 3 mg 3 ml inhalation QID 12/16/23 03/21/24 (2.5 mg base)/3 mL nebulization soln acetaminophen 325 mg tablet 650 mg PO QID PRN Pain 03/06/24 03/21/24 (Tylenol) duloxetine 60 mg capsule,delayed 60 mg PO DAILY 03/06/24 03/21/24 release hydrocodone 5 mg-acetaminophen 325 1 tab PO Q6H PRN Pain 03/06/24 03/21/24 mg tablet potassium chloride 40 mEq/15 mL See Rx Instructions .Route .COMPLEX 03/19/24 03/21/24 oral liquid docusate sodium 100 mg capsule 100 mg PO BID 03/21/24 03/21/24 (Colace) polyethylene glycol 3350 17 17 g PO DAILY 03/21/24 03/21/24 gram/dose oral powder (Miralax) Previous Rx's Medication Instructions Recorded amlodipine 5 mg tablet 5 mg PO DAILY 30 days #30 tabs 03/16/24 metoprolol tartrate 25 mg tablet 25 mg PO BID@0900,2100 30 days #60 03/16/24 tabs pregabalin 50 mg capsule 50 mg PO DAILY #30 caps 03/16/24 Allergies Allergy/AdvReac Type Severity Reaction Status Date / Time amoxicillin [From Augmentin] Allergy ADR-Nausea Verified 12/14/23 09:38 clavulanic acid Allergy ADR-Nausea Verified 12/14/23 09:38 [From Augmentin] Review of Systems 2 Const: Denies: fever(s) or chills Card: Denies: chest pain Resp: Reports: dyspnea and wheezing GI: Denies: abdominal pain : Denies: dysuria, urinary frequency or urinary urgency Musc: Denies: neck pain or back pain Skin/Breast: Denies: rash PFSH ED 2 PFSH: Medical History (Updated 03/21/24 @ 16:22 by Gautam Marie DO) Hypertension Normal pressure hydrocephalus Tobacco dependence Lumbar disc disease with radiculopathy Dystonia Depression Arthritis Surgical History (Updated 03/17/24 @ 00:00 by NICK Méndez) History of knee surgery Family History Other Arthritis Social History Smoking and tobacco/nicotine status: unknown if used tobacco/nicotine Alcohol intake: former Year of sobriety/quit date alcohol: 2002 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 Physical Exam 2 Const: GENERAL APPEARANCE: cooperative ORIENTATION/CONSCIOUSNESS: Yes awake, Yes oriented to person, Yes oriented to place and Yes oriented to time HENMT: COMMON NORMALS: normocephalic, atraumatic and hearing grossly normal bilaterally HEAD & SCALP: normocephalic and atraumatic Resp: COMMON NORMALS: normal respiratory effort, No retractions, No use of accessory muscles and clear to auscultation bilaterally AUSCULTATION: clear to auscultation bilaterally Cardio: COMMON NORMALS: regular rate, regular rhythm and No murmurs present (Cardio) RATE: regular rate RHYTHM: regular rhythm GI: COMMON NORMALS: Soft to palpation and No hepatosplenomegaly present A USCULTATION: Yes normoactive bowel sounds PALPATION: Yes Soft to palpation, No Tenderness to palpation present (GI), No Guarding due to palpation present (GI) and Yes No hepatosplenomegaly present Extremity: COMMON NORMALS: normal to inspection, capillary refill normal, no clubbing, cyanosis or edema, no calf tenderness and no pedal edema Neuro: SENSORIUM/ORIENTATION: Yes oriented to person, Yes oriented to place and Yes oriented to time Skin: COMMON NORMALS: no rashes or lesions noted GENERAL SKIN EXAM: no rashes or lesions noted Course 2 Vital Signs: Vital signs: Vital Signs Temperature 97.8 F 03/21/24 15:47 Pulse Rate 96 03/21/24 15:47 Respiratory Rate 18 03/21/24 15:47 Blood Pressure 149/83 03/21/24 15:47 Pulse Oximetry 97 03/21/24 15:47 Oxygen Delivery Me thod Nasal Cannula 03/21/24 15:47 Oxygen Flow Rate 3 03/21/24 14:42 MDM - SOB/Dyspnea Medical Decision Making Exacerbation COPD with COVID pneumonia. Admit for aggressive pulmonary toilet regular steroids consideration of antiviral such as remdesivir discussed with hospitalist orders written Medical Records I reviewed the patient's medical records. Lab Data I reviewed the patient's lab results. 03/21/24 06:15 03/21/24 06:15 Labs/Radiology: Radiology Impressions Chest X-Ray 03/21/24 06:14 IMPRESSION: Stable exam. No new consolidation. Laboratory Results WBC 6.49 10^3/uL (3.29-11.43) 03/21/24 06:15 RBC 5.23 10^6/uL (3.85-5.65) 03/21/24 06:15 Hgb 16.60 g/dL (11.27-16.99) 03/21/24 06:15 Hct 48.8 % (36-47) H 03/21/24 06:15 MCV 93.3 fl (85-98) 03/21/24 06:15 MCH 31.7 pg (27-33) 03/21/24 06:15 MCHC 34.0 g/dL (30-55) 03/21/24 06:15 RDW 13.7 % (12.1-15.1) 03/21/24 06:15 Plt Count 402 10^3/cmm (157-399) H 03/21/24 06:15 MPV 10.0 fL (7.4-10.4) 03/21/24 06:15 Neut % (Auto) 64.3 % 03/21/24 06:15 Lymph % (Auto) 27.7 % 03/21/24 06:15 [place] % (Auto) 6.9 % 03/21/24 06:15 Eos % (Auto) 0.3 % 03/21/24 06:15 Baso % (Auto) 0.2 % 03/21/24 06:15 Neut # (Auto) 4.17 10^3/uL (1.8-7.7) 03/21/24 06:15 Lymph # (Auto) 1.8 10^3/uL (0.8-4.8) 03/21/24 06:15 [place] # (Auto) 0.5 10^3/uL (0.2-0.9) 03/21/24 06:15 Eos # (Auto) 0.0 10^3/uL (0.0-0.8) 03/21/24 06:15 Baso # (Auto) 0.0 10^3/uL (0.0-0.1) 03/21/24 06:15 Nucleated RBC % (auto) 0 % 03/21/24 06:15 Nucleated RBCs # 0.0 /100WBC 03/21/24 06:15 Specimen Type Arterial 03/21/24 06:45 Sample Site Brachial, left 03/21/24 06:45 ABG pH 7.44 (7.35-7.45) 03/21/24 06:45 ABG pCO2 48.3 mmHg (35-45) H 03/21/24 06:45 ABG pO2 62.2 mmHg (80.0-100.0) L 03/21/24 06:45 ABG HCO3 33.1 mmol/L (22-26) H 03/21/24 06:45 ABG O2 Saturation 93.4 03/21/24 06:45 ABG Base Excess 7.6 mmol/L (-2.0-2.0) H 03/21/24 06:45 Zack Test N/a 03/21/24 06:45 A-a O2 Gradient 4.0 mmHg (5-10) L 03/21/24 06:45 Hematocrit 46.2 % (37-47) 03/21/24 06:45 Hgb O2 Saturation 90.7 % (95-100) L 03/21/24 06:45 Carboxyhemoglobin 2.7 %THgb (0.4-20.1) 03/21/24 06:45 Methemoglobin 0.2 % (0.4-1.5) L 03/21/24 06:45 Total Hemoglobin 15.1 g/dL (12-16) 03/21/24 06:45 Sodium 139.0 mmol/L (131-143) 03/21/24 06:45 Potassium 3.0 mmol/L (3.5-5.0) L 03/21/24 06:45 Glucose 88.0 mg/dL (70-115) 03/21/24 06:45 Ionized Calcium 1.2 mmol/L (1.1-1.4) 03/21/24 06:45 O2 Delivery Device Nc 03/21/24 06:45 O2 Liters/Min 3.0 % 03/21/24 06:45 Swimming Pool Maintenance Supervisor ID Alberto 03/21/24 06:45 Sodium 138 mmol/L (136-145) 03/21/24 06:15 Potassium 3.8 mmol/L (3.5-5.1) 03/21/24 06:15 Chloride 92 mmol/L (98-107) L 03/21/24 06:15 Carbon Dioxide 34 mmol/L (22-29) H 03/21/24 06:15 Anion Gap 15.8 (5-19) 03/21/24 06:15 BUN 8 mg/dL (8-23) 03/21/24 06:15 Creatinine 0.5 mg/dL (0.5-0.9) 03/21/24 06:15 GFR Calculation 123.8 mL/min (90-130) 03/21/24 06:15 Glucose 87 mg/dL (65-115) 03/21/24 06:15 Calculated Osmolality 284 mOsm/kg (285-295) L 03/21/24 06:15 Calcium 10.6 mg/dL (8.5-10.5) H 03/21/24 06:15 Total Bilirubin 0.3 mg/dL (0.15-1.2) 03/21/24 06:15 AST 33 U/L (0-32) H 03/21/24 06:15 ALT 21 U/L (0-33) 03/21/24 06:15 Alkaline Phosphatase 80 U/L (35-105) 03/21/24 06:15 C-Reactive Protein 7.0 mg/L (0.0-4.9) H 03/21/24 06:15 NT-Pro-B Natriuret Pep 1534 pg/mL (0-125) H 03/21/24 06:15 Total Protein 8.5 g/dL (6.6-8.7) 03/21/24 06:15 Albumin 4.5 g/dL (3.5-5.2) 03/21/24 06:15 Globulin 4.0 g/dL (1.3-4.6) 03/21/24 06:15 Procalcitonin 0.08 ng/mL (0-0.5) 03/21/24 06:15 TSH 0.84 uIU/mL (0.27-4.20) 03/21/24 06:15 PTH Intact 29.6 pg/mL (15-65) 03/21/24 06:15 Calcium (PTH Intact) 10.5 mg/dL (8.5-10.5) 03/21/24 06:15 Coronavirus (PCR) Positive (Negative) A 03/21/24 07:38 Influenza A (PCR) Negative (Negative) 03/21/24 07:38 Influenza Type B (PCR) Negative (Negative) 03/21/24 07:38 RSV (PCR) Negative (Negative) 03/21/24 07:38 All radiology interpretation(s) finalized by discharge Discharge Plan Discharge Patient Disposition: Admitted As Inpatient Admit Provider: Peyton Osuna Clinical Impression: COVID, Acute exacerbation of chronic obstructive airways disease Condition: Stable Coding Level of Care Code ED Demurrage Clerk for Юлия Staley
[2024-03-21] MEDS: ipratropium-albuterol 3 mL Neb INHALATION (06:40)
[2024-03-21 06:45] LABS: Alanine Aminotransferase 21 U/L (0-33); Albumin Level 4.5 g/dL (3.5-5.2); Alkaline Phosphatase 80 U/L (35-105); Aspartate Amino Transferase 33 U/L (0-32); Blood Urea Nitrogen 8 mg/dL (8-23); Calcium 10.6 mg/dL (8.5-10.5); Carbon Dioxide 34 mmol/L (22-29); Chloride 92 mmol/L (98-107); Creatinine Clr Calc Pharmacy 50.2957; Glomerular Filtration Rate 123.8 mL/min (90-130); Glucose 87 mg/dL (65-115); Osmolality Calculated 284 mOsm/kg (285-295); Sodium 138 mmol/L (136-145); Total Bilirubin 0.3 mg/dL (0.15-1.2); Total Protein 8.5 g/dL (6.6-8.7)
[2024-03-21 06:51] LABS: Anion Gap 15.8 (5-19); Potassium 3.8 mmol/L (3.5-5.1)
[2024-03-21 06:57] LABS: ABG PCO2 48.3 mmHg (35-45); ABG PH Result 7.44 (7.35-7.45); Arterial Blood Gas Hematocrit 46.2 % (37-47); Base Excess ABG 7.6 mmol/L (-2.0-2.0); Blood Gas Operator Identificat SAM; Blood Gas Sample Site Brachial, left; Blood Gas Sample Type Arterial; Carboxyhemoglobin 2.7 %THgb (0.4-20.1); HCO3 ABG 33.1 mmol/L (22-26); HGB O2 Sat 90.7 % (95-100); Ionized Calcium Level - ABG 1.2 mmol/L (1.1-1.4); Methemoglobin 0.2 % (0.4-1.5); Oxygen Device NC; Oxygen Saturation ABG 93.4; PO2 ABG 62.2 mmHg (80.0-100.0); Total Hemoglobin 15.1 g/dL (12-16)
--- NOTE | 2024-03-21 07:29 | PC.NURSE ---
took over pt care at 0650 from DONNA Artis. after s/c this RN went to pull med that was due at 0613, in the Pyxis med said it was pulled by previous RN. med not given by this RN, previous RN said that he gave medication.
[2024-03-21 07:47] LABS: NT Pro B Type Natriuretic Pept 1534 pg/mL (0-125)
[2024-03-21 08:24] LABS: Influenza A NEGATIVE (Negative); Influenza B NEGATIVE (Negative); Respiratory Syncytial Virus Ce NEGATIVE (Negative)
[2024-03-21] MEDS: FUROsemide 10 mg/mL SDV 4mL 40 MG IVP (08:34)
[2024-03-21 08:37] LABS: Covid PCR Positive (Negative)
[2024-03-21] MEDS: dexamethasone 10 mg/mL INJ IVP (10:03)
--- NOTE | 2024-03-21 13:44 | P.HP_ITS ---
Providers/Chief Complaint 2 Admitting Physician: Peyton Osuna MD Primary Care Provider: Rosy Javier Chief Complaint: SOB History of Present Illness Nicolasa Kothari is a 63 year old female With past medical history of seizures, hypertension, normal pressure hydrocephalus, depression, arthritis who was discharged from the hospital after being treated for respiratory failure pneumonia UTI generalized weakness. There were also concerns for ST changes for which cardiology was consulted. Echocardiogram showed normal EF with grade 1 diastolic dysfunction. There was concern for polypharmacy because of high doses of pain medication and medications were adjusted with discharge. She was placed on dysphagia level 4 pur?ed diet. She presented back to the hospital today for shortness of breath, COPD exacerbation, was found to be COVID-positive. BNP 1500. He states that she has had diarrhea since she went home. Denies any nausea or vomiting. Also had cough productive of yellow sputum. No fever. She says she has never had oxygen at home before. Medications/Allergies Home Medications Medication Instructions Recorded Confirmed Last Taken Type levetiracetam 500 mg 500 mg PO BID 08/17/23 03/21/24 03/20/24 History tablet,extended release 24 hr cetirizine 5 mg tablet 5 mg PO DAILY 12/16/23 03/21/24 03/20/24 History cholecalciferol (vitamin D3) 25 1,000 unit PO TID 12/16/23 03/21/24 03/20/24 History mcg (1,000 unit) tablet fluticasone propionate 50 2 spray intranasal DAILY 12/16/23 03/21/24 03/20/24 History mcg/actuation nasal spray,suspension ipratropium 0.5 mg-albuterol 3 mg 3 ml inhalation QID 12/16/23 03/21/24 03/20/24 History (2.5 mg base)/3 mL nebulization soln acetaminophen 325 mg tablet 650 mg PO QID PRN Pain 03/06/24 03/21/24 03/20/24 History (Tylenol) duloxetine 60 mg capsule,delayed 60 mg PO DAILY 03/06/24 03/21/24 03/20/24 History release hydrocodone 5 mg-acetaminophen 325 1 tab PO Q6H PRN Pain 03/06/24 03/21/24 03/20/24 History mg tablet amlodipine 5 mg tablet 5 mg PO DAILY 30 days #30 tabs 03/16/24 03/21/24 03/20/24 Rx metoprolol tartrate 25 mg tablet 25 mg PO BID@0900,2100 30 days #60 03/16/24 03/21/24 03/20/24 Rx tabs pregabalin 50 mg capsule 50 mg PO DAILY #30 caps 03/16/24 03/21/24 03/20/24 Rx potassium chloride 40 mEq/15 mL See Rx Instructions .Route .COMPLEX 03/19/24 03/21/24 03/20/24 History oral liquid docusate sodium 100 mg capsule 100 mg PO BID 03/21/24 03/21/24 03/20/24 History (Colace) polyethylene glycol 3350 17 17 g PO DAILY 03/21/24 03/21/24 03/20/24 History gram/dose oral powder (Miralax) Allergies Allergy/AdvReac Type Severity Reaction Status Date / Time amoxicillin [From Augmentin] Allergy ADR-Nausea Verified 12/14/23 09:38 clavulanic acid Allergy ADR-Nausea Verified 12/14/23 09:38 [From Augmentin] PFSH Acute 2 PFSH: Medical History (Updated 03/21/24 @ 14:29 by Peyton Osuna MD) Hypertension Normal pressure hydrocephalus Tobacco dependence Lumbar disc disease with radiculopathy Dystonia Depression Arthritis Surgical History (Updated 03/17/24 @ 00:00 by NICK Méndez) History of knee surgery Family History Other Arthritis Social History Smoking and tobacco/nicotine status: unknown if used tobacco/nicotine Alcohol intake: former Year of sobriety/quit date alcohol: 2002 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 HEENT: Normocephalic, atraumatic, EOMI, Cardio: Regular rate rhythm, normal S1-S2, Respiratory: Good bilateral air entry, no wheezes no rhonchi appreciated GI: Abdomen soft, nontender, nondistended, bowel sounds + Behavior: Appropriate and cooperative Extremities: No edema bilateral lower extremities. Data 03/21/24 06:15 03/21/24 06:15 A&P Assessment and plan (1) At risk for polypharmacy: (2) Major depressive disorder, recurrent: (3) Hypertension: (4) Protein calorie malnutrition: (5) History of seizure: (6) Pneumonia: (7) History of aspiration pneumonia: (8) Physical deconditioning: (9) Generalized weakness: (10) Respiratory failure with hypoxia: (11) COVID: Plan #Acute hypoxia requiring supplemental oxygen #Hypercalcemia #COVID-positive #Pneumonia #Diarrhea #Seizures #Hypertension #Major Depressive Disorder #Lumbar disc disease -Patient is COVID-19 positive. ? Will place on dexamethasone 6 daily ? Continue amlodipine, cetirizine. She did receive Lasix 40 IV x 1 in the ER. ? Will place on 20 IV daily ? Continue metoprolol to tartrate, continue Keppra. ? Continue potassium supplementation ? Calcium 10.8. Will check PTH, TSH ? Continue home pregabalin. ? Still has ongoing diarrhea from previous admission. Stool culture negative. Will check C. difficile. ? duoneb every 6 hours as needed - place on vanc + zosyn to cover for pneumonia full code dvt ppx: lovenox Attestations 2 Medical Necessity Statement*: pneumonia, diarrhea, hypoxia Diagnoses At risk for polypharmacy Z91.89 Major depressive disorder, recurrent F33.9 Hypertension I10 Protein calorie malnutrition E46 History of seizure Z87.898 Pneumonia J18.9 History of aspiration pneumonia Z87.01 Physical deconditioning R53.81 Generalized weakness R53.1 Respiratory failure with hypoxia J96.91 COVID U07.1
[2024-03-21] MEDS: cholecalciferol (vitamin D3) 1,000 unit Tablet 1000 UNIT PO ×2 (14:04→20:28)
[2024-03-21] MEDS: FUROsemide 10 mg/mL SDV 2mL 20 MG IVP (14:04)
[2024-03-21] MEDS: potassium chloride ER 20 mEq Tablet 40 MEQ PO (14:04)
[2024-03-21] MEDS: dexamethasone 10 mg/mL INJ 6 MG IVP (14:04)
[2024-03-21] MEDS: enoxaparin 40 mg/0.4 mL Syringe SUBCUT (14:05)
[2024-03-21 14:29] LABS: Procalcitonin 0.08 ng/mL (0-0.5)
[2024-03-21] MEDS: acetaminophen 325 mg Tablet 650 MG PO (14:52)
[2024-03-21 15:32] LABS: Parathyroid Hormone 29.6 pg/mL (15-65)
[2024-03-21 15:36] LABS: Calcium 10.5 mg/dL (8.5-10.5); Thyroid Stimulating Hormone 0.84 uIU/mL (0.27-4.20)
[2024-03-21] MEDS: HYDROcodone-acetaminophen 5-325 mg Tablet 1 TAB PO (15:56)
[2024-03-21] MEDS: levETIRAcetam 500 mg Tablet PO (17:24)
--- NOTE | 2024-03-21 18:47 | PC.PT ---
Physical Therapy evaluation attempted. Patient states she is not feeling up to therapy at this time.
[2024-03-21] MEDS: metoprolol tartrate 25 mg Tablet PO (20:28)
[2024-03-22] VITALS (8 sets, daily range): BP systolic 106–154; BP diastolic 65–88; PULSE 63–73; RESP 12–17; TEMP 36.3–36.8; O2SAT 97–100
[2024-03-22] MEDS: HYDROcodone-acetaminophen 5-325 mg Tablet 1 TAB PO (05:36)
[2024-03-22 05:46] LABS: Basophils % 0.2 %; Hematocrit 41.1 % (36-47); Lymphocytes # 1.7 10^3/uL (0.8-4.8); Lymphocytes % 15.9 %; Mean Corpuscular HGB Conc 33.8 g/dL (30-55); Mean Corpuscular Hemoglobin 31.6 pg (27-33); Mean Corpuscular Volume 93.4 fl (85-98); Mean Platelet Volume 10.1 fL (7.4-10.4); Monocytes # 0.6 10^3/uL (0.2-0.9); Monocytes % 5.9 %; Neutrophils # 8.34 10^3/uL (1.8-7.7); Neutrophils % 77.2 %; Nucleated Red Blood Cells % 0 %; Platelet Count 419 10^3/cmm (157-399); Red Cell Distribution Width 13.7 % (12.1-15.1); White Blood Count 10.81 10^3/uL (3.29-11.43)
[2024-03-22 05:51] LABS: INR 0.93 (0.8-1.2)
[2024-03-22 05:56] LABS: Alanine Aminotransferase 15 U/L (0-33); Albumin Level 3.8 g/dL (3.5-5.2); Alkaline Phosphatase 64 U/L (35-105); Anion Gap 14.1 (5-19); Aspartate Amino Transferase 20 U/L (0-32); Blood Urea Nitrogen 15 mg/dL (8-23); Calcium 9.6 mg/dL (8.5-10.5); Carbon Dioxide 31 mmol/L (22-29); Chloride 94 mmol/L (98-107); Creatinine Clr Calc Pharmacy 49.4727; Globulin 2.8 g/dL (1.3-4.6); Glomerular Filtration Rate 123.8 mL/min (90-130); Glucose 109 mg/dL (65-115); Magnesium 2.1 mg/dL (1.7-2.3); Osmolality Calculated 281 mOsm/kg (285-295); Phosphorus 2.8 mg/dL (2.5-4.5); Potassium 4.1 mmol/L (3.5-5.1); Sodium 135 mmol/L (136-145); Total Bilirubin 0.2 mg/dL (0.15-1.2); Total Protein 6.6 g/dL (6.6-8.7)
[2024-03-22] MEDS: metoprolol tartrate 25 mg Tablet PO ×2 (08:59→20:40)
[2024-03-22] MEDS: cetirizine 10 mg Tablet 5 MG PO (08:59)
[2024-03-22] MEDS: pantoprazole DR 40 mg Tablet PO (08:59)
[2024-03-22] MEDS: pregabalin 50 mg Capsule PO (08:59)
[2024-03-22] MEDS: duloxetine 60 mg Capsule PO (08:59)
[2024-03-22] MEDS: docusate sodium 100 mg Capsule PO ×2 (09:00→18:04)
[2024-03-22] MEDS: cholecalciferol (vitamin D3) 1,000 unit Tablet 1000 UNIT PO ×3 (09:00→20:40)
[2024-03-22] MEDS: amlodipine 5 mg Tablet PO (09:00)
[2024-03-22] MEDS: potassium chloride ER 10 mEq Tablet PO (09:00)
[2024-03-22] MEDS: levETIRAcetam 500 mg Tablet PO ×2 (09:00→18:04)
[2024-03-22] MEDS: ipratropium-albuterol 3 mL Neb INHALATION (09:12)
[2024-03-22] MEDS: acetaminophen 325 mg Tablet 650 MG PO (10:06)
--- NOTE | 2024-03-22 10:06 | PC.NURSE ---
PRN medication: Pt given PRN Tylenol for c/o pain.
[2024-03-22] MEDS: enoxaparin 40 mg/0.4 mL Syringe SUBCUT (13:30)
[2024-03-22] MEDS: dexamethasone 10 mg/mL INJ 6 MG IVP (13:31)
[2024-03-22] MEDS: FUROsemide 10 mg/mL SDV 2mL 20 MG IVP (13:31)
--- NOTE | 2024-03-22 17:00 | P.PN_ITS ---
Subjective 2 Subjective: She is seen eating dinner. She tells me that her dyspnea has improved. She is on 1L NC O2. She states that she does not wear O2 at home. She denies f/c, CP, palpitations, SOB, abdominal pain, n/v. Per nursing staff, patient has not had a BM all day. I held Lasix and started Remdesivir today. Vitals/I&O/Wt Last Vital Signs Temp 97.4 F L 03/22/24 15:34 Pulse 68 03/22/24 15:34 Resp 17 03/22/24 15:34 BP 114/69 03/22/24 15:34 Pulse Ox 100 03/22/24 15:34 O2 Del Method Nasal Cannula 03/22/24 15:34 O2 Flow Rate 3 03/22/24 09:12 03/22/24 03/22/24 03/22/24 06:59 14:59 22:59 Intake Total 120 / 120 Balance 120 / 120 Weight last 48 hrs Weight 43.5 kg Weight 37.45 kg Weight 45.359 kg Physical Exam 2 Const: GENERAL APPEARANCE: cooperative and comfortable NUTRITIONAL APPEARANCE: cachectic ORIENTATION/CONSCIOUSNESS: Yes awake, Yes oriented to person, Yes oriented to place and Yes oriented to time HENMT: COMMON NORMALS: normocephalic, atraumatic, external ears normal and Normal external nose present HEAD & SCALP: normocephalic and atraumatic N OSE: Normal external nose present EXTERNAL EAR: Yes external ears normal M OUTH: Normal oral and palatal mucosa present THROAT: posterior oropharynx normal Eye: COMMON NORMALS: Equal, round and reactive pupils present and conjunctivae normal CONJUNCTIVA: Yes conjunctivae normal PUPIL: Yes Equal, round and reactive pupils present EOM: No EOM abnormal Neck/C-Spine: COMMON NORMALS: full ROM, no lymphadenopathy, supple and Thyroid normal; negative for No carotid bruits THYROID: Thyroid normal Lymph: LYMPHATIC: no lymphadenopathy noted Resp: OTHER: diminished breath sounds in the R. middle and R. lower lobe. Cardio: COMMON NORMALS: regular rate, regular rhythm, S1 normal heart sound present and S2 normal heart sound present RATE: regular rate RHYTHM: r egular rhythm HEART SOUNDS: S1 normal heart sound present, S2 normal heart sound present, no click, no gallops, no murmurs and no rubs GI: OTHER: BS+, NT, ND, no rigidity, no guarding,no rebound tenderness, no hepatosplenomegaly. Extremity: GENERAL: No clubbing, No cyanosis, Yes deformity and No edema Neuro: SENSORIUM/ORIENTATION: Yes oriented to person, Yes oriented to place and Yes oriented to time CRANIAL NERVES: Yes CN normal except as noted S ENSORY EXAM: No sensory level loss detected MOTOR EXAM: 5/5 motor strength present throughout and Normal motor muscle tone present throughout Psych: COMMON NORMALS: Normal thought process present and speech normal A PPEARANCE: Yes grossly normal ATTITUDE: Yes calm and Yes engaged A CTIVITY/MOTOR BEHAVIOR: Yes appropriate eye contact SPEECH: Yes normal speech MOOD & AFFECT: Yes euthymic mood THOUGHT PROCESS: Normal thought process present THOUGHT CONTENT: Yes Normal thought content present A TTENTION/CONCENTRATION: Yes attention grossly intact Skin: COMMON NORMALS: no rashes or lesions noted GENERAL SKIN EXAM: no rashes or lesions noted Data 03/22/24 04:50 03/22/24 04:50 A&P Assessment and plan (1) At risk for polypharmacy: (2) Major depressive disorder, recurrent: (3) Hypertension: (4) Protein calorie malnutrition: (5) History of seizure: (6) Pneumonia: (7) History of aspiration pneumonia: (8) Physical deconditioning: (9) Generalized weakness: (10) Respiratory failure with hypoxia: (11) COVID: Plan #Acute hypoxia requiring supplemental oxygen #Hypercalcemia #COVID-positive #Pneumonia #Diarrhea #Seizures #Hypertension #Major Depressive Disorder #Lumbar disc disease -Patient is COVID-19 positive. ? Continue on dexamethasone 6 daily. Started Remdesivir on 03/22. Wean O2 as tolerated. ? Continue amlodipine, cetirizine. She did receive Lasix 40 IV x 1 in the ER. ? Will place on 20 IV daily - Held on 03/22/2024 ? Continue metoprolol to tartrate, continue Keppra. ? Continue potassium supplementation ? Calcium 10.8. F/u PTH, TSH ? Continue home pregabalin. ? Still has ongoing diarrhea from previous admission. Stool culture negative. Will check C. difficile - she had not had a BM all day since 03/22. ? duoneb every 6 hours as needed - place on vanc + zosyn to cover for pneumonia #Severe Malnutrition: Consulted color dipper for assessment and supplement recs. full code dvt ppx: lovenox Attestations 2 Medical Necessity Statement*: Patient remains hospitalized for covid-19 infection and acute hypoxic respiratory failure. Coding Level of Care Code 43932 Diagnoses At risk for polypharmacy Z91.89 Major depressive disorder, recurrent F33.9 Hypertension I10 Protein calorie malnutrition E46 History of seizure Z87.898 Pneumonia J18.9 History of aspiration pneumonia Z87.01 Physical deconditioning R53.81 Generalized weakness R53.1 Respiratory failure with hypoxia J96.91 COVID U07.1
--- NOTE | 2024-03-22 17:45 | XRR_ITS ---
PROCEDURE INFORMATION: Exam: XR Chest Exam date and time: 03/22/2024 6:31 PM Age: 63 years old Clinical indication: Other: Rml rll decreased breath sounds. TECHNIQUE: Imaging protocol: Radiologic exam of the chest. Views: 1 view. COMPARISON: CR (CHEST, ) 03/21/2024 6:19 AM FINDINGS: Lungs: Unremarkable. No consolidation. Pleural spaces: Unremarkable. No pleural effusion. No pneumothorax. Heart/Mediastinum: Unremarkable. No cardiomegaly. Bones/joints: Moderate dextroscoliosis of the lumbar spine. XR/XR chest 1V portable [id number] IMPRESSION: No acute findings.
[2024-03-22] MEDS: remdesivir 200 MG in sodium chloride 0.9% (100 ml) 60 ML 100 MG IV (18:04)
[2024-03-23] VITALS (7 sets, daily range): BP systolic 115–134; BP diastolic 67–78; PULSE 53–86; RESP 12–20; TEMP 36.3–37.1; O2SAT 90–98
[2024-03-23] MEDS: acetaminophen 325 mg Tablet 650 MG PO ×2 (01:41→10:46)
[2024-03-23 05:49] LABS: Alanine Aminotransferase 17 U/L (0-33); Albumin Level 3.6 g/dL (3.5-5.2); Alkaline Phosphatase 58 U/L (35-105); Anion Gap 12.5 (5-19); Aspartate Amino Transferase 28 U/L (0-32); Blood Urea Nitrogen 22 mg/dL (8-23); Calcium 9.3 mg/dL (8.5-10.5); Carbon Dioxide 32 mmol/L (22-29); Chloride 95 mmol/L (98-107); Creatinine Clr Calc Pharmacy 49.2517; Globulin 2.7 g/dL (1.3-4.6); Glomerular Filtration Rate 123.8 mL/min (90-130); Glucose 102 mg/dL (65-115); Osmolality Calculated 284 mOsm/kg (285-295); Phosphorus 2.8 mg/dL (2.5-4.5); Potassium 4.5 mmol/L (3.5-5.1); Sodium 135 mmol/L (136-145); Total Bilirubin 0.2 mg/dL (0.15-1.2); Total Protein 6.3 g/dL (6.6-8.7)
[2024-03-23 05:57] LABS: Basophils % 0.2 %; Hematocrit 39.2 % (36-47); Lymphocytes # 2.5 10^3/uL (0.8-4.8); Lymphocytes % 21.6 %; Mean Corpuscular HGB Conc 33.4 g/dL (30-55); Mean Corpuscular Hemoglobin 31.5 pg (27-33); Mean Corpuscular Volume 94.2 fl (85-98); Mean Platelet Volume 10.2 fL (7.4-10.4); Monocytes # 0.6 10^3/uL (0.2-0.9); Neutrophils # 8.45 10^3/uL (1.8-7.7); Neutrophils % 72.8 %; Nucleated Red Blood Cells % 0 %; Platelet Count 394 10^3/cmm (157-399); Red Blood Count 4.16 10^6/uL (3.85-5.65); Red Cell Distribution Width 13.9 % (12.1-15.1)
[2024-03-23] MEDS: cholecalciferol (vitamin D3) 1,000 unit Tablet 1000 UNIT PO (08:19)
[2024-03-23] MEDS: levETIRAcetam 500 mg Tablet PO (08:19)
[2024-03-23] MEDS: docusate sodium 100 mg Capsule PO (08:19)
[2024-03-23] MEDS: duloxetine 60 mg Capsule PO (08:19)
[2024-03-23] MEDS: potassium chloride ER 10 mEq Tablet PO (08:19)
[2024-03-23] MEDS: pregabalin 50 mg Capsule PO (08:19)
[2024-03-23] MEDS: amlodipine 5 mg Tablet PO (08:20)
[2024-03-23] MEDS: cetirizine 10 mg Tablet 5 MG PO (08:20)
[2024-03-23] MEDS: fluticasone nasal spray 16gm Btl 2 SPRAY INTRANASAL (08:20)
[2024-03-23] MEDS: metoprolol tartrate 25 mg Tablet PO (08:20)
[2024-03-23] MEDS: pantoprazole DR 40 mg Tablet PO (08:20)
[2024-03-23] MEDS: ipratropium-albuterol 3 mL Neb INHALATION (09:23)
--- NOTE | 2024-03-23 09:56 | PC.CHAP ---
Pastoral Care Encounter/Spiritual Assessment Type of Contact [] Declined certified medical coder visit [] Patient/Family/Request visit [] Outpatient visit [] Follow-up visit [] Physician referral [] Code/Alert [x] Routine visit [] Staff referral [] Actively dying [] Patient sleeping [] Family support [] [] Out of room [] Palliative care [] [] Receiving care in room [] Pre-surgical visit [] Trauma [] Long length of stay [] ICU visit [] Other: Relational/Emotional Strength [] Patient feels connected with others/family/visitors/staff [] Distress [] Loneliness/isolation [] Abandonment Spirituality of Patient [] Person of Osiris [] Attends Zoroastrianism of their Osiris [] Believes in Prayer [] Reads Bible or Christian materials [] There are Spiritual issues to be addressed Component Design Engineer Interventions [] Prayer [] Active listening [] Non-anxious presence [] Spiritual/emotional support [] Crisis/trauma care [] Spiritual counseling [] Bereavement support [] Provided bereavement packet [] Provided Bible/devotional materials [] Provided toy/stuffed animal, coloring book to patient or family member [] Provided Communion [] Anointing/Hills [] Salvation [] Completed spiritual assessment [] Other: Impact on Illness or Injury [] Angry [] Fearful [] Anxious [] Often cries [] Exhaustion [] Unable to work [] Unable to attend hinduism [] Unable to walk/stand [] Unable to read [] Unable to drive [] Unable to eat/drink [] Unable to sleep [] Unable to be with family [] Patient intubated [] Other: Summary precaution Time spent with patient
[2024-03-23] MEDS: remdesivir 100 MG in sodium chloride 0.9% (100 ml) 80 ML IV (10:45)
[2024-03-23 11:53] LABS: C.Diff PCR (Lab) NEGATIVE (Negative)
--- NOTE | 2024-03-23 12:41 | PC.NURSE ---
Called [facility] and gave report to DONNA Borrero. Will arrange transport.
--- NOTE | 2024-03-23 12:56 | PC.NURSE ---
Discharge Note Patient discharged to [facility] via ambulance accompanied by ambulance personnel. Discharge instructions reviewed with patient and/or software support representative. Mobile pharmacy medications and/or prescriptions provided. Belongings/home medications returned.
--- NOTE | 2024-03-23 17:28 | PM.DCS ---
Discharge Providers Date of Admission: 03/21/24 09:13 Date of Discharge: March 23, 2024 Attending Provider at Admission: Peyton Osuna MD Attending Provider at Discharge: Amy Rg MD Primary Care Provider: Rosy Javier Diagnoses at Discharge Discharge Diagnosis (1) At risk for polypharmacy: Status: Acute (2) Major depressive disorder, recurrent: Status: Acute (3) Hypertension: Status: Acute (4) Protein calorie malnutrition: Status: Acute (5) History of seizure: Status: Acute (6) Pneumonia: Status: Acute (7) History of aspiration pneumonia: Status: Acute (8) Physical deconditioning: Status: Acute (9) Generalized weakness: Status: Acute (10) Respiratory failure with hypoxia: Status: Acute (11) COVID: Status: Acute Reason for Visit Reason for Visit: SOB Hospital Course Hospital Course Nicolasa Kothari is a 63 year old female With past medical history of seizures, hypertension, normal pressure hydrocephalus, depression, arthritis who was discharged from the hospital after being treated for respiratory failure pneumonia UTI generalized weakness on 03/16/24. There were also concerns for ST changes for which cardiology was consulted. Echocardiogram showed normal EF with grade 1 diastolic dysfunction. There was concern for polypharmacy because of high doses of pain medication and medications were adjusted with discharge. She was placed on dysphagia level 4 pur?ed diet. She presented back to the hospital on 03/21/24 with c/o hypoxia noticed at the assisted living facility .She was found to be covid +. Patient is requiring 2 L/min supplemental O2 upon arrival. She was medically improved after being treated in the hospital with IV remdesivir, dexamethasone 6 mg daily. Her breathing status improved to the point of being off oxygen this morning. She has had persistent diarrhea for a few days, C. difficile was negative. She is clinically improved and able to be discharged. She is being discharged today with prescriptions for Paxlovid, oral dexamethasone 6 mg daily for the next 5 days, recommendations to continue her home dose of nebulization and as needed oxygen to be used at the custodial. Physical Exam Narrative: General: No acute distress, chronically ill-appearing lady HEENT: PERRLA, pupils bilaterally equal and reactive, pallors not present Chest: Normal vesicular breath sounds, no added sounds, equal good air entry bilaterally CVS: S1-S2 regular, no murmurs, no tachycardia, no gallops, no rubs Abdomen: Soft, nontender, no organomegaly, bowel sounds present Discharge Data Studies Completed and Pending Completed Studies During Hospitalization Category Date Time Status CXRP [XR chest 1V portable [id number]] Routine Exams 03/22/24 17:45 Completed XR chest 1V portable [id number] Stat Exams 03/21/24 06:14 Completed Radiology Impressions Chest X-Ray 03/22/24 17:45 IMPRESSION: No acute findings. Laboratory Results WBC 11.60 10^3/uL (3.29-11.43) H 03/23/24 05:15 RBC 4.16 10^6/uL (3.85-5.65) 03/23/24 05:15 Hgb 13.10 g/dL (11.27-16.99) 03/23/24 05:15 Hct 39.2 % (36-47) 03/23/24 05:15 MCV 94.2 fl (85-98) 03/23/24 05:15 MCH 31.5 pg (27-33) 03/23/24 05:15 MCHC 33.4 g/dL (30-55) 03/23/24 05:15 RDW 13.9 % (12.1-15.1) 03/23/24 05:15 Plt Count 394 10^3/cmm (157-399) 03/23/24 05:15 MPV 10.2 fL (7.4-10.4) 03/23/24 05:15 Neut % (Auto) 72.8 % 03/23/24 05:15 Lymph % (Auto) 21.6 % 03/23/24 05:15 Dillon % (Auto) 5.0 % 03/23/24 05:15 Eos % (Auto) 0.0 % 03/23/24 05:15 Baso % (Auto) 0.2 % 03/23/24 05:15 Neut # (Auto) 8.45 10^3/uL (1.8-7.7) H 03/23/24 05:15 Lymph # (Auto) 2.5 10^3/uL (0.8-4.8) 03/23/24 05:15 Dillon # (Auto) 0.6 10^3/uL (0.2-0.9) 03/23/24 05:15 Eos # (Auto) 0.0 10^3/uL (0.0-0.8) 03/23/24 05:15 Baso # (Auto) 0.0 10^3/uL (0.0-0.1) 03/23/24 05:15 Nucleated RBC % (auto) 0 % 03/23/24 05:15 Nucleated RBCs # 0.0 /100WBC 03/23/24 05:15 PT 12.70 SECONDS (12.1-14.9) 03/22/24 04:50 INR 0.93 (0.8-1.2) 03/22/24 04:50 Specimen Type Arterial 03/21/24 06:45 Sample Site Brachial, left 03/21/24 06:45 ABG pH 7.44 (7.35-7.45) 03/21/24 06:45 ABG pCO2 48.3 mmHg (35-45) H 03/21/24 06:45 ABG pO2 62.2 mmHg (80.0-100.0) L 03/21/24 06:45 ABG HCO3 33.1 mmol/L (22-26) H 03/21/24 06:45 ABG O2 Saturation 93.4 03/21/24 06:45 ABG Base Excess 7.6 mmol/L (-2.0-2.0) H 03/21/24 06:45 Zack Test N/a 03/21/24 06:45 A-a O2 Gradient 4.0 mmHg (5-10) L 03/21/24 06:45 Hematocrit 46.2 % (37-47) 03/21/24 06:45 Hgb O2 Saturation 90.7 % (95-100) L 03/21/24 06:45 Carboxyhemoglobin 2.7 %THgb (0.4-20.1) 03/21/24 06:45 Methemoglobin 0.2 % (0.4-1.5) L 03/21/24 06:45 Total Hemoglobin 15.1 g/dL (12-16) 03/21/24 06:45 Sodium 139.0 mmol/L (131-143) 03/21/24 06:45 Potassium 3.0 mmol/L (3.5-5.0) L 03/21/24 06:45 Glucose 88.0 mg/dL (70-115) 03/21/24 06:45 Ionized Calcium 1.2 mmol/L (1.1-1.4) 03/21/24 06:45 O2 Delivery Device Nc 03/21/24 06:45 O2 Liters/Min 3.0 % 03/21/24 06:45 Orthotic/Prosthetic Practitioner ID Alberto 03/21/24 06:45 Sodium 135 mmol/L (136-145) L 03/23/24 05:15 Potassium 4.5 mmol/L (3.5-5.1) 03/23/24 05:15 Chloride 95 mmol/L (98-107) L 03/23/24 05:15 Carbon Dioxide 32 mmol/L (22-29) H 03/23/24 05:15 Anion Gap 12.5 (5-19) 03/23/24 05:15 BUN 22 mg/dL (8-23) 03/23/24 05:15 Creatinine 0.5 mg/dL (0.5-0.9) 03/23/24 05:15 GFR Calculation 123.8 mL/min (90-130) 03/23/24 05:15 Glucose 102 mg/dL (65-115) 03/23/24 05:15 Calculated Osmolality 284 mOsm/kg (285-295) L 03/23/24 05:15 Calcium 9.3 mg/dL (8.5-10.5) 03/23/24 05:15 Phosphorus 2.8 mg/dL (2.5-4.5) 03/23/24 05:15 Magnesium 2.0 mg/dL (1.7-2.3) 03/23/24 05:15 Total Bilirubin 0.2 mg/dL (0.15-1.2) 03/23/24 05:15 AST 28 U/L (0-32) 03/23/24 05:15 ALT 17 U/L (0-33) 03/23/24 05:15 Alkaline Phosphatase 58 U/L (35-105) 03/23/24 05:15 C-Reactive Protein 7.0 mg/L (0.0-4.9) H 03/21/24 06:15 NT-Pro-B Natriuret Pep 1534 pg/mL (0-125) H 03/21/24 06:15 Total Protein 6.3 g/dL (6.6-8.7) L 03/23/24 05:15 Albumin 3.6 g/dL (3.5-5.2) 03/23/24 05:15 Globulin 2.7 g/dL (1.3-4.6) 03/23/24 05:15 Procalcitonin 0.08 ng/mL (0-0.5) 03/21/24 06:15 TSH 0.84 uIU/mL (0.27-4.20) 03/21/24 06:15 PTH Intact 29.6 pg/mL (15-65) 03/21/24 06:15 Calcium (PTH Intact) 10.5 mg/dL (8.5-10.5) 03/21/24 06:15 C. difficile (PCR) Negative (Negative) 03/23/24 09:30 Coronavirus (PCR) Positive (Negative) A 03/21/24 07:38 Influenza A (PCR) Negative (Negative) 03/21/24 07:38 Influenza Type B (PCR) Negative (Negative) 03/21/24 07:38 RSV (PCR) Negative (Negative) 03/21/24 07:38 Vitals Last Vital Signs Temp 97.4 F L 03/23/24 12:57 Pulse 62 03/23/24 12:57 Resp 20 H 03/23/24 12:57 BP 126/78 03/23/24 12:57 Pulse Ox 91 03/23/24 12:57 O2 Del Method Room Air 03/23/24 11:55 O2 Flow Rate 1 03/23/24 04:00 Discharge Plan Discharge Patient Disposition: Xfer SNF Condition: Stable Prescriptions: New Paxlovid 300 mg (150 mg x 2)-100 mg tablets,dose pack See Rx Instructions .ROUTE .COMPLEX Qty: 30 0RF Rx Instructions: take TWO 150 mg tablets of nirmatrelvir with ONE 100 mg tablet of ritonavir twice daily for 5 days; pantoprazole [Protonix] 40 mg tablet,delayed release (DR/EC) 40 mg PO DAILY 10 Days Qty: 10 0RF dexamethasone 6 mg tablet 6 mg PO DAILY 5 Days Qty: 5 0RF Continued ipratropium-albuterol 0.5 mg-3 mg(2.5 mg base)/3 mL Solution For Nebulization 3 ml INHALATION QID cetirizine 5 mg Tablet 5 mg PO DAILY fluticasone propionate 50 mcg/actuation Savage,Suspension 2 spray INTRANASAL DAILY Rx Instructions: administer into each nostril cholecalciferol (vitamin D3) 25 mcg (1,000 unit) tablet 1,000 unit PO TID acetaminophen [Tylenol] 325 mg Tablet 650 mg PO QID PRN (Reason: Pain) hydrocodone-acetaminophen 5-325 mg Tablet 1 tab PO Q6H PRN (Reason: Pain) duloxetine 60 mg Capsule,Delayed Release(Dr/Ec) 60 mg PO DAILY amlodipine 5 mg Tablet 5 mg PO DAILY 30 Days Qty: 30 0RF metoprolol tartrate 25 mg Tablet 25 mg PO BID@0900,2100 30 Days Qty: 60 0RF pregabalin 50 mg Capsule 50 mg PO DAILY Qty: 30 0RF potassium chloride 40 mEq/15 mL liquid See Rx Instructions .ROUTE .COMPLEX Rx Instructions: take 7.5 ml by mouth twice daily levetiracetam 500 mg tablet extended release 24 hr 500 mg PO BID docusate sodium [Colace] 100 mg Capsule 100 mg PO BID polyethylene glycol 3350 [Miralax] 17 gram/dose Powder 17 g PO DAILY Discharge Orders: Discharge Order (Routine); Ordered 03/23/24 Ordered By: Amy Rg Referrals: Rosy Javier PA [Primary Care Provider] - 4-7 days (We have notified your physician's clinic of the need for a follow-up appointment to be scheduled. If you have not heard from them within the next 2 business days, please call them directly. ) Discharge Diet: Usual diet Discharge Activity: Resume usual activity Patient Instructions: Dexamethasone (By mouth), Pantoprazole (By mouth), Nirmatrelvir/Ritonavir (By mouth) (Paxlovid), Opioid Safety Discharge Attestations Time Spent in Discharge Care*: greater than 30 min Status at Discharge: Cognitive status at discharge: cognitively intact, Behavioral status at discharge: cooperative, Quality Metrics Clinical Quality Measures [ No reported AMI, CVA or VTE this stay] Coding Level of Care Code Acute Code for Chg Fwd Diagnoses At risk for polypharmacy Z91.89 Major depressive disorder, recurrent F33.9 Hypertension I10 Protein calorie malnutrition E46 History of seizure Z87.898 Pneumonia J18.9 History of aspiration pneumonia Z87.01 Physical deconditioning R53.81 Generalized weakness R53.1 Respiratory failure with hypoxia J96.91 COVID U07.1
== END 2024-03-23 13:33 | disposition skilled nursing facility (03) | DRG 177 ==
LOC: ER 10:23 → MEDSURG 10:53
PROVIDERS: Internal Medicine; Admitting Provider Internal Medicine; Emergency Provider Family Medicine; PCP Physician Assistant; Visit Provider Student in an Organized Health Care Education/Training Program
DX: U07.1 COVID-19 (principal); E43 Unspecified severe protein-calorie malnutrition; J96.01 Acute respiratory failure with hypoxia; F33.9 Major depressive disorder, recurrent, unspecified; J44.1 Chronic obstructive pulmonary disease with (acute) exacerbation; G91.2 (Idiopathic) normal pressure hydrocephalus; N39.0 Urinary tract infection, site not specified; Z68.1 Body mass index [BMI] 19.9 or less, adult; R56.9 Unspecified convulsions; I10 Essential (primary) hypertension; M19.90 Unspecified osteoarthritis, unspecified site; F10.11 Alcohol abuse, in remission; E83.52 Hypercalcemia; M51.369 Other intervertebral disc degeneration, lumbar region without mention of lumbar back pain or lower extremity pain; Z87.01 Personal history of pneumonia (recurrent)
CPT/HCPCS: 0241U; 36415; 36600; 71045; 80051; 80053; 82310; 82330; 82805; 83735; 83880; 83970; 84100; 84145; 84443; 85025; 85610; 86140; 87493; 93005; 94640; 94664; 94760; 96372; 96374; 96375; 97161; 99285; J0248; J1100; J1650; J1940

== ENCOUNTER 2024-04-24 07:15 | Inpatient (IN) | payer MEDICARE, SELFPAY ==
[2024-04-24] VITALS (11 sets, daily range): BP systolic 146–183; BP diastolic 82–110; PULSE 75–106; RESP 12–27; TEMP 36.4–36.6; O2SAT 94–100; BMI 18.5
--- NOTE | 2024-04-24 07:19 | XR_ITS ---
WS: [id number] Portable AP semiupright chest, 04/24/2024 Clinical Data: SOB Comparison: Portable chest, 03/22/2024 Findings: No nodules, masses or effusions are seen. The heart is normal. The pulmonary vascularity is not increased. No pneumonia or pneumothorax is seen. The aortic arch and descending thoracic aorta s how minimal tortuosity. Monitor leads are on the chest and abdominal wall. XR/XR chest 1V portable [id number] Impression: Atherosclerosis.
--- NOTE | 2024-04-24 07:20 | ECG_ITS ---
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 Measurements Intervals [place] Rate: 99 P: 75 WA: 137 QRS: 53 QRSD: 78 T: -32 QT: 347 QTc: 446 Interpretive Statements SINUS RHYTHM ST DEVIATION AND MODERATE T-WAVE ABNORMALITY, CONSIDER ANTERIOR ISCHEMIA [-0.1+ mV T-WAVE IN V3/V4] ST DEVIATION AND MODERATE T-WAVE ABNORMALITY, CONSIDER INFERIOR ISCHEMIA [-0.1+ mV T-WAVE IN II/aVF] Compared to ECG 03/21/2024 06:13:34 T-wave abnormality now present Possible ischemia now present Left ventricular hypertrophy no longer present ST (T wave) deviation no longer present Electronically Signed On 04-25-2024 23:11:16 VICE PRESIDENT PROCESS by Burak Whalen M.D. [email or web address]
[2024-04-24] MEDS: ipratropium-albuterol 3 mL Neb INHALATION ×3 (07:29→20:00)
[2024-04-24 07:52] LABS: Basophils # 0.1 10^3/uL (0.0-0.1); Basophils % 0.8 %; Eosinophils % 0.1 %; Hematocrit 46.3 % (36-47); Lymphocytes # 1.5 10^3/uL (0.8-4.8); Lymphocytes % 20.8 %; Mean Corpuscular HGB Conc 32.4 g/dL (30-55); Mean Corpuscular Hemoglobin 32.3 pg (27-33); Mean Corpuscular Volume 99.8 fl (85-98); Mean Platelet Volume 9.6 fL (7.4-10.4); Monocytes # 0.7 10^3/uL (0.2-0.9); Monocytes % 9.5 %; Neutrophils # 4.88 10^3/uL (1.8-7.7); Neutrophils % 68.5 %; Nucleated Red Blood Cells % 0 %; Platelet Count 386 10^3/cmm (157-399); Red Blood Count 4.64 10^6/uL (3.85-5.65); Red Cell Distribution Width 14.8 % (12.1-15.1); White Blood Count 7.13 10^3/uL (3.29-11.43)
[2024-04-24 07:55] LABS: ABG PH Result 7.32 (7.35-7.45); Arterial Blood Gas Hematocrit 46.2 % (37-47); Base Excess ABG 5.2 mmol/L (-2.0-2.0); Blood Gas Allen Test Pos; Blood Gas Operator Identificat glc; Blood Gas Sample Site Radial, right; Blood Gas Sample Type Arterial; HCO3 ABG 33.6 mmol/L (22-26); Oxygen Device NC; PO2 ABG 92.9 mmHg (80.0-100.0); PO2 FiO2 Ratio Arterial Blood 331
[2024-04-24 08:03] LABS: Protein Urine Neg (Negative); Urine Appearance Clear (CLEAR); Urine Color Yellow (Yellow)
--- NOTE | 2024-04-24 08:03 | W.ED.WEAKNES ---
HPI - Weakness General: Chief complaint: Weakness Stated complaint: SOB Time Seen by Provider: 04/24/24 07:44 History of Present Illness: Pt is a 63-year-old past medical history of COPD on no baseline oxygen presenting today via EMS for 1 week of shortness of breath, vomiting, diarrhea. She arrived on 5 L NC which was quickly weaned down to 1 L. She endorses mild shortness of breath at rest but denies chest pain. Endorses poor appetite and vomiting that has improved over the last couple days, however has been having diarrhea approximately 3 times a day over the past week. She states she has been taking all of her medications as prescribed except for this morning. PFS ED PFSH: Medical History (Updated 03/24/24 @ 00:00 by NICK Méndez) Hypertension Normal pressure hydrocephalus Tobacco dependence Lumbar disc disease with radiculopathy Dystonia Depression Arthritis Surgical History (Updated 03/24/24 @ 00:00 by NICK Méndez) History of knee surgery Family History Other Arthritis Social History Smoking and tobacco/nicotine status: unknown if used tobacco/nicotine Alcohol intake: former Year of sobriety/quit date alcohol: 2002 Current occupation: disabled Physical Exam Const: COMMON NORMALS: no acute distress GENERAL APPEARANCE: cooperative and comfortable HENMT: COMMON NORMALS: normocephalic and atraumatic HEAD & SCALP: normocephalic and atraumatic Eye: COMMON NORMALS: EOMs intact bilaterally and conjunctivae normal CONJUNCTIVA: Yes conjunctivae normal Chest: CHEST: Yes Symmetrical chest wall rise Resp: COMMON NORMALS: normal respiratory effort EFFORT & INSPECTION: Yes able to speak in complete sentences and Yes symmetric chest movement AUSCULTATION: wheezes (bilaterally ) Course Vital Signs: Vital signs: Vital Signs Temperature 97.8 F 04/24/24 07:16 Pulse Rate 87 04/24/24 10:59 Respiratory Rate 27 H 04/24/24 10:11 Blood Pressure 164/101 04/24/24 10:59 Pulse Oximetry 95 04/24/24 10:59 Oxygen Delivery Me thod Nasal Cannula 04/24/24 07:34 Oxygen Flow Rate 2 04/24/24 07:34 MDM - Weakness Medical Decision Making Pt is a 63-year-old past medical history of COPD on no baseline oxygen presenting today via EMS for 1 week of shortness of breath, vomiting, diarrhea, dehydration. On arrival patient requiring 1 L O2, hypertensive to 170s/80s, mild tachypnea, afebrile. CBC without leukocytosis, CMP overall unremarkable. BNP mildly elevated 477, lactic acid normal 1.2. On initial ABG, pH mildly acidotic 7.32 and pCO2 64. Chest x-ray without acute abnormalities. Pt On repeat ABG, pCO2 improved 57 and pH to 7.4. Flu/covid/rsv negative. Given 1 L fluids and DuoNebs with symptomatic improvement. Admitted to the floor for COPD exacerbation. Lab Data 04/24/24 07:48 04/24/24 07:48 Radiology Impressions Chest X-Ray 04/24/24 07:19 Impression: Atherosclerosis. Laboratory Results WBC 7.13 10^3/uL (3.29-11.43) 04/24/24 07:48 RBC 4.64 10^6/uL (3.85-5.65) 04/24/24 07:48 Hgb 15.00 g/dL (11.27-16.99) 04/24/24 07:48 Hct 46.3 % (36-47) 04/24/24 07:48 MCV 99.8 fl (85-98) H 04/24/24 07:48 MCH 32.3 pg (27-33) 04/24/24 07:48 MCHC 32.4 g/dL (30-55) 04/24/24 07:48 RDW 14.8 % (12.1-15.1) 04/24/24 07:48 Plt Count 386 10^3/cmm (157-399) 04/24/24 07:48 MPV 9.6 fL (7.4-10.4) 04/24/24 07:48 Neut % (Auto) 68.5 % 04/24/24 07:48 Lymph % (Auto) 20.8 % 04/24/24 07:48 [place] % (Auto) 9.5 % 04/24/24 07:48 Eos % (Auto) 0.1 % 04/24/24 07:48 Baso % (Auto) 0.8 % 04/24/24 07:48 Neut # (Auto) 4.88 10^3/uL (1.8-7.7) 04/24/24 07:48 Lymph # (Auto) 1.5 10^3/uL (0.8-4.8) 04/24/24 07:48 [place] # (Auto) 0.7 10^3/uL (0.2-0.9) 04/24/24 07:48 Eos # (Auto) 0.0 10^3/uL (0.0-0.8) 04/24/24 07:48 Baso # (Auto) 0.1 10^3/uL (0.0-0.1) 04/24/24 07:48 Nucleated RBC % (auto) 0 % 04/24/24 07:48 Nucleated RBCs # 0.0 /100WBC 04/24/24 07:48 Specimen Type Arterial 04/24/24 10:23 Sample Site Radial, right 04/24/24 10:23 ABG pH 7.40 (7.35-7.45) 04/24/24 10:23 ABG pCO2 57.4 mmHg (35-45) H 04/24/24 10:23 ABG pO2 115.0 mmHg (80.0-100.0) H 04/24/24 10:23 ABG PO2/FiO2 Ratio 410 04/24/24 10:23 ABG HCO3 35.1 mmol/L (22-26) H 04/24/24 10:23 ABG Base Excess 7.9 mmol/L (-2.0-2.0) H 04/24/24 10:23 Zack Test Pos 04/24/24 10:23 Hematocrit 47.8 % (37-47) H 04/24/24 10:23 O2 Delivery Device Nc 04/24/24 10:23 O2 Liters/Min 2.0 % 04/24/24 10:23 FiO2 28.0 % 04/24/24 10:23 Software Computer Specialist ID glc 04/24/24 10:23 Sodium 139 mmol/L (136-145) 04/24/24 07:48 Potassium 3.5 mmol/L (3.5-5.1) 04/24/24 07:48 Chloride 97 mmol/L (98-107) L 04/24/24 07:48 Carbon Dioxide 32 mmol/L (22-29) H 04/24/24 07:48 Anion Gap 13.5 (5-19) 04/24/24 07:48 BUN 7 mg/dL (8-23) L 04/24/24 07:48 Creatinine 0.4 mg/dL (0.5-0.9) L 04/24/24 07:48 GFR Calculation 160.2 mL/min (90-130) H 04/24/24 07:48 Glucose 110 mg/dL (65-115) 04/24/24 07:48 Calculated Osmolality 287 mOsm/kg (285-295) 04/24/24 07:48 Lactic Acid 1.2 mmol/L (0.5-2.2) 04/24/24 07:48 Calcium 9.8 mg/dL (8.5-10.5) 04/24/24 07:48 Magnesium 1.9 mg/dL (1.7-2.3) 04/24/24 07:48 Total Bilirubin 0.2 mg/dL (0.15-1.2) 04/24/24 07:48 AST 23 U/L (0-32) 04/24/24 07:48 ALT 11 U/L (0-33) 04/24/24 07:48 Alkaline Phosphatase 94 U/L (35-105) 04/24/24 07:48 NT-Pro-B Natriuret Pep 477 pg/mL (0-125) H 04/24/24 07:48 Total Protein 6.7 g/dL (6.6-8.7) 04/24/24 07:48 Albumin 3.9 g/dL (3.5-5.2) 04/24/24 07:48 Globulin 2.8 g/dL (1.3-4.6) 04/24/24 07:48 Urine Color Yellow (Yellow) 04/24/24 09:15 Urine Appearance Clear (CLEAR) 04/24/24 09:15 Urine pH 6.5 (5-7) 04/24/24 09:15 Ur Specific [place] 1.005 (1.005-1.030) 04/24/24 09:15 Urine Protein Negative (Negative) 04/24/24 09:15 Urine Glucose (UA) Negative (Normal) 04/24/24 09:15 Urine Ketones Negative (Negative) 04/24/24 09:15 Urine Blood Negative (Negative) 04/24/24 09:15 Urine Nitrate Negative (Negative) 04/24/24 09:15 Urine Bilirubin Negative (Negative) 04/24/24 09:15 Urine Urobilinogen 0.2 mg/dL (Negative) 04/24/24 09:15 Ur Leukocyte Esterase 1+ (Negative) A 04/24/24 09:15 Urine RBC 0-2 /hpf (0-2) 04/24/24 09:15 Urine WBC 6-10 /hpf (0-5) 04/24/24 09:15 Ur Squamous Epith Cells 6-10 /hpf (0-5) 04/24/24 09:15 Amorphous Sediment Not Reportable 04/24/24 09:15 Urine Bacteria 4+ /hpf (NONE) H 04/24/24 09:15 Hyaline Casts 1.65 /lpf 04/24/24 09:15 Urine Mucus Trace /hpf 04/24/24 07:57 Coronavirus (PCR) Negative (Negative) 04/24/24 09:53 Influenza A (PCR) Negative (Negative) 04/24/24 09:53 Influenza Type B (PCR) Negative (Negative) 04/24/24 09:53 RSV (PCR) Negative (Negative) 04/24/24 09:53 Discharge Plan Discharge Prescriptions: No Action ipratropium-albuterol 0.5 mg-3 mg(2.5 mg base)/3 mL Solution For Nebulization 3 ml INHALATION QID cetirizine 5 mg Tablet 5 mg PO DAILY fluticasone propionate 50 mcg/actuation [place],Suspension 2 spray INTRANASAL DAILY Rx Instructions: administer into each nostril cholecalciferol (vitamin D3) 25 mcg (1,000 unit) tablet 1,000 unit PO TID acetaminophen [Tylenol] 325 mg Tablet 650 mg PO QID PRN (Reason: Pain) hydrocodone-acetaminophen 5-325 mg Tablet 1 tab PO Q6H PRN (Reason: Pain) pregabalin 50 mg Capsule 50 mg PO DAILY Qty: 30 0RF levetiracetam 500 mg tablet extended release 24 hr 500 mg PO BID docusate sodium [Colace] 100 mg Capsule 100 mg PO BID PRN (Reason: Constipation) polyethylene glycol 3350 [Miralax] 17 gram/dose Powder 17 g PO DAILY quetiapine 25 mg Tablet 25 mg PO BEDTIME amlodipine 5 mg tablet 5 mg PO DAILY citalopram 20 mg Tablet 20 mg PO DAILY celecoxib 100 mg Capsule 100 mg PO DAILY metoprolol tartrate 25 mg tablet 25 mg PO BID potassium chloride 20 mEq Tablet Extended Release 20 meq PO BID Coding Level of Care Code ED Web Application Dev Specialist for Chg Fwd Related Data Home Medications Medication Instructions Recorded Confirmed levetiracetam 500 mg 500 mg PO BID 08/17/23 04/24/24 tablet,extended release 24 hr cetirizine 5 mg tablet 5 mg PO DAILY 12/16/23 04/24/24 cholecalciferol (vitamin D3) 25 1,000 unit PO TID 12/16/23 04/24/24 mcg (1,000 unit) tablet fluticasone propionate 50 2 spray intranasal DAILY 12/16/23 04/24/24 mcg/actuation nasal spray,suspension ipratropium 0.5 mg-albuterol 3 mg 3 ml inhalation QID 12/16/23 04/24/24 (2.5 mg base)/3 mL nebulization soln acetaminophen 325 mg tablet 650 mg PO QID PRN Pain 03/06/24 04/24/24 (Tylenol) hydrocodone 5 mg-acetaminophen 325 1 tab PO Q6H PRN Pain 03/06/24 04/24/24 mg tablet docusate sodium 100 mg capsule 100 mg PO BID PRN Constipation 03/21/24 04/24/24 (Colace) polyethylene glycol 3350 17 17 g PO DAILY 03/21/24 04/24/24 gram/dose oral powder (Miralax) amlodipine 5 mg tablet 5 mg PO DAILY 04/24/24 04/24/24 celecoxib 100 mg capsule 100 mg PO DAILY 04/24/24 04/24/24 citalopram 20 mg tablet 20 mg PO DAILY 04/24/24 04/24/24 metoprolol tartrate 25 mg tablet 25 mg PO BID 04/24/24 04/24/24 potassium chloride 20 mEq 20 meq PO BID 04/24/24 04/24/24 tablet,extended release quetiapine 25 mg tablet 25 mg PO BEDTIME 04/24/24 04/24/24 Previous Rx's Medication Instructions Recorded pregabalin 50 mg capsule 50 mg PO DAILY #30 caps 03/16/24 Allergies Allergy/AdvReac Type Severity Reaction Status Date / Time amoxicillin [From Augmentin] Allergy ADR-Nausea Verified 12/14/23 09:38 clavulanic acid Allergy ADR-Nausea Verified 12/14/23 09:38 [From Augmentin]
[2024-04-24 08:04] LABS: Bacteria Urine 1+ /hpf; Mucus Urine TRACE /hpf; RBC Urine 0-4 /hpf (0-2); Squamous Epithelial Cell Urine 0-4 /hpf (0-5); UA Manual Slide Review YES; WBC Urine 0-4 /hpf (0-5)
[2024-04-24] MEDS: sodium chloride 0.9% 1,000 ML 999 ML IV (08:18)
[2024-04-24 08:20] LABS: Alanine Aminotransferase 11 U/L (0-33); Albumin Level 3.9 g/dL (3.5-5.2); Alkaline Phosphatase 94 U/L (35-105); Anion Gap 13.5 (5-19); Aspartate Amino Transferase 23 U/L (0-32); Blood Urea Nitrogen 7 mg/dL (8-23); Calcium 9.8 mg/dL (8.5-10.5); Carbon Dioxide 32 mmol/L (22-29); Chloride 97 mmol/L (98-107); Creatinine Clr Calc Pharmacy 49.2916; Globulin 2.8 g/dL (1.3-4.6); Glomerular Filtration Rate 160.2 mL/min (90-130); Glucose 110 mg/dL (65-115); Magnesium 1.9 mg/dL (1.7-2.3); NT Pro B Type Natriuretic Pept 477 pg/mL (0-125); Osmolality Calculated 287 mOsm/kg (285-295); Potassium 3.5 mmol/L (3.5-5.1); Sodium 139 mmol/L (136-145); Total Bilirubin 0.2 mg/dL (0.15-1.2); Total Protein 6.7 g/dL (6.6-8.7)
[2024-04-24] MEDS: potassium chloride ER 20 mEq Tablet 40 MEQ PO (08:29)
--- NOTE | 2024-04-24 08:43 | PC.PHAR ---
Patient is now at [facility].
[2024-04-24 08:52] LABS: Lactic Sepsis W/Reflex 1.2 mmol/L (0.5-2.2)
[2024-04-24 09:03] LABS: ABG PCO2 64.6 mmHg (35-45)
[2024-04-24] MEDS: amlodipine 5 mg Tablet PO (10:14)
[2024-04-24] MEDS: metoprolol tartrate 25 mg Tablet PO ×2 (10:14→17:05)
[2024-04-24] MEDS: hyDRALAzine 20 mg/mL INJ 1 mL 5 MG IVP (10:14)
[2024-04-24 10:16] LABS: Bilirubin Urine Negative (Negative); Blood Urine Negative (Negative); Glucose Urine UA Negative (Normal); Ketones Urine Negative (Negative); Leukocyte Esterase Urine 1+ (Negative); Nitrate Urine Negative (Negative); Protein Urine Negative (Negative); Specific Gravity, Urine 1.005 (1.005-1.030); Urine Appearance Clear (CLEAR); Urine Color Yellow (Yellow); Urobilinogen Urine 0.2 mg/dL (Negative); pH Urine 6.5 (5-7)
[2024-04-24 10:21] LABS: Bacteria Urine 4+ /hpf; Hyaline Casts Urine 1.65 /lpf; RBC Urine 0-2 /hpf (0-2)
[2024-04-24 10:22] LABS: Add Urine Culture? Yes
[2024-04-24 10:35] LABS: ABG PCO2 57.4 mmHg (35-45); Arterial Blood Gas Hematocrit 47.8 % (37-47); Base Excess ABG 7.9 mmol/L (-2.0-2.0); Blood Gas Allen Test Pos; Blood Gas Operator Identificat glc; Blood Gas Sample Site Radial, right; Blood Gas Sample Type Arterial; HCO3 ABG 35.1 mmol/L (22-26); Oxygen Device NC; PO2 FiO2 Ratio Arterial Blood 410
[2024-04-24 10:51] LABS: Covid PCR NEGATIVE (Negative); Influenza A NEGATIVE (Negative); Influenza B NEGATIVE (Negative); Respiratory Syncytial Virus Ce NEGATIVE (Negative)
--- NOTE | 2024-04-24 11:14 | PC.NURSE ---
@1115 pt had incontinent episode, complete bed change and melina-care completed by this nurse, student, and mold technician. pt provided warm blankets, personal blanket, personal phone in hand, blanket rolled under neck (per pt request); call light provided in pt reach prior to nurse leaving room. pt states comfortable at this time, denies any further needs. ER phone number provided to pt in case of call light falling off bed. pt had previous incontinent episode with complete bed change at earlier time, unknown exact time.
--- NOTE | 2024-04-24 12:00 | PC.NURSE ---
In room at this time to assist with cleaning patient up and changing linens. CDIFF sample taken at this time. name and verified at bedside in front of the patient. While in the room, patient urinated. Bedding changed again. Patient stated she was unable to get her throat cleared. Suction with yankers performed at this time. Call light within reach. No further needs voiced at this time.
[2024-04-24 13:53] LABS: C.Diff PCR (Lab) NEGATIVE (Negative)
--- NOTE | 2024-04-24 14:14 | P.HP_ITS ---
Providers/Chief Complaint 2 Admitting Physician: Taurus Stover MD Primary Care Provider: Rosy Javier Chief Complaint: SOB History of Present Illness Nicolasa Kothari is a 63 year old female DMITRIY resident with past history of hypertension, seizure, normal pressure hydrocephalus, depression, arthritis, recent COVID-19, concern for aspiration pneumonitis, past C. difficile, grade 1 diastolic dysfunction was sent to the ER today from home with concerns for hypoxia. It seems patient has been having diarrhea for last 3 days along with poor appetite and vomiting. On presentation in the ER she was on 5 L which was quickly turned down to 1 L. Patient had not received her morning medications today. On examination patient lying comfortably in bed, awake and alert on 1 L of oxygen supplementation saturating more than 92%. 3 days ago. She has been complaining of cough which started 2 days ago. Denies any difficulty in breathing, dysuria. Denies any abdominal pain. Asking when can she go back to assisted living. Review of Systems 2 General: Reports: 10 or more systems reviewed and unremarkable except in HPI and below Const: Denies: fever(s), chills, body aches, change in appetite, change in weight, malaise, night sweats, diaphoresis, change in sleep pattern, daytime sleepiness or snoring Eyes: Denies: change in vision, blurry vision, photophobia, eye discomfort or eye discharge ENMT: Denies: throat pain, enlarged tonsils, hoarseness, mouth pain, oral sores, dry mouth, tinnitus, nasal congestion or post nasal drip Card: Denies: chest pain, palpitations, irregular heart rhythm, edema, swelling of feet/ankles, lightheadedness, syncope, pre-syncope, dyspnea on exertion, orthopnea, leg pain with exertion or acrocyanosis Resp: Denies: dyspnea, productive cough, non-productive cough, wheezing, stridor, pain on inspiration, change in phlegm color, hemoptysis or chest congestion GI: Denies: abdominal pain, nausea, vomiting, hematemesis, coffee ground emesis, dysphagia, heartburn, diarrhea, constipation, bloating, GI cramping, change in bowel habits, pain on defecation, hematochezia or melena : Denies: flank pain, dysuria, urinary frequency, urinary urgency, urinary hesitancy, nocturia or hematuria Musc: Denies: neck pain, back pain, extremity pain, joint pain, joint swelling, joint redness, joint stiffness or limited range of motion Neuro: Denies: headache(s), numbness in extremities, weakness in extremities, sensory changes, lack of coordination, difficulty walking, frequent falls, dizziness, vertigo, confusion, Slurred speech present, difficulty communicating thoughts or seizure-like activity Psych: Denies: anxiety, depression, mood swings, panic attacks, hopelessness or irritability Endo: Denies: polyuria, polydipsia, tired all the time, cold intolerance, excessive sweating, flushing or heat intolerance Anshu/Lymph: Denies: easy bruising or easy bleeding All/Imm: Denies: tongue swelling, facial swelling or acute wheezing Medications/Allergies Home Medications Medication Instructions Recorded Confirmed Last Taken Type levetiracetam 500 mg 500 mg PO BID 08/17/23 04/24/24 04/23/24 18:20 History tablet,extended release 24 hr cetirizine 5 mg tablet 5 mg PO DAILY 12/16/23 04/24/24 04/20/24 11:45 History cholecalciferol (vitamin D3) 25 1,000 unit PO TID 12/16/23 04/24/24 04/23/24 18:20 History mcg (1,000 unit) tablet fluticasone propionate 50 2 spray intranasal DAILY 12/16/23 04/24/24 04/23/24 09:05 History mcg/actuation nasal spray,suspension ipratropium 0.5 mg-albuterol 3 mg 3 ml inhalation QID 12/16/23 04/24/24 04/23/24 08:00 History (2.5 mg base)/3 mL nebulization soln acetaminophen 325 mg tablet 650 mg PO QID PRN Pain 03/06/24 04/24/24 04/22/24 22:00 History (Tylenol) hydrocodone 5 mg-acetaminophen 325 1 tab PO Q6H PRN Pain 03/06/24 04/24/24 04/24/24 05:30 History mg tablet pregabalin 50 mg capsule 50 mg PO DAILY #30 caps 03/16/24 04/24/24 04/23/24 06:20 Rx docusate sodium 100 mg capsule 100 mg PO BID PRN Constipation 03/21/24 04/24/2403/20/24 History (Colace) polyethylene glycol 3350 17 17 g PO DAILY 03/21/24 04/24/24 03/20/24 History gram/dose oral powder (Miralax) amlodipine 5 mg tablet 5 mg PO DAILY 04/24/24 04/24/24 04/22/24 22:00 History celecoxib 100 mg capsule 100 mg PO DAILY 04/24/24 04/24/24 04/23/24 09:05 History citalopram 20 mg tablet 20 mg PO DAILY 04/24/24 04/24/24 04/23/24 09:05 History metoprolol tartrate 25 mg tablet 25 mg PO BID 04/24/24 04/24/24 04/23/24 20:00 History potassium chloride 20 mEq 20 meq PO BID 04/24/24 04/24/24 04/23/24 09:05 History tablet,extended release quetiapine 25 mg tablet 25 mg PO BEDTIME 04/24/24 04/24/24 04/23/24 06:20 History Allergies Allergy/AdvReac Type Severity Reaction Status Date / Time amoxicillin [From Augmentin] Allergy ADR-Nausea Verified 12/14/23 09:38 clavulanic acid Allergy ADR-Nausea Verified 12/14/23 09:38 [From Augmentin] PFSH Acute 2 PFSH: Medical History (Updated 04/24/24 @ 14:49 by Taurus Stover MD) C. difficile colitis COVID Protein calorie malnutrition Chronic ulcer of sacral region limited to breakdown of skin Physical deconditioning History of aspiration pneumonia Bronchitis Lumbar stenosis with neurogenic claudication Neurologic gait disorder Piriformis syndrome of right side Piriformis syndrome Hypertension Normal pressure hydrocephalus Tobacco dependence Lumbar disc disease with radiculopathy Dystonia Depression Arthritis Surgical History (Updated 04/24/24 @ 14:49 by Taurus Stover MD) Status post lumbar laminectomy History of knee surgery Family History Other Arthritis Social History Smoking and tobacco/nicotine status: unknown if used tobacco/nicotine Alcohol intake: former Year of sobriety/quit date alcohol: 2002 Current occupation: disabled Vitals/I&O/Wt Last Vital Signs Temp 97.8 F 04/24/24 07:16 Pulse 95 04/24/24 13:42 Resp 21 H 04/24/24 13:42 BP 158/91 04/24/24 13:42 Pulse Ox 95 04/24/24 13:42 O2 Del Method Nasal Cannula 04/24/24 07:34 O2 Flow Rate 2 04/24/24 07:34 04/23/24 04/24/24 04/24/24 22:59 06:59 14:59 Intake Total 1000 / 1000 Balance 1000 / 1000 Weight last 48 hrs Weight 43.091 kg Physical Exam 2 Narrative: General: No acute distress, AO x3, Chronically sick appearing, HEENT: PERRLA, pupils bilaterally equal and reactive Chest: Bilateral bronchial breath sounds over lung [place] CVS: S1-S2 regular, no murmurs, no tachycardia, no gallops, no rubs Abdomen: Soft, nontender, no organomegaly, bowel sounds present Neuro: No focal deficits, no facial deformity, AO x3, Data 04/24/24 07:48 04/24/24 07:48 Micro: Microbiology 04/24/24 09:06 Blood Culture - Preliminary Blood SPECIMEN COLLECTED 04/24/24 08:54 Blood Culture - Preliminary Blood SPECIMEN COLLECTED A&P Assessment and plan (1) Hypoxia: Most likely in setting of COPD exacerbation from bronchitis. Does have a recent history of COVID-19. Currently on 1 L ox supplementation. Oxygen supplementation keeping saturation over 90%. Continue with DuoNeb every 6 hour, Pulmicort twice daily. Continue with Flonase twice daily. Start on prednisone 40 mg oral daily. Aggressive pulmonary toilet. History of aspiration pneumonitis in the past. Start on dysphagia level 5 diet with mildly thickened fluid. (2) Bronchitis: (3) Acute exacerbation of chronic obstructive airways disease: (4) Diarrhea: Most history of C. difficile. Check GI panel along with C. difficile. If negative will start on loperamide as needed. (5) Physical deconditioning: Chronic. Currently wheelchair-bound. (6) Chronic ulcer of sacral region limited to breakdown of skin: (7) Goals of care, counseling/discussion: I had goals of care and CODE STATUS discussion with the patient in detail. She wants to remain DNR/DNI. Son will be the DPOA. Plan Hypertension: Goal blood pressure less than 140/90 mmHg. Blood pressure is elevated in the ER as patient missed her morning meds. For now continue with amlodipine 5 mg daily, metoprolol 25 mg twice daily at home dose. Uptitrate for goal blood pressure. Continue other chronic home medications including Keppra, cetirizine, Celexa, Seroquel, pregabalin. CODE STATUS: DNR/DNI Dysphagia level 5 diet Protonix OPD prophylaxis Heparin 5000 every 12 hourly for DVT prophylaxis. Attestations 2 Medical Necessity Statement*: Admission under observation for less than 2 midnights for management of hypoxia in setting of bronchitis leading to COPD exacerbation, diarrhea versus C. difficile is ruled out in a patient with chronic deconditioning, assisted-living resident Diagnoses Hypoxia R09.02 Bronchitis J40 Acute exacerbation of chronic obstructive airways disease J44.1 Diarrhea R19.7 Physical deconditioning R53.81 Chronic ulcer of sacral region limited to breakdown of skin L98.491 Goals of care, counseling/discussion Z71.89
[2024-04-24 15:05] LABS: Procalcitonin 0.11 ng/mL (0-0.5)
[2024-04-24] MEDS: pantoprazole 40 mg SDV IVP (15:56)
[2024-04-24] MEDS: predniSONE 20 mg Tablet 40 MG PO (15:56)
[2024-04-24] MEDS: heparin 5,000 unit/mL INJ 1 mL 5000 UNIT SUBCUT (15:56)
--- NOTE | 2024-04-24 16:27 | PC.RESP ---
Pt reports at this time that she will only be here for 1 day. At discharge she would like a script for sylvia TUCKERD.
[2024-04-24] MEDS: ALPRAZolam 0.5 mg Tablet 0.25 MG PO (17:05)
--- NOTE | 2024-04-24 17:30 | PC.NURSE ---
BEHAVIOR NOTE Pt observed yelling loudly from her room. She expressed frustration and is demanding of staff to help her hold water, adjust head, etc. She takes out IV, which is replaced by this RN. Staff attempts to intervene calmly, but pt continues to raise their voice, drawing attention from other patients and staff. She attempts to speak poorly of other staff members, etc. This RN attempts to assess specific needs that prompt yelling. This RN also explains to patient that she may not speak to and about staff poorly. Admission questions are completed by nurse at [facility], whom states that pt is demanding and yells there. She states that staff have to be firm with pt, reminding her to be kind.
--- NOTE | 2024-04-24 18:47 | PC.NURSE ---
RN has attempted five times to administer Keppra PO. Pt states that she would like to take later on each attempt. Notified oncoming nightshift nurse of pt need to take Keppra.
--- NOTE | 2024-04-24 18:49 | PC.NURSE ---
Pt home albuterol inhaler placed in [facility] bin -room 260- with sticker label.
[2024-04-24] MEDS: budesonide 0.5 mg/2 mL Neb INHALATION (20:00)
[2024-04-24] MEDS: quetiapine 25 mg Tablet PO (21:30)
[2024-04-25] VITALS (13 sets, daily range): BP systolic 106–162; BP diastolic 69–97; PULSE 70–112; RESP 14–22; TEMP 36.4–36.8; O2SAT 88–100
[2024-04-25] MEDS: HYDROcodone-acetaminophen 5-325 mg Tablet 1 TAB PO ×3 (00:50→20:23)
[2024-04-25 05:27] LABS: Basophils % 0.3 %; Hematocrit 45.9 % (36-47); Lymphocytes % 15.6 %; Mean Corpuscular HGB Conc 33.3 g/dL (30-55); Mean Corpuscular Hemoglobin 32.8 pg (27-33); Mean Corpuscular Volume 98.5 fl (85-98); Mean Platelet Volume 10.7 fL (7.4-10.4); Monocytes # 0.9 10^3/uL (0.2-0.9); Monocytes % 7.5 %; Neutrophils # 9.56 10^3/uL (1.8-7.7); Neutrophils % 76.1 %; Nucleated Red Blood Cells % 0 %; Platelet Count 378 10^3/cmm (157-399); Red Blood Count 4.66 10^6/uL (3.85-5.65); Red Cell Distribution Width 14.7 % (12.1-15.1); White Blood Count 12.56 10^3/uL (3.29-11.43)
[2024-04-25 05:51] LABS: Alanine Aminotransferase 12 U/L (0-33); Albumin Level 4.1 g/dL (3.5-5.2); Alkaline Phosphatase 102 U/L (35-105); Anion Gap 14.8 (5-19); Aspartate Amino Transferase 24 U/L (0-32); Blood Urea Nitrogen 11 mg/dL (8-23); Calcium 10.5 mg/dL (8.5-10.5); Carbon Dioxide 31 mmol/L (22-29); Chloride 98 mmol/L (98-107); Creatinine Clr Calc Pharmacy 40.0618; Globulin 3.2 g/dL (1.3-4.6); Glomerular Filtration Rate 123.8 mL/min (90-130); Glucose 89 mg/dL (65-115); Osmolality Calculated 289 mOsm/kg (285-295); Phosphorus 3.8 mg/dL (2.5-4.5); Potassium 3.8 mmol/L (3.5-5.1); Sodium 140 mmol/L (136-145); Total Bilirubin 0.4 mg/dL (0.15-1.2); Total Protein 7.3 g/dL (6.6-8.7)
[2024-04-25 05:56] LABS: Procalcitonin 0.16 ng/mL (0-0.5)
[2024-04-25] MEDS: budesonide 0.5 mg/2 mL Neb INHALATION ×2 (08:24→20:06)
[2024-04-25] MEDS: ipratropium-albuterol 3 mL Neb INHALATION ×4 (08:24→20:06)
--- NOTE | 2024-04-25 10:17 | PC.CHAP ---
Pastoral Care Encounter/Spiritual Assessment Type of Contact [] Declined aircraft riveter visit [] Patient/Family/Request visit [] Outpatient visit [] Follow-up visit [] Physician referral [] Code/Alert [] Routine visit [] Staff referral [] Actively dying [x] Patient sleeping [] Family support [] [] Out of room [] Palliative care [] [] Receiving care in room [] Pre-surgical visit [] Trauma [] Long length of stay [] ICU visit [] Other: Relational/Emotional Strength [] Patient feels connected with others/family/visitors/staff [] Distress [] Loneliness/isolation [] Abandonment Spirituality of Patient [] Person of Osiris [] Attends Roman Catholic of their Osiris [] Believes in Prayer [] Reads Bible or Worship materials [] There are Spiritual issues to be addressed Dining Room Coordinator Interventions [] Prayer [] Active listening [] Non-anxious presence [] Spiritual/emotional support [] Crisis/trauma care [] Spiritual counseling [] Bereavement support [] Provided bereavement packet [] Provided Bible/devotional materials [] Provided toy/stuffed animal, coloring book to patient or family member [] Provided Communion [] Anointing/[place] [] Salvation [] Completed spiritual assessment [] Other: Impact on Illness or Injury [] Angry [] Fearful [] Anxious [] Often cries [] Exhaustion [] Unable to work [] Unable to attend cheondoism [] Unable to walk/stand [] Unable to read [] Unable to drive [] Unable to eat/drink [] Unable to sleep [] Unable to be with family [] Patient intubated [] Other: Summary Time spent with patient
--- NOTE | 2024-04-25 12:24 | P.PN_ITS ---
Subjective 2 Subjective: No acute events overnight. Patient's oxygen supplementation overnight has gone up to 3 to 4 L. Today morning on examination states she is feeling weak. Has been declining some of her oral medications. States she does not feel like taking the medications. Again seen later in the day with family at bedside. Patient is agreeable to side taking some medications. Denies any nausea, vomiting, headache. Vitals/I&O/Wt Last Vital Signs Temp 97.6 F 04/26/24 08:00 Pulse 88 04/26/24 11:46 Resp 18 04/26/24 11:46 BP 146/85 04/26/24 08:00 Pulse Ox 97 04/26/24 11:46 O2 Del Method Nasal Cannula 04/26/24 11:46 O2 Flow Rate 3 04/26/24 11:46 Weight last 48 hrs Weight 34.745 kg Weight 36.174 kg Weight 36.197 kg Weight 43.091 kg Physical Exam 2 Narrative: General: No acute distress, AO x3, Chronically sick appearing, HEENT: PERRLA, pupils bilaterally equal and reactive Chest: Bilateral bronchial breath sounds over lung craw[place] CVS: S1-S2 regular, no murmurs, no tachycardia, no gallops, no rubs Abdomen: Soft, nontender, no organomegaly, bowel sounds present Neuro: No focal deficits, no facial deformity, AO x3, Data 04/25/24 04:26 04/25/24 04:26 Micro: Microbiology 04/24/24 09:15 Urine Culture - Final Urine,Clean Catch 04/24/24 09:06 Blood Culture - Preliminary Blood NEGATIVE TO DATE 04/24/24 08:54 Blood Culture - Preliminary Blood NEGATIVE TO DATE A&P Assessment and plan (1) Hypoxia: Most likely in setting of COPD exacerbation from bronchitis. Does have a recent history of COVID-19. Currently on 1 L ox supplementation. Oxygen supplementation keeping saturation over 90%. Continue with DuoNeb every 6 hour, Pulmicort twice daily. Continue with Flonase twice daily. Start on prednisone 40 mg oral daily. Aggressive pulmonary toilet. History of aspiration pneumonitis in the past. Start on dysphagia level 5 diet with mildly thickened fluid. (2) Bronchitis: (3) Acute exacerbation of chronic obstructive airways disease: (4) Diarrhea: Most history of C. difficile. Check GI panel along with C. difficile. If negative will start on loperamide as needed. (5) Physical deconditioning: Chronic. Currently wheelchair-bound. (6) Chronic ulcer of sacral region limited to breakdown of skin: (7) Goals of care, counseling/discussion: I had goals of care and CODE STATUS discussion with the patient in detail. She wants to remain DNR/DNI. Son will be the DPOA. Plan Hypertension: Goal blood pressure less than 140/90 mmHg. Blood pressure is elevated in the ER as patient missed her morning meds. For now continue with amlodipine 5 mg daily, metoprolol 25 mg twice daily at home dose. Uptitrate for goal blood pressure. Continue other chronic home medications including Keppra, cetirizine, Celexa, Seroquel, pregabalin. CODE STATUS: DNR/DNI Dysphagia level 5 diet Protonix OPD prophylaxis Heparin 5000 every 12 hourly for DVT prophylaxis. Plan for the day: Patient's oxygen supplementation has gone up to up to 3 to 4 L today. Patient is significantly weak. Has been denying some of her oral medications. Continue prednisone 40 mg oral daily. Incentive spirometry. Nebulization treatment with DuoNeb and Pulmicort. Had a detailed goals of care discussion with patient separately and then with family at bedside. We discussed unfortunately patient is extremely weak, declining within the last few months with multiple admissions with a BMI of 15. We discussed unfortunately patient does have COPD and given her physical deconditioning she is finding difficult sometimes to maintain her airway causing her to aspirate or clear her throat causing her to have repeated aspiration pneumonia. Discussed unfortunately each time she comes to the hospital she gets weaker and weaker more than before. Discussed possibility of 2 options going forward 1 being possible PEG tube placement through which chances of aspiration are low but not completely gone while we see if her BMI increases along versus possible transitioning to hospice which would mean continuation of her oral medications and if and when she gets sick again rather than bringing her to hospital plan will be to keep her at home while nature takes its own course which would mean that she could . Patient after thinking wants to go ahead and set up hospice at assisted living. Will consult case management once available. Attestations 2 Medical Necessity Statement*: Requires further hospitalization while hospice is set up an outpatient with concerns for severe physical deconditioning, cachexia, diarrhea admitted for hypoxia in setting of bronchitis, concerns for aspiration pneumonitis Diagnoses Hypoxia R09.02 Bronchitis J40 Acute exacerbation of chronic obstructive airways disease J44.1 Diarrhea R19.7 Physical deconditioning R53.81 Chronic ulcer of sacral region limited to breakdown of skin L98.491 Goals of care, counseling/discussion Z71.89
[2024-04-25] MEDS: pantoprazole 40 mg SDV IVP (13:40)
[2024-04-25] MEDS: heparin 5,000 unit/mL INJ 1 mL 5000 UNIT SUBCUT (13:40)
[2024-04-25] MEDS: amlodipine 5 mg Tablet PO (14:02)
[2024-04-25] MEDS: levETIRAcetam 500 mg Tablet PO ×2 (14:02→16:33)
[2024-04-25] MEDS: pregabalin 50 mg Capsule PO (14:02)
[2024-04-25] MEDS: predniSONE 20 mg Tablet 40 MG PO (14:02)
[2024-04-25] MEDS: metoprolol tartrate 25 mg Tablet PO (14:03)
[2024-04-25] MEDS: citalopram 20 mg Tablet PO (14:03)
[2024-04-25] MEDS: quetiapine 25 mg Tablet PO (20:23)
[2024-04-26] VITALS (9 sets, daily range): BP systolic 117–153; BP diastolic 74–92; PULSE 69–105; RESP 13–20; TEMP 36.4–36.9; O2SAT 94–100
[2024-04-26] MEDS: HYDROcodone-acetaminophen 5-325 mg Tablet 1 TAB PO ×3 (03:30→20:37)
[2024-04-26] MEDS: heparin 5,000 unit/mL INJ 1 mL 5000 UNIT SUBCUT (03:30)
[2024-04-26] MEDS: ipratropium-albuterol 3 mL Neb INHALATION ×3 (09:09→20:13)
[2024-04-26] MEDS: budesonide 0.5 mg/2 mL Neb INHALATION ×2 (09:09→20:13)
[2024-04-26] MEDS: metoprolol tartrate 25 mg Tablet PO ×2 (10:24→17:33)
[2024-04-26] MEDS: levETIRAcetam 500 mg Tablet PO (10:24)
[2024-04-26] MEDS: predniSONE 20 mg Tablet 40 MG PO (10:24)
[2024-04-26] MEDS: amlodipine 5 mg Tablet PO (10:24)
[2024-04-26] MEDS: pregabalin 50 mg Capsule PO (10:24)
[2024-04-26] MEDS: cetirizine 10 mg Tablet 5 MG PO (10:25)
[2024-04-26] MEDS: citalopram 20 mg Tablet PO (10:25)
--- NOTE | 2024-04-26 12:24 | P.PN_ITS ---
Subjective 2 Subjective: Sitting up in chair today. States she is feeling better than yesterday. On 2 L of oxygen. Saturating 97%. Vitals/I&O/Wt Last Vital Signs Temp 97.6 F 04/26/24 08:00 Pulse 88 04/26/24 11:46 Resp 18 04/26/24 11:46 BP 146/85 04/26/24 08:00 Pulse Ox 97 04/26/24 11:46 O2 Del Method Nasal Cannula 04/26/24 11:46 O2 Flow Rate 3 04/26/24 11:46 Weight last 48 hrs Weight 34.745 kg Weight 36.174 kg Weight 36.197 kg Weight 43.091 kg Physical Exam 2 Narrative: General: No acute distress, AO x3, Chronically sick appearing, HEENT: PERRLA, pupils bilaterally equal and reactive Chest: Bilateral bronchial breath sounds over lung [place] CVS: S1-S2 regular, no murmurs, no tachycardia, no gallops, no rubs Abdomen: Soft, nontender, no organomegaly, bowel sounds present Neuro: No focal deficits, no facial deformity, AO x3, Data 04/25/24 04:26 04/25/24 04:26 Micro: Microbiology 04/24/24 09:15 Urine Culture - Final Urine,Clean Catch 04/24/24 09:06 Blood Culture - Preliminary Blood NEGATIVE TO DATE 04/24/24 08:54 Blood Culture - Preliminary Blood NEGATIVE TO DATE A&P Assessment and plan (1) Hypoxia: Most likely in setting of COPD exacerbation from bronchitis. Does have a recent history of COVID-19. Currently on 1 L ox supplementation. Oxygen supplementation keeping saturation over 90%. Continue with DuoNeb every 6 hour, Pulmicort twice daily. Continue with Flonase twice daily. Start on prednisone 40 mg oral daily. Aggressive pulmonary toilet. History of aspiration pneumonitis in the past. Start on dysphagia level 5 diet with mildly thickened fluid. (2) Bronchitis: (3) Acute exacerbation of chronic obstructive airways disease: (4) Diarrhea: Most history of C. difficile. Check GI panel along with C. difficile. If negative will start on loperamide as needed. (5) Physical deconditioning: Chronic. Currently wheelchair-bound. (6) Chronic ulcer of sacral region limited to breakdown of skin: (7) Goals of care, counseling/discussion: Had a detailed goals of care discussion with patient separately and then with family at bedside. We discussed unfortunately patient is extremely weak, declining within the last few months with multiple admissions with a BMI of 15. We discussed unfortunately patient does have COPD and given her physical deconditioning she is finding difficult sometimes to maintain her airway causing her to aspirate or clear her throat causing her to have repeated aspiration pneumonia. Discussed unfortunately each time she comes to the hospital she gets weaker and weaker more than before. Discussed possibility of 2 options going forward 1 being possible PEG tube placement through which chances of aspiration are low but not completely gone while we see if her BMI increases along versus possible transitioning to hospice which would mean continuation of her oral medications and if and when she gets sick again rather than bringing her to hospital plan will be to keep her at home while nature takes its own course which would mean that she could . Patient after thinking wants to go ahead and set up hospice at [facility]. Will consult case management once available. Plan Hypertension: Goal blood pressure less than 140/90 mmHg. Blood pressure is elevated in the ER as patient missed her morning meds. For now continue with amlodipine 5 mg daily, metoprolol 25 mg twice daily at home dose. Uptitrate for goal blood pressure. Continue other chronic home medications including Keppra, cetirizine, Celexa, Seroquel, pregabalin. CODE STATUS: DNR/DNI Dysphagia level 5 diet Protonix OPD prophylaxis Heparin 5000 every 12 hourly for DVT prophylaxis. Plan for the day: Continue with current medication. Will consult case management once available tomorrow for hospice set up to [facility]. Attestations 2 Medical Necessity Statement*: Requires further hospitalization while hospice is set up. Diagnoses Hypoxia R09.02 Bronchitis J40 Acute exacerbation of chronic obstructive airways disease J44.1 Diarrhea R19.7 Physical deconditioning R53.81 Chronic ulcer of sacral region limited to breakdown of skin L98.491 Goals of care, counseling/discussion Z71.89
--- NOTE | 2024-04-26 15:45 | PC.NURSE ---
Respiratory therapist notified this nurse that patient was not in her room for her breathing treatment. Prior to this, patient and visitor at the bedside had asked RT if they could go outside. This nurse and RT informed patient and visitor that when inpatient at the hospital, remaining on the unit is the policy for the best patient care. Patient was seen outside in front of the main entrance, patient and patient visitor both smoking a cigarette. This nurse approached both patient and visitor, once again informing them of the policy and rules for best patient care. Patient and patient visitor stated, We didn't know we couldn't leave the floor. This nurse then reminded both patient and visitor of the conversation prior to them leaving the floor. Patient visitor then stated, I didn't hear anyone say that we couldn't come outside. Both patient and visitor continued smoking despite the information given again that patient needed to be brought back inside and on the unit. Approximately 5 minutes later patient visitor brought patient back inside and on unit. As visitor was leaving she stopped at the elevator and apologized to this nurse stating, I just wanted to apologize, we didn't know we couldn't go outside. This nurse stated back to visitor, Thank you, it's okay. Visitor then asked, And by the way, what was your name again? This nurse gave patient's visitor name and then patient visitor left the unit.
--- NOTE | 2024-04-26 18:34 | PC.NURSE ---
In patient's room to talk with patient about her going outside with her daughter in law and the confusion that might have happened when the patient's daughter in law was returning the wheel chair to the desk. I asked the patient if she remember me from yesterday? Patient stated, Yes you are the nice one. I explained to the patient that it was passed on to me that she and her daughter in law were unhappy because her daughter in law saw [place] her nurse talking with me at the desk and thought that we were talking about her medical information at the desk. I explained to the patient that Georgia was talking to me about her because I am the charge nurse and she was telling me that you had left the floor and went outside after she had asked you not to. The patient states, I don't know anything about that but if my nurse did tell me I could not go outside I did not her here and neither did my daughter in law. I explained to the patient that it is okay we just don't like people to go outside with their IV's and it is a non-smoking hospital. Patient states, I understand and I am sorry. I explained to the patient I just wanted to explain to the patient what we were talking about and that I would be here tomorrow if her daughter in law would like to talk with me. Patient states, No we are fine. Asked patient if she needed anything and patient states, No but thank you for being so nice to me. I stated, No thank you for letting me take are of you.
[2024-04-26] MEDS: quetiapine 25 mg Tablet PO (20:37)
[2024-04-27] VITALS: BP 111/65; PULSE 70; RESP 15; TEMP 36.8; O2SAT 100
[2024-04-27 04:00] VITALS: BP 126/73; PULSE 78; RESP 16; TEMP 36.6; O2SAT 96
[2024-04-27] MEDS: HYDROcodone-acetaminophen 5-325 mg Tablet 1 TAB PO (07:52)
[2024-04-27] MEDS: pregabalin 50 mg Capsule PO (07:52)
[2024-04-27] MEDS: cetirizine 10 mg Tablet 5 MG PO (07:52)
[2024-04-27] MEDS: amlodipine 5 mg Tablet PO (07:52)
[2024-04-27] MEDS: predniSONE 20 mg Tablet 40 MG PO (07:53)
[2024-04-27] MEDS: citalopram 20 mg Tablet PO (07:54)
[2024-04-27] MEDS: metoprolol tartrate 25 mg Tablet PO (07:54)
[2024-04-27] MEDS: levETIRAcetam 500 mg Tablet PO (07:54)
[2024-04-27 08:00] VITALS: BP 134/88; PULSE 86; RESP 15; TEMP 36.5; O2SAT 92
--- NOTE | 2024-04-27 11:01 | P.DS_ITS ---
Discharge Providers Date of Admission: 04/24/24 13:31 Date of Discharge: April 27, 2024 Attending Provider at Admission: Taurus Stover MD Attending Provider at Discharge: Taurus Stover MD Primary Care Provider: Rosy Javier Diagnoses at Discharge Discharge Diagnosis (1) Hypoxia: Status: Acute (2) Bronchitis: Status: Acute (3) Acute exacerbation of chronic obstructive airways disease: Status: Acute (4) Diarrhea: Status: Acute (5) Physical deconditioning: Status: Acute (6) Chronic ulcer of sacral region limited to breakdown of skin: Status: Acute (7) Goals of care, counseling/discussion: Status: Acute Reason for Visit Reason for Visit: SOB Hospital Course Hospital Course Nicolasa Kothari is a 63 year old female [facility] resident with past history of hypertension, seizure, normal pressure hydrocephalus, depression, arthritis, recent COVID-19, concern for aspiration pneumonitis, past C. difficile, grade 1 diastolic dysfunction was sent to the ER today from home with concerns for hypoxia. It seems patient has been having diarrhea for last 3 days along with poor appetite and vomiting. On presentation in the ER she was on 5 L which was quickly turned down to 1 L. Patient had not received her morning medications today. On examination patient lying comfortably in bed, awake and alert on 1 L of oxygen supplementation saturating more than 92%. 3 days ago. She has been complaining of cough which started 2 days ago. Denies any difficulty in breathing, dysuria. Denies any abdominal pain. Asking when can she go back to assisted living. Patient was admitted to the hospital further evaluation and management. C. difficile is ruled out. During hospitalization oxygen requirement continued to go up and required up to 4 L most likely in setting of generalized weakness leading to aspiration and inability to clear her throat. Because of recurrent hospitalization a detailed goals of care discussion with patient separately and then with family at bedside. We discussed unfortunately patient is extremely weak, declining within the last few months with multiple admissions with a BMI of 15. We discussed unfortunately patient does have COPD and given her physical deconditioning she is finding difficult sometimes to maintain her airway causing her to aspirate or clear her throat causing her to have repeated aspiration pneumonia. Discussed unfortunately each time she comes to the hospital she gets weaker and weaker more than before. Discussed possibility of 2 options going forward 1 being possible PEG tube placement through which chances of aspiration are low but not completely gone while we see if her BMI increases along versus possible transitioning to hospice which would mean continuation of her oral medications and if and when she gets sick again rather than bringing her to hospital plan will be to keep her at home while nature takes its own course which would mean that she could . Patient after thinking wants to go ahead and set up hospice at assisted living. Physical Exam Narrative: General: No acute distress, AO x3, Chronically sick appearing, HEENT: PERRLA, pupils bilaterally equal and reactive Chest: Bilateral bronchial breath sounds over lung crawford CVS: S1-S2 regular, no murmurs, no tachycardia, no gallops, no rubs Abdomen: Soft, nontender, no organomegaly, bowel sounds present Neuro: No focal deficits, no facial deformity, AO x3, Discharge Data Studies Completed and Pending Completed Studies During Hospitalization Category Date Time Status XR chest 1V portable 40520 Stat Exams 04/24/24 07:19 Completed Pending at discharge Category Date Time Status Blood Culture Stat Lab 04/24/24 09:06 Results Gastrointestinal Pathogen Herbert Routine Lab 04/24/24 12:15 Received Radiology Impressions Chest X-Ray 04/24/24 07:19 Impression: Atherosclerosis. Laboratory Results WBC 12.56 10^3/uL (3.29-11.43) H 04/25/24 04:26 RBC 4.66 10^6/uL (3.85-5.65) 04/25/24 04:26 Hgb 15.30 g/dL (11.27-16.99) 04/25/24 04:26 Hct 45.9 % (36-47) 04/25/24 04:26 MCV 98.5 fl (85-98) H 04/25/24 04:26 MCH 32.8 pg (27-33) 04/25/24 04:26 MCHC 33.3 g/dL (30-55) 04/25/24 04:26 RDW 14.7 % (12.1-15.1) 04/25/24 04:26 Plt Count 378 10^3/cmm (157-399) 04/25/24 04:26 MPV 10.7 fL (7.4-10.4) H 04/25/24 04:26 Neut % (Auto) 76.1 % 04/25/24 04:26 Lymph % (Auto) 15.6 % 04/25/24 04:26 [place] % (Auto) 7.5 % 04/25/24 04:26 Eos % (Auto) 0.0 % 04/25/24 04: Baso % (Auto) 0.3 % 04/25/24 04:26 Neut # (Auto) 9.56 10^3/uL (1.8-7.7) H 04/25/24 04:26 Lymph # (Auto) 2.0 10^3/uL (0.8-4.8) 04/25/24 04:26 [place] # (Auto) 0.9 10^3/uL (0.2-0.9) 04/25/24 04:26 Eos # (Auto) 0.0 10^3/uL (0.0-0.8) 04/25/24 04: Baso # (Auto) 0.0 10^3/uL (0.0-0.1) 04/25/24 04: Nucleated RBC % (auto) 0 % 04/25/24 04: Nucleated RBCs # 0.0 /100WBC 04/25/24 04:26 Specimen Type Arterial 04/24/24 10:23 Sample Site Radial, right 04/24/24 10:23 ABG pH 7.40 (7.35-7.45) 04/24/24 10:23 ABG pCO2 57.4 mmHg (35-45) H 04/24/24 10:23 ABG pO2 115.0 mmHg (80.0-100.0) H 04/24/24 10:23 ABG PO2/FiO2 Ratio 410 04/24/24 10:23 ABG HCO3 35.1 mmol/L (22-26) H 04/24/24 10:23 ABG Base Excess 7.9 mmol/L (-2.0-2.0) H 04/24/24 10:23 Zack Test Pos 04/24/24 10:23 Hematocrit 47.8 % (37-47) H 04/24/24 10:23 O2 Delivery Device Nc 04/24/24 10:23 O2 Liters/Min 2.0 % 04/24/24 10:23 FiO2 28.0 % 04/24/24 10:23 Planimeter Operator ID [email or web address] 04/24/24 10:23 Sodium 140 mmol/L (136-145) 04/25/24 04:26 Potassium 3.8 mmol/L (3.5-5.1) 04/25/24 04:26 Chloride 98 mmol/L (98-107) 04/25/24 04:26 Carbon Dioxide 31 mmol/L (22-29) H 04/25/24 04:26 Anion Gap 14.8 (5-19) 04/25/24 04:26 BUN 11 mg/dL (8-23) 04/25/24 04:26 Creatinine 0.5 mg/dL (0.5-0.9) 04/25/24 04:26 GFR Calculation 123.8 mL/min (90-130) 04/25/24 04:26 Glucose 89 mg/dL (65-115) 04/25/24 04:26 Calculated Osmolality 289 mOsm/kg (285-295) 04/25/24 04:26 Lactic Acid 1.2 mmol/L (0.5-2.2) 04/24/24 07:48 Calcium 10.5 mg/dL (8.5-10.5) 04/25/24 04:26 Phosphorus 3.8 mg/dL (2.5-4.5) 04/25/24 04:26 Magnesium 2.0 mg/dL (1.7-2.3) 04/25/24 04:26 Total Bilirubin 0.4 mg/dL (0.15-1.2) 04/25/24 04:26 AST 24 U/L (0-32) 04/25/24 04:26 ALT 12 U/L (0-33) 04/25/24 04:26 Alkaline Phosphatase 102 U/L (35-105) 04/25/24 04:26 NT-Pro-B Natriuret Pep 477 pg/mL (0-125) H 04/24/24 07:48 Total Protein 7.3 g/dL (6.6-8.7) 04/25/24 04:26 Albumin 4.1 g/dL (3.5-5.2) 04/25/24 04:26 Globulin 3.2 g/dL (1.3-4.6) 04/25/24 04:26 Procalcitonin 0.16 ng/mL (0-0.5) 04/25/24 04:26 Urine Color Yellow (Yellow) 04/24/24 09:15 Urine Appearance Clear (CLEAR) 04/24/24 09:15 Urine pH 6.5 (5-7) 04/24/24 09:15 Ur Specific [place] 1.005 (1.005-1.030) 04/24/24 09:15 Urine Protein Negative (Negative) 04/24/24 09:15 Urine Glucose (UA) Negative (Normal) 04/24/24 09:15 Urine Ketones Negative (Negative) 04/24/24 09:15 Urine Blood Negative (Negative) 04/24/24 09:15 Urine Nitrate Negative (Negative) 04/24/24 09:15 Urine Bilirubin Negative (Negative) 04/24/24 09:15 Urine Urobilinogen 0.2 mg/dL (Negative) 04/24/24 09:15 Ur Leukocyte Esterase 1+ (Negative) A 04/24/24 09:15 Urine RBC 0-2 /hpf (0-2) 04/24/24 09:15 Urine WBC 6-10 /hpf (0-5) 04/24/24 09:15 Ur Squamous Epith Cells 6-10 /hpf (0-5) 04/24/24 09:15 Amorphous Sediment Not Reportable 04/24/24 09:15 Urine Bacteria 4+ /hpf (NONE) H 04/24/24 09:15 Hyaline Casts 1.65 /lpf 04/24/24 09:15 Urine Mucus Trace /hpf 04/24/24 07:57 C. difficile (PCR) Negative (Negative) 04/24/24 12:15 Coronavirus (PCR) Negative (Negative) 04/24/24 09:53 Influenza A (PCR) Negative (Negative) 04/24/24 09:53 Influenza Type B (PCR) Negative (Negative) 04/24/24 09:53 RSV (PCR) Negative (Negative) 04/24/24 09:53 Vitals Last Vital Signs Temp 97.7 F 04/27/24 08:00 Pulse 86 04/27/24 08:00 Resp 15 04/27/24 08:00 BP 134/88 04/27/24 08:00 Pulse Ox 92 04/27/24 08:00 O2 Del Method Nasal Cannula 04/27/24 08:00 O2 Flow Rate 3 04/26/24 20:13 Discharge Plan Discharge Patient Disposition: Hospice - Home Condition: Stable Prescriptions: New prednisone 20 mg Tablet 40 mg PO DAILY Qty: 10 0RF Continued ipratropium-albuterol 0.5 mg-3 mg(2.5 mg base)/3 mL Solution For Nebulization 3 ml INHALATION QID cetirizine 5 mg Tablet 5 mg PO DAILY fluticasone propionate 50 mcg/actuation [place],Suspension 2 spray INTRANASAL DAILY Rx Instructions: administer into each nostril cholecalciferol (vitamin D3) 25 mcg (1,000 unit) tablet 1,000 unit PO TID acetaminophen [Tylenol] 325 mg Tablet 650 mg PO QID PRN (Reason: Pain) hydrocodone-acetaminophen 5-325 mg Tablet 1 tab PO Q6H PRN (Reason: Pain) pregabalin 50 mg Capsule 50 mg PO DAILY Qty: 30 0RF levetiracetam 500 mg tablet extended release 24 hr 500 mg PO BID docusate sodium [Colace] 100 mg Capsule 100 mg PO BID PRN (Reason: Constipation) polyethylene glycol 3350 [Miralax] 17 gram/dose Powder 17 g PO DAILY quetiapine 25 mg Tablet 25 mg PO BEDTIME amlodipine 5 mg tablet 5 mg PO DAILY citalopram 20 mg Tablet 20 mg PO DAILY celecoxib 100 mg Capsule 100 mg PO DAILY metoprolol tartrate 25 mg tablet 25 mg PO BID potassium chloride 20 mEq Tablet Extended Release 20 meq PO BID Discharge Orders: Discharge Order (Routine); Ordered 04/27/24 Ordered By: Taurus Stover Referrals: Rosy Javier PA [Primary Care Provider] - 4-7 days (We have notified your physician's clinic of the need for a follow-up appointment to be scheduled. If you have not heard from them within the next 2 business days, please call them directly. ) Discharge Diet: Advance as tolerated Discharge Activity: Resume usual activity and Increase activity as tolerated Patient Instructions: Opioid Safety Activity Restrictions/Additional Instructions: Hospice care Discharge Attestations Time Spent in Discharge Care*: greater than 30 min Specific Discharge Activities: educating patient, discussing with pcp/other providers, discussing with test case developer/social workers/dc planners, documenting/other paperwork and evaluating patient/reviewing data Status at Discharge: Cognitive status at discharge: cognitively intact , Behavioral status at discharge: cooperative , Functional status at discharge: uses cane/walker , Overall status at discharge: patient is back to baseline Quality Metrics Clinical Quality Measures [ No reported AMI, CVA or VTE this stay] Coding Level of Care Code 02178 Total time (in minutes) for Discharge: 50 Diagnoses Hypoxia R09.02 Bronchitis J40 Acute exacerbation of chronic obstructive airways disease J44.1 Diarrhea R19.7 Physical deconditioning R53.81 Chronic ulcer of sacral region limited to breakdown of skin L98.491 Goals of care, counseling/discussion Z71.89
--- NOTE | 2024-04-27 11:36 | PC.SOCIAL ---
IMM Update pg 2 of IMM Updated and reviewed w/ patient. Copy provided and copy dated, initialed and placed in chart.
[2024-04-27 11:45] VITALS: BP 132/79; PULSE 63; RESP 14; TEMP 36.6; O2SAT 97
[2024-04-27] MEDS: ipratropium-albuterol 3 mL Neb INHALATION (11:49)
[2024-04-27 11:50] VITALS: PULSE 70; RESP 18; O2SAT 95
[2024-04-27] MEDS: pantoprazole 40 mg SDV IVP (14:27)
[2024-04-27] MEDS: heparin 5,000 unit/mL INJ 1 mL 5000 UNIT SUBCUT (14:27)
[2024-04-27 17:44] LABS: Campylobacter Group NOT DETECTED (NOT DETECTED); Norovirus GI/GII NOT DETECTED (NOT DETECTED); Rotavirus A NOT DETECTED (NOT DETECTED); Shiga Toxin 1 NOT DETECTED (NOT DETECTED); Shigella Species NOT DETECTED (NOT DETECTED); Vibrio Group NOT DETECTED (NOT DETECTED); Yersinia Enterocolotica NOT DETECTED (NOT DETECTED)
== END 2024-04-27 16:51 | disposition hospice, home (50) | DRG 202 ==
LOC: ER 08:03 → MEDSURG 13:31
PROVIDERS: Family Medicine; Admitting Provider Student in an Organized Health Care Education/Training Program; PCP Physician Assistant; Visit Provider Student in an Organized Health Care Education/Training Program
DX: J20.9 Acute bronchitis, unspecified (principal); E46 Unspecified protein-calorie malnutrition; G91.2 (Idiopathic) normal pressure hydrocephalus; J44.0 Chronic obstructive pulmonary disease with (acute) lower respiratory infection; J44.1 Chronic obstructive pulmonary disease with (acute) exacerbation; I50.32 Chronic diastolic (congestive) heart failure; Z68.1 Body mass index [BMI] 19.9 or less, adult; R09.02 Hypoxemia; R19.7 Diarrhea, unspecified; L89.152 Pressure ulcer of sacral region, stage 2; I11.0 Hypertensive heart disease with heart failure; G40.909 Epilepsy, unspecified, not intractable, without status epilepticus; F32.A Depression, unspecified; M19.90 Unspecified osteoarthritis, unspecified site; G24.9 Dystonia, unspecified; R13.10 Dysphagia, unspecified; Z98.1 Arthrodesis status; Z79.891 Long term (current) use of opiate analgesic; Z66 Do not resuscitate; Z86.16 Personal history of COVID-19
CPT/HCPCS: 36415; 36600; 71045; 80053; 81001; 82803; 83605; 83735; 83880; 84100; 84145; 85025; 86403; 87040; 87086; 87493; 87506; 87637; 93005; 94640; 96372; 96374; 99285; J0360; J1644; J2470; J7030; J7512; J7626

== ENCOUNTER 2024-08-10 17:35 | Outpatient (CLI) | payer MEDICARE, SELFPAY | END 2024-08-10 17:36 | disposition home or self-care (01) | PROVIDERS: PCP Physician Assistant; Visit Provider Family Medicine | DX: A04.72 Enterocolitis due to Clostridium difficile, not specified as recurrent (principal) | CPT/HCPCS: 87177; 87209 ==